=== PATIENT | female | born 1955 | race Caucasian/White ===

== ENCOUNTER 2019-04-23 16:02 | Inpatient (IN) | payer MEDICARE ==
[~2019-04-23] VITALS: Ht 162.6 cm; Wt 49.0 kg
--- NOTE | 2019-04-23 17:21 | PHYS DOC ---
Past History Past Medical History: Anxiety, Arthritis, Depression, Hepatitis, Schizophrenia Alcohol Use: None Adult General Chief Complaint Chief Complaint: MEDICAL CLEARANCE HPI HPI Patient is a 64-year-old female who presents with complaint of medications needing adjusting. Patient is here for medical clearance for senior behavioral unit. She denies any suicidal or homicidal ideations. She denies any chest pain or shortness of breath.[] Review of Systems Review of Systems Constitutional: Denies fever or chills [] Respiratory: Denies cough or shortness of breath [] Cardiovascular: No additional information not addressed in HPI [] Musculoskeletal: Admits to chronic back pain [] Integument: Denies rash or skin lesions [] Neurologic: Denies headache, focal weakness or sensory changes [] All other systems were reviewed and found to be within normal limits, except as documented in this note. Allergies Allergies Allergies Coded Allergies Type Severity Reaction Last Updated Verified No Known Drug Allergies 04/23/19 No Physical Exam Physical Exam Constitutional: Well developed, well nourished, no acute distress, non-toxic appearance. [] HENT: Normocephalic, atraumatic, bilateral external ears normal, oropharynx moist, no oral exudates, nose normal. [] Eyes: PERRLA, EOMI, conjunctiva normal, no discharge. [] Neck: Normal range of motion, no tenderness, supple, no stridor. [] Cardiovascular: Regular rate and rhythm[] Lungs & Thorax: Bilateral breath sounds clear to auscultation [] Abdomen: Bowel sounds normal, soft, no tenderness. [] Skin: Warm, dry, no erythema, no rash. [] Extremities: No tenderness, no cyanosis, no clubbing, ROM intact, no edema. [] Neurologic: Awake and alert, no focal deficits noted. [] Current Patient Data Vital Signs Vital Signs Date Time Temp Pulse Resp B/P (MAP) Pulse Ox O2 Delivery O2 Flow Rate FiO2 04/23/19 16:32 98.3 69 18 134/83 (100) 93 Room Air EKG EKG [] Radiology/Procedures Radiology/Procedures [] Course & Med Decision Making Course & Med Decision Making Pertinent Labs and Imaging studies reviewed. (See chart for details) Patient moved to room upon arrival was evaluated by your medical staff after which blood work was drawn UA obtained. At this time, patient's workup is pending and patient is being signed out to oncoming ER physician, Dr. Ball. Vidal Disclaimer Vidal Disclaimer This electronic medical record was generated, in whole or in part, using a voice recognition dictation system. Departure Departure: Impression: Primary Impression: Behavior disturbance Disposition: ADMITTED INPATIENT Admitting Physician: Other (Dr. Wynn) Condition: STABLE Referrals: PCP,KRISTOPHER (PCP) JL REID Jr. DO Apr 23, 2019 17:21
[2019-04-23 17:48] LABS: BASO % 1 % (0-3); EOS # 0.1 x10^3/uL (0.0-0.7); EOS % 3 % (0-3); HEMOGLOBIN 11.1 g/dL (12.0-15.5); LYMPH # 1.3 x10^3/uL (1.0-4.8); LYMPH % 27 % (24-48); MEAN CORPUSCULAR HEMOGLOBIN 32 pg (25-35); MEAN CORPUSCULAR HGB CONC 34 g/dL (31-37); MEAN CORPUSCULAR VOLUME 95 fL (79-100); MONO # 0.7 x10^3/uL (0.0-1.1); MONO % 15 % (0-9); NEUT # 2.5 x10^3uL (1.8-7.7); NEUT % 54 % (31-73); PLATELET COUNT 414 x10^3/uL (140-400); RED BLOOD COUNT 3.48 x10^6/uL (3.50-5.40); RED CELL DISTRIBUTION WIDTH 13.1 % (11.5-14.5); WHITE BLOOD COUNT 4.6 x10^3/uL (4.0-11.0)
[2019-04-23] MEDS ORDERED: ALBU2.5V8 IH (17:52)
[2019-04-23] MEDS ORDERED: BENZ2TAB5 PO (17:52)
[2019-04-23] MEDS ORDERED: TRAZ-125 PO (17:52)
[2019-04-23] MEDS ORDERED: APIX5TAB3 PO (17:52)
[2019-04-23] MEDS ORDERED: POLY17PO5 PO (17:52)
[2019-04-23] MEDS ORDERED: DOCU-109 PO (17:52)
[2019-04-23] MEDS ORDERED: CHOL200078 PO (17:52)
[2019-04-23] MEDS ORDERED: BUPR300T3 PO (17:52)
[2019-04-23] MEDS ORDERED: LOSA50TA86 PO (17:52)
[2019-04-23] MEDS ORDERED: FLUT9.9S NS (17:52)
[2019-04-23] MEDS ORDERED: OMEP20CA16 PO (17:52)
[2019-04-23] MEDS ORDERED: LEVO50TA PO (17:52)
[2019-04-23] MEDS ORDERED: CARI3CAP PO (17:52)
[2019-04-23] MEDS ORDERED: FLUT100D IH (17:52)
[2019-04-23] MEDS ORDERED: FLUV150C PO (17:52)
[2019-04-23] MEDS ORDERED: PRAZ2CAP2 PO (17:52)
[2019-04-23] MEDS ORDERED: VITA1TAB19 PO (17:52)
[2019-04-23] MEDS ORDERED: PALI234D IM (17:52)
[2019-04-23] MEDS ORDERED: MIRT45TA58 PO (17:52)
[2019-04-23 17:56] LABS: CALCIUM 9.3 mg/dL (8.5-10.1); CREATININE 0.8 mg/dL (0.6-1.0); GFR 71.8; POTASSIUM 4.2 mmol/L (3.5-5.1)
[2019-04-23 18:01] LABS: ALBUMIN 3.1 g/dL (3.4-5.0); ALBUMIN/GLOBULIN RATIO 0.8 (1.0-1.7); TOTAL BILIRUBIN 0.3 mg/dL (0.2-1.0)
[2019-04-23 18:02] LABS: BILIRUBIN,URINE NEG (NEG); CLARITY,URINE CLEAR; COLOR,URINE YELLOW; GLUCOSE,URINE NEG (NEG)
[2019-04-23 18:03] LABS: BACTERIA,URINE MOD /HPF (0-FEW); NITRITE,URINE NEG (NEG); RBC,URINE OCC /HPF (0-2); SQUAMOUS EPITHELIAL CELL,UR FEW /LPF; UROBILINOGEN,URINE 0.2 mg/dL (0.2 mg/dL)
[2019-04-23 18:04] LABS: BARBITURATES NEG (NEG); BENZODIAZEPINES NEG (NEG); CANNABINOIDS NEG (NEG); COCAINE NEG (NEG); METHADONE NEG (NEG); OPIATES NEG (NEG); PHENCYCLIDINE NEG (NEG)
[2019-04-23 18:05] LABS: AMPHETAMINE/METHAMPHETAMINE NEG (NEG)
[2019-04-23 19:15] VITALS: BP 143/71
[2019-04-23] MEDS ORDERED: POLYETHYLENE GLYCOL 3350 17 GM PACKET. PO PRN (21:00)
[2019-04-23] MEDS ORDERED: FLUTICASONE 50MCG/NASAL SPRAY 16GM BOTTLE. NS PRN (21:00)
[2019-04-23] MEDS: CARIPRAZINE HYDROCHLORIDE 3 MG PO SCH (21:00)
[2019-04-23] MEDS ORDERED: ALBUTEROL SULFATE 2.5 MG/3 ML NEBU. IH PRN (21:00)
[2019-04-23] MEDS ORDERED: FLUTICASONE PROPIONATE 100 MCG IH SCH (21:00)
[2019-04-23] MEDS ORDERED: METHYL SALICYLATE/MENTHOL TOPICAL OINTMENT 57GM TUBE. TP PRN (21:30)
[2019-04-23] MEDS: ACETAMINOPHEN 325 MG TABLET PO PRN (21:39)
[2019-04-23] MEDS: PRAZOSIN 1 MG CAPSULE. PO SCH (21:39)
[2019-04-23] MEDS: MIRTAZAPINE 15 MG TABLET PO SCH (21:39)
[2019-04-23] MEDS: APIXABAN 5 MG TABLET. PO SCH (21:39)
[2019-04-23] MEDS: traZODone 100 MG TABLET. PO PRN (21:39)
[2019-04-23] MEDS: BENZTROPINE MESYLATE 1 MG TABLET PO SCH (21:39)
--- NOTE | 2019-04-23 22:01 | PDOC ---
Exam Note: Dion Note: Please also refer to the separate dictated note~for this date of service dictated separately.~Patient seen individually. Discussed the patient with Nursing staff reviewed the chart.~Reviewed interim history and current functioning. Reviewed vital signs,~Labs/ Radiology~and current medications noted below. Continue current treatment with the changes noted in the dictated addendum note Assessment: Vital Signs/I&O: Vital Signs Date Time Temp Pulse Resp B/P (MAP) Pulse Ox O2 Delivery O2 Flow Rate FiO2 04/23/19 21:39 73 152/79 04/23/19 18:25 16 Room Air 04/23/19 17:55 99.0 04/23/19 17:32 98 04/23/19 16:32 98.3 Labs: Laboratory Tests Test 04/23/19 17:15 04/23/19 17:25 04/23/19 17:40 Urine Collection Type Unknown Urine Color Yellow Urine Clarity Clear Urine pH 7.5 Urine Specific [place] 1.015 Urine Protein Neg (NEG-TRACE) Urine Glucose (UA) Neg mg/dL (NEG) Urine Ketones (Stick) Neg mg/dL (NEG) Urine Blood Neg (NEG) Urine Nitrite Neg (NEG) Urine Bilirubin Neg (NEG) Urine Urobilinogen Dipstick 0.2 mg/dL (0.2 mg/dL) Urine Leukocyte Esterase Small (NEG) Urine RBC Occ /HPF (0-2) Urine WBC 5-10 /HPF (0-4) Urine Squamous Epithelial Cells Few /LPF Urine Transitional Epithelial Cells Few /LPF Urine Bacteria Mod /HPF (0-FEW) White Blood Count 4.6 x10^3/uL (4.0-11.0) Red Blood Count 3.48 x10^6/uL (3.50-5.40) L Hemoglobin 11.1 g/dL (12.0-15.5) L Hematocrit 33.0 % (36.0-47.0) L Mean Corpuscular Volume 95 fL (79-100) Mean Corpuscular Hemoglobin 32 pg (25-35) Mean Corpuscular Hemoglobin Concent 34 g/dL (31-37) Red Cell Distribution Width 13.1 % (11.5-14.5) Platelet Count 414 x10^3/uL (140-400) H Neutrophils (%) (Auto) 54 % (31-73) Lymphocytes (%) (Auto) 27 % (24-48) Monocytes (%) (Auto) 15 % (0-9) H Eosinophils (%) (Auto) 3 % (0-3) Basophils (%) (Auto) 1 % (0-3) Neutrophils # (Auto) 2.5 x10^3uL (1.8-7.7) Lymphocytes # (Auto) 1.3 x10^3/uL (1.0-4.8) Monocytes # (Auto) 0.7 x10^3/uL (0.0-1.1) Eosinophils # (Auto) 0.1 x10^3/uL (0.0-0.7) Basophils # (Auto) 0.0 x10^3/uL (0.0-0.2) Sodium Level 137 mmol/L (136-145) Potassium Level 4.2 mmol/L (3.5-5.1) Chloride Level 98 mmol/L (98-107) Carbon Dioxide Level 33 mmol/L (21-32) H Anion Gap 6 (6-14) Blood Urea Nitrogen 16 mg/dL (7-20) Creatinine 0.8 mg/dL (0.6-1.0) Estimated GFR (Cockcroft-Gault) 71.8 BUN/Creatinine Ratio 20 (6-20) Glucose Level 99 mg/dL (70-99) Calcium Level 9.3 mg/dL (8.5-10.1) Total Bilirubin 0.3 mg/dL (0.2-1.0) Aspartate Amino Transferase (AST) 17 U/L (15-37) Alanine Aminotransferase (ALT) 22 U/L (14-59) Alkaline Phosphatase 41 U/L (46-116) L Total Protein 7.0 g/dL (6.4-8.2) Albumin 3.1 g/dL (3.4-5.0) L Albumin/Globulin Ratio 0.8 (1.0-1.7) L Ethyl Alcohol Level < 10 mg/dL (0-10) Urine Opiates Screen Neg (NEG) Urine Methadone Screen Neg (NEG) Urine Barbiturates Neg (NEG) Urine Phencyclidine Screen Neg (NEG) Urine Amphetamine/Methamphetamine Neg (NEG) Urine Benzodiazepines Screen Neg (NEG) Urine Cocaine Screen Neg (NEG) Urine Cannabinoids Screen Neg (NEG) Urine Ethyl Alcohol Neg (NEG) Current Medications: Meds: Current Medications Medications (Trade) Dose Ordered Sig/Angelica Route PRN Reason Start Time Stop Time Status Last Admin Dose Admin Apixaban (Eliquis) 5 mg BID PO 04/23/19 21:30 04/23/19 21:39 Trazodone HCl (Desyrel) 100 mg PRN QHS PRN PO INSOMNIA, MAY REPEAT IN 1HR 04/23/19 21:00 04/23/19 21:39 Benztropine Mesylate (Cogentin) 2 mg BID PO 04/23/19 21:30 04/23/19 21:39 Fluvoxamine Maleate (Luvox) 150 mg HS PO 04/23/19 21:30 04/23/19 21:39 Mirtazapine (Remeron) 45 mg HS PO 04/23/19 21:30 04/23/19 21:39 Prazosin HCl (Minipress) 2 mg HS PO 04/23/19 21:30 04/23/19 21:39 Acetaminophen (Tylenol) 650 mg PRN Q6HRS PRN PO PAIN / TEMP 04/23/19 21:15 04/23/19 21:39 I have reviewed the current psychotropics carefully including drug interactions. Risk benefit ratio favors no change other than as noted in my dictated progress note. Diagnosis: Problems: (1) Anxiety disorder (2) Impulse control disorder (3) Schizophrenia, paranoid, chronic with acute exacerbation (4) Schizoaffective disorder, chronic condition with acute exacerbation LISA CAMACHO MD Apr 23, 2019 22:01
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
--- NOTE | 2019-04-24 00:51 | EKG ---
[address] [address] Test Date: 2019-04-23 Test Time: 16:53:28 Pat Name: GURMEET ARRIAZA Department: Room: [address] [place] [address] Gender: F Furniture Assembler: : 1955 Requested By: JL REID Order Number: [id number] Reading MD: John Sagastume Measurements Intervals [place] Rate: 70 P: 74 NH: 162 QRS: 43 QRSD: 84 T: 66 QT: 374 QTc: 407 Interpretive Statements SINUS RHYTHM QRS(T) CONTOUR ABNORMALITY CONSIDER ANTEROSEPTAL MYOCARDIAL DAMAGE Electronically Signed On 05-26-2019 14:59:49 CDT by John Sagastume
[2019-04-24] MEDS: LEVOTHYROXINE 50 MCG TABLET PO SCH (05:35)
[2019-04-24] MEDS: ACETAMINOPHEN 325 MG TABLET PO PRN (05:35)
[2019-04-24 06:28] VITALS: BP 124/66
[2019-04-24 07:41] LABS: BASO % 1 % (0-3); EOS # 0.2 x10^3/uL (0.0-0.7); EOS % 4 % (0-3); HEMATOCRIT 35.5 % (36.0-47.0); HEMOGLOBIN 11.5 g/dL (12.0-15.5); LYMPH % 22 % (24-48); MEAN CORPUSCULAR HEMOGLOBIN 31 pg (25-35); MEAN CORPUSCULAR HGB CONC 33 g/dL (31-37); MEAN CORPUSCULAR VOLUME 95 fL (79-100); MONO # 0.7 x10^3/uL (0.0-1.1); MONO % 14 % (0-9); NEUT # 2.8 x10^3uL (1.8-7.7); NEUT % 59 % (31-73); PLATELET COUNT 442 x10^3/uL (140-400); RED BLOOD COUNT 3.72 x10^6/uL (3.50-5.40); WHITE BLOOD COUNT 4.7 x10^3/uL (4.0-11.0)
[2019-04-24 07:46] LABS: ALBUMIN 3.3 g/dL (3.4-5.0); ALBUMIN/GLOBULIN RATIO 0.8 (1.0-1.7); CALCIUM 9.2 mg/dL (8.5-10.1); CREATININE 0.8 mg/dL (0.6-1.0); GFR 71.8; MAGNESIUM 1.7 mg/dL (1.8-2.4); TOTAL BILIRUBIN 0.3 mg/dL (0.2-1.0); TOTAL PROTEIN 7.5 g/dL (6.4-8.2)
[2019-04-24] MEDS: CHOLECALCIFEROL (VITAMIN D3) 1,000 UNIT TABLET PO SCH (08:39)
[2019-04-24] MEDS: LOSARTAN 50 MG TABLET. PO SCH (08:40)
[2019-04-24] MEDS: BENZTROPINE MESYLATE 1 MG TABLET PO SCH ×2 (08:40→21:06)
[2019-04-24] MEDS: APIXABAN 5 MG TABLET. PO SCH ×2 (08:41→21:07)
[2019-04-24] MEDS: PANTOPRAZOLE 40 MG TABLET. PO SCH (08:41)
[2019-04-24] MEDS: DOCUSATE SODIUM 100 MG CAPSULE PO SCH (08:41)
[2019-04-24] MEDS: buPROPion XL 300 MG TAB.ER.24H. PO SCH (08:41)
[2019-04-24] MEDS: VITAMIN B COMPLEX CAPSULE. PO SCH (08:44)
[2019-04-24] MEDS: BUDESONIDE 0.5 MG/2 ML NEBU NEB SCH ×2 (10:11→21:27)
[2019-04-24 10:37] LABS: THYROID STIM HORMONE (TSH) 2.088 uIU/mL (0.358-3.740)
[2019-04-24 14:07] LABS: THYROXINE 8.8 ug/dL (4.5-12.0)
[2019-04-24 15:58] VITALS: BP 137/73
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
[2019-04-24] MEDS: HYDROcodone/APAP 5/325MG 1 TAB TABLET PO PRN (17:48)
[2019-04-24] MEDS: CARIPRAZINE HYDROCHLORIDE 3 MG PO SCH (21:00)
[2019-04-24] MEDS: MIRTAZAPINE 15 MG TABLET PO SCH (21:07)
[2019-04-24] MEDS: PRAZOSIN 1 MG CAPSULE. PO SCH (21:08)
--- NOTE | 2019-04-24 21:40 | PDOC ---
Exam Note: Dion Note: Please also refer to the separate dictated note~for this date of service dictated separately.~Patient seen individually. Discussed the patient with Nursing staff reviewed the chart.~Reviewed interim history and current functioning. Reviewed vital signs,~Labs/ Radiology~and current medications noted below. Continue current treatment with the changes noted in the dictated addendum note Assessment: Vital Signs/I&O: Vital Signs Date Time Temp Pulse Resp B/P (MAP) Pulse Ox O2 Delivery O2 Flow Rate FiO2 04/24/19 21:08 84 137/73 04/24/19 20:30 97 Room Air 04/24/19 18:59 14 04/24/19 15:58 97.0 04/23/19 17:55 99.0 I & O 04/23/19 04/23/19 04/24/19 15:00 23:00 07:00 Intake Total 360 ml Balance 360 ml Labs: Laboratory Tests Test 04/24/19 07:16 White Blood Count 4.7 x10^3/uL (4.0-11.0) Red Blood Count 3.72 x10^6/uL (3.50-5.40) Hemoglobin 11.5 g/dL (12.0-15.5) L Hematocrit 35.5 % (36.0-47.0) L Mean Corpuscular Volume 95 fL (79-100) Mean Corpuscular Hemoglobin 31 pg (25-35) Mean Corpuscular Hemoglobin Concent 33 g/dL (31-37) Red Cell Distribution Width 13.0 % (11.5-14.5) Platelet Count 442 x10^3/uL (140-400) H Neutrophils (%) (Auto) 59 % (31-73) Lymphocytes (%) (Auto) 22 % (24-48) L Monocytes (%) (Auto) 14 % (0-9) H Eosinophils (%) (Auto) 4 % (0-3) H Basophils (%) (Auto) 1 % (0-3) Neutrophils # (Auto) 2.8 x10^3uL (1.8-7.7) Lymphocytes # (Auto) 1.0 x10^3/uL (1.0-4.8) Monocytes # (Auto) 0.7 x10^3/uL (0.0-1.1) Eosinophils # (Auto) 0.2 x10^3/uL (0.0-0.7) Basophils # (Auto) 0.0 x10^3/uL (0.0-0.2) Sodium Level 140 mmol/L (136-145) Potassium Level 4.0 mmol/L (3.5-5.1) Chloride Level 100 mmol/L (98-107) Carbon Dioxide Level 33 mmol/L (21-32) H Anion Gap 7 (6-14) Blood Urea Nitrogen 13 mg/dL (7-20) Creatinine 0.8 mg/dL (0.6-1.0) Estimated GFR (Cockcroft-Gault) 71.8 BUN/Creatinine Ratio 16 (6-20) Glucose Level 98 mg/dL (70-99) Calcium Level 9.2 mg/dL (8.5-10.1) Magnesium Level 1.7 mg/dL (1.8-2.4) L Iron Level 45 ug/dL (50-170) L Total Iron Binding Capacity 182 ug/dL (250-450) L Iron Saturation 25 % (15-34) Total Bilirubin 0.3 mg/dL (0.2-1.0) Aspartate Amino Transferase (AST) 17 U/L (15-37) Alanine Aminotransferase (ALT) 21 U/L (14-59) Alkaline Phosphatase 46 U/L (46-116) Total Protein 7.5 g/dL (6.4-8.2) Albumin 3.3 g/dL (3.4-5.0) L Albumin/Globulin Ratio 0.8 (1.0-1.7) L Triglycerides Level 66 mg/dL (0-150) Cholesterol Level 180 mg/dL (0-200) LDL Cholesterol, Calculated 103 mg/dL (0-100) H VLDL Cholesterol, Calculated 13 mg/dL (0-40) Non-HDL Cholesterol Calculated 116 mg/dL (0-129) HDL Cholesterol 64 mg/dL (40-60) H Cholesterol/HDL Ratio 2.0 Thyroid Stimulating Hormone (TSH) 2.088 uIU/mL (0.358-3.740) Thyroxine (T4) 8.8 ug/dL (4.5-12.0) Total Triiodothyronine (TT3) 88 ng/dL (71-180) Current Medications: Meds: Current Medications Medications (Trade) Dose Ordered Sig/Angelica Route PRN Reason Start Time Stop Time Status Last Admin Dose Admin Bupropion HCl (Wellbutrin Xl) 300 mg DAILY PO 04/24/19 09:00 04/24/19 08:41 Docusate Sodium (Colace) 100 mg DAILY PO 04/24/19 09:00 04/24/19 08:41 Levothyroxine Sodium (Synthroid) 50 mcg DAILY06 PO 04/24/19 06:00 04/24/19 05:35 Losartan Potassium (Cozaar) 50 mg DAILY PO 04/24/19 09:00 04/24/19 08:40 Vitamin D (Vitamin D3) 1,000 unit DAILY PO 04/24/19 09:00 04/24/19 08:39 Pantoprazole Sodium (Protonix) 40 mg DAILYAC PO 04/24/19 07:30 04/24/19 08:41 Vitamin B Complex 1 cap DAILY PO 04/24/19 09:00 04/24/19 08:44 Budesonide (Pulmicort) 0.5 mg RTBID NEB 04/24/19 08:00 04/24/19 21:27 Acetaminophen/ Hydrocodone Bitart (Lortab 5/325) 1 tab PRN Q6HRS PRN PO PAIN 04/24/19 14:45 04/24/19 17:48 I have reviewed the current psychotropics carefully including drug interactions. Risk benefit ratio favors no change other than as noted in my dictated progress note. Diagnosis: Problems: (1) Anxiety disorder (2) Impulse control disorder (3) Schizophrenia, paranoid, chronic with acute exacerbation (4) Schizoaffective disorder, chronic condition with acute exacerbation LISA CAMACHO MD Apr 24, 2019 21:40
--- NOTE | 2019-04-24 22:48 | CONS ---
DATE OF CONSULTATION: 04/24/2019 REASON FOR CONSULTATION: Medical management. HISTORY OF PRESENT ILLNESS: This is a 64-year-old female patient, a resident at [facility], who was admitted for feigning muteness, disoriented, paranoid, refusing meals, all this in a background of schizophrenia with acute exacerbation. PAST MEDICAL HISTORY: Significant for multiple medical problems. She is known to have pulmonary embolism, hypothyroidism, chronic hepatitis C, generalized osteoarthritis, osteoporosis, gastroesophageal reflux disease, recurrent falls and constipation. PAST PSYCHIATRIC HISTORY: Significant for generalized anxiety disorder and schizophrenia. PAST SURGICAL HISTORY: Significant for tubal ligation, pilonidal cyst surgery. FAMILY HISTORY: Noncontributory. SOCIAL HISTORY: She is a resident at [facility]. She does not smoke, drink alcohol or use any recreational drugs. REVIEW OF SYSTEMS: As per history of present illness. ALLERGIES: She is allergic to MORPHINE and BACTRIM. MEDICATIONS: She is currently on Ventolin inhaler 1 puff every 4 hours, apixaban 5 mg twice a day, prazosin 2 mg at bedtime, losartan potassium 50 mg daily, Wellbutrin-XL 300 mg daily, fluvoxamine maleate 150 mg at bedtime, mirtazapine 45 mg daily, trazodone 100 mg at bedtime, Vraylar 3 mg at bedtime, paliperidone palmitate 234 mg in 1.5 mL intramuscular every 3 weeks. She is on benztropine mesylate 2 mg twice a day, fluticasone propionate for Flovent 100 mcg inhaler twice a day. She is on Flonase 2 sprays to each nostril once a day, Colace 100 mg daily, polyethylene glycol 17 grams daily, omeprazole 20 mg once a day, levothyroxine sodium 50 mcg once a day, vitamin B complex 1 tablet once a day, cholecalciferol for vitamin D3 2000 International Units once a day. PHYSICAL EXAMINATION: GENERAL: On examining her, the patient looked well and was clearly in no apparent respiratory distress. She was somewhat cachectic, pale. Not jaundiced, cyanosed or thyromegaly. No jugular venous distention or limb edema. VITAL SIGNS: Her heart rate was 84, blood pressure was 124/66, temperature was 96.5, respiratory rate was 16, and oxygen saturation was 96%. HEAD, EYES, EARS, NOSE AND THROAT: Showed normocephalic, atraumatic. NECK: Supple. HEART: Showed normal first and second heart sounds. No gallop or murmur. CHEST: Shows central trachea, equal bilateral chest expansion, air entry. She does have mild scoliosis. Air entry is equal on both sides, vesicular breath sounds. No crepitation or rhonchi. ABDOMEN: Scaphoid, soft, nontender. NEUROLOGIC: She is awake, alert, responding appropriately. All cranial nerves intact. EXTREMITIES: She moves extremities without difficulty. She ambulates with a walker. LABORATORY DATA: Showed a white cell count 4700, hemoglobin 11, hematocrit 35, MCV 95, and platelet count 442,000. Her chemistry showed a serum sodium 140, potassium 4, chloride 100, bicarbonate 33, anion gap of 7, BUN 13, creatinine 0.8, estimated GFR was 72 mL per minute. Her glucose was 98, calcium was 9.2, magnesium was 1.7. Serum iron, TIBC, and serum ferritin saturation were all consistent with anemia of chronic disease. Her total bilirubin, AST, ALT, alkaline phosphatase were normal. Total protein 7.5, albumin 3.3. Serum triglycerides were 66, total cholesterol 180, LDL cholesterol 103, VLDL was 13, HDL cholesterol was 64, the ratio was 2. Her TSH and total T4 and total T3 are all within normal range. Her urinalysis essentially unremarkable. Toxic screen was negative. IMPRESSION: In summary, this is a 64-year-old female patient who was admitted because she pretend that she is mute, disoriented, paranoid, refusing meals, all this in a background of schizophrenia, chronic with acute exacerbation. Medically, she has multiple medical problems including hypothyroidism, pulmonary embolism, chronic hepatitis C, osteoarthritis, falls, constipation. The patient is basically medically stable. Her vital signs are all within acceptable range as well as all her lab work. PLAN: My plan is to follow with her lab works still pending at this dictation and make any necessary recommendation. Thank you, Dr. Wynn for allowing me to participate. IMELDA LEE MD DR: LILIYA/emily JOB#: [id number] / [id number]
--- NOTE | 2019-04-25 00:01 | HP ---
ADMIT DATE: 04/23/2019 ADMISSION HISTORY AND EVALUATION. This late entry of 04/23/2019 covers the elements not covered in my initial note. SUBJECTIVE: I met with the patient in the evening of 04/23/2019. Previously discussed with nursing staff earlier in the day after we received a referral on this 64-year-old female from the [facility] in [place] on account of marked paranoia, intermittent hallucinations, refusing meals and medications, disruptive at the facility, unmanageable and has failed outpatient psychiatric interventions. At times, she has been feigning muteness. CHIEF COMPLAINT: "I just came here to get my blood tests done." HISTORY OF PRESENT ILLNESS: The patient has a long history of schizophrenia, chronic paranoid type. She has been residing at the [facility] managed by the [facility] and done reasonably well. She has been obsessive, anxious, but recently, she has appeared more paranoid, restless, disorganized, disruptive on the unit. Adjustments in her psychotropics have failed, resulting in this referral. She does have a history of mood swings, raising the possibility of schizoaffective disorder, bipolar type, mixed with psychotic features. PAST PSYCHIATRIC HISTORY: As above. MEDICAL HISTORY: History of pulmonary embolism, hypothyroidism, history of hepatitis C, osteoarthritis, GERD. DIET: Regular. AMBULATES: ADL/walker. CODE STATUS: Full code. ALLERGIES: MORPHINE, BACTRIM. CURRENT PSYCHOTROPICS: Luvox 150 mg at bedtime, Invega Sustenna 234 mg IM every 3 weeks, Minipress 2 mg at bedtime, Remeron 45 mg at bedtime, Wellbutrin XL 300 mg a day, Cogentin 2 mg b.i.d., trazodone 100 mg at bedtime p.r.n., Vraylar 3 mg at bedtime. FAMILY HISTORY: Not contributory. SOCIAL HISTORY: No history of alcohol, drug abuse, physical, sexual or elder abuse. She is not known to be a perpetrator. We will gather further relevant social history, abuse history, substance abuse history as the hospitalization progresses. ASSETS: Supportive living at the facility. REACTION TO HOSPITALIZATION: The patient accepting of it. She is being admitted by her legally-appointed guardian. MENTAL STATUS EXAMINATION: I met with the patient evening of 04/23/2019. She is oriented to herself, situation, knew she came in earlier in the day, but felt she was here to get her nonpsychiatric medications and blood work done. She is somewhat paranoid, anxious with mood lability. Speech is coherent, abstraction fair, computation impaired, language function intact, attention span short. Mood and affect somewhat anxious, labile. LABORATORY DATA: Reviewed. No active suicidal or homicidal ideation. IMPRESSION: Schizoaffective disorder, bipolar type, mixed with psychotic features versus schizophrenia, chronic paranoid type with acute exacerbation; anxiety disorder, unspecified; impulse control disorder, unspecified. Rest as above. PLAN: Admit to Geropsychiatry Unit at [facility]. I will see the patient daily individually from a Psychiatric standpoint. Medical followup per Dr. Resendez. Continue the patient on her current psychotropics. She is on 2 atypical antipsychotics. We will consider consolidating this. Consider Clozaril as an option. Given her hepatitis C status, we are unable to use Depakote as a mood stabilizer. Tegretol would have limited efficacy. We may consider initiating lithium after we were able to confirm whether she has been on lithium in the past and if so, how she responded to it. I will see her daily individually. ESTIMATED LENGTH OF STAY: 10-12 days. DISPOSITION: Plans back to the [facility] arrangements when she is stable to outpatient treatment at that time. LISA CAMACHO MD DR: HEMANTH/emily JOB#: [id number] / [id number]
--- NOTE | 2019-04-25 00:29 | NUR ---
Pt located in dayroom this evening sitting calmly. Pt pleasant and interactive. Compliant with whole medications once being shown the medications in the package. Pt states that she is continuously anxious and that it will never go away. No delusions or paranoia noted this evening.
[2019-04-25] MEDS: HYDROcodone/APAP 5/325MG 1 TAB TABLET PO PRN ×3 (01:03→23:48)
[2019-04-25] MEDS: traZODone 100 MG TABLET. PO PRN ×2 (01:03→23:50)
--- NOTE | 2019-04-25 01:07 | NUR ---
Pt awake stating that she can't sleep and is too anxious and in pain. PRN Lortab and Trazodone administered.
[2019-04-25 04:07] LABS: HEMOGLOBIN A1C 5.5 % (4.8-5.6)
[2019-04-25 05:43] VITALS: BP 122/71
[2019-04-25] MEDS: LEVOTHYROXINE 50 MCG TABLET PO SCH (05:47)
[2019-04-25] MEDS: DOCUSATE SODIUM 100 MG CAPSULE PO SCH (08:26)
[2019-04-25] MEDS: BENZTROPINE MESYLATE 1 MG TABLET PO SCH ×2 (08:26→21:01)
[2019-04-25] MEDS: CHOLECALCIFEROL (VITAMIN D3) 1,000 UNIT TABLET PO SCH (08:26)
[2019-04-25] MEDS: buPROPion XL 300 MG TAB.ER.24H. PO SCH (08:26)
[2019-04-25] MEDS: LOSARTAN 50 MG TABLET. PO SCH (08:26)
[2019-04-25] MEDS: APIXABAN 5 MG TABLET. PO SCH ×2 (08:26→21:01)
[2019-04-25] MEDS: PANTOPRAZOLE 40 MG TABLET. PO SCH (08:26)
[2019-04-25] MEDS: VITAMIN B COMPLEX CAPSULE. PO SCH (08:26)
--- NOTE | 2019-04-25 10:24 | NUR ---
NURSING NOTES: THIS NURSE SPOKE TO PATIENT'S PSYCH SOCIAL WORKER AT [facility]. PSYCH SOCIAL WORKER (AILEEN) CALLED FOR UPDATE ON PATIENT AND TO ENSURE NURSING STAFF WAS AWARE OF INVEGA INJECTION DUE TOMORROW (04/26/19). THIS NURSE REASSURED PSYCH SOCIAL WORKER OF PATIENT PROGRESS NOTED THUS FAR THIS SHIFT. AILEEN (PSYCH SOCIAL WORKER) PHONE NUMBER: [phone]. [phone] STATES TO PLEASE CALL WITH ANY CONCERNS.
[2019-04-25] MEDS: BUDESONIDE 0.5 MG/2 ML NEBU NEB SCH (10:40)
--- NOTE | 2019-04-25 14:51 | NUR ---
NURSING NOTE: PATIENT IN DINING ROOM AT TIME OF AM ASSESSMENT. PATIENT ALERT AND ORIENTED X4, SPEECH CLEAR, ABLE TO MAKE NEEDS KNOWN. LCTA. PATIENT ON ROOM AIR. NO COUGH NOTED. BS ACTIVE X4 QUADRANTS. LAST BM: 04/22 PER PATIENT. PATIENT C/O PAIN AT TIME OF AM ASSESSMENT, PRN LORTAB GIVEN, WITH NOTED RELIEF. MEDICATIONS GIVEN WHOLE, TOLERATED WELL. PATIENT DID VERBALIZE WITH STAFF AND OTHER PATIENTS THIS AM, BUT DID REFUSE TO SPEAK AT [facility]. PATIENT HAS BEEN CALM AND COOPERATIVE WITH STAFF. MEDICATION COMPLIANT. NO CONCERNS NOTED, WILL CONTINUE TO MONITOR.
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
[2019-04-25 16:00] VITALS: BP 144/85
--- NOTE | 2019-04-25 16:59 | NUR ---
NURSING NOTES: THIS NURSE SPOKE TO DR. CAMACHO TODAY ABOUT PATIENT'S BEHAVIORS AND AMOUNT OF SLEEP RECEIVED AT NIGHT. NEW ORDER RECEIVED TO DECREASE REMERON TO 15MG AND START MELATONIN 6MG HS. NO FURTHER CONCERNS AT THIS TIME, WILL CONTINUE TO MONITOR.
--- NOTE | 2019-04-25 18:23 | TX PLAN ---
Interdisciplinary Tx Plan Admission Information Apr 23, 2019 at 19:24 Legal Status (on Admission): Voluntary DPOA/Guardian Name: Chris Givens Contact Other Contact Name: Danyell Huang Other Contact Verified Code Status: DNR Allergies: Coded Allergies: morphine (Verified Allergy, Unknown, 04/23/19) sulfamethoxazole (Verified Allergy, Unknown, 04/23/19) trimethoprim (Verified Allergy, Unknown, 04/23/19) Diagnoses Primary Diagnosis: Schizophrenia chronic with acute exacerbation Reasons for Admission: Other Problem in Patient's Words: Pt has always had psychiatric trouble but appears to have cyclic behaviors. Additional Admission Comments: According to the intake, pt is feining muteness, blank stares and disoriented. Problems Active Problems: Muteness Disorientation Inactive Problems: Medication compliance Pt Strengths/Limitations Ability for [place]: Poor Cognitive Functioning/Ability: Poor Communication Skills/Ability: Poor Financial Resources: Fair Insight/Judgement: Poor Intellectual Ability: Fair Physical Health: Fair Social Skills: Fair Stability in Family: Good Stability in School/Work: Poor Verbal Skills: Poor Other strengths/limitations: When pt is stable, she can be very functional Discharge Criteria Discharge Criteria: No need for close observ., Adequate arrangements @DC, Improved behavior, Improved mood/thought Preliminary Discharge Plan Preliminary DC Plan: Current Living Arrange. Special Precautions Fall Risk: Moderate Initial D/C Plan Pt will plan to return to her residential center through [facility] Identified Discharge Needs: Continued evaluation for psychiatric services. Currently Utilized Resources Currently Utilized Resources/P: Pt has services through [facility] (PCP, Psychiatrist, Case management) Identified Problems/Hx/Goals Objectives/Short-Term Goals Short Term Goals: Improved Social Skills, Medication Stabilization, Promote Coping Skill Interventions/Frequency Staff Interventions/Frequency&: Psychiatrist to assess pt at least 3x per week. Rental Management Trainee to assess pt at least 2x per week. Nursing to complete 15 minute checks daily. Encourage group participation. History Vocational History: Pt brother reports that pt had a brief job in the 80's; however, she volunteered at jobs since being at [facility] Education: Pt did graduate high school (12th grade) and has received a Bachelor's degree from [employer]; however, pt brother was not able to specify what area. Community Follow-up Community Provider/Family Inpu: She always has been this way. She just needs her medication adjusted and hopefully figure out why she has decided to go "mute". Treatment Plan Explained Patient/Vacuum Evaporation Operator had this treatment plan explained to him/her as indicated by the signature below and has been given the opportunity to ask questions and make suggestions: Date: Patient/Vacuum Evaporation Operator Signature: Patient/Vacuum Evaporation Operator Decline: No (Pt brother to participate in all aspects of care.) NIDHI TOWNSEND Apr 25, 2019 18:23
[2019-04-25] MEDS: LITHIUM CARBONATE 300 MG TABLET PO SCH (21:00)
[2019-04-25] MEDS: CARIPRAZINE HYDROCHLORIDE 3 MG PO SCH (21:00)
[2019-04-25] MEDS: PRAZOSIN 1 MG CAPSULE. PO SCH (21:01)
[2019-04-25] MEDS: MELATONIN 3 MG TABLET PO SCH (21:01)
[2019-04-25] MEDS: MIRTAZAPINE 15 MG TABLET PO SCH (21:02)
--- NOTE | 2019-04-25 21:22 | PDOC ---
Exam Note: Dion Note: Please also refer to the separate dictated note~for this date of service dictated separately.~Patient seen individually. Discussed the patient with Nursing staff reviewed the chart.~Reviewed interim history and current functioning. Reviewed vital signs,~Labs/ Radiology~and current medications noted below. Continue current treatment with the changes noted in the dictated addendum note Assessment: Vital Signs/I&O: Vital Signs Date Time Temp Pulse Resp B/P (MAP) Pulse Ox O2 Delivery O2 Flow Rate FiO2 04/25/19 21:01 81 144/85 04/25/19 16:00 97.4 20 96 04/25/19 10:41 Room Air 04/23/19 17:55 99.0 I & O 04/24/19 04/24/19 04/25/19 15:00 23:00 07:00 Intake Total 480 ml 480 ml 240 ml Balance 480 ml 480 ml 240 ml Current Medications: Meds: Current Medications Medications (Trade) Dose Ordered Sig/Angelica Route PRN Reason Start Time Stop Time Status Last Admin Dose Admin [place] Carbonate 300 mg QHS PO 04/25/19 21:00 04/25/19 21:00 Mirtazapine (Remeron) 15 mg HS PO 04/25/19 21:00 04/25/19 21:02 Melatonin (Melatonin) 6 mg HS PO 04/25/19 21:00 04/25/19 21:01 I have reviewed the current psychotropics carefully including drug interactions. Risk benefit ratio favors no change other than as noted in my dictated progress note. Diagnosis: Problems: (1) Anxiety disorder (2) Impulse control disorder (3) Schizophrenia, paranoid, chronic with acute exacerbation (4) Schizoaffective disorder, chronic condition with acute exacerbation (5) Bipolar affective, mixed, sev w/ psych LISA CAMACHO MD Apr 25, 2019 21:22
--- NOTE | 2019-04-25 23:53 | NUR ---
Pt located in the dayroom this evening sitting quietly. When approached, pt refused to speak; only shaking her head yes or no. Compliant with HS medications. At 2350, pt came to her doorway motioning for someone to come to her. Pt continued to refuse to speak. This nurse was able to decipher that pt wanted a pain med and a sleeping pill. When asked what pt rated her pain, pt verbally stated "15." This nurse then asked pt another question and pt refused to speak again. PRN Lortab and Trazodone administered.
--- NOTE | 2019-04-26 00:01 | PN ---
DATE: 04/24/2019 PSYCHIATRIC PROGRESS NOTE This late entry 04/24/2019 covers elements not covered in my initial note. SUBJECTIVE: I met with the patient evening of 04/24/2019. Per FRANKIE Escobar, patient slept 7 hours previous night. She is alert, oriented, somewhat delusional, paranoid with ongoing mood lability. I have reviewed her past records and the patient states she has been on lithium in the past was discontinued due to tremors. We are unable to use Depakote as a mood stabilizer due to hepatitis C and Tegretol is likely to be minimally effective. She remains on Invega. Vraylar is not available at facility and we stopped it. REVIEW OF SYSTEMS: No CV, , pulmonary, eye, ENT system symptoms on review. MENTAL STATUS EXAM: Oriented to herself and situation. Speech has some latency, coherent. Abstraction fair, computation impaired, language function intact, attention span short. Mood and affect remains labile, somewhat grandiose at times, paranoid. LABORATORY DATA: Reviewed. IMPRESSION: Schizoaffective disorder, bipolar type, mixed with psychotic features. Rest unchanged. PLAN: Start lithium carbonate 300 mg p.o. at bedtime. Check CBC, CMP, valproic acid level in 3 days. Continue Invega, may reduce the fluvoxamine, may also reduce Remeron since it could be worsening her bipolar symptoms. Rest unchanged for now. MAN Mamta CAMACHO MD DR: HEMANTH/emily JOB#: [id number] / [id number]
[2019-04-26] MEDS: BUDESONIDE 0.5 MG/2 ML NEBU NEB SCH ×3 (00:47→21:15)
[2019-04-26] MEDS: LEVOTHYROXINE 50 MCG TABLET PO SCH (05:49)
[2019-04-26 05:52] VITALS: BP 154/75
[2019-04-26] MEDS: PANTOPRAZOLE 40 MG TABLET. PO SCH (09:39)
[2019-04-26] MEDS: DOCUSATE SODIUM 100 MG CAPSULE PO SCH (09:40)
[2019-04-26] MEDS: CHOLECALCIFEROL (VITAMIN D3) 1,000 UNIT TABLET PO SCH (09:40)
[2019-04-26] MEDS: BENZTROPINE MESYLATE 1 MG TABLET PO SCH ×2 (09:40→21:00)
[2019-04-26] MEDS: VITAMIN B COMPLEX CAPSULE. PO SCH (09:40)
[2019-04-26] MEDS: buPROPion XL 300 MG TAB.ER.24H. PO SCH (09:40)
[2019-04-26] MEDS: APIXABAN 5 MG TABLET. PO SCH ×2 (09:40→21:00)
[2019-04-26] MEDS: LOSARTAN 50 MG TABLET. PO SCH (09:40)
[2019-04-26] MEDS: PALIPERIDONE PALMITATE 234 MG/1.5 ML SYRINGE KIT. IM SCH (09:46)
--- NOTE | 2019-04-26 09:52 | NUR ---
Invega injection given in left deltoid. Patient tolerated injection well. Addendum: 04/28/19 at 1139 by MATT PETERSON RN Next Invega injection will be due 05/17/2019.
[2019-04-26] MEDS: HYDROcodone/APAP 5/325MG 1 TAB TABLET PO PRN (10:10)
--- NOTE | 2019-04-26 10:11 | NUR ---
Patient rubbing her back and grimacing. PRN hydrocodone provided for pain per order. Will continue to monitor.
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
[2019-04-26 16:23] VITALS: BP 113/71
--- NOTE | 2019-04-26 16:40 | NUR ---
ACTIVITY THERAPY ASSESSMENT Completed based on observation, attempted interview, and notes from Nursing and Social Work. Pt. was in the day room, appeared anxious and at this time, was not using her voice. She stood with a blanket around her shoulder and was staring at DICE MANAGER. DICE MANAGER invited Pt. to sit; however, she didn't respond and remained standing. Pt. motioned to the hallway and appeared frustrated with staff who were not allowing her out of the room. DICE MANAGER offered a pen and paper and asked Pt. to write down her desire. Pt. wrote "sleep." DICE MANAGER explained the schedule and the fact dinner was only 15 minutes away. Pt. wrote "we had dinner." DICE MANAGER asked why she wasn't talking and Pt. wrote "I don't remember." When asked if her throat was sore, she nodded yes. Pt. was unable to answer any more assessment questions. Pt. cycles through these period of silence but at other times can be fully engaged, talkative and pleasant. Pt. plays piano, knits/crochets, and when able to, she audits classes at [employer] [facility] [employer]. Initial goal aimed to increase socialization and engagement: Pt. will participate in at least five Activity Therapy groups per week.
--- NOTE | 2019-04-26 16:56 | NUR ---
Patient continues to act as if she cannot speak or talk. That is one of the reasons that patient has been admitted. Dr. Wynn has been made aware of these behaviors.
--- NOTE | 2019-04-26 19:42 | PN ---
DATE: 04/25/2019 PSYCHIATRIC PROGRESS NOTE This late entry 04/25/2019 covers elements not covered in my initial note. SUBJECTIVE: I met with the patient in the evening. Per FRANKIE Beck, the patient slept 4-1/2 hours previous night. She has been refusing to talk, appearing to be somewhat mute, which is one of the symptoms she had prior to admission. She has been anxious, slept 4-1/2 hours previous night. She is unable to respond to review of system symptoms, but does ambulate with a walker. No specific CV, , GI, or pulmonary, eye system symptoms on review. MENTAL STATUS EXAM: Oriented to herself and situation. Speech is as noted above. Abstraction fair, computation impaired, language function intact, attention span short. Mood and affect withdrawn. She was wanting me to write on a piece of paper to communicate with her. LABORATORY DATA: Reviewed. IMPRESSION: Schizophrenia, chronic paranoid type with acute exacerbation, schizoaffective disorder, bipolar type, mixed with psychotic features. PLAN: The patient has been started on lithium carbonate 300 mg p.o. at bedtime. Check CBC, CMP, valproic acid level in 3 days. PLAN: Reduce the Remeron from 45 mg at bedtime down to 15 mg at bedtime as the lower dosage should help her insomnia better than the higher dosage. We will also add melatonin 6 mg at bedtime for insomnia. Continue rest of psychotropics unchanged including Luvox 150 mg at bedtime, but we may need to reduce this in due course. Continue Invega IM, Minipress 2 mg at bedtime, Wellbutrin 300 mg a day, Cogentin 2 mg b.i.d., trazodone at bedtime p.r.n. MAN Mamta CAMACHO MD DR: HEMANTH/emily JOB#: [id number] / [id number]
[2019-04-26] MEDS: PRAZOSIN 1 MG CAPSULE. PO SCH (20:59)
[2019-04-26] MEDS: MIRTAZAPINE 15 MG TABLET PO SCH (21:00)
[2019-04-26] MEDS: MELATONIN 3 MG TABLET PO SCH (21:00)
[2019-04-26] MEDS: LITHIUM CARBONATE 300 MG TABLET PO SCH (21:01)
[2019-04-26] MEDS: MAGNESIUM OXIDE 400 MG TABLET PO SCH (21:01)
--- NOTE | 2019-04-26 21:18 | PDOC ---
Exam Note: Dion Note: Please also refer to the separate dictated note~for this date of service dictated separately.~Patient seen individually. Discussed the patient with Nursing staff reviewed the chart.~Reviewed interim history and current functioning. Reviewed vital signs,~Labs/ Radiology~and current medications noted below. Continue current treatment with the changes noted in the dictated addendum note Assessment: Vital Signs/I&O: Vital Signs Date Time Temp Pulse Resp B/P (MAP) Pulse Ox O2 Delivery O2 Flow Rate FiO2 04/26/19 21:17 96 Room Air 04/26/19 20:59 74 113/71 04/26/19 16:23 97.4 16 04/23/19 17:55 99.0 I & O 04/25/19 04/25/19 04/26/19 15:00 23:00 07:00 Intake Total 840 ml 360 ml 120 ml Balance 840 ml 360 ml 120 ml Current Medications: Meds: Current Medications Medications (Trade) Dose Ordered Sig/Angelica Route PRN Reason Start Time Stop Time Status Last Admin Dose Admin Paliperidone Palmitate (Invega Sustenna) 234 mg [id number] IM 04/26/19 09:00 04/26/19 09:46 Magnesium Oxide (Magnesium Oxide) 400 mg BID PO 04/26/19 21:00 04/26/19 21:01 I have reviewed the current psychotropics carefully including drug interactions. Risk benefit ratio favors no change other than as noted in my dictated progress note. Diagnosis: Problems: (1) Bipolar affective, mixed, sev w/ psych (2) Anxiety disorder (3) Impulse control disorder (4) Schizophrenia, paranoid, chronic with acute exacerbation (5) Schizoaffective disorder, chronic condition with acute exacerbation LISA CAMACHO MD Apr 26, 2019 21:18
--- NOTE | 2019-04-27 00:48 | NUR ---
Nursing Note Pt gives one word answers to questions and mostly shakes her head yes and no to questions. Asks if it is day or night in response to her night meds. She thought it was morning. Compliant but withdrawn and isolative.
[2019-04-27 05:40] VITALS: BP 135/79
[2019-04-27] MEDS: LEVOTHYROXINE 50 MCG TABLET PO SCH (07:21)
[2019-04-27] MEDS: DOCUSATE SODIUM 100 MG CAPSULE PO SCH (08:36)
[2019-04-27] MEDS: APIXABAN 5 MG TABLET. PO SCH ×2 (08:36→20:29)
[2019-04-27] MEDS: LOSARTAN 50 MG TABLET. PO SCH (08:37)
[2019-04-27] MEDS: MAGNESIUM OXIDE 400 MG TABLET PO SCH ×2 (08:37→20:23)
[2019-04-27] MEDS: HYDROcodone/APAP 5/325MG 1 TAB TABLET PO PRN ×2 (08:37→20:23)
[2019-04-27] MEDS: VITAMIN B COMPLEX CAPSULE. PO SCH (08:37)
[2019-04-27] MEDS: PANTOPRAZOLE 40 MG TABLET. PO SCH (08:37)
[2019-04-27] MEDS: BENZTROPINE MESYLATE 1 MG TABLET PO SCH ×2 (08:37→20:24)
[2019-04-27] MEDS: buPROPion XL 300 MG TAB.ER.24H. PO SCH (08:37)
[2019-04-27] MEDS: MAGNESIUM HYDROXIDE 2,400 MG/30 ML ORAL.SUSP. PO PRN (08:38)
[2019-04-27] MEDS: CHOLECALCIFEROL (VITAMIN D3) 1,000 UNIT TABLET PO SCH (08:38)
--- NOTE | 2019-04-27 09:17 | NUR ---
changed Fluticasone nasal spray to scheduled/daily. Patient uses it scheduled each morning.
[2019-04-27] MEDS: BUDESONIDE 0.5 MG/2 ML NEBU NEB SCH ×2 (10:31→21:19)
--- NOTE | 2019-04-27 11:00 | NUR ---
Patient is alert and oriented to self and time. She is speaking to and interacting with staff and peers. Patient compliant with medications taken whole with water. She is cooperative and has been observed eating at meals. Patient reports pain 8/10 in her back, hips and side. PRN Lortab given at 0835 per order for pain. Will continue to monitor. No hallucinations or paranoia present at this time.
--- NOTE | 2019-04-27 13:00 | NUR ---
REJI, the Activity Therapists, a NEGATIVE NOTCHER and the program clinician met to discuss the potential of developing a plan to address pt feigning muteness. Pt has been doing this more recently according to the case monitor who feels that she picks and chooses times to do so. According the the NEGATIVE NOTCHER, pt the last few times, tends to be mute during the afternoon/early evening hours "almost as though she's but doesn't have a Dementia diagnosis". REJI informed all parties that since pt was 4, she has been evaluated for being "different" and for the last 30 years she has lived in the [facility]. Pt has a bachelors degree, audits classes through [employer] and attends gnosticist regularly. Discussions were had re: potential concerns of medical (e.g. seizure), behavioral or diagnosis (e.g. Schizophrenia). Based off pt history, the team decided to look at pt muteness from her mental health background. With pt having behaviors mostly between 1500 and 1700, which can be a chaotic time on the unit; we will look at having pt removed from the group to do more relaxation time, or an activity such as crocheting and knitting, or taking a nap. If this does not work and it is noted that pt displays other behaviors, the plan will be re-evaluated and set forth for all parties/staff.
[2019-04-27 16:11] VITALS: BP 130/70
[2019-04-27] MEDS: LITHIUM CARBONATE 300 MG TABLET PO SCH (20:23)
[2019-04-27] MEDS: MELATONIN 3 MG TABLET PO SCH (20:23)
[2019-04-27] MEDS: MIRTAZAPINE 15 MG TABLET PO SCH (20:23)
[2019-04-27] MEDS: PRAZOSIN 1 MG CAPSULE. PO SCH (20:24)
--- NOTE | 2019-04-27 21:18 | PDOC ---
Exam Note: Dion Note: Please also refer to the separate dictated note~for this date of service dictated separately.~Patient seen individually. Discussed the patient with Nursing staff reviewed the chart.~Reviewed interim history and current functioning. Reviewed vital signs,~Labs/ Radiology~and current medications noted below. Continue current treatment with the changes noted in the dictated addendum note Assessment: Vital Signs/I&O: Vital Signs Date Time Temp Pulse Resp B/P (MAP) Pulse Ox O2 Delivery O2 Flow Rate FiO2 04/27/19 20:24 81 130/70 04/27/19 20:23 98 04/27/19 16:11 97.6 16 04/27/19 10:31 Room Air 04/23/19 17:55 99.0 I & O 04/26/19 04/26/19 04/27/19 15:00 23:00 07:00 Intake Total 480 ml 240 ml 240 ml Balance 480 ml 240 ml 240 ml Current Medications: I have reviewed the current psychotropics carefully including drug interactions. Risk benefit ratio favors no change other than as noted in my dictated progress note. Diagnosis: Problems: (1) Bipolar affective, mixed, sev w/ psych (2) Anxiety disorder (3) Impulse control disorder (4) Schizophrenia, paranoid, chronic with acute exacerbation (5) Schizoaffective disorder, chronic condition with acute exacerbation LISA CAMACHO MD Apr 27, 2019 21:18
--- NOTE | 2019-04-27 21:43 | PN ---
DATE: 04/26/2019 This late entry, 04/26, covers elements not covered in my initial note. SUBJECTIVE: I met with the patient evening of 04/26. Per FRANKIE Bond, the patient slept 5-1/2 hours previous night. She has been quite mute, not responding verbally previous night or during the day on 04/26. Later, she was in the hallway, standing in the corner somewhat psychotic and when questioned by nursing staff, she said the woman told her to stand there. She seemed to be squinting, looking for a woman and appears psychotic. REVIEW OF SYSTEMS: She states she is unable to speak, communicates by writing or sign language or gestures. No CV, , pulmonary, eye system symptoms on review. MENTAL STATUS EXAM: Reasonably oriented. Speech as above. Abstraction fair, computation impaired, language function intact, attention span short. Mood and affect somewhat withdrawn and psychotic. LABORATORY DATA: Reviewed. IMPRESSION: Schizoaffective disorder, bipolar type, mixed with psychotic features, schizophrenia, chronic paranoid with acute exacerbation. Rest unchanged. PLAN: Continue current psychotropics including Luvox, Invega, Minipress, Remeron, Wellbutrin, Cogentin, lithium initiated as a mood stabilizer. Check labs, level adjust to reach therapeutic level. Next set of labs on 04/28. MAN Mamta CAMACHO MD DR: HEMANTH/emily JOB#: [id number] / [id number]
--- NOTE | 2019-04-27 23:34 | NUR ---
Nursing Note Pt asking for pain meds complains of pain everywhere, lortab given with HS meds, pleasant and talkative otherwise. No behaviors other than graoning in pain. Lortab given at HS.
[2019-04-28 05:38] VITALS: BP 128/74
[2019-04-28] MEDS: LEVOTHYROXINE 50 MCG TABLET PO SCH (06:03)
[2019-04-28 07:15] LABS: BASO % 1 % (0-3); EOS # 0.2 x10^3/uL (0.0-0.7); EOS % 4 % (0-3); HEMATOCRIT 33.2 % (36.0-47.0); HEMOGLOBIN 10.9 g/dL (12.0-15.5); LYMPH # 0.8 x10^3/uL (1.0-4.8); LYMPH % 18 % (24-48); MEAN CORPUSCULAR HEMOGLOBIN 31 pg (25-35); MEAN CORPUSCULAR HGB CONC 33 g/dL (31-37); MEAN CORPUSCULAR VOLUME 96 fL (79-100); MONO # 0.8 x10^3/uL (0.0-1.1); MONO % 16 % (0-9); NEUT # 2.9 x10^3uL (1.8-7.7); NEUT % 61 % (31-73); PLATELET COUNT 475 x10^3/uL (140-400); RED BLOOD COUNT 3.47 x10^6/uL (3.50-5.40); RED CELL DISTRIBUTION WIDTH 13.1 % (11.5-14.5); WHITE BLOOD COUNT 4.8 x10^3/uL (4.0-11.0)
[2019-04-28 07:31] LABS: ALBUMIN 2.9 g/dL (3.4-5.0); ALBUMIN/GLOBULIN RATIO 0.7 (1.0-1.7); CREATININE 0.8 mg/dL (0.6-1.0); GFR 71.8; POTASSIUM 4.5 mmol/L (3.5-5.1); TOTAL BILIRUBIN 0.2 mg/dL (0.2-1.0); TOTAL PROTEIN 6.8 g/dL (6.4-8.2)
[2019-04-28] MEDS: FLUTICASONE 50MCG/NASAL SPRAY 16GM BOTTLE. NS SCH (08:42)
[2019-04-28] MEDS: APIXABAN 5 MG TABLET. PO SCH ×2 (08:43→21:00)
[2019-04-28] MEDS: DOCUSATE SODIUM 100 MG CAPSULE PO SCH (08:43)
[2019-04-28] MEDS: buPROPion XL 300 MG TAB.ER.24H. PO SCH (08:43)
[2019-04-28] MEDS: HYDROcodone/APAP 5/325MG 1 TAB TABLET PO PRN ×2 (08:44→20:59)
[2019-04-28] MEDS: PANTOPRAZOLE 40 MG TABLET. PO SCH (08:44)
[2019-04-28] MEDS: MAGNESIUM OXIDE 400 MG TABLET PO SCH ×2 (08:44→21:00)
[2019-04-28] MEDS: VITAMIN B COMPLEX CAPSULE. PO SCH (08:44)
[2019-04-28] MEDS: LOSARTAN 50 MG TABLET. PO SCH (08:44)
[2019-04-28] MEDS: CHOLECALCIFEROL (VITAMIN D3) 1,000 UNIT TABLET PO SCH (08:44)
[2019-04-28] MEDS: BENZTROPINE MESYLATE 1 MG TABLET PO SCH ×2 (08:45→21:01)
--- NOTE | 2019-04-28 08:45 | NUR ---
Patient reports pain in back and hips. It was noted that she was having difficulty getting her pants and brief on this morning r/t pain with movement and bending. PRN Lortab given for pain with morning medications per order.
[2019-04-28] MEDS: BUDESONIDE 0.5 MG/2 ML NEBU NEB SCH ×2 (10:37→21:43)
--- NOTE | 2019-04-28 10:44 | NUR ---
WEEKLY ACTIVITY THERAPY NOTE Date of Admission:04/23/2019 Date of AT Assessment: 04/26/2019 Goal aimed: to increase socialization and engagement Initial Goal: Pt. will participate in at least five Activity Therapy groups per week Weekly progress towards goal: goal evaluation begins next week Group participation level: 1 min, 1 mod Weekly highlights: balloon bop on Thursday Behaviors observed: periods of silence: signals to communicate, smiling and talking in the mornings more often, engages well with prompting Plan: no change to goal Beneficial adaptations: behavioral action plan initiated: see nursing report for more details
--- NOTE | 2019-04-28 11:32 | NUR ---
Patient has been calm and compliant with medications. She is cooperative with staff. She is talking and interacting with staff and peers. Patient attended morning group. She denied hallucinations when asked and is not exhibiting any paranoia at this time. Patient reported that she did not have a bowel movement following her MOM yesterday, but does not want anything else for constipation at this time.
[2019-04-28 15:48] VITALS: BP 107/70
[2019-04-28] MEDS: LITHIUM CARBONATE 300 MG TABLET PO SCH (20:59)
[2019-04-28] MEDS: MELATONIN 3 MG TABLET PO SCH (21:00)
[2019-04-28] MEDS: MIRTAZAPINE 15 MG TABLET PO SCH (21:00)
[2019-04-28] MEDS: PRAZOSIN 1 MG CAPSULE. PO SCH (21:01)
--- NOTE | 2019-04-28 21:23 | PDOC ---
Exam Note: Dion Note: Please also refer to the separate dictated note~for this date of service dictated separately.~Patient seen individually. Discussed the patient with Nursing staff reviewed the chart.~Reviewed interim history and current functioning. Reviewed vital signs,~Labs/ Radiology~and current medications noted below. Continue current treatment with the changes noted in the dictated addendum note Assessment: Vital Signs/I&O: Vital Signs Date Time Temp Pulse Resp B/P (MAP) Pulse Ox O2 Delivery O2 Flow Rate FiO2 04/28/19 21:01 68 112/69 04/28/19 20:59 100 04/28/19 15:48 97.7 18 04/28/19 10:37 Room Air 04/23/19 17:55 99.0 I & O 04/27/19 04/27/19 04/28/19 15:00 23:00 07:00 Intake Total 720 ml 480 ml 120 ml Balance 720 ml 480 ml 120 ml Labs: Laboratory Tests Test 04/28/19 07:07 White Blood Count 4.8 x10^3/uL (4.0-11.0) Red Blood Count 3.47 x10^6/uL (3.50-5.40) L Hemoglobin 10.9 g/dL (12.0-15.5) L Hematocrit 33.2 % (36.0-47.0) L Mean Corpuscular Volume 96 fL (79-100) Mean Corpuscular Hemoglobin 31 pg (25-35) Mean Corpuscular Hemoglobin Concent 33 g/dL (31-37) Red Cell Distribution Width 13.1 % (11.5-14.5) Platelet Count 475 x10^3/uL (140-400) H Neutrophils (%) (Auto) 61 % (31-73) Lymphocytes (%) (Auto) 18 % (24-48) L Monocytes (%) (Auto) 16 % (0-9) H Eosinophils (%) (Auto) 4 % (0-3) H Basophils (%) (Auto) 1 % (0-3) Neutrophils # (Auto) 2.9 x10^3uL (1.8-7.7) Lymphocytes # (Auto) 0.8 x10^3/uL (1.0-4.8) L Monocytes # (Auto) 0.8 x10^3/uL (0.0-1.1) Eosinophils # (Auto) 0.2 x10^3/uL (0.0-0.7) Basophils # (Auto) 0.0 x10^3/uL (0.0-0.2) Sodium Level 140 mmol/L (136-145) Potassium Level 4.5 mmol/L (3.5-5.1) Chloride Level 104 mmol/L (98-107) Carbon Dioxide Level 31 mmol/L (21-32) Anion Gap 5 (6-14) L Blood Urea Nitrogen 14 mg/dL (7-20) Creatinine 0.8 mg/dL (0.6-1.0) Estimated GFR (Cockcroft-Gault) 71.8 BUN/Creatinine Ratio 18 (6-20) Glucose Level 97 mg/dL (70-99) Calcium Level 9.0 mg/dL (8.5-10.1) Total Bilirubin 0.2 mg/dL (0.2-1.0) Aspartate Amino Transferase (AST) 13 U/L (15-37) L Alanine Aminotransferase (ALT) 17 U/L (14-59) Alkaline Phosphatase 82 U/L (46-116) Total Protein 6.8 g/dL (6.4-8.2) Albumin 2.9 g/dL (3.4-5.0) L Albumin/Globulin Ratio 0.7 (1.0-1.7) L [place] Level 0.5 mmol/L (0.6-1.2) L [place] Last Dose Date 04/27/19 [place] Last Dose Time 0500 Current Medications: Meds: Current Medications Medications (Trade) Dose Ordered Sig/Angelica Route PRN Reason Start Time Stop Time Status Last Admin Dose Admin Fluticasone Propionate (Flonase) 2 spray DAILY NS 04/28/19 09:00 04/28/19 08:42 I have reviewed the current psychotropics carefully including drug interactions. Risk benefit ratio favors no change other than as noted in my dictated progress note. Diagnosis: Problems: (1) Bipolar affective, mixed, sev w/ psych (2) Anxiety disorder (3) Impulse control disorder (4) Schizophrenia, paranoid, chronic with acute exacerbation (5) Schizoaffective disorder, chronic condition with acute exacerbation LISA CAMACHO MD Apr 28, 2019 21:23
--- NOTE | 2019-04-28 23:54 | NUR ---
Pt located in the dayroom this evening. Pt calm and pleasant. Compliant with her HS medications and assessment. Pt interacting appropriately this evening. PRN Lortab administered per pt request. 12/09 pain lower back.
[2019-04-29] MEDS: LEVOTHYROXINE 50 MCG TABLET PO SCH (06:31)
[2019-04-29 06:39] VITALS: BP 121/72
[2019-04-29] MEDS: VITAMIN B COMPLEX CAPSULE. PO SCH (07:32)
[2019-04-29] MEDS: LOSARTAN 50 MG TABLET. PO SCH (07:32)
[2019-04-29] MEDS: CHOLECALCIFEROL (VITAMIN D3) 1,000 UNIT TABLET PO SCH (07:32)
[2019-04-29] MEDS: BENZTROPINE MESYLATE 1 MG TABLET PO SCH ×2 (07:32→20:26)
[2019-04-29] MEDS: FLUTICASONE 50MCG/NASAL SPRAY 16GM BOTTLE. NS SCH (07:32)
[2019-04-29] MEDS: APIXABAN 5 MG TABLET. PO SCH ×2 (07:32→20:26)
[2019-04-29] MEDS: HYDROcodone/APAP 5/325MG 1 TAB TABLET PO PRN ×2 (07:33→17:58)
[2019-04-29] MEDS: DOCUSATE SODIUM 100 MG CAPSULE PO SCH (07:33)
[2019-04-29] MEDS: buPROPion XL 300 MG TAB.ER.24H. PO SCH (07:33)
[2019-04-29] MEDS: MAGNESIUM OXIDE 400 MG TABLET PO SCH ×2 (07:33→20:26)
[2019-04-29] MEDS: PANTOPRAZOLE 40 MG TABLET. PO SCH (07:33)
--- NOTE | 2019-04-29 09:57 | NUR ---
Nursing Note Pt in the hallway c/o 10 lower back pain and requested Lortab with AM meds. PRN administered per eMAR. Pt calm, pleasant, compliant with meds and assessments. Pt interactive with staff, denies SI, denies hallucinations. No delusions.
[2019-04-29] MEDS: BUDESONIDE 0.5 MG/2 ML NEBU NEB SCH ×2 (10:31→23:03)
--- NOTE | 2019-04-29 15:08 | NUR ---
REJI spoke with pt brother Chris to discuss the treatment team and went over pt decrease in behaviors within the last 48 hours. SW and pt brother discussed the fact that he believes that pt is using the muteness as a means to either get her way or in this case, she used it so that she could be sent out of the residential facility for a bit. Pt brother did question why the Hodge, SW explained that it is classified as a mood stabilizer; however, REJI was not sure if that the case for pt. REJI will ask the psychiatrist to give pt brother a call as he just wants to question why that choice. Chris will plan to be in [place] next week and will not be available on until later that day. REJI will plan to contact Chris that evening between 1830 and 1900.
[2019-04-29 16:18] VITALS: BP 98/67
[2019-04-29] MEDS: LIDOCAINE (700MG/PATCH) PATCH. TD SCH (17:58)
--- NOTE | 2019-04-29 18:51 | PN ---
DATE: 04/27/2019 PSYCHIATRIC PROGRESS NOTE This late entry 04/27/2019 covers elements not covered in my initial note. SUBJECTIVE: I met with the patient evening of 04/27/2019. Per FRANKIE Bond, the patient slept 10 hours previous night. She has been speaking and interacting better as opposed to the day before when she was mute. She is interacting with staff and peers. She had a telephone call with her brother and brother indicated that she shuts down when she is overstimulated with stimuli and we will attempt to remove her to the quiet hallway if this happens. REVIEW OF SYSTEMS: No CV, , pulmonary, eye system symptoms on review. MENTAL STATUS EXAM: Reasonably oriented. Speech is coherent, abstraction fair, computation impaired, language function intact, attention span short. Mood and affect remain somewhat anxious, labile. LABORATORY DATA: Reviewed. IMPRESSION: Unchanged from initial note. Schizoaffective disorder, bipolar type, mixed with psychotic features, schizophrenia, chronic with acute exacerbation. Rest unchanged. PLAN: Continue lithium at current dosage. Check a level on 04/28/2019. Rest unchanged for now. LISA CAMACHO MD DR: HEMANTH/emily JOB#: [id number] / [id number]
--- NOTE | 2019-04-29 18:55 | PN ---
DATE: 04/28/2019 This late entry 04/28/2019 covers elements not covered in my initial note. SUBJECTIVE: I met with the patient in the evening and staffed at a treatment team meeting with the entire team in the morning. The patient's son, Chris, was to attend, but was unavailable. Slept 7-1/2 hours average. Appetite 75%. She is more verbal during the day as opposed to the muteness that was evident 2 days previously. REVIEW OF SYSTEMS: No CV, , pulmonary, eye system symptoms on review. MENTAL STATUS EXAM: Reasonably oriented. Speech is coherent, abstraction fair, computation impaired, language function intact, attention span short. Mood and affect still anxious, labile. LABORATORY DATA: Reviewed. IMPRESSION: Unchanged from initial note. PLAN: No change from initial note. Check a lithium level on the . Adjust further as clinically indicated. MAN Mamta CAMACHO MD DR: HEMANTH/emily JOB#: [id number] / [id number]
[2019-04-29] MEDS: MIRTAZAPINE 15 MG TABLET PO SCH (20:22)
[2019-04-29] MEDS: PATCH REMOVAL. MC SCH (20:22)
[2019-04-29] MEDS: MELATONIN 3 MG TABLET PO SCH (20:23)
[2019-04-29] MEDS: PRAZOSIN 1 MG CAPSULE. PO SCH (20:24)
[2019-04-29] MEDS: LITHIUM CARBONATE 300 MG TABLET PO SCH (20:26)
--- NOTE | 2019-04-29 21:19 | PDOC ---
Exam Note: Dion Note: Please also refer to the separate dictated note~for this date of service dictated separately.~Patient seen individually. Discussed the patient with Nursing staff reviewed the chart.~Reviewed interim history and current functioning. Reviewed vital signs,~Labs/ Radiology~and current medications noted below. Continue current treatment with the changes noted in the dictated addendum note Assessment: Vital Signs/I&O: Vital Signs Date Time Temp Pulse Resp B/P (MAP) Pulse Ox O2 Delivery O2 Flow Rate FiO2 04/29/19 20:24 74 98/67 04/29/19 17:58 18 04/29/19 16:18 98.1 99 04/29/19 10:31 Room Air 04/23/19 17:55 99.0 I & O 04/28/19 04/28/19 04/29/19 15:00 23:00 07:00 Intake Total 720 ml 480 ml 240 ml Balance 720 ml 480 ml 240 ml Current Medications: Meds: Current Medications Medications (Trade) Dose Ordered Sig/Angelica Route PRN Reason Start Time Stop Time Status Last Admin Dose Admin Lidocaine (Lidoderm) 1 patch DAILY TD 04/29/19 17:00 04/29/19 17:58 Miscellaneous (Lidoderm Patch Removal) 1 ea QHS MC 04/29/19 21:00 04/29/19 20:22 I have reviewed the current psychotropics carefully including drug interactions. Risk benefit ratio favors no change other than as noted in my dictated progress note. Diagnosis: Problems: (1) Bipolar affective, mixed, sev w/ psych (2) Anxiety disorder (3) Impulse control disorder (4) Schizophrenia, paranoid, chronic with acute exacerbation (5) Schizoaffective disorder, chronic condition with acute exacerbation LISA CAMACHO MD Apr 29, 2019 21:19
--- NOTE | 2019-04-29 22:00 | NUR ---
Patient is in the day room on assumption of care. She is in pleasant spirits, watching TV and socializing with a peer. Calm, cooperative and compliant with assessments and medications taken whole. She continues to want her medications named and sometimes will ask what one is for, but she took them without issue once explanation given. No agitation. Denies pain or discomfort at this time. Denies SI.
[2019-04-30] MEDS: HYDROcodone/APAP 5/325MG 1 TAB TABLET PO PRN ×2 (03:11→20:42)
--- NOTE | 2019-04-30 03:18 | NUR ---
Patient awake at 0300. Walked to the day room for some cold water, and asked for PRN pain medication. Complained of left upper arm pain and right hip pain 10/10. Medicated with PRN Lortab at that time, pending effect.
[2019-04-30] MEDS: LEVOTHYROXINE 50 MCG TABLET PO SCH (05:28)
[2019-04-30 06:28] VITALS: BP 145/75
[2019-04-30] MEDS: BENZTROPINE MESYLATE 1 MG TABLET PO SCH ×2 (08:13→20:29)
[2019-04-30] MEDS: VITAMIN B COMPLEX CAPSULE. PO SCH (08:13)
[2019-04-30] MEDS: PANTOPRAZOLE 40 MG TABLET. PO SCH (08:13)
[2019-04-30] MEDS: DOCUSATE SODIUM 100 MG CAPSULE PO SCH (08:13)
[2019-04-30] MEDS: MAGNESIUM OXIDE 400 MG TABLET PO SCH ×2 (08:14→20:28)
[2019-04-30] MEDS: CHOLECALCIFEROL (VITAMIN D3) 1,000 UNIT TABLET PO SCH (08:14)
[2019-04-30] MEDS: LIDOCAINE (700MG/PATCH) PATCH. TD SCH (08:14)
[2019-04-30] MEDS: LOSARTAN 50 MG TABLET. PO SCH (08:14)
[2019-04-30] MEDS: buPROPion XL 300 MG TAB.ER.24H. PO SCH (08:14)
[2019-04-30] MEDS: APIXABAN 5 MG TABLET. PO SCH ×2 (08:14→20:29)
[2019-04-30] MEDS: FLUTICASONE 50MCG/NASAL SPRAY 16GM BOTTLE. NS SCH (09:00)
[2019-04-30] MEDS: BUDESONIDE 0.5 MG/2 ML NEBU NEB SCH ×2 (10:15→19:50)
--- NOTE | 2019-04-30 11:22 | NUR ---
Pt is calm, cooperative, and compliant. Pt is A & O X 4. No agitation, no aggression, no hallucinations, no delusions, noted. Pt is compliant with her medication and assessment.
[2019-04-30 16:25] VITALS: BP 104/57
[2019-04-30] MEDS: LITHIUM CARBONATE 300 MG TABLET PO SCH (20:27)
[2019-04-30] MEDS: MELATONIN 3 MG TABLET PO SCH (20:28)
[2019-04-30] MEDS: PRAZOSIN 1 MG CAPSULE. PO SCH (20:30)
[2019-04-30] MEDS: PATCH REMOVAL. MC SCH (20:30)
[2019-04-30] MEDS: MIRTAZAPINE 15 MG TABLET PO SCH (20:30)
--- NOTE | 2019-04-30 21:18 | PDOC ---
Exam Note: Dion Note: Please also refer to the separate dictated note~for this date of service dictated separately.~Patient seen individually. Discussed the patient with Nursing staff reviewed the chart.~Reviewed interim history and current functioning. Reviewed vital signs,~Labs/ Radiology~and current medications noted below. Continue current treatment with the changes noted in the dictated addendum note Assessment: Vital Signs/I&O: Vital Signs Date Time Temp Pulse Resp B/P (MAP) Pulse Ox O2 Delivery O2 Flow Rate FiO2 04/30/19 20:30 66 104/57 04/30/19 19:51 98 Room Air 04/30/19 16:25 97.1 18 I & O 04/29/19 04/29/19 04/30/19 15:00 23:00 07:00 Intake Total 960 ml 480 ml 240 ml Balance 960 ml 480 ml 240 ml Current Medications: I have reviewed the current psychotropics carefully including drug interactions. Risk benefit ratio favors no change other than as noted in my dictated progress note. Diagnosis: Problems: (1) Bipolar affective, mixed, sev w/ psych (2) Anxiety disorder (3) Impulse control disorder (4) Schizophrenia, paranoid, chronic with acute exacerbation (5) Schizoaffective disorder, chronic condition with acute exacerbation LISA CAMACHO MD Apr 30, 2019 21:18
--- NOTE | 2019-04-30 23:00 | NUR ---
Patient is in the day room for assessments and medications. She is calm, cooperative and compliant. She remains insistent that she be told what each medication is named and what it is for, but takes it whole without issue. No agitation. Complained of 10/10 right hip and left arm pain, received PRN Lortab at 2039, with good effect. Denies any further discomfort. Denies SI.
[2019-05-01] MEDS: LEVOTHYROXINE 50 MCG TABLET PO SCH (05:48)
[2019-05-01 06:31] VITALS: BP 115/73
[2019-05-01] MEDS: FLUTICASONE 50MCG/NASAL SPRAY 16GM BOTTLE. NS SCH (09:00)
[2019-05-01] MEDS: PANTOPRAZOLE 40 MG TABLET. PO SCH (09:02)
[2019-05-01] MEDS: BENZTROPINE MESYLATE 1 MG TABLET PO SCH ×2 (09:07→20:50)
[2019-05-01] MEDS: DOCUSATE SODIUM 100 MG CAPSULE PO SCH (09:07)
[2019-05-01] MEDS: VITAMIN B COMPLEX CAPSULE. PO SCH (09:07)
[2019-05-01] MEDS: LITHIUM CARBONATE 300 MG TABLET PO SCH ×2 (09:07→20:49)
[2019-05-01] MEDS: LOSARTAN 50 MG TABLET. PO SCH (09:07)
[2019-05-01] MEDS: CHOLECALCIFEROL (VITAMIN D3) 1,000 UNIT TABLET PO SCH (09:08)
[2019-05-01] MEDS: buPROPion XL 300 MG TAB.ER.24H. PO SCH (09:08)
[2019-05-01] MEDS: LIDOCAINE (700MG/PATCH) PATCH. TD SCH (09:08)
[2019-05-01] MEDS: APIXABAN 5 MG TABLET. PO SCH ×2 (09:08→20:49)
[2019-05-01] MEDS: MAGNESIUM OXIDE 400 MG TABLET PO SCH ×2 (09:08→20:48)
--- NOTE | 2019-05-01 10:12 | NUR ---
Pt is calm, cooperative, and compliant. No agitation, no aggression, no hallucinations, no delusions, noted. Pt is compliant with her medication and assessment.
[2019-05-01] MEDS: BUDESONIDE 0.5 MG/2 ML NEBU NEB SCH ×2 (10:34→20:10)
[2019-05-01 16:14] VITALS: BP 100/64
[2019-05-01] MEDS: PATCH REMOVAL. MC SCH (20:45)
[2019-05-01] MEDS: MIRTAZAPINE 15 MG TABLET PO SCH (20:48)
[2019-05-01] MEDS: PRAZOSIN 1 MG CAPSULE. PO SCH (20:48)
[2019-05-01] MEDS: MELATONIN 3 MG TABLET PO SCH (20:50)
[2019-05-01] MEDS: MAG HYDROX/AL HYDROX/SIMETH 30 ML ORAL.SUSP PO PRN (20:51)
--- NOTE | 2019-05-01 21:24 | PDOC ---
Exam Note: Dion Note: Please also refer to the separate dictated note~for this date of service dictated separately.~Patient seen individually. Discussed the patient with Nursing staff reviewed the chart.~Reviewed interim history and current functioning. Reviewed vital signs,~Labs/ Radiology~and current medications noted below. Continue current treatment with the changes noted in the dictated addendum note Assessment: Vital Signs/I&O: Vital Signs Date Time Temp Pulse Resp B/P (MAP) Pulse Ox O2 Delivery O2 Flow Rate FiO2 05/01/19 20:48 78 100/64 05/01/19 20:11 93 Room Air 05/01/19 16:14 97.6 16 I & O 04/30/19 04/30/19 05/01/19 15:00 23:00 07:00 Intake Total 700 ml 360 ml 120 ml Balance 700 ml 360 ml 120 ml Current Medications: Meds: Current Medications Medications (Trade) Dose Ordered Sig/Angelica Route PRN Reason Start Time Stop Time Status Last Admin Dose Admin [place] Carbonate 150 mg DAILY PO 05/01/19 09:00 05/01/19 09:07 I have reviewed the current psychotropics carefully including drug interactions. Risk benefit ratio favors no change other than as noted in my dictated progress note. Diagnosis: Problems: (1) Bipolar affective, mixed, sev w/ psych (2) Anxiety disorder (3) Impulse control disorder (4) Schizophrenia, paranoid, chronic with acute exacerbation (5) Schizoaffective disorder, chronic condition with acute exacerbation LISA CAMACHO MD May 01, 2019 21:24
--- NOTE | 2019-05-01 22:00 | NUR ---
Patient is in the day room on assumption of care. Irritable after shower. Allowed assessment but declined to talk about how her day was, stating "Just give me my meds, I don't want to talk." She complained of indigestion and asked for PRN Maalox, with good effect. No agitation. Denies pain. Denies SI.
--- NOTE | 2019-05-01 23:15 | PN ---
DATE: 04/29/2019 PSYCHIATRIC PROGRESS NOTE This late entry 04/29/2019 covers elements not covered in the initial note. SUBJECTIVE: I met with the patient evening of 04/29/2019. Per FRANKIE Henry, the patient has been pleasant, slept 5-1/2 hours previous night. Little more interactive verbally and has not been mute. I had a message to his son to call the patient's brother, Chris and returned his call telephone [phone] and talked to him and his at length. Reviewed the patient's history. She was treated at the [facility] in the past, diagnosed with schizophrenia at one point, was also diagnosed with schizoaffective disorder. She does have a fair amount of affect and smiling and connectedness which would be unusual for someone with schizophrenia at this stage of her illness and more suggestive probably of schizoaffective disorder. Discussed that given the schizoaffective disorder that the affective element would need to be addressed with mood stabilizers and that is the reason we have started her on lithium 300 mg at bedtime. Labs level have been checked and we will adjust thereafter. Last lithium level 04/28/2019 was 0.5. Family had many questions. We addressed this including discharge plans. REVIEW OF SYSTEMS: No CV, , pulmonary, eye, ENT system symptoms on review. MENTAL STATUS EXAM: Reasonably oriented. Speech is coherent, abstraction fair, computation impaired, language function intact, attention span short. Mood and affect is improved, less withdrawn. LABORATORY DATA: Reviewed. IMPRESSION: Schizoaffective disorder, bipolar type, mixed with psychotic features; anxiety disorder, unspecified. Rest unchanged. PLAN: Continue lithium at current dosage. We will consider increasing lithium to reach a therapeutic level. Maintain Luvox, Invega, Wellbutrin, Remeron, Cogentin, and trazodone at current dosage along with melatonin. Reviewed risks/benefit ratio and we will make further adjustments as clinically indicated. Discussed all this with the patient at length. MAN Mamta CAMACHO MD DR: HEMANTH/emily JOB#: [id number] / [id number]
[2019-05-02 05:59] VITALS: BP 146/75
[2019-05-02] MEDS: LEVOTHYROXINE 50 MCG TABLET PO SCH (06:05)
[2019-05-02] MEDS: PANTOPRAZOLE 40 MG TABLET. PO SCH (08:04)
[2019-05-02] MEDS: DOCUSATE SODIUM 100 MG CAPSULE PO SCH (08:05)
[2019-05-02] MEDS: MAGNESIUM OXIDE 400 MG TABLET PO SCH ×2 (08:05→19:41)
[2019-05-02] MEDS: BENZTROPINE MESYLATE 1 MG TABLET PO SCH ×2 (08:05→19:40)
[2019-05-02] MEDS: LOSARTAN 50 MG TABLET. PO SCH (08:05)
[2019-05-02] MEDS: VITAMIN B COMPLEX CAPSULE. PO SCH (08:05)
[2019-05-02] MEDS: APIXABAN 5 MG TABLET. PO SCH ×2 (08:05→19:41)
[2019-05-02] MEDS: LITHIUM CARBONATE 300 MG TABLET PO SCH ×2 (08:05→19:41)
[2019-05-02] MEDS: buPROPion XL 300 MG TAB.ER.24H. PO SCH (08:06)
[2019-05-02] MEDS: CHOLECALCIFEROL (VITAMIN D3) 1,000 UNIT TABLET PO SCH (08:06)
[2019-05-02] MEDS: FLUTICASONE 50MCG/NASAL SPRAY 16GM BOTTLE. NS SCH (09:00)
[2019-05-02] MEDS: LIDOCAINE (700MG/PATCH) PATCH. TD SCH (09:00)
--- NOTE | 2019-05-02 09:32 | NUR ---
Pt is calm, cooperative, and compliant. No agitation, no aggression, no hallucinations, no delusions, noted. Pt is compliant with her medication and assessment however pt s refusing to speak at this time.
[2019-05-02] MEDS: BUDESONIDE 0.5 MG/2 ML NEBU NEB SCH ×2 (09:47→20:00)
--- NOTE | 2019-05-02 11:50 | PN ---
DATE: 04/30/2019 PSYCHIATRIC PROGRESS NOTE This late entry 04/30/2019 covers elements not covered in my initial note. SUBJECTIVE: I met with the patient evening of 04/30/2019. The patient slept 6-3/4 hours previous night per FRANKIE Thakkar. She had a good day. No PRNs noted. Complains of her leg and arm hurting defer to Dr. Resendez. REVIEW OF SYSTEMS: Positive for above. No CV, , pulmonary, eye system symptoms on review. MENTAL STATUS EXAM: Oriented to herself and situation. Speech has some latency, coherent. Abstraction fair, computation impaired, language function intact, attention span short. Mood and affect somewhat anxious, labile. LABORATORY DATA: Reviewed. IMPRESSION: Schizoaffective disorder, bipolar type, mixed with psychotic features; anxiety disorder, unspecified. PLAN: [place] level is 0.5, on lithium carbonate 300 mg at bedtime, increase lithium to 150 mg a.m. and 300 mg at bedtime. Check CBC, CMP and lithium level in 3 days. Continue Luvox 150 mg a day, Invega Sustenna, Minipress, Remeron, Cogentin and trazodone along with melatonin, unchanged for now. LISA CAMACHO MD DR: HEMANTH/emily JOB#: [id number] / [id number]
--- NOTE | 2019-05-02 11:53 | PN ---
DATE: 05/01/2019 PSYCHIATRIC PROGRESS NOTE This late entry, 05/01/2019, covers elements not covered in my initial note. SUBJECTIVE: I met with the patient evening of 05/01/2019. Per FRANKIE Gilliam, the patient slept 8 hours previous night. She has been somewhat withdrawn, flat in her affect. Per nursing report, no agitation, no PRNs given. REVIEW OF SYSTEMS: Positive for some tiredness. No CV, , pulmonary, eye, ENT system symptoms on review. MENTAL STATUS EXAM: Reasonably oriented. Speech has some latency, coherent. Abstraction fair, computation impaired, language function intact, attention span short. Mood and affect somewhat anxious, labile. LABORATORY DATA: Reviewed. IMPRESSION: Unchanged from initial note. PLAN: No change from initial note. MAN Mamta CAMACHO MD DR: HEMANTH/emily JOB#: [id number] / [id number]
[2019-05-02 15:48] VITALS: BP 112/71
[2019-05-02] MEDS: MELATONIN 3 MG TABLET PO SCH (19:40)
[2019-05-02] MEDS: PATCH REMOVAL. MC SCH (19:40)
[2019-05-02] MEDS: MIRTAZAPINE 15 MG TABLET PO SCH (19:41)
[2019-05-02] MEDS: PRAZOSIN 1 MG CAPSULE. PO SCH (19:41)
[2019-05-02] MEDS: traZODone 100 MG TABLET. PO PRN (19:41)
--- NOTE | 2019-05-02 21:16 | PDOC ---
Exam Note: Dion Note: Please also refer to the separate dictated note~for this date of service dictated separately.~Patient seen individually. Discussed the patient with Nursing staff reviewed the chart.~Reviewed interim history and current functioning. Reviewed vital signs,~Labs/ Radiology~and current medications noted below. Continue current treatment with the changes noted in the dictated addendum note Assessment: Vital Signs/I&O: Vital Signs Date Time Temp Pulse Resp B/P (MAP) Pulse Ox O2 Delivery O2 Flow Rate FiO2 05/02/19 19:41 82 112/71 05/02/19 15:48 98.1 16 97 05/02/19 09:47 Room Air I & O 05/01/19 05/01/19 05/02/19 15:00 23:00 07:00 Intake Total 840 ml 480 ml 360 ml Balance 840 ml 480 ml 360 ml Current Medications: I have reviewed the current psychotropics carefully including drug interactions. Risk benefit ratio favors no change other than as noted in my dictated progress note. Diagnosis: Problems: (1) Bipolar affective, mixed, sev w/ psych (2) Anxiety disorder (3) Impulse control disorder (4) Schizophrenia, paranoid, chronic with acute exacerbation (5) Schizoaffective disorder, chronic condition with acute exacerbation LISA CAMACHO MD May 02, 2019 21:16
--- NOTE | 2019-05-03 00:14 | NUR ---
Patient is located in pt room at time of assessment and medication administration. Patient is non verbal with this nurse and will not answer questions and is only providing hand signals. Patient is compliant with medications whole and assessment. Patient is slightly irritable with assessment and questios. Patient is sleeping in bed at this time. Will continue to monitor.
[2019-05-03 06:15] VITALS: BP 136/86
[2019-05-03] MEDS: LEVOTHYROXINE 50 MCG TABLET PO SCH (06:15)
[2019-05-03] MEDS: FLUTICASONE 50MCG/NASAL SPRAY 16GM BOTTLE. NS SCH (08:46)
[2019-05-03] MEDS: LITHIUM CARBONATE 300 MG TABLET PO SCH ×2 (08:47→21:15)
[2019-05-03] MEDS: BENZTROPINE MESYLATE 1 MG TABLET PO SCH ×2 (08:47→21:15)
[2019-05-03] MEDS: DOCUSATE SODIUM 100 MG CAPSULE PO SCH (08:47)
[2019-05-03] MEDS: VITAMIN B COMPLEX CAPSULE. PO SCH (08:47)
[2019-05-03] MEDS: MAGNESIUM OXIDE 400 MG TABLET PO SCH ×2 (08:47→21:15)
[2019-05-03] MEDS: LOSARTAN 50 MG TABLET. PO SCH (08:47)
[2019-05-03] MEDS: CHOLECALCIFEROL (VITAMIN D3) 1,000 UNIT TABLET PO SCH (08:47)
[2019-05-03] MEDS: APIXABAN 5 MG TABLET. PO SCH ×2 (08:47→21:15)
[2019-05-03] MEDS: buPROPion XL 300 MG TAB.ER.24H. PO SCH (08:47)
[2019-05-03] MEDS: LIDOCAINE (700MG/PATCH) PATCH. TD SCH (08:48)
[2019-05-03] MEDS: PANTOPRAZOLE 40 MG TABLET. PO SCH (08:48)
--- NOTE | 2019-05-03 10:14 | NUR ---
Nursing Note Pt calm, compliant with meds and assessment, however non-verbal and is refusing to talk and only use hand/head signals to answer assessment questions. No aggression. No hallucinations.
[2019-05-03] MEDS: BUDESONIDE 0.5 MG/2 ML NEBU NEB SCH ×2 (11:04→22:01)
--- NOTE | 2019-05-03 11:29 | NUR ---
REJI contacted Dulce Maria, pt case aide to give her an update on pt and how she is doing. REJI informed Dulce Maria that for the last 72 hours pt has been speaking and very interactive. However, yesterday, pt decided to be mute and the staff has been attempting to use a behavioral plan; especially in terms of asking concrete "yes and no" questions. REJI will contact Dulce Maria on after tx team.
[2019-05-03 16:08] VITALS: BP 117/76
[2019-05-03] MEDS: PATCH REMOVAL. MC SCH (21:00)
[2019-05-03] MEDS: PRAZOSIN 1 MG CAPSULE. PO SCH (21:14)
[2019-05-03] MEDS: MELATONIN 3 MG TABLET PO SCH (21:15)
[2019-05-03] MEDS: MIRTAZAPINE 15 MG TABLET PO SCH (21:15)
--- NOTE | 2019-05-03 21:26 | PDOC ---
Exam Note: Dion Note: Please also refer to the separate dictated note~for this date of service dictated separately.~Patient seen individually. Discussed the patient with Nursing staff reviewed the chart.~Reviewed interim history and current functioning. Reviewed vital signs,~Labs/ Radiology~and current medications noted below. Continue current treatment with the changes noted in the dictated addendum note Assessment: Vital Signs/I&O: Vital Signs Date Time Temp Pulse Resp B/P (MAP) Pulse Ox O2 Delivery O2 Flow Rate FiO2 05/03/19 21:14 94 117/76 05/03/19 16:08 98.2 16 99 05/03/19 11:04 Room Air I & O 05/02/19 05/02/19 05/03/19 14:59 22:59 06:59 Intake Total 480 ml 480 ml 120 ml Balance 480 ml 480 ml 120 ml Current Medications: I have reviewed the current psychotropics carefully including drug interactions. Risk benefit ratio favors no change other than as noted in my dictated progress note. Diagnosis: Problems: (1) Bipolar affective, mixed, sev w/ psych (2) Anxiety disorder (3) Impulse control disorder (4) Schizophrenia, paranoid, chronic with acute exacerbation (5) Schizoaffective disorder, chronic condition with acute exacerbation LISA CAMACHO MD May 03, 2019 21:26
--- NOTE | 2019-05-03 23:59 | PN ---
DATE: 05/02/2019 PSYCHIATRIC PROGRESS NOTE This late entry 05/02/2019 covers elements not covered in my initial note. SUBJECTIVE: I met with the patient in the evening at some length. Per Tammi RN, the patient slept 7-1/4 hours previous night. Previous evening, she was paranoid, alleging that nursing staff were with her in the shower. Since morning of 05/02/2019, she has been mute once again. REVIEW OF SYSTEMS: Positive for complaints of pain in left upper arm, defer to nursing staff/Dr. Resendez. No CV, , pulmonary, eye system symptoms on review. She is talking and whispers to me. I could barely hear her. MENTAL STATUS EXAM: Reasonably oriented. Speech as above. Abstraction fair, computation impaired, language function intact, attention span short. Mood and affect withdrawn. LABORATORY DATA: Reviewed. IMPRESSION: Unchanged from initial note. PLAN: Check a lithium level, CBC, CMP. Adjust lithium to reach therapeutic level. Maintain rest of the psychotropics including Luvox, Minipress, the latter for her PTSD, Invega IM, Wellbutrin, Remeron, Cogentin, trazodone and melatonin. LISA CAMACHO MD DR: HEMANTH/emliy JOB#: [id number] / [id number]
--- NOTE | 2019-05-04 00:16 | NUR ---
Nursing Note The patient was located in her room for her assessment and medication pass. The patient was willing to talk with this nurse albeit in a very quiet tone almost a whisper. The patient was compliant with her assessment and was very pleasant during interactions with this nurse. The patient took her medications whole. The patient is currently sleeping in her room.
[2019-05-04 05:55] VITALS: BP 118/60
[2019-05-04 07:15] LABS: BASO % 1 % (0-3); EOS # 0.1 x10^3/uL (0.0-0.7); EOS % 2 % (0-3); HEMATOCRIT 36.2 % (36.0-47.0); HEMOGLOBIN 11.9 g/dL (12.0-15.5); LYMPH % 17 % (24-48); MEAN CORPUSCULAR HEMOGLOBIN 32 pg (25-35); MEAN CORPUSCULAR HGB CONC 33 g/dL (31-37); MEAN CORPUSCULAR VOLUME 96 fL (79-100); MONO # 0.6 x10^3/uL (0.0-1.1); MONO % 11 % (0-9); NEUT # 3.9 x10^3uL (1.8-7.7); NEUT % 70 % (31-73); PLATELET COUNT 461 x10^3/uL (140-400); RED BLOOD COUNT 3.75 x10^6/uL (3.50-5.40); RED CELL DISTRIBUTION WIDTH 13.2 % (11.5-14.5); WHITE BLOOD COUNT 5.7 x10^3/uL (4.0-11.0)
[2019-05-04 07:31] LABS: ALBUMIN 3.1 g/dL (3.4-5.0); ALBUMIN/GLOBULIN RATIO 0.7 (1.0-1.7); CALCIUM 9.1 mg/dL (8.5-10.1); CREATININE 0.8 mg/dL (0.6-1.0); GFR 71.8; POTASSIUM 4.2 mmol/L (3.5-5.1); TOTAL BILIRUBIN 0.2 mg/dL (0.2-1.0); TOTAL PROTEIN 7.4 g/dL (6.4-8.2)
[2019-05-04] MEDS: LEVOTHYROXINE 50 MCG TABLET PO SCH (07:59)
[2019-05-04] MEDS: PANTOPRAZOLE 40 MG TABLET. PO SCH (07:59)
[2019-05-04] MEDS: VITAMIN B COMPLEX CAPSULE. PO SCH (07:59)
[2019-05-04] MEDS: DOCUSATE SODIUM 100 MG CAPSULE PO SCH (07:59)
[2019-05-04] MEDS: MAGNESIUM OXIDE 400 MG TABLET PO SCH ×2 (07:59→20:51)
[2019-05-04] MEDS: buPROPion XL 300 MG TAB.ER.24H. PO SCH (08:00)
[2019-05-04] MEDS: LOSARTAN 50 MG TABLET. PO SCH (08:00)
[2019-05-04] MEDS: BENZTROPINE MESYLATE 1 MG TABLET PO SCH ×2 (08:00→20:52)
[2019-05-04] MEDS: LIDOCAINE (700MG/PATCH) PATCH. TD SCH ×2 (08:00→08:02)
[2019-05-04] MEDS: APIXABAN 5 MG TABLET. PO SCH ×2 (08:01→20:52)
[2019-05-04] MEDS: LITHIUM CARBONATE 300 MG TABLET PO SCH ×2 (08:01→20:52)
[2019-05-04] MEDS: CHOLECALCIFEROL (VITAMIN D3) 1,000 UNIT TABLET PO SCH (08:02)
[2019-05-04] MEDS: FLUTICASONE 50MCG/NASAL SPRAY 16GM BOTTLE. NS SCH (08:07)
[2019-05-04] MEDS: BUDESONIDE 0.5 MG/2 ML NEBU NEB SCH ×2 (10:40→22:42)
--- NOTE | 2019-05-04 13:37 | NUR ---
Patient has been calm, pleasant, and compliant during this shift. She was talking at breakfast, but only whispering during mid-morning. Patient stays in the day room, but did not participate in groups. Will continue to monitor.
[2019-05-04 15:55] VITALS: BP 106/65
[2019-05-04] MEDS: PRAZOSIN 1 MG CAPSULE. PO SCH (20:50)
[2019-05-04] MEDS: MIRTAZAPINE 15 MG TABLET PO SCH (20:51)
[2019-05-04] MEDS: MELATONIN 3 MG TABLET PO SCH (20:52)
[2019-05-04] MEDS: PATCH REMOVAL. MC SCH (21:00)
--- NOTE | 2019-05-04 21:16 | PN ---
DATE: 05/03/2019 PSYCHIATRIC PROGRESS NOTE This late entry 05/03/2019 covers the elements not covered in my initial note. SUBJECTIVE: I met with the patient in the evening of 05/03/2019. Per FRANKIE Henry, the patient slept 7-3/4 hours previous night. She has been again mute much of the day, states she has a sore throat, cannot talk, but this seems to be part of her mood disorder. [place] level will be checked 05/04/2019. REVIEW OF SYSTEMS: No CV, , pulmonary, eye system symptoms on review other than above and complains of pain in left upper arm, defer to Dr. Resendez. MENTAL STATUS EXAM: Oriented to herself and situation. Speech has some latency, very low in rate and rhythm, low in volume. Barely intelligible. Abstraction fair, computation impaired, language function intact, attention span short. Mood and affect withdrawn, anxious, at times labile. LABORATORY DATA: Reviewed. IMPRESSION: Schizoaffective disorder, bipolar type, mixed with psychotic features. Rest unchanged. PLAN: No change from initial note. Check a lithium level, adjust to reach therapeutic level. MAN Mamta CAMACHO MD DR: HEMANTH/emily JOB#: [id number] / [id number]
--- NOTE | 2019-05-04 21:18 | PDOC ---
Exam Note: Dion Note: Please also refer to the separate dictated note~for this date of service dictated separately.~Patient seen individually. Discussed the patient with Nursing staff reviewed the chart.~Reviewed interim history and current functioning. Reviewed vital signs,~Labs/ Radiology~and current medications noted below. Continue current treatment with the changes noted in the dictated addendum note Assessment: Vital Signs/I&O: Vital Signs Date Time Temp Pulse Resp B/P (MAP) Pulse Ox O2 Delivery O2 Flow Rate FiO2 05/04/19 20:50 80 106/65 05/04/19 15:55 97.9 16 95 05/04/19 10:41 Room Air I & O 05/03/19 05/03/19 05/04/19 15:00 23:00 07:00 Intake Total 480 ml 360 ml Balance 480 ml 360 ml Labs: Laboratory Tests Test 05/04/19 06:42 White Blood Count 5.7 x10^3/uL (4.0-11.0) Red Blood Count 3.75 x10^6/uL (3.50-5.40) Hemoglobin 11.9 g/dL (12.0-15.5) L Hematocrit 36.2 % (36.0-47.0) Mean Corpuscular Volume 96 fL (79-100) Mean Corpuscular Hemoglobin 32 pg (25-35) Mean Corpuscular Hemoglobin Concent 33 g/dL (31-37) Red Cell Distribution Width 13.2 % (11.5-14.5) Platelet Count 461 x10^3/uL (140-400) H Neutrophils (%) (Auto) 70 % (31-73) Lymphocytes (%) (Auto) 17 % (24-48) L Monocytes (%) (Auto) 11 % (0-9) H Eosinophils (%) (Auto) 2 % (0-3) Basophils (%) (Auto) 1 % (0-3) Neutrophils # (Auto) 3.9 x10^3uL (1.8-7.7) Lymphocytes # (Auto) 1.0 x10^3/uL (1.0-4.8) Monocytes # (Auto) 0.6 x10^3/uL (0.0-1.1) Eosinophils # (Auto) 0.1 x10^3/uL (0.0-0.7) Basophils # (Auto) 0.0 x10^3/uL (0.0-0.2) Sodium Level 140 mmol/L (136-145) Potassium Level 4.2 mmol/L (3.5-5.1) Chloride Level 105 mmol/L (98-107) Carbon Dioxide Level 28 mmol/L (21-32) Anion Gap 7 (6-14) Blood Urea Nitrogen 14 mg/dL (7-20) Creatinine 0.8 mg/dL (0.6-1.0) Estimated GFR (Cockcroft-Gault) 71.8 BUN/Creatinine Ratio 18 (6-20) Glucose Level 92 mg/dL (70-99) Calcium Level 9.1 mg/dL (8.5-10.1) Total Bilirubin 0.2 mg/dL (0.2-1.0) Aspartate Amino Transferase (AST) 14 U/L (15-37) L Alanine Aminotransferase (ALT) 20 U/L (14-59) Alkaline Phosphatase 187 U/L (46-116) H Total Protein 7.4 g/dL (6.4-8.2) Albumin 3.1 g/dL (3.4-5.0) L Albumin/Globulin Ratio 0.7 (1.0-1.7) L [place] Level 0.9 mmol/L (0.6-1.2) [place] Last Dose Date Unk [place] Last Dose Time Unk Current Medications: I have reviewed the current psychotropics carefully including drug interactions. Risk benefit ratio favors no change other than as noted in my dictated progress note. Diagnosis: Problems: (1) Bipolar affective, mixed, sev w/ psych (2) Anxiety disorder (3) Impulse control disorder (4) Schizophrenia, paranoid, chronic with acute exacerbation (5) Schizoaffective disorder, chronic condition with acute exacerbation LISA CAMACHO MD May 04, 2019 21:18
--- NOTE | 2019-05-04 23:17 | NUR ---
Nursing Note Pt pleasant calm and cooperative takes meds whole after expecting each and every med with description and purpose. Pt isolates to room, somewhat withdrawn but interacts with me when I speak with her. Asks for lortab for pain is having pain to shoulders, arms and hands bilat.
[2019-05-05] MEDS: LEVOTHYROXINE 50 MCG TABLET PO SCH (06:00)
[2019-05-05 06:04] VITALS: BP 121/79
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
[2019-05-05] MEDS: FLUTICASONE 50MCG/NASAL SPRAY 16GM BOTTLE. NS SCH (08:33)
[2019-05-05] MEDS: BENZTROPINE MESYLATE 1 MG TABLET PO SCH ×2 (08:34→21:35)
[2019-05-05] MEDS: LIDOCAINE (700MG/PATCH) PATCH. TD SCH (08:34)
[2019-05-05] MEDS: VITAMIN B COMPLEX CAPSULE. PO SCH (08:34)
[2019-05-05] MEDS: HYDROcodone/APAP 5/325MG 1 TAB TABLET PO PRN ×2 (08:34→21:36)
[2019-05-05] MEDS: PANTOPRAZOLE 40 MG TABLET. PO SCH (08:35)
[2019-05-05] MEDS: LITHIUM CARBONATE 300 MG TABLET PO SCH ×2 (08:35→21:36)
[2019-05-05] MEDS: buPROPion XL 300 MG TAB.ER.24H. PO SCH (08:35)
[2019-05-05] MEDS: CHOLECALCIFEROL (VITAMIN D3) 1,000 UNIT TABLET PO SCH (08:35)
[2019-05-05] MEDS: DOCUSATE SODIUM 100 MG CAPSULE PO SCH (08:35)
[2019-05-05] MEDS: APIXABAN 5 MG TABLET. PO SCH ×2 (08:35→21:36)
[2019-05-05] MEDS: MAGNESIUM OXIDE 400 MG TABLET PO SCH ×2 (08:35→21:35)
[2019-05-05] MEDS: LOSARTAN 50 MG TABLET. PO SCH (08:35)
[2019-05-05] MEDS: BUDESONIDE 0.5 MG/2 ML NEBU NEB SCH ×2 (09:54→21:57)
--- NOTE | 2019-05-05 11:10 | NUR ---
WEEKLY ACTIVITY THERAPY NOTE Date of Admission:04/23/2019 Date of AT Assessment: 04/26/2019 Goal aimed: to increase socialization and engagement Initial Goal: Pt. will participate in at least five Activity Therapy groups per week. Weekly progress towards goal: exceeded 01/04 Group participation level: 6 full. 3 mod, 2 min Weekly highlights: Wheel of Fortune and Jeopardy on Behaviors observed: speaking in a whisper at times, louder voice on Thursday; participates well with support Plan: no change to goal at this time Beneficial adaptations: behavioral action plan initiated: see nursing report for more details
--- NOTE | 2019-05-05 12:38 | NUR ---
REJI received a call from pt case checker, Dulce Maria, to go over treatment team updates and discuss the potential discharge for the end of next week. Dulce Maria has requested that pt have her medications to be faxed over YFN so that they can get them worked out. Pt care team with Danyell would need at least 24-48 hours to get everything settled for pt. REJI will plan to contact Dulce Maria on Thursday with a plan as to whether or not pt will be able to leave.
--- NOTE | 2019-05-05 13:45 | NUR ---
Social work student (EZEQUIEL) observed that pt was participating in the afternoon social work group where a board game was being played. She had a difficult time concentrating on the questions and coming up with answers. The pt appeared to be overstimulated by all the noise and began to tremble. Per the pt's individual behavioral plan, this SWS asked pt if she would like to go to a quiet space and she nodded. Since pt was in a wheelchair, SWS wheeled her towards her room and we sat outside her room. Pt continued to tremble a bit and SWS asked if she would like a blanket. Pt said no. After about 5 minutes, the pt's trembling stopped and her breathing was less shallow. Pt's voice sounded hoarse and her lips looked chapped. When asked if she would like some water, the pt nodded and indicated that there was a cup in her room. Pt drank 10 ounces from her plastic cup and then SWS refilled it. Since we were in the hallway, this SWS and pt went to sit outside the [facility] nurse's station for about 10 minutes. Pt asked for a sweater and then indicated that she was ready to return to the day room for the recreational activity. SWS asked Nestor to keep an eye on pt.
[2019-05-05 16:12] VITALS: BP 131/79
[2019-05-05] MEDS: PATCH REMOVAL. MC SCH (21:00)
--- NOTE | 2019-05-05 21:19 | PDOC ---
Exam Note: Dion Note: Please also refer to the separate dictated note~for this date of service dictated separately.~Patient seen individually. Discussed the patient with Nursing staff reviewed the chart.~Reviewed interim history and current functioning. Reviewed vital signs,~Labs/ Radiology~and current medications noted below. Continue current treatment with the changes noted in the dictated addendum note Assessment: Vital Signs/I&O: Vital Signs Date Time Temp Pulse Resp B/P (MAP) Pulse Ox O2 Delivery O2 Flow Rate FiO2 05/05/19 16:12 97.6 92 19 131/79 (96) 97 05/05/19 09:56 Room Air I & O 05/04/19 05/04/19 05/05/19 15:00 23:00 07:00 Intake Total 600 ml 600 ml Balance 600 ml 600 ml Current Medications: I have reviewed the current psychotropics carefully including drug interactions. Risk benefit ratio favors no change other than as noted in my dictated progress note. Diagnosis: Problems: (1) Bipolar affective, mixed, sev w/ psych (2) Anxiety disorder (3) Impulse control disorder (4) Schizophrenia, paranoid, chronic with acute exacerbation (5) Schizoaffective disorder, chronic condition with acute exacerbation LISA CAMACHO MD May 05, 2019 21:19
[2019-05-05] MEDS: MIRTAZAPINE 15 MG TABLET PO SCH (21:35)
[2019-05-05] MEDS: PRAZOSIN 1 MG CAPSULE. PO SCH (21:35)
[2019-05-05] MEDS: MELATONIN 3 MG TABLET PO SCH (21:36)
--- NOTE | 2019-05-05 23:03 | NUR ---
Nursing Note Pt asks what each med is, then asks me again after I had already told her what they were, she then said ok and fell asleep. I told her to wake up and take them, and she laughed "sorry I did that how funny". Compliant and cooperative.
--- NOTE | 2019-05-06 06:18 | NUR ---
Nursing Note Pt up in day room, but sleeping in her chair pleasant when awakens. Cooperative and compliant with assessments.
[2019-05-06] MEDS: LEVOTHYROXINE 50 MCG TABLET PO SCH (06:36)
[2019-05-06 06:37] VITALS: BP 99/45
[2019-05-06 08:11] LABS: BASO % 0 % (0-3); EOS # 0.2 x10^3/uL (0.0-0.7); EOS % 3 % (0-3); HEMATOCRIT 35.7 % (36.0-47.0); HEMOGLOBIN 11.7 g/dL (12.0-15.5); LYMPH % 15 % (24-48); MEAN CORPUSCULAR HEMOGLOBIN 32 pg (25-35); MEAN CORPUSCULAR HGB CONC 33 g/dL (31-37); MEAN CORPUSCULAR VOLUME 96 fL (79-100); MONO # 0.7 x10^3/uL (0.0-1.1); MONO % 11 % (0-9); NEUT # 4.8 x10^3uL (1.8-7.7); NEUT % 71 % (31-73); PLATELET COUNT 456 x10^3/uL (140-400); RED CELL DISTRIBUTION WIDTH 13.4 % (11.5-14.5); WHITE BLOOD COUNT 6.7 x10^3/uL (4.0-11.0)
[2019-05-06 08:20] LABS: ALBUMIN 3.2 g/dL (3.4-5.0); ALBUMIN/GLOBULIN RATIO 0.7 (1.0-1.7); CALCIUM 9.4 mg/dL (8.5-10.1); GFR 55.5; POTASSIUM 4.3 mmol/L (3.5-5.1); TOTAL BILIRUBIN 0.3 mg/dL (0.2-1.0); TOTAL PROTEIN 7.5 g/dL (6.4-8.2)
[2019-05-06] MEDS: LIDOCAINE (700MG/PATCH) PATCH. TD SCH (08:29)
[2019-05-06] MEDS: VITAMIN B COMPLEX CAPSULE. PO SCH (08:30)
[2019-05-06] MEDS: PANTOPRAZOLE 40 MG TABLET. PO SCH (08:30)
[2019-05-06] MEDS: CHOLECALCIFEROL (VITAMIN D3) 1,000 UNIT TABLET PO SCH (08:30)
[2019-05-06] MEDS: APIXABAN 5 MG TABLET. PO SCH ×2 (08:34→20:42)
[2019-05-06] MEDS: buPROPion XL 300 MG TAB.ER.24H. PO SCH (08:35)
[2019-05-06] MEDS: MAGNESIUM OXIDE 400 MG TABLET PO SCH ×2 (08:35→20:41)
[2019-05-06] MEDS: DOCUSATE SODIUM 100 MG CAPSULE PO SCH (08:35)
[2019-05-06] MEDS: BENZTROPINE MESYLATE 1 MG TABLET PO SCH ×2 (08:36→20:42)
[2019-05-06] MEDS: FLUTICASONE 50MCG/NASAL SPRAY 16GM BOTTLE. NS SCH (09:00)
[2019-05-06] MEDS: LOSARTAN 50 MG TABLET. PO SCH (09:00)
[2019-05-06] MEDS: LITHIUM CARBONATE 300 MG TABLET PO SCH ×2 (10:10→20:43)
[2019-05-06] MEDS: BUDESONIDE 0.5 MG/2 ML NEBU NEB SCH ×2 (10:33→21:34)
--- NOTE | 2019-05-06 15:07 | TX PLAN ---
Interdisciplinary Tx Plan Admission Information Apr 23, 2019 at 19:24 Legal Status (on Admission): Voluntary DPOA/Guardian Name: Chris Givens Contact Other Contact Name: Danyell Huang Other Contact Verified Code Status: DNR Allergies: Coded Allergies: morphine (Verified Allergy, Unknown, 04/23/19) sulfamethoxazole (Verified Allergy, Unknown, 04/23/19) trimethoprim (Verified Allergy, Unknown, 04/23/19) Diagnoses Primary Diagnosis: Schizophrenia chronic with acute exacerbation Reasons for Admission: Other Problem in Patient's Words: Pt has always had psychiatric trouble but appears to have cyclic behaviors. Additional Admission Comments: According to the intake, pt is feining muteness, blank stares and disoriented. Problems Active Problems: Muteness Disorientation Inactive Problems: Medication compliance Pt Strengths/Limitations Ability for Plain Dealing: Poor Cognitive Functioning/Ability: Poor Communication Skills/Ability: Poor Financial Resources: Fair Insight/Judgement: Poor Intellectual Ability: Fair Physical Health: Fair Social Skills: Fair Stability in Family: Good Stability in School/Work: Poor Verbal Skills: Poor Other strengths/limitations: When pt is stable, she can be very functional Discharge Criteria Discharge Criteria: No need for close observ., Adequate arrangements @DC, Improved behavior, Improved mood/thought Preliminary Discharge Plan Preliminary DC Plan: Current Living Arrange. Special Precautions Fall Risk: Moderate Initial D/C Plan Pt will plan to return to her residential center through [facility] Identified Discharge Needs: Continued evaluation for psychiatric services. Currently Utilized Resources Currently Utilized Resources/P: Pt has services through [facility] (PCP, Psychiatrist, Case management) Identified Problems/Hx/Goals Objectives/Short-Term Goals Short Term Goals: Improved Social Skills, Medication Stabilization, Promote Coping Skill Interventions/Frequency Staff Interventions/Frequency&: Psychiatrist to assess pt at least 3x per week. Anesthesiology Physician Assistant to assess pt at least 2x per week. Nursing to complete 15 minute checks daily. Encourage group participation. History Vocational History: Pt brother reports that pt had a brief job in the 80's; however, she volunteered at jobs since being at [facility] Education: Pt did graduate high school (12th grade) and has received a Bachelor's degree from [id number]; however, pt brother was not able to specify what area. Community Follow-up Community Provider/Family Inpu: She always has been this way. She just needs her medication adjusted and hopefully figure out why she has decided to go "mute". Treatment Plan Explained Patient/Public Health Inspector had this treatment plan explained to him/her as indicated by the signature below and has been given the opportunity to ask questions and make suggestions: Date: Patient/Public Health Inspector Signature: Status Update Update Pt is eating roughly 50-75% of meals and sleeping roughly 6.5 hours a night. Pt continues to be intermittently mute, but does appear to do well when from time to time in the day room. Pt attempts to participate in some group activities and is more interactive with her peers than staff. Pt is medication compliant and compliant with all cares. Pt will return to her residential through [facility] and continue all services through the [facility]. At this time, it appears that pt may return to her residence towards the end of next week. NIDHI TOWNSEND May 06, 2019 15:07
[2019-05-06 15:31] VITALS: BP 136/62
--- NOTE | 2019-05-06 19:43 | PN ---
DATE: 05/04/2019 PSYCHIATRIC PROGRESS NOTE This late entry May 03, covers elements not covered in my initial note. SUBJECTIVE: I met with the patient evening of May 03. Per Robin RN, the patient slept 7 hours previous night. She was speaking in the morning, but then whispers. [place] level is 0.9. Seems a little less labile and paranoid and anxious. REVIEW OF SYSTEMS: No CV, , pulmonary, eye system symptoms on review. MENTAL STATUS EXAM: Reasonably oriented. Speech as above. Abstraction fair, computation impaired, language function intact, attention span short. Mood and affect somewhat anxious, labile at times, withdrawn. LABORATORY DATA: Reviewed. IMPRESSION: Unchanged from initial note. PLAN: No change from initial note. MAN Mamta CAMACHO MD DR: HEMANTH/emily JOB#: [id number] / [id number]
--- NOTE | 2019-05-06 19:46 | PN ---
DATE: 05/05/2019 PSYCHIATRIC PROGRESS NOTE This late entry of May 04 covers elements not covered in my initial note. SUBJECTIVE: I met with the patient on evening of May 04 and staffed at a treatment team meeting with the entire team in the morning. The patient did have a fall vessel welder at 7:30 a.m., no injuries noted, slept 8 hours previous night. At treatment team meeting we reviewed her history, diagnosis at length. Appetite is 50%. [place] level on May 03 was 0.9. REVIEW OF SYSTEMS: No CV, , pulmonary, eye system symptoms on review. MENTAL STATUS EXAM: Reasonably oriented. Speech is low in volume. Abstraction fair. Computation impaired. Language function intact. Attention span short. Mood and affect showing improvement, still withdrawn. LABORATORY DATA: Reviewed. IMPRESSION: Unchanged from initial note. PLAN: No change from initial note. [place] level therapeutic. Maintain rest of the psychotropics for now. Given her fall this morning, we will reduce the Minipress from 2 mg at bedtime down to 1 mg at bedtime MAN Mamta CAMACHO MD DR: HEMANTH/emily JOB#: [id number] / [id number]
[2019-05-06] MEDS: PRAZOSIN 1 MG CAPSULE. PO SCH (20:41)
[2019-05-06] MEDS: MELATONIN 3 MG TABLET PO SCH (20:42)
[2019-05-06] MEDS: MIRTAZAPINE 15 MG TABLET PO SCH (20:43)
[2019-05-06] MEDS: PATCH REMOVAL. MC SCH (20:43)
--- NOTE | 2019-05-06 21:21 | PDOC ---
Exam Note: Dion Note: Please also refer to the separate dictated note~for this date of service dictated separately.~Patient seen individually. Discussed the patient with Nursing staff reviewed the chart.~Reviewed interim history and current functioning. Reviewed vital signs,~Labs/ Radiology~and current medications noted below. Continue current treatment with the changes noted in the dictated addendum note Assessment: Vital Signs/I&O: Vital Signs Date Time Temp Pulse Resp B/P (MAP) Pulse Ox O2 Delivery O2 Flow Rate FiO2 05/06/19 20:41 78 136/62 05/06/19 15:31 97.0 18 99 05/06/19 10:35 Room Air I & O 05/05/19 05/05/19 05/06/19 15:00 23:00 07:00 Intake Total 0 ml 720 ml Balance 0 ml 720 ml Labs: Laboratory Tests Test 05/06/19 07:55 White Blood Count 6.7 x10^3/uL (4.0-11.0) Red Blood Count 3.70 x10^6/uL (3.50-5.40) Hemoglobin 11.7 g/dL (12.0-15.5) L Hematocrit 35.7 % (36.0-47.0) L Mean Corpuscular Volume 96 fL (79-100) Mean Corpuscular Hemoglobin 32 pg (25-35) Mean Corpuscular Hemoglobin Concent 33 g/dL (31-37) Red Cell Distribution Width 13.4 % (11.5-14.5) Platelet Count 456 x10^3/uL (140-400) H Neutrophils (%) (Auto) 71 % (31-73) Lymphocytes (%) (Auto) 15 % (24-48) L Monocytes (%) (Auto) 11 % (0-9) H Eosinophils (%) (Auto) 3 % (0-3) Basophils (%) (Auto) 0 % (0-3) Neutrophils # (Auto) 4.8 x10^3uL (1.8-7.7) Lymphocytes # (Auto) 1.0 x10^3/uL (1.0-4.8) Monocytes # (Auto) 0.7 x10^3/uL (0.0-1.1) Eosinophils # (Auto) 0.2 x10^3/uL (0.0-0.7) Basophils # (Auto) 0.0 x10^3/uL (0.0-0.2) Sodium Level 140 mmol/L (136-145) Potassium Level 4.3 mmol/L (3.5-5.1) Chloride Level 104 mmol/L (98-107) Carbon Dioxide Level 30 mmol/L (21-32) Anion Gap 6 (6-14) Blood Urea Nitrogen 17 mg/dL (7-20) Creatinine 1.0 mg/dL (0.6-1.0) Estimated GFR (Cockcroft-Gault) 55.5 BUN/Creatinine Ratio 17 (6-20) Glucose Level 95 mg/dL (70-99) Calcium Level 9.4 mg/dL (8.5-10.1) Total Bilirubin 0.3 mg/dL (0.2-1.0) Aspartate Amino Transferase (AST) 15 U/L (15-37) Alanine Aminotransferase (ALT) 19 U/L (14-59) Alkaline Phosphatase 206 U/L (46-116) H Total Protein 7.5 g/dL (6.4-8.2) Albumin 3.2 g/dL (3.4-5.0) L Albumin/Globulin Ratio 0.7 (1.0-1.7) L [place] Level 1.1 mmol/L (0.6-1.2) [place] Last Dose Date 05/05/19 [place] Last Dose Time 2100 Current Medications: I have reviewed the current psychotropics carefully including drug interactions. Risk benefit ratio favors no change other than as noted in my dictated progress note. Diagnosis: Problems: (1) Bipolar affective, mixed, sev w/ psych (2) Anxiety disorder (3) Impulse control disorder (4) Schizophrenia, paranoid, chronic with acute exacerbation (5) Schizoaffective disorder, chronic condition with acute exacerbation LISA CAMACHO MD May 06, 2019 21:21
--- NOTE | 2019-05-06 22:00 | NUR ---
Patient is in the day room on assumption of care. She is withdrawn to herself. Compliant with assessments and medications. Requests to have medications listed and sometimes asks what they are for, but otherwise doesn't speak. Responds to most questions with hand gestures or nods of her head. No agitation. No delusions or hallucinations noted. No complaints of pain or discomfort this shift. Denies SI.
[2019-05-07] MEDS: LEVOTHYROXINE 50 MCG TABLET PO SCH (05:27)
[2019-05-07 06:32] VITALS: BP 127/68
[2019-05-07] MEDS: BENZTROPINE MESYLATE 1 MG TABLET PO SCH ×2 (08:52→20:20)
[2019-05-07] MEDS: VITAMIN B COMPLEX CAPSULE. PO SCH (08:52)
[2019-05-07] MEDS: APIXABAN 5 MG TABLET. PO SCH ×2 (08:53→20:20)
[2019-05-07] MEDS: LOSARTAN 50 MG TABLET. PO SCH (08:53)
[2019-05-07] MEDS: DOCUSATE SODIUM 100 MG CAPSULE PO SCH (08:53)
[2019-05-07] MEDS: PANTOPRAZOLE 40 MG TABLET. PO SCH (08:53)
[2019-05-07] MEDS: CHOLECALCIFEROL (VITAMIN D3) 1,000 UNIT TABLET PO SCH (08:53)
[2019-05-07] MEDS: buPROPion XL 300 MG TAB.ER.24H. PO SCH (08:53)
[2019-05-07] MEDS: MAGNESIUM OXIDE 400 MG TABLET PO SCH ×2 (08:53→20:20)
[2019-05-07] MEDS: FLUTICASONE 50MCG/NASAL SPRAY 16GM BOTTLE. NS SCH (08:54)
[2019-05-07] MEDS: LITHIUM CARBONATE 300 MG TABLET PO SCH ×2 (08:55→20:20)
[2019-05-07] MEDS: LIDOCAINE (700MG/PATCH) PATCH. TD SCH (08:57)
[2019-05-07] MEDS: BUDESONIDE 0.5 MG/2 ML NEBU NEB SCH ×2 (10:04→20:00)
--- NOTE | 2019-05-07 12:05 | NUR ---
Nursing note: Pt in dining room for morning meds and assessment. She was compliant with her meds whole after they were all listed off for her. She was cooperative with her assessment. Pt c/o pain 8/10 in her R hip. Scheduled lidocaine patch was applied. Pt has been speaking to this nurse this shift, but is mostly withdrawn to herself. Pt has been sitting quietly in the day room all morning. Will continue to monitor.
[2019-05-07 15:52] VITALS: BP 107/68
[2019-05-07] MEDS: PRAZOSIN 1 MG CAPSULE. PO SCH (20:20)
[2019-05-07] MEDS: MIRTAZAPINE 15 MG TABLET PO SCH (20:20)
[2019-05-07] MEDS: MELATONIN 3 MG TABLET PO SCH (20:20)
[2019-05-07] MEDS: PATCH REMOVAL. MC SCH (21:00)
--- NOTE | 2019-05-07 21:14 | PDOC ---
Exam Note: Dion Note: Please also refer to the separate dictated note~for this date of service dictated separately.~Patient seen individually. Discussed the patient with Nursing staff reviewed the chart.~Reviewed interim history and current functioning. Reviewed vital signs,~Labs/ Radiology~and current medications noted below. Continue current treatment with the changes noted in the dictated addendum note Assessment: Vital Signs/I&O: Vital Signs Date Time Temp Pulse Resp B/P (MAP) Pulse Ox O2 Delivery O2 Flow Rate FiO2 05/07/19 20:20 88 107/68 05/07/19 15:52 97.5 16 99 05/06/19 21:36 Room Air I & O 05/06/19 05/06/19 05/07/19 15:00 23:00 07:00 Intake Total 700 ml 120 ml 240 ml Balance 700 ml 120 ml 240 ml Current Medications: I have reviewed the current psychotropics carefully including drug interactions. Risk benefit ratio favors no change other than as noted in my dictated progress note. Diagnosis: Problems: (1) Bipolar affective, mixed, sev w/ psych (2) Anxiety disorder (3) Impulse control disorder (4) Schizophrenia, paranoid, chronic with acute exacerbation (5) Schizoaffective disorder, chronic condition with acute exacerbation LISA CAMACHO MD May 07, 2019 21:14
--- NOTE | 2019-05-07 23:57 | NUR ---
Pt located in the dayroom sitting calmly in a wheelchair. When asked how her day went, pt responded "don't ask. I plead the fifth." Pt would not elaborate. Compliant with whole medications. Pt currently sleeping in bed.
[2019-05-08] MEDS: LEVOTHYROXINE 50 MCG TABLET PO SCH (05:42)
[2019-05-08 06:19] VITALS: BP 95/55
[2019-05-08] MEDS: buPROPion XL 300 MG TAB.ER.24H. PO SCH (08:05)
[2019-05-08] MEDS: LITHIUM CARBONATE 300 MG TABLET PO SCH ×2 (08:05→20:40)
[2019-05-08] MEDS: DOCUSATE SODIUM 100 MG CAPSULE PO SCH (08:05)
[2019-05-08] MEDS: CHOLECALCIFEROL (VITAMIN D3) 1,000 UNIT TABLET PO SCH (08:06)
[2019-05-08] MEDS: BENZTROPINE MESYLATE 1 MG TABLET PO SCH ×2 (08:06→20:40)
[2019-05-08] MEDS: MAGNESIUM OXIDE 400 MG TABLET PO SCH ×2 (08:06→20:40)
[2019-05-08] MEDS: PANTOPRAZOLE 40 MG TABLET. PO SCH (08:06)
[2019-05-08] MEDS: APIXABAN 5 MG TABLET. PO SCH ×2 (08:06→20:40)
[2019-05-08] MEDS: VITAMIN B COMPLEX CAPSULE. PO SCH (08:06)
[2019-05-08] MEDS: LOSARTAN 50 MG TABLET. PO SCH (09:00)
[2019-05-08] MEDS: LIDOCAINE (700MG/PATCH) PATCH. TD SCH (09:00)
[2019-05-08] MEDS: FLUTICASONE 50MCG/NASAL SPRAY 16GM BOTTLE. NS SCH (09:08)
[2019-05-08] MEDS: BUDESONIDE 0.5 MG/2 ML NEBU NEB SCH ×2 (10:04→21:42)
--- NOTE | 2019-05-08 13:28 | NUR ---
Patient is alert, oriented to self, time and hospital, thought she was at [facility]. Pt irritated that RN asked orientation questions, responding, "don't you guys report this off to each other?". Pt complaining of shaking, tremors. RN did notice the patient doing this during breakfast, will continue to monitor that. When RN asked patient if she was in pain, pt responded, "Yes! I tell people but I never get feedback! Its in my arm and neck and shoulders." RN offered lidocaine patch and hydrocodone. Pt refused both. RN pointed out that this was feedback regarding her pain. Pt refused to talk after that. Compliant with scheduled meds, compliant with assessment. WCTM.
[2019-05-08 15:28] VITALS: BP 113/71
--- NOTE | 2019-05-08 16:50 | NUR ---
Patient observed by DEBBI putting herself on the floor then crawling down the hallway. Pt did get herself up to standing position and walked herself to the dining room.
[2019-05-08] MEDS: PRAZOSIN 1 MG CAPSULE. PO SCH (20:39)
[2019-05-08] MEDS: MELATONIN 3 MG TABLET PO SCH (20:40)
[2019-05-08] MEDS: MIRTAZAPINE 15 MG TABLET PO SCH (20:40)
[2019-05-08] MEDS: PATCH REMOVAL. MC SCH (20:40)
[2019-05-08] MEDS: HYDROcodone/APAP 5/325MG 1 TAB TABLET PO PRN (20:42)
--- NOTE | 2019-05-08 21:45 | PN ---
DATE: 05/06/2019 This late entry 05/06/2019 covers elements not covered in my initial note. SUBJECTIVE: I met with the patient in evening of 05/06/2019. Per FRANKIE Pang, the patient slept 8-3/4 hours previous night. She has been somewhat sleepy, tired during the day, compliant with medications. [place] level is 0.8. REVIEW OF SYSTEMS: Positive for some tiredness at times, is not very forthcoming verbally, becomes mute, but slowly improving. No CV, , pulmonary, eye system symptoms on review. MENTAL STATUS EXAM: Reasonably oriented. Speech as above. Abstraction fair, computation impaired. Language function intact. Attention span short. Mood and affect somewhat withdrawn. LABORATORY DATA: Reviewed. IMPRESSION: Schizoaffective disorder, bipolar type, mixed with psychotic features, in partial remission. PLAN: Continue current psychotropics. Luvox along with Invega IM. Minipress was reduced, Remeron 15 mg at bedtime, Wellbutrin 300 mg a day, Cogentin 2 mg b.i.d. We may taper this. Trazodone along with lithium 150 a.m. and 300 at bedtime, melatonin 6 mg at bedtime. MAN Mamta CAMACHO MD DR: HEMANTH/emily JOB#: [id number] / [id number]
--- NOTE | 2019-05-08 21:47 | PN ---
DATE: 05/06/2019 PSYCHIATRIC PROGRESS NOTE This late entry 05/06/2019 covers the elements not covered in my initial note. SUBJECTIVE: I met with the patient in the evening of 05/06/2019. Per FRANKIE Pang, the patient slept 7-3/4 hours previous night. She has been doing a little better, less anxious, labile in her mood, little more accepting and less disruptive and triangulation of staff is noted. REVIEW OF SYSTEMS: Ambulation impaired, in wheelchair. No CV, , pulmonary, eye, ENT system symptoms on review, does complain of pedal edema. MENTAL STATUS EXAM: Reasonably oriented. Speech is coherent, abstraction fair, computation impaired, language function intact. Mood and affect still somewhat depressed, anxious, withdrawn. Briefly manipulative, but improved. LABORATORY DATA: Reviewed. IMPRESSION: Unchanged from initial note. PLAN: The patient is requesting an increase of her Xanax. She is on 0.5 mg q.6 hours. We will increase to 0.5 mg q. 4 hours p.r.n. anxiety, max 2 mg in 24 hours. Continue rest of the psychotropics unchanged. MAN Mamta CAMACHO MD DR: HEMANTH/emily JOB#: [id number] / [id number]
--- NOTE | 2019-05-08 21:58 | PN ---
DATE: 05/07/2019 PSYCHIATRIC PROGRESS NOTE This late entry 05/07/2019 covers elements not covered in my initial note. SUBJECTIVE: I met with the patient evening of 05/07/2019. Per FRANKIE Escobar, patient slept 6-1/4 hours previous night. She has been mute, often noncompliant with medications, puts herself on the floor earlier in the day. No injuries noted. REVIEW OF SYSTEMS: Difficulty with her speech and somewhat mute as I met with her. Ambulation impaired with walker. No CV, , pulmonary, eye system symptoms on review. MENTAL STATUS EXAM: Oriented reasonably. Speech is as noted above. Abstraction fair, computation impaired, language function intact, attention span short. Mood and affect somewhat withdrawn. LABORATORY DATA: Reviewed. IMPRESSION: Unchanged from initial note. PLAN: No change from initial note. MAN Mamta CAMACHO MD DR: HEMANTH/emily JOB#: [id number] / [id number]
--- NOTE | 2019-05-08 22:31 | PDOC ---
Exam Note: Dion Note: Please also refer to the separate dictated note~for this date of service dictated separately.~Patient seen individually. Discussed the patient with Nursing staff reviewed the chart.~Reviewed interim history and current functioning. Reviewed vital signs,~Labs/ Radiology~and current medications noted below. Continue current treatment with the changes noted in the dictated addendum note Assessment: Vital Signs/I&O: Vital Signs Date Time Temp Pulse Resp B/P (MAP) Pulse Ox O2 Delivery O2 Flow Rate FiO2 05/08/19 21:46 97 05/08/19 21:42 Room Air 05/08/19 20:39 81 113/71 05/08/19 15:28 97.6 18 I & O 05/07/19 05/07/19 05/08/19 15:00 23:00 07:00 Intake Total 480 ml 480 ml Balance 480 ml 480 ml Labs: Laboratory Tests Test 05/08/19 06:50 [place] Level 1.2 mmol/L (0.6-1.2) [place] Last Dose Date 05/07/19 [place] Last Dose Time 2100 Current Medications: Meds: Current Medications Medications (Trade) Dose Ordered Sig/Angelica Route PRN Reason Start Time Stop Time Status Last Admin Dose Admin Benztropine Mesylate (Cogentin) 1.5 mg BID PO 05/08/19 09:00 05/09/19 21:01 05/08/19 20:40 I have reviewed the current psychotropics carefully including drug interactions. Risk benefit ratio favors no change other than as noted in my dictated progress note. Diagnosis: Problems: (1) Bipolar affective, mixed, sev w/ psych (2) Anxiety disorder (3) Impulse control disorder (4) Schizophrenia, paranoid, chronic with acute exacerbation (5) Schizoaffective disorder, chronic condition with acute exacerbation LISA CAMACHO MD May 08, 2019 22:31
--- NOTE | 2019-05-08 22:50 | NUR ---
Pt has been calm and drowsy this evening. Compliant with whole medications. Pt appears more confused this evening and having trouble finding her words. Pt continues to be irritable when asked orientation questions. Pt currently sleeping in bed.
[2019-05-09] MEDS: LEVOTHYROXINE 50 MCG TABLET PO SCH (06:03)
[2019-05-09 06:16] VITALS: BP 106/65
[2019-05-09] MEDS: LIDOCAINE (700MG/PATCH) PATCH. TD SCH (09:00)
[2019-05-09] MEDS: PANTOPRAZOLE 40 MG TABLET. PO SCH (09:12)
[2019-05-09] MEDS: LOSARTAN 50 MG TABLET. PO SCH (09:12)
[2019-05-09] MEDS: FLUTICASONE 50MCG/NASAL SPRAY 16GM BOTTLE. NS SCH (09:12)
[2019-05-09] MEDS: DOCUSATE SODIUM 100 MG CAPSULE PO SCH (09:12)
[2019-05-09] MEDS: APIXABAN 5 MG TABLET. PO SCH ×2 (09:12→20:39)
[2019-05-09] MEDS: MAGNESIUM OXIDE 400 MG TABLET PO SCH ×2 (09:12→20:39)
[2019-05-09] MEDS: buPROPion XL 300 MG TAB.ER.24H. PO SCH (09:12)
[2019-05-09] MEDS: CHOLECALCIFEROL (VITAMIN D3) 1,000 UNIT TABLET PO SCH (09:13)
[2019-05-09] MEDS: BENZTROPINE MESYLATE 1 MG TABLET PO SCH ×2 (09:13→20:40)
[2019-05-09] MEDS: VITAMIN B COMPLEX CAPSULE. PO SCH (09:13)
[2019-05-09] MEDS: BUDESONIDE 0.5 MG/2 ML NEBU NEB SCH ×2 (10:46→20:21)
--- NOTE | 2019-05-09 11:30 | NUR ---
Nursing note: Pt was in her room for morning meds and assessment. She was pleasant, med compliant, and cooperative. Pt was not irritable this morning and was willing to answer my questions. Pt did state that she had some pain in her back, but refused her lidocaine patch. Pt has been in the day room all morning. Will continue to monitor.
[2019-05-09 14:22] LABS: BACTERIA,URINE 0 /HPF (0-FEW); BILIRUBIN,URINE NEG (NEG); CLARITY,URINE CLEAR; COLOR,URINE YELLOW; GLUCOSE,URINE NEG (NEG); NITRITE,URINE NEG (NEG); RBC,URINE 0 /HPF (0-2); SQUAMOUS EPITHELIAL CELL,UR FEW /LPF; UROBILINOGEN,URINE 0.2 mg/dL (0.2 mg/dL)
[2019-05-09 16:09] VITALS: BP 109/50
--- NOTE | 2019-05-09 20:31 | PN ---
DATE: 05/08/2019 PSYCHIATRIC PROGRESS NOTE This late entry May 07, covers elements not covered in my initial note. SUBJECTIVE: I met with the patient in the evening. The patient slept 5 and a quarter hours previous night per FRANKIE Escobar. She has been mute off and on, put herself on the floor, crawling on the floor, no injuries noted. Appears a little more confused in the evening. [place] level is 1.2 and we will hold the lithium on May 08. Since she has already received it on May 07 before I met with her and then reduce it to 300 mg at bedtime. Check a lithium level and decide thereafter on the appropriate dosage. REVIEW OF SYSTEMS: Positive for some tiredness. No CV, , pulmonary, eye system symptoms on review. MENTAL STATUS EXAM: Oriented to herself and situation. Speech has some latency, coherent. Abstraction fair, computation impaired, language function intact, attention span short. Mood and affect somewhat labile. LABORATORY DATA: Reviewed. IMPRESSION: Unchanged from initial note. PLAN: [place] changes noted above, maintain Luvox, Invega, Minipress, Remeron, Wellbutrin, Cogentin, which is being reduced along with melatonin for now. LISA CAMACHO MD DR: HEMANTH/emily JOB#: [id number] / [id number]
[2019-05-09] MEDS: MELATONIN 3 MG TABLET PO SCH (20:39)
[2019-05-09] MEDS: PRAZOSIN 1 MG CAPSULE. PO SCH (20:39)
[2019-05-09] MEDS: MIRTAZAPINE 15 MG TABLET PO SCH (20:39)
[2019-05-09] MEDS: PATCH REMOVAL. MC SCH (20:40)
--- NOTE | 2019-05-09 21:40 | PDOC ---
Exam Note: Dion Note: Please also refer to the separate dictated note~for this date of service dictated separately.~Patient seen individually. Discussed the patient with Nursing staff reviewed the chart.~Reviewed interim history and current functioning. Reviewed vital signs,~Labs/ Radiology~and current medications noted below. Continue current treatment with the changes noted in the dictated addendum note Assessment: Vital Signs/I&O: Vital Signs Date Time Temp Pulse Resp B/P (MAP) Pulse Ox O2 Delivery O2 Flow Rate FiO2 05/09/19 20:39 90 109/50 05/09/19 20:23 96 Room Air 05/09/19 16:09 98.0 16 I & O 05/08/19 05/08/19 05/09/19 15:00 23:00 07:00 Intake Total 720 ml 480 ml Balance 720 ml 480 ml Labs: Laboratory Tests Test 05/09/19 13:25 Urine Collection Type Unknown Urine Color Yellow Urine Clarity Clear Urine pH 8.5 Urine Specific [place] 1.015 Urine Protein Neg (NEG-TRACE) Urine Glucose (UA) Neg mg/dL (NEG) Urine Ketones (Stick) Neg mg/dL (NEG) Urine Blood Neg (NEG) Urine Nitrite Neg (NEG) Urine Bilirubin Neg (NEG) Urine Urobilinogen Dipstick 0.2 mg/dL (0.2 mg/dL) Urine Leukocyte Esterase Trace (NEG) Urine RBC 0 /HPF (0-2) Urine WBC 5-10 /HPF (0-4) Urine Squamous Epithelial Cells Few /LPF Urine Transitional Epithelial Cells Few /LPF Urine Bacteria 0 /HPF (0-FEW) Current Medications: I have reviewed the current psychotropics carefully including drug interactions. Risk benefit ratio favors no change other than as noted in my dictated progress note. Diagnosis: Problems: (1) Bipolar affective, mixed, sev w/ psych (2) Anxiety disorder (3) Impulse control disorder (4) Schizophrenia, paranoid, chronic with acute exacerbation (5) Schizoaffective disorder, chronic condition with acute exacerbation LISA CAMACHO MD May 09, 2019 21:40
--- NOTE | 2019-05-09 23:13 | NUR ---
Pt located in the dayroom sitting calmly. Pt disorganized and is having a hard time finding her words. Pt restless and impulsive. Pt instructed not to stand up without assistance d/t her unsteadiness this evening. After being instructed this, pt immediately attempted to stand up. Pt then apologized, stating everything goes in one ear and out the other. Compliant with whole medications.
[2019-05-10] MEDS: LEVOTHYROXINE 50 MCG TABLET PO SCH (05:59)
[2019-05-10 06:21] VITALS: BP 115/69
[2019-05-10] MEDS: buPROPion XL 300 MG TAB.ER.24H. PO SCH (08:39)
[2019-05-10] MEDS: VITAMIN B COMPLEX CAPSULE. PO SCH (08:39)
[2019-05-10] MEDS: LOSARTAN 50 MG TABLET. PO SCH (08:39)
[2019-05-10] MEDS: APIXABAN 5 MG TABLET. PO SCH ×2 (08:39→20:43)
[2019-05-10] MEDS: FLUTICASONE 50MCG/NASAL SPRAY 16GM BOTTLE. NS SCH (08:40)
[2019-05-10] MEDS: CHOLECALCIFEROL (VITAMIN D3) 1,000 UNIT TABLET PO SCH (08:40)
[2019-05-10] MEDS: BENZTROPINE MESYLATE 1 MG TABLET PO SCH ×2 (08:40→20:43)
[2019-05-10] MEDS: MAGNESIUM OXIDE 400 MG TABLET PO SCH ×2 (08:40→20:42)
[2019-05-10] MEDS: PANTOPRAZOLE 40 MG TABLET. PO SCH (08:40)
[2019-05-10] MEDS: LIDOCAINE (700MG/PATCH) PATCH. TD SCH (08:40)
[2019-05-10] MEDS: DOCUSATE SODIUM 100 MG CAPSULE PO SCH (08:40)
[2019-05-10] MEDS: BUDESONIDE 0.5 MG/2 ML NEBU NEB SCH ×2 (10:15→22:52)
--- NOTE | 2019-05-10 11:19 | NUR ---
REJI left a message for Dulce Maria at [facility] re: pt not discharging this week and holding off until next week. Pt appears to have UTI and has shown a decrease in behaviors. A culture was sent off and REJI will be in contact with Dulce Maria on with that update. REJI encouraged Dulce Maria to contact REJI with any further questions she may have.
[2019-05-10 16:03] VITALS: BP 120/81
--- NOTE | 2019-05-10 16:08 | NUR ---
Nursing note: Pt in dining room this morning for meds and assessment. She was med compliant and cooperative with assessment. Pt was very disorganized, having a hard time finding her words, and needed assistance in using her flonase. Pt denied pain and refused her lidocaine patch. Throughout the morning, she appeared to be having a more difficult time walking. She needed extra assistance with walking and reminding her how to use her walker. Pt was eventually switched to a wheelchair after lunch. She is currently sitting in the day room watching TV. Will continue to monitor.
--- NOTE | 2019-05-10 19:22 | PN ---
DATE: 05/09/2019 PSYCHIATRIC PROGRESS NOTE This late entry 05/09/2019 covers elements not covered in my initial note. SUBJECTIVE: I met with the patient evening of 05/09/2019. Per FRANKIE Russo, the patient slept 7 hours previous night. She has been anxious, restless, put herself on the floor the night before, refused lidocaine patch. We did check a UA and this has reflexed to culture, may account for some of her confusion, restlessness. Additionally, lithium was stopped since the level was 1.2 and we are going to reinstate at the lower dosage. Repeat labs. REVIEW OF SYSTEMS: No CV, , pulmonary, eye system symptoms on review. MENTAL STATUS EXAMINATION: The patient is oriented to herself and situation. Speech has some latency, coherent. Abstraction fair, computation impaired, language function intact, attention span short. Mood and affect remain somewhat withdrawn. LABORATORY DATA: Reviewed. IMPRESSION: Unchanged from initial note. PLAN: No change from initial note other than what is noted above. LISA CAMACHO MD DR: HEMANTH/emily JOB#: [id number] / [id number]
[2019-05-10] MEDS: PRAZOSIN 1 MG CAPSULE. PO SCH (20:43)
[2019-05-10] MEDS: MELATONIN 3 MG TABLET PO SCH (20:43)
[2019-05-10] MEDS: MIRTAZAPINE 15 MG TABLET PO SCH (20:43)
[2019-05-10] MEDS: HYDROcodone/APAP 5/325MG 1 TAB TABLET PO PRN (20:45)
[2019-05-10] MEDS: PATCH REMOVAL. MC SCH (20:45)
[2019-05-10] MEDS ORDERED: LITHIUM CARBONATE 300 MG TABLET PO SCH (21:00)
--- NOTE | 2019-05-10 21:37 | PDOC ---
Exam Note: Dion Note: Please also refer to the separate dictated note~for this date of service dictated separately.~Patient seen individually. Discussed the patient with Nursing staff reviewed the chart.~Reviewed interim history and current functioning. Reviewed vital signs,~Labs/ Radiology~and current medications noted below. Continue current treatment with the changes noted in the dictated addendum note Assessment: Vital Signs/I&O: Vital Signs Date Time Temp Pulse Resp B/P (MAP) Pulse Ox O2 Delivery O2 Flow Rate FiO2 05/10/19 20:45 99 05/10/19 20:43 60 120/81 05/10/19 16:03 97.5 16 05/10/19 10:17 Room Air I & O 05/09/19 05/09/19 05/10/19 15:00 23:00 07:00 Intake Total 200 ml 360 ml Balance 200 ml 360 ml Current Medications: Meds: Current Medications Medications (Trade) Dose Ordered Sig/Angelica Route PRN Reason Start Time Stop Time Status Last Admin Dose Admin Benztropine Mesylate (Cogentin) 1 mg BID PO 05/10/19 09:00 05/10/19 20:43 I have reviewed the current psychotropics carefully including drug interactions. Risk benefit ratio favors no change other than as noted in my dictated progress note. Diagnosis: Problems: (1) Bipolar affective, mixed, sev w/ psych (2) Anxiety disorder (3) Impulse control disorder (4) Schizophrenia, paranoid, chronic with acute exacerbation (5) Schizoaffective disorder, chronic condition with acute exacerbation LISA CAMACHO MD May 10, 2019 21:37
--- NOTE | 2019-05-10 23:29 | NUR ---
Pt sitting calmly in a wheelchair all evening in the dayroom. Pt stated that she had a "remarkable" day but couldn't elaborate as to why it was remarkable. Pt continues to be disorganized and having trouble finding her words. Compliant with medications. PRN Lortab administered per pt request.
[2019-05-11] MEDS: LEVOTHYROXINE 50 MCG TABLET PO SCH (06:06)
[2019-05-11 06:21] VITALS: BP 106/70
[2019-05-11] MEDS: BUDESONIDE 0.5 MG/2 ML NEBU NEB SCH ×2 (08:00→21:26)
[2019-05-11] MEDS: VITAMIN B COMPLEX CAPSULE. PO SCH (08:43)
[2019-05-11] MEDS: DOCUSATE SODIUM 100 MG CAPSULE PO SCH (08:43)
[2019-05-11] MEDS: APIXABAN 5 MG TABLET. PO SCH ×2 (08:43→20:33)
[2019-05-11] MEDS: LOSARTAN 50 MG TABLET. PO SCH (08:43)
[2019-05-11] MEDS: BENZTROPINE MESYLATE 1 MG TABLET PO SCH ×2 (08:43→20:33)
[2019-05-11] MEDS: CHOLECALCIFEROL (VITAMIN D3) 1,000 UNIT TABLET PO SCH (08:43)
[2019-05-11] MEDS: buPROPion XL 300 MG TAB.ER.24H. PO SCH (08:43)
[2019-05-11] MEDS: MAGNESIUM OXIDE 400 MG TABLET PO SCH ×2 (08:43→20:33)
[2019-05-11] MEDS: PANTOPRAZOLE 40 MG TABLET. PO SCH (08:44)
[2019-05-11] MEDS: FLUTICASONE 50MCG/NASAL SPRAY 16GM BOTTLE. NS SCH (09:00)
[2019-05-11] MEDS: LIDOCAINE (700MG/PATCH) PATCH. TD SCH (09:00)
[2019-05-11 09:23] LABS: BASO % 1 % (0-3); EOS # 0.3 x10^3/uL (0.0-0.7); EOS % 4 % (0-3); HEMATOCRIT 33.7 % (36.0-47.0); HEMOGLOBIN 11.2 g/dL (12.0-15.5); LYMPH # 1.5 x10^3/uL (1.0-4.8); LYMPH % 23 % (24-48); MEAN CORPUSCULAR HEMOGLOBIN 32 pg (25-35); MEAN CORPUSCULAR HGB CONC 33 g/dL (31-37); MEAN CORPUSCULAR VOLUME 96 fL (79-100); MONO # 0.7 x10^3/uL (0.0-1.1); MONO % 11 % (0-9); NEUT # 4.1 x10^3uL (1.8-7.7); NEUT % 62 % (31-73); PLATELET COUNT 410 x10^3/uL (140-400); RED BLOOD COUNT 3.52 x10^6/uL (3.50-5.40); RED CELL DISTRIBUTION WIDTH 12.9 % (11.5-14.5); WHITE BLOOD COUNT 6.6 x10^3/uL (4.0-11.0)
[2019-05-11 09:26] LABS: ALBUMIN 2.9 g/dL (3.4-5.0); ALBUMIN/GLOBULIN RATIO 0.7 (1.0-1.7); CALCIUM 8.5 mg/dL (8.5-10.1); GFR 55.5; POTASSIUM 4.2 mmol/L (3.5-5.1); TOTAL BILIRUBIN 0.2 mg/dL (0.2-1.0); TOTAL PROTEIN 6.8 g/dL (6.4-8.2)
--- NOTE | 2019-05-11 10:07 | NUR ---
Pt is located in pt room at time of assessment and medication administration. Patient is lethargic and not opening eyes when this nurse is in room. Patient is complaint with medications whole with juice, as well as assessment. Patient is A&O x 4. Patient is siting in day room at this time attending group. No behaviors noted so far this shift.
--- NOTE | 2019-05-11 13:43 | PN ---
DATE: 05/10/2019 PSYCHIATRIC PROGRESS NOTE This late entry 05/10/2019 covers the elements not covered in my initial note. SUBJECTIVE: I met with the patient in the evening of 05/10/2019. Per FRANKIE Pappas, the patient slept 7-1/4 hours previous night. She has been disorganized, somewhat confused, sometimes forgets to take her meds and how to make the fork work while feeding herself. We are awaiting the results of urine culture and sensitivity as this may account for some of this change. Additionally, we are going to go ahead and stop the lithium, which she has not had for the last 2 days. REVIEW OF SYSTEMS: No CV, , pulmonary, eye system symptoms on review. MENTAL STATUS EXAM: Oriented to herself and situation. Speech coherent, had some latency. Abstraction fair, computation impaired, language function intact, attention span short. Mood and affect somewhat labile. She was quite tearful initially as I met with her, but later in the visit was pleasant, smiling, appropriate. LABORATORY DATA: Reviewed. IMPRESSION: Schizoaffective disorder, bipolar type, mixed with psychotic features. Rest unchanged; anxiety disorder, unspecified. PLAN: Stop the lithium. Continue Invega and change Luvox at current dosage. May need pressor, Remeron, Wellbutrin, Cogentin has been reduced, melatonin 6 mg at bedtime. MAN Mamta CAMACHO MD DR: HEMANTH/emily JOB#: [id number] / [id number]
[2019-05-11 15:37] VITALS: BP 120/63
--- NOTE | 2019-05-11 18:33 | RAD ---
CT head without contrast PQRS statement: CT scans at this facility use dose reduction including either automated exposure control, iterative reconstructions, and /or weight based radiation dosing via mA and kV modification when appropriate to reduce radiation dose to as low as reasonably achievable. History: Change in mental status. Altered mental status. FINDINGS: There is mild motion artifact at the skull base decreasing sensitivity to detect subtle pathology at the middle and posterior fossa. Diagnostic information for the exam still remains. No intracranial hemorrhage, mass, hydrocephalus, extra-axial fluid collections or infarction. No acute ischemic changes evident. Small calcification at the parietal scalp at the vertex perhaps a granuloma or epidermoid. Orbits, mastoids and bones are unremarkable. IMPRESSION: No acute intracranial CT abnormality. Electronically signed by: Low Hernandes MD (05/11/2019 6:30 PM) [id number]
[2019-05-11] MEDS: MELATONIN 3 MG TABLET PO SCH (20:31)
[2019-05-11] MEDS: MIRTAZAPINE 15 MG TABLET PO SCH (20:32)
[2019-05-11] MEDS: PRAZOSIN 1 MG CAPSULE. PO SCH (20:32)
[2019-05-11] MEDS: PATCH REMOVAL. MC SCH (20:33)
--- NOTE | 2019-05-11 21:48 | PDOC ---
Exam Note: Dion Note: Please also refer to the separate dictated note~for this date of service dictated separately.~Patient seen individually. Discussed the patient with Nursing staff reviewed the chart.~Reviewed interim history and current functioning. Reviewed vital signs,~Labs/ Radiology~and current medications noted below. Continue current treatment with the changes noted in the dictated addendum note Assessment: Vital Signs/I&O: Vital Signs Date Time Temp Pulse Resp B/P (MAP) Pulse Ox O2 Delivery O2 Flow Rate FiO2 05/11/19 21:28 98 Room Air 05/11/19 20:32 84 120/63 05/11/19 15:37 97.5 18 I & O 05/10/19 05/10/19 05/11/19 15:00 23:00 07:00 Intake Total 840 ml 360 ml Balance 840 ml 360 ml Labs: Laboratory Tests Test 05/11/19 06:26 05/11/19 09:02 [place] Level 0.7 mmol/L (0.6-1.2) [place] Last Dose Date 05/08/19 [place] Last Dose Time 2300 White Blood Count 6.6 x10^3/uL (4.0-11.0) Red Blood Count 3.52 x10^6/uL (3.50-5.40) Hemoglobin 11.2 g/dL (12.0-15.5) L Hematocrit 33.7 % (36.0-47.0) L Mean Corpuscular Volume 96 fL (79-100) Mean Corpuscular Hemoglobin 32 pg (25-35) Mean Corpuscular Hemoglobin Concent 33 g/dL (31-37) Red Cell Distribution Width 12.9 % (11.5-14.5) Platelet Count 410 x10^3/uL (140-400) H Neutrophils (%) (Auto) 62 % (31-73) Lymphocytes (%) (Auto) 23 % (24-48) L Monocytes (%) (Auto) 11 % (0-9) H Eosinophils (%) (Auto) 4 % (0-3) H Basophils (%) (Auto) 1 % (0-3) Neutrophils # (Auto) 4.1 x10^3uL (1.8-7.7) Lymphocytes # (Auto) 1.5 x10^3/uL (1.0-4.8) Monocytes # (Auto) 0.7 x10^3/uL (0.0-1.1) Eosinophils # (Auto) 0.3 x10^3/uL (0.0-0.7) Basophils # (Auto) 0.0 x10^3/uL (0.0-0.2) Sodium Level 141 mmol/L (136-145) Potassium Level 4.2 mmol/L (3.5-5.1) Chloride Level 106 mmol/L (98-107) Carbon Dioxide Level 29 mmol/L (21-32) Anion Gap 6 (6-14) Blood Urea Nitrogen 12 mg/dL (7-20) Creatinine 1.0 mg/dL (0.6-1.0) Estimated GFR (Cockcroft-Gault) 55.5 BUN/Creatinine Ratio 12 (6-20) Glucose Level 113 mg/dL (70-99) H Calcium Level 8.5 mg/dL (8.5-10.1) Total Bilirubin 0.2 mg/dL (0.2-1.0) Aspartate Amino Transferase (AST) 14 U/L (15-37) L Alanine Aminotransferase (ALT) 16 U/L (14-59) Alkaline Phosphatase 195 U/L (46-116) H Total Protein 6.8 g/dL (6.4-8.2) Albumin 2.9 g/dL (3.4-5.0) L Albumin/Globulin Ratio 0.7 (1.0-1.7) L Current Medications: I have reviewed the current psychotropics carefully including drug interactions. Risk benefit ratio favors no change other than as noted in my dictated progress note. Diagnosis: Problems: (1) Bipolar affective, mixed, sev w/ psych (2) Anxiety disorder (3) Impulse control disorder (4) Schizophrenia, paranoid, chronic with acute exacerbation (5) Schizoaffective disorder, chronic condition with acute exacerbation LISA CAMACHO MD May 11, 2019 21:48
--- NOTE | 2019-05-12 01:31 | NUR ---
Nursing Note The patient was calm and compliant with her assessment and medication pass. The patient took her medication whole and was pleasant but disorganized during interactions with this nurse. The patient is currently sleeping in her room.
[2019-05-12] MEDS: LEVOTHYROXINE 50 MCG TABLET PO SCH (05:47)
[2019-05-12 07:00] VITALS: BP 123/73
[2019-05-12 07:23] LABS: BASO % 1 % (0-3); EOS # 0.2 x10^3/uL (0.0-0.7); EOS % 2 % (0-3); HEMATOCRIT 33.6 % (36.0-47.0); HEMOGLOBIN 11.1 g/dL (12.0-15.5); LYMPH # 1.3 x10^3/uL (1.0-4.8); LYMPH % 14 % (24-48); MEAN CORPUSCULAR HEMOGLOBIN 32 pg (25-35); MEAN CORPUSCULAR HGB CONC 33 g/dL (31-37); MEAN CORPUSCULAR VOLUME 95 fL (79-100); MONO # 0.9 x10^3/uL (0.0-1.1); MONO % 10 % (0-9); NEUT # 6.9 x10^3uL (1.8-7.7); NEUT % 74 % (31-73); PLATELET COUNT 410 x10^3/uL (140-400); RED BLOOD COUNT 3.52 x10^6/uL (3.50-5.40); WHITE BLOOD COUNT 9.2 x10^3/uL (4.0-11.0)
[2019-05-12 07:48] LABS: ALBUMIN/GLOBULIN RATIO 0.8 (1.0-1.7); CALCIUM 8.6 mg/dL (8.5-10.1); CREATININE 0.9 mg/dL (0.6-1.0); GFR 62.6; POTASSIUM 4.1 mmol/L (3.5-5.1); TOTAL BILIRUBIN 0.3 mg/dL (0.2-1.0); TOTAL PROTEIN 6.9 g/dL (6.4-8.2)
[2019-05-12] MEDS: BUDESONIDE 0.5 MG/2 ML NEBU NEB SCH ×2 (08:00→21:22)
[2019-05-12] MEDS: FLUTICASONE 50MCG/NASAL SPRAY 16GM BOTTLE. NS SCH (08:23)
[2019-05-12] MEDS: CHOLECALCIFEROL (VITAMIN D3) 1,000 UNIT TABLET PO SCH (08:24)
[2019-05-12] MEDS: PANTOPRAZOLE 40 MG TABLET. PO SCH (08:24)
[2019-05-12] MEDS: VITAMIN B COMPLEX CAPSULE. PO SCH (08:24)
[2019-05-12] MEDS: MAGNESIUM OXIDE 400 MG TABLET PO SCH ×2 (08:24→20:04)
[2019-05-12] MEDS: buPROPion XL 300 MG TAB.ER.24H. PO SCH (08:24)
[2019-05-12] MEDS: APIXABAN 5 MG TABLET. PO SCH ×2 (08:25→20:04)
[2019-05-12] MEDS: LOSARTAN 50 MG TABLET. PO SCH (08:25)
[2019-05-12] MEDS: BENZTROPINE MESYLATE 1 MG TABLET PO SCH ×2 (08:25→20:05)
[2019-05-12] MEDS: DOCUSATE SODIUM 100 MG CAPSULE PO SCH (08:25)
[2019-05-12] MEDS: LIDOCAINE (700MG/PATCH) PATCH. TD SCH (08:26)
--- NOTE | 2019-05-12 10:04 | NUR ---
WEEKLY ACTIVITY THERAPY NOTE Date of Admission:04/23/2019 Date of AT Assessment: 04/26/2019 Goal aimed: to increase socialization and engagement Initial Goal: Pt. will participate in at least five Activity Therapy groups per week. Weekly progress towards goal: 09/03 Group participation level: 1 min, 3 moderate, 3 full Weekly highlights: fishing on Thursday afternoon Behaviors observed: quiet mostly, times of silence, often around group Plan: no change to goal Beneficial adaptations: past behavioral action plan initiated for periods of silence, direct support
--- NOTE | 2019-05-12 12:46 | NUR ---
Nursing note: Pt in dining room for morning meds and assessment. Pt disorganized, med compliant, and cooperative with assessment. Pt c/o of slight pain in lower back. She has been sitting quietly in the day room for most of the day. Will continue to monitor.
--- NOTE | 2019-05-12 14:38 | TX PLAN ---
Interdisciplinary Tx Plan Admission Information Apr 23, 2019 at 19:24 Legal Status (on Admission): Voluntary DPOA/Guardian Name: Chris Givens Contact Other Contact Name: Danyell Huang Other Contact Verified Code Status: DNR Allergies: Coded Allergies: morphine (Verified Allergy, Unknown, 04/23/19) sulfamethoxazole (Verified Allergy, Unknown, 04/23/19) trimethoprim (Verified Allergy, Unknown, 04/23/19) Diagnoses Primary Diagnosis: Schizophrenia chronic with acute exacerbation Reasons for Admission: Other Problem in Patient's Words: Pt has always had psychiatric trouble but appears to have cyclic behaviors. Additional Admission Comments: According to the intake, pt is feining muteness, blank stares and disoriented. Problems Active Problems: Muteness Disorientation Inactive Problems: Medication compliance Pt Strengths/Limitations Ability for [place]: Poor Cognitive Functioning/Ability: Poor Communication Skills/Ability: Poor Financial Resources: Fair Insight/Judgement: Poor Intellectual Ability: Fair Physical Health: Fair Social Skills: Fair Stability in Family: Good Stability in School/Work: Poor Verbal Skills: Poor Other strengths/limitations: When pt is stable, she can be very functional Discharge Criteria Discharge Criteria: No need for close observ., Adequate arrangements @DC, Improved behavior, Improved mood/thought Preliminary Discharge Plan Preliminary DC Plan: Current Living Arrange. Special Precautions Fall Risk: Moderate Initial D/C Plan Pt will plan to return to her residential center through [facility] Identified Discharge Needs: Continued evaluation for psychiatric services. Currently Utilized Resources Currently Utilized Resources/P: Pt has services through [facility] (PCP, Psychiatrist, Case management) Identified Problems/Hx/Goals Objectives/Short-Term Goals Short Term Goals: Improved Social Skills, Medication Stabilization, Promote Coping Skill Interventions/Frequency Staff Interventions/Frequency&: Psychiatrist to assess pt at least 3x per week. Junior Graphic Designer to assess pt at least 2x per week. Nursing to complete 15 minute checks daily. Encourage group participation. History Vocational History: Pt brother reports that pt had a brief job in the 80's; however, she volunteered at jobs since being at [facility] Education: Pt did graduate high school (12th grade) and has received a Bachelor's degree from [employer]; however, pt brother was not able to specify what area. Community Follow-up Community Provider/Family Inpu: She always has been this way. She just needs her medication adjusted and hopefully figure out why she has decided to go "mute". Treatment Plan Explained Patient/External Grinder Tender had this treatment plan explained to him/her as indicated by the signature below and has been given the opportunity to ask questions and make suggestions: Date: Patient/External Grinder Tender Signature: Status Update Update Pt brother, Chris, participated in treatment team via telephone. Pt is eating roughly 25-50% of meals and sleeping on average 7 hours a night. Pt does not appear to have many mute episodes but does appear to have a UTI and exhibits difficulty with word finding and decreased weakness. Pt is sitting in the dayroom more and does show ability to participate in groups and interacts with others. During times where it is too overwhelming, it has worked to take pt out of the room to have a break. Pt brother is questioning what the difference in pt behaviors could be and SW explained that the unit is more structured and serves purpose; travis, at her residential the day is left open for her to do things and there are more people; therefore, she is not always able to get more 1:1 care like she can here. Pt will restart her [place] at a low dose of 300mg q HS and has the potential to start either Clozaril or Risperdal. At this time, ELOS will be the end of next week or the beginning of the week after. NIDHI TOWNSEND May 12, 2019 14:38
--- NOTE | 2019-05-12 15:00 | NUR ---
REJI contacted Dulce Maria at [facility] to give her an update on pt and requested to get a medication list from them as they have cared for pt for over the last 20 years. Dulce Maria wanted to make a concern made that with the Clozaril, she is aware that blood draws will need to be had. In the past, pt has on most occasions refused to go to the physician offices to have her blood drawn. Dulce Maria has pt medication hx since 2007 and will have it faxed over for review. Dulce Maria also wondered if she would be able to have a neurology consult. They had an appointment in [place] that got postponed and wondered if pt could be worked up here. REJI will pas that along to the psychiatrist and REJI will contact Dulce Maria next week with updates.
[2019-05-12 16:21] VITALS: BP 96/58
[2019-05-12] MEDS: ACETAMINOPHEN 325 MG TABLET PO PRN (20:03)
[2019-05-12] MEDS: MIRTAZAPINE 15 MG TABLET PO SCH (20:04)
[2019-05-12] MEDS: MELATONIN 3 MG TABLET PO SCH (20:05)
[2019-05-12] MEDS: PRAZOSIN 1 MG CAPSULE. PO SCH (20:07)
[2019-05-12] MEDS: LITHIUM CARBONATE 300 MG TABLET PO SCH (20:09)
[2019-05-12] MEDS: PATCH REMOVAL. MC SCH (21:00)
--- NOTE | 2019-05-12 21:42 | PDOC ---
Exam Note: Dion Note: Please also refer to the separate dictated note~for this date of service dictated separately.~Patient seen individually. Discussed the patient with Nursing staff reviewed the chart.~Reviewed interim history and current functioning. Reviewed vital signs,~Labs/ Radiology~and current medications noted below. Continue current treatment with the changes noted in the dictated addendum note Assessment: Vital Signs/I&O: Vital Signs Date Time Temp Pulse Resp B/P (MAP) Pulse Ox O2 Delivery O2 Flow Rate FiO2 05/12/19 21:23 98 Room Air 05/12/19 20:07 93 116/67 05/12/19 16:21 97.6 18 I & O 05/11/19 05/11/19 05/12/19 15:00 23:00 07:00 Intake Total 480 ml 240 ml Balance 480 ml 240 ml Labs: Laboratory Tests Test 05/12/19 07:07 White Blood Count 9.2 x10^3/uL (4.0-11.0) Red Blood Count 3.52 x10^6/uL (3.50-5.40) Hemoglobin 11.1 g/dL (12.0-15.5) L Hematocrit 33.6 % (36.0-47.0) L Mean Corpuscular Volume 95 fL (79-100) Mean Corpuscular Hemoglobin 32 pg (25-35) Mean Corpuscular Hemoglobin Concent 33 g/dL (31-37) Red Cell Distribution Width 13.0 % (11.5-14.5) Platelet Count 410 x10^3/uL (140-400) H Neutrophils (%) (Auto) 74 % (31-73) H Lymphocytes (%) (Auto) 14 % (24-48) L Monocytes (%) (Auto) 10 % (0-9) H Eosinophils (%) (Auto) 2 % (0-3) Basophils (%) (Auto) 1 % (0-3) Neutrophils # (Auto) 6.9 x10^3uL (1.8-7.7) Lymphocytes # (Auto) 1.3 x10^3/uL (1.0-4.8) Monocytes # (Auto) 0.9 x10^3/uL (0.0-1.1) Eosinophils # (Auto) 0.2 x10^3/uL (0.0-0.7) Basophils # (Auto) 0.0 x10^3/uL (0.0-0.2) Sodium Level 141 mmol/L (136-145) Potassium Level 4.1 mmol/L (3.5-5.1) Chloride Level 105 mmol/L (98-107) Carbon Dioxide Level 30 mmol/L (21-32) Anion Gap 6 (6-14) Blood Urea Nitrogen 14 mg/dL (7-20) Creatinine 0.9 mg/dL (0.6-1.0) Estimated GFR (Cockcroft-Gault) 62.6 BUN/Creatinine Ratio 16 (6-20) Glucose Level 96 mg/dL (70-99) Calcium Level 8.6 mg/dL (8.5-10.1) Total Bilirubin 0.3 mg/dL (0.2-1.0) Aspartate Amino Transferase (AST) 12 U/L (15-37) L Alanine Aminotransferase (ALT) 15 U/L (14-59) Alkaline Phosphatase 197 U/L (46-116) H Ammonia < 10 mcmol/L (11-34) L Creatine Kinase 35 U/L (26-192) Total Protein 6.9 g/dL (6.4-8.2) Albumin 3.0 g/dL (3.4-5.0) L Albumin/Globulin Ratio 0.8 (1.0-1.7) L [place] Level 0.4 mmol/L (0.6-1.2) L [place] Last Dose Date 05/11/19 [place] Last Dose Time 2100 Current Medications: Meds: Current Medications Medications (Trade) Dose Ordered Sig/Angelica Route PRN Reason Start Time Stop Time Status Last Admin Dose Admin [place] Carbonate 300 mg HS PO 05/12/19 21:00 05/12/19 20:09 I have reviewed the current psychotropics carefully including drug interactions. Risk benefit ratio favors no change other than as noted in my dictated progress note. Diagnosis: Problems: (1) Bipolar affective, mixed, sev w/ psych (2) Anxiety disorder (3) Impulse control disorder (4) Schizophrenia, paranoid, chronic with acute exacerbation LISA CAMACHO MD May 12, 2019 21:42
--- NOTE | 2019-05-13 04:01 | NUR ---
Nursing Note The patient was located in the day room for her assessment and medication pass. The patient took her medication whole. The patient requested PRN Tylenol with her HS medication. The patient is currently sleeping in her room.
[2019-05-13 05:59] VITALS: BP 105/66
[2019-05-13] MEDS: LEVOTHYROXINE 50 MCG TABLET PO SCH (06:05)
[2019-05-13] MEDS: FLUTICASONE 50MCG/NASAL SPRAY 16GM BOTTLE. NS SCH (09:00)
[2019-05-13] MEDS: DOCUSATE SODIUM 100 MG CAPSULE PO SCH (09:14)
[2019-05-13] MEDS: LIDOCAINE (700MG/PATCH) PATCH. TD SCH (09:14)
[2019-05-13] MEDS: buPROPion XL 300 MG TAB.ER.24H. PO SCH (09:14)
[2019-05-13] MEDS: MAGNESIUM OXIDE 400 MG TABLET PO SCH ×2 (09:14→21:28)
[2019-05-13] MEDS: CHOLECALCIFEROL (VITAMIN D3) 1,000 UNIT TABLET PO SCH (09:14)
[2019-05-13] MEDS: PANTOPRAZOLE 40 MG TABLET. PO SCH (09:14)
[2019-05-13] MEDS: VITAMIN B COMPLEX CAPSULE. PO SCH (09:14)
[2019-05-13] MEDS: APIXABAN 5 MG TABLET. PO SCH ×2 (09:14→21:28)
[2019-05-13] MEDS: LOSARTAN 50 MG TABLET. PO SCH (09:15)
[2019-05-13] MEDS: BENZTROPINE MESYLATE 1 MG TABLET PO SCH ×2 (09:15→21:29)
[2019-05-13] MEDS: BUDESONIDE 0.5 MG/2 ML NEBU NEB SCH ×2 (10:40→21:07)
[2019-05-13 15:43] VITALS: BP 119/76
--- NOTE | 2019-05-13 15:47 | NUR ---
Location of Patient during Assessment: Dayroom Behaviors Mood and Affect this shift:quiet, tends to keep to self, stares into space Medication Compliant: takes medications whole with water, no problem Assessment Compliant: no problem with assessment Response After Interventions: pt is calm and cooperative
--- NOTE | 2019-05-13 20:24 | PN ---
DATE: 05/11/2019 PSYCHIATRIC PROGRESS NOTE. This late entry of 05/11/2019 covers the elements not covered in my initial note. SUBJECTIVE: I met with the patient in the evening of 05/11/2019. Per Nicole RN, shows mixed moni. [place] level 0.7 and lithium has since been discontinued. She remains intermittently confused. We will consult Dr. Barajas, Neurology. Check a CT head. She slept 7-1/2 hours previous night. REVIEW OF SYSTEMS: No CV, , pulmonary, eye system symptoms on review. MENTAL STATUS EXAM: Oriented to herself and situation. Speech has some latency, coherent. Abstraction fair, computation impaired, language function intact, attention span short. Mood and affect somewhat withdrawn. LABORATORY DATA: Reviewed. IMPRESSION: Schizoaffective disorder, bipolar type, with psychotic features. Rest unchanged. PLAN: Continue current psychotropics. Check and consult as above. Make further adjustments as clinically indicated. MAN Mamta CAMACHO MD DR: HEMANTH/emily JOB#: [id number] / [id number]
[2019-05-13] MEDS: PATCH REMOVAL. MC SCH (21:00)
--- NOTE | 2019-05-13 21:25 | PDOC ---
Exam Note: Dion Note: Please also refer to the separate dictated note~for this date of service dictated separately.~Patient seen individually. Discussed the patient with Nursing staff reviewed the chart.~Reviewed interim history and current functioning. Reviewed vital signs,~Labs/ Radiology~and current medications noted below. Continue current treatment with the changes noted in the dictated addendum note Assessment: Vital Signs/I&O: Vital Signs Date Time Temp Pulse Resp B/P (MAP) Pulse Ox O2 Delivery O2 Flow Rate FiO2 05/13/19 21:08 Room Air 05/13/19 15:43 98.6 62 16 119/76 (90) 92 I & O 05/12/19 05/12/19 05/13/19 15:00 23:00 07:00 Intake Total 960 ml 600 ml Balance 960 ml 600 ml Current Medications: I have reviewed the current psychotropics carefully including drug interactions. Risk benefit ratio favors no change other than as noted in my dictated progress note. Diagnosis: Problems: (1) Bipolar affective, mixed, sev w/ psych (2) Anxiety disorder (3) Impulse control disorder (4) Schizophrenia, paranoid, chronic with acute exacerbation (5) Schizoaffective disorder, chronic condition with acute exacerbation LISA CAMACHO MD May 13, 2019 21:25
[2019-05-13] MEDS: PRAZOSIN 1 MG CAPSULE. PO SCH (21:28)
[2019-05-13] MEDS: LITHIUM CARBONATE 300 MG TABLET PO SCH (21:28)
[2019-05-13] MEDS: MIRTAZAPINE 15 MG TABLET PO SCH (21:28)
[2019-05-13] MEDS: MELATONIN 3 MG TABLET PO SCH (21:28)
[2019-05-13] MEDS: HYDROcodone/APAP 5/325MG 1 TAB TABLET PO PRN (21:35)
--- NOTE | 2019-05-14 00:06 | NUR ---
Nursing Note The patient was located in the day room for her assessment and medication pass. The patient was calm and cooperative with her medication and took them whole. The patient requested and received PRN Lortab with her HS medication R/T lower back pain. The patient is currently sleeping in her room.
[2019-05-14] MEDS: LEVOTHYROXINE 50 MCG TABLET PO SCH (06:00)
[2019-05-14] MEDS: PANTOPRAZOLE 40 MG TABLET. PO SCH (07:30)
[2019-05-14] MEDS: BUDESONIDE 0.5 MG/2 ML NEBU NEB SCH ×2 (08:00→23:29)
--- NOTE | 2019-05-14 08:39 | PN ---
DATE: 05/13/2019 PSYCHIATRIC PROGRESS NOTE This late entry 05/13/2019 covers elements not covered in my initial note. SUBJECTIVE: I met with the patient in the evening. The patient slept 8 hours previous night. Overall, per nursing report, the patient remains somewhat withdrawn at times. She becomes tearful at times, appears more confused at other times, more coherent. She has vague somatic symptoms. REVIEW OF SYSTEMS: No CV, , PULMONARY, EYE system symptoms on review. MENTAL STATUS EXAM: Oriented to herself and situation. Speech is coherent, has some latency. Abstraction fair, computation impaired, language function intact, attention span short. Mood and affect somewhat anxious, labile. LABORATORY DATA: Reviewed. IMPRESSION: Unchanged from initial note. PLAN: No change from initial note. MAN Mamta CAMACHO MD DR: HEMANTH/emily JOB#: [id number] / [id number]
[2019-05-14] MEDS: BENZTROPINE MESYLATE 1 MG TABLET PO SCH ×2 (09:00→19:30)
[2019-05-14] MEDS: CHOLECALCIFEROL (VITAMIN D3) 1,000 UNIT TABLET PO SCH (09:00)
[2019-05-14] MEDS: FLUTICASONE 50MCG/NASAL SPRAY 16GM BOTTLE. NS SCH (09:00)
[2019-05-14] MEDS: VITAMIN B COMPLEX CAPSULE. PO SCH (09:00)
[2019-05-14] MEDS: LIDOCAINE (700MG/PATCH) PATCH. TD SCH (09:00)
[2019-05-14] MEDS: LOSARTAN 50 MG TABLET. PO SCH (09:00)
[2019-05-14] MEDS: buPROPion XL 300 MG TAB.ER.24H. PO SCH (09:00)
[2019-05-14] MEDS: MAGNESIUM OXIDE 400 MG TABLET PO SCH ×2 (09:00→19:30)
[2019-05-14] MEDS: APIXABAN 5 MG TABLET. PO SCH ×2 (09:00→19:30)
[2019-05-14] MEDS: DOCUSATE SODIUM 100 MG CAPSULE PO SCH (09:00)
[2019-05-14 16:23] VITALS: BP 141/82
--- NOTE | 2019-05-14 18:28 | NUR ---
Nursing Note Pt pleasant and cooperative, told tech that she had a sore throat but then states it been going on for over a month. Compliant with meds and assessments.
[2019-05-14] MEDS: MIRTAZAPINE 15 MG TABLET PO SCH (19:29)
[2019-05-14] MEDS: MELATONIN 3 MG TABLET PO SCH (19:29)
[2019-05-14] MEDS: PRAZOSIN 1 MG CAPSULE. PO SCH (19:29)
[2019-05-14] MEDS: PATCH REMOVAL. MC SCH (19:30)
[2019-05-14] MEDS: traZODone 100 MG TABLET. PO PRN (19:30)
[2019-05-14] MEDS: LITHIUM CARBONATE 300 MG TABLET PO SCH (19:30)
[2019-05-14] MEDS: HYDROcodone/APAP 5/325MG 1 TAB TABLET PO PRN (20:17)
--- NOTE | 2019-05-14 21:18 | PN ---
DATE: 05/14/2019 SUBJECTIVE: The patient was seen today, met with the staff, chart reviewed and also covering for Dr. Wynn. The patient remains the same, emotional, withdrawn, depressed, also confused at times. The patient is concrete with her thinking. OBSERVATION: VITAL SIGNS: Temperature 97.5, blood pressure 101/58, pulse 61, respirations 16, O2 sat 96%. GENERAL: Slept about 8 hours last night. MEDICATIONS: Reviewed. Currently on lithium carbonate 300 mg at night, Cogentin 1 mg twice a day, prazosin 1 mg at night, Invega Sustenna 234 mg q. 21 days IM, melatonin 6 mg at night, mirtazapine 15 mg at night, bupropion 300 mg daily, Luvox 150 mg at night, trazodone 100 mg at night p.r.n. LABORATORY DATA: The patient's lab reviewed. ASSESSMENT: Schizoaffective disorder, bipolar type, psychotic features; anxiety disorder, not otherwise specified. PLAN: Continue with the current treatment plan. LENGTH OF STAY: 3-5 days. EZEQUIEL BLAKE MD DR: MICHAEL/emily JOB#: [id number] / [id number]
--- NOTE | 2019-05-15 01:41 | PN ---
DATE: 05/12/2019 PSYCHIATRIC PROGRESS NOTE This late entry of 05/12/2019 covers elements not covered in my initial note. SUBJECTIVE: I met with the patient in the evening of 05/12/2019. The patient was also staffed at a treatment team meeting with the entire team in the morning of 05/12/2019. I reviewed the patient's history and progress. Her brother, Chris joined the treatment team meeting. We had a lengthy discussion about her lithium level, gradually increasing to 1.2. We discontinued the lithium. She was having some word finding problems as well and we ultimately stopped the lithium. Repeat lithium level is 0.7. She has continued to have some "up and down" in her moods. Slept 7 hours. REVIEW OF SYSTEMS: Vague somatic symptoms. Complains of tiredness. No CV, , pulmonary, eye system symptoms on review. MENTAL STATUS EXAM: Oriented to herself and situation. Speech coherent, rapid at times, other times quite withdrawn. Abstraction fair, computation impaired, language function intact, attention span short. Mood and affect labile. LABORATORY DATA: Reviewed. IMPRESSION: Schizoaffective disorder, bipolar type, mixed with psychotic features. Schizophrenia, chronic with acute exacerbation. Rest unchanged. PLAN: The patient also has some OCD symptoms. We will maintain Luvox 150 mg a day, Invega IM q. 3 weeks, Minipress, Remeron, Wellbutrin, Cogentin, trazodone, melatonin. She has failed Clozaril in the past and Risperdal. We will get past records to clarify the failed treatments and noncompliance with meds intermittently, make it where she was stabilized on Invega. Geodon may be another option. Apparently, she has been on Abilify as well. MAN Mamta CAMACHO MD DR: HEMANTH/emily JOB#: [id number] / [id number]
--- NOTE | 2019-05-15 02:42 | NUR ---
Resumed pt care.
[2019-05-15 05:23] VITALS: BP 118/73
[2019-05-15] MEDS: LEVOTHYROXINE 50 MCG TABLET PO SCH ×2 (05:24→09:36)
[2019-05-15] MEDS: LIDOCAINE (700MG/PATCH) PATCH. TD SCH ×2 (09:00→09:38)
[2019-05-15] MEDS: MAGNESIUM OXIDE 400 MG TABLET PO SCH ×2 (09:36→20:45)
[2019-05-15] MEDS: VITAMIN B COMPLEX CAPSULE. PO SCH (09:36)
[2019-05-15] MEDS: LOSARTAN 50 MG TABLET. PO SCH (09:36)
[2019-05-15] MEDS: DOCUSATE SODIUM 100 MG CAPSULE PO SCH (09:36)
[2019-05-15] MEDS: CHOLECALCIFEROL (VITAMIN D3) 1,000 UNIT TABLET PO SCH (09:36)
[2019-05-15] MEDS: APIXABAN 5 MG TABLET. PO SCH ×2 (09:36→20:45)
[2019-05-15] MEDS: PANTOPRAZOLE 40 MG TABLET. PO SCH (09:36)
[2019-05-15] MEDS: buPROPion XL 300 MG TAB.ER.24H. PO SCH (09:36)
[2019-05-15] MEDS: BENZTROPINE MESYLATE 1 MG TABLET PO SCH ×2 (09:36→20:46)
[2019-05-15] MEDS: FLUTICASONE 50MCG/NASAL SPRAY 16GM BOTTLE. NS SCH (09:37)
[2019-05-15] MEDS: BUDESONIDE 0.5 MG/2 ML NEBU NEB SCH ×2 (11:06→11:10)
--- NOTE | 2019-05-15 11:19 | NUR ---
Nursing Note Pt untidy, calm, and compliant with meds and assessments. Pt refused AM ADL's, refuses wearing her pants, accepted the clean blanket that was offered to cover herself. Pt occupied playing and listening music to a tablet. No aggression. No agitation. Addendum: 05/15/19 at 1128 by HIPOLITO NOLAND RN RN Please disregard this note. This was meant for my other patient. stefani!
--- NOTE | 2019-05-15 11:28 | NUR ---
Nursing Note Pt interactive, calm, and compliant with meds and assessment. Pt requested prune juice and PRN Miralax, bowel sounds are hypoactive. PRN administered for constipation. No aggression. No agitation. Denies SI.
--- NOTE | 2019-05-15 13:51 | PN ---
DATE: 05/15/2019 SUBJECTIVE: The patient was seen today, met with the staff, chart reviewed and also covering for Dr. Wynn. Staff reports increased anxiety, but compliant with the medications and assessments. OBSERVATION: VITAL SIGNS: Temperature 97.9, blood pressure 118/73, pulse 74, respirations 18, O2 sat 96%. GENERAL: Slept about 7 hours last night. The patient is not having any physical complaints. MEDICATIONS: The patient's current medications include lithium carbonate 300 mg at night, Cogentin 1 mg twice daily, prazosin 1 mg at night, Invega Sustenna 234 mg q. 21 days IM, melatonin 6 mg at night, mirtazapine 15 mg at night, bupropion 300 mg daily, Luvox 150 mg at night and trazodone 100 mg at night p.r.n. LABORATORY DATA: The patient's lab reviewed. ASSESSMENT: 1. Schizoaffective disorder, bipolar type, with psychotic features. 2. Generalized anxiety disorder, not otherwise specified. PLAN: To continue with the current treatment plan. LENGTH OF STAY: 3-5 days. EZEQUIEL BLAKE MD DR: MICHAEL/emily JOB#: [id number] / [id number]
[2019-05-15 15:35] VITALS: BP 101/66
[2019-05-15] MEDS: MIRTAZAPINE 15 MG TABLET PO SCH (20:45)
[2019-05-15] MEDS: LITHIUM CARBONATE 300 MG TABLET PO SCH (20:46)
[2019-05-15] MEDS: MELATONIN 3 MG TABLET PO SCH (20:46)
[2019-05-15] MEDS: PRAZOSIN 1 MG CAPSULE. PO SCH (20:46)
[2019-05-15] MEDS: MAG HYDROX/AL HYDROX/SIMETH 30 ML ORAL.SUSP PO PRN (20:48)
[2019-05-15] MEDS: PATCH REMOVAL. MC SCH (21:00)
--- NOTE | 2019-05-15 23:23 | NUR ---
Patient in day room at shift change. Pleasant, appropriate and cooperative. Patient requested Mylanta and PRN was given with HS meds. No further complaints. Medication given whole without difficulty. No behaviors noted this shift. Patient currently in bed with eyes closed. Will continue to monitor.
[2019-05-16 05:57] VITALS: BP 116/70
[2019-05-16] MEDS: LIDOCAINE (700MG/PATCH) PATCH. TD SCH (09:00)
[2019-05-16] MEDS: APIXABAN 5 MG TABLET. PO SCH ×2 (09:04→20:33)
[2019-05-16] MEDS: PANTOPRAZOLE 40 MG TABLET. PO SCH (09:04)
[2019-05-16] MEDS: CHOLECALCIFEROL (VITAMIN D3) 1,000 UNIT TABLET PO SCH (09:04)
[2019-05-16] MEDS: VITAMIN B COMPLEX CAPSULE. PO SCH (09:04)
[2019-05-16] MEDS: FLUTICASONE 50MCG/NASAL SPRAY 16GM BOTTLE. NS SCH (09:04)
[2019-05-16] MEDS: buPROPion XL 300 MG TAB.ER.24H. PO SCH (09:04)
[2019-05-16] MEDS: DOCUSATE SODIUM 100 MG CAPSULE PO SCH (09:04)
[2019-05-16] MEDS: MAGNESIUM OXIDE 400 MG TABLET PO SCH ×2 (09:04→20:35)
[2019-05-16] MEDS: BENZTROPINE MESYLATE 1 MG TABLET PO SCH ×2 (09:04→20:34)
[2019-05-16] MEDS: LOSARTAN 50 MG TABLET. PO SCH (09:04)
[2019-05-16] MEDS: BUDESONIDE 0.5 MG/2 ML NEBU NEB SCH (11:12)
[2019-05-16 16:33] VITALS: BP 131/62
[2019-05-16] MEDS: HYDROcodone/APAP 5/325MG 1 TAB TABLET PO PRN (20:33)
[2019-05-16] MEDS: MIRTAZAPINE 15 MG TABLET PO SCH (20:34)
[2019-05-16] MEDS: MELATONIN 3 MG TABLET PO SCH (20:34)
[2019-05-16] MEDS: traZODone 100 MG TABLET. PO PRN (20:35)
[2019-05-16] MEDS: LITHIUM CARBONATE 300 MG TABLET PO SCH (20:35)
[2019-05-16] MEDS: PRAZOSIN 1 MG CAPSULE. PO SCH (20:35)
[2019-05-16] MEDS: PATCH REMOVAL. MC SCH (21:00)
--- NOTE | 2019-05-16 21:47 | PDOC ---
Exam Note: Dion Note: Please also refer to the separate dictated note~for this date of service dictated separately.~Patient seen individually. Discussed the patient with Nursing staff reviewed the chart.~Reviewed interim history and current functioning. Reviewed vital signs,~Labs/ Radiology~and current medications noted below. Continue current treatment with the changes noted in the dictated addendum note Assessment: Vital Signs/I&O: Vital Signs Date Time Temp Pulse Resp B/P (MAP) Pulse Ox O2 Delivery O2 Flow Rate FiO2 05/16/19 20:45 97 Room Air 05/16/19 20:35 76 131/62 05/16/19 20:33 18 05/16/19 16:33 97.6 I & O 05/15/19 05/15/19 05/16/19 15:00 23:00 07:00 Intake Total 360 ml 360 ml Balance 360 ml 360 ml Current Medications: I have reviewed the current psychotropics carefully including drug interactions. Risk benefit ratio favors no change other than as noted in my dictated progress note. Diagnosis: Problems: (1) Bipolar affective, mixed, sev w/ psych (2) Anxiety disorder (3) Impulse control disorder (4) Schizophrenia, paranoid, chronic with acute exacerbation (5) Schizoaffective disorder, chronic condition with acute exacerbation LISA CAMACHO MD May 16, 2019 21:47
--- NOTE | 2019-05-17 00:01 | NUR ---
Patient is located in day room at time of assessment and medication administration. Patient is compliant with medications whole with water. [place] is ocmpliant with assessment. Patient is resting in bed at this time. Will continue to monitor.
[2019-05-17] MEDS: BUDESONIDE 0.5 MG/2 ML NEBU NEB SCH ×3 (03:38→21:23)
[2019-05-17] MEDS: LEVOTHYROXINE 50 MCG TABLET PO SCH (06:00)
[2019-05-17 06:26] VITALS: BP 130/78
[2019-05-17 06:31] LABS: BASO % 1 % (0-3); EOS # 0.3 x10^3/uL (0.0-0.7); EOS % 7 % (0-3); HEMATOCRIT 31.7 % (36.0-47.0); HEMOGLOBIN 10.5 g/dL (12.0-15.5); LYMPH # 1.3 x10^3/uL (1.0-4.8); LYMPH % 26 % (24-48); MEAN CORPUSCULAR HEMOGLOBIN 32 pg (25-35); MEAN CORPUSCULAR HGB CONC 33 g/dL (31-37); MEAN CORPUSCULAR VOLUME 96 fL (79-100); MONO # 0.7 x10^3/uL (0.0-1.1); MONO % 13 % (0-9); NEUT # 2.8 x10^3uL (1.8-7.7); NEUT % 54 % (31-73); PLATELET COUNT 390 x10^3/uL (140-400); RED BLOOD COUNT 3.31 x10^6/uL (3.50-5.40); RED CELL DISTRIBUTION WIDTH 13.2 % (11.5-14.5); WHITE BLOOD COUNT 5.1 x10^3/uL (4.0-11.0)
[2019-05-17 06:44] LABS: ALBUMIN 2.6 g/dL (3.4-5.0); ALBUMIN/GLOBULIN RATIO 0.7 (1.0-1.7); ALK PHOS 134 U/L (46-116); ALT (SGPT) 14 U/L (14-59); ANION GAP 4 (6-14); AST (SGOT) 12 U/L (15-37); BLOOD UREA NITROGEN 13 mg/dL (7-20); BUN/CREATININE RATIO 14 (6-20); CALCIUM 8.7 mg/dL (8.5-10.1); CARBON DIOXIDE 32 mmol/L (21-32); CHLORIDE 107 mmol/L (98-107); CREATININE 0.9 mg/dL (0.6-1.0); GFR 62.6; GLUCOSE 84 mg/dL (70-99); POTASSIUM 4.2 mmol/L (3.5-5.1); SODIUM 143 mmol/L (136-145); TOTAL PROTEIN 6.3 g/dL (6.4-8.2)
[2019-05-17 06:46] LABS: TOTAL BILIRUBIN < 0.1 mg/dL (0.2-1.0)
[2019-05-17] MEDS: PANTOPRAZOLE 40 MG TABLET. PO SCH (07:30)
[2019-05-17] MEDS: LIDOCAINE (700MG/PATCH) PATCH. TD SCH ×2 (09:00→12:12)
[2019-05-17] MEDS: FLUTICASONE 50MCG/NASAL SPRAY 16GM BOTTLE. NS SCH (09:00)
[2019-05-17] MEDS: LOSARTAN 50 MG TABLET. PO SCH (12:10)
[2019-05-17] MEDS: MAGNESIUM OXIDE 400 MG TABLET PO SCH ×2 (12:11→21:29)
[2019-05-17] MEDS: VITAMIN B COMPLEX CAPSULE. PO SCH (12:11)
[2019-05-17] MEDS: APIXABAN 5 MG TABLET. PO SCH ×2 (12:11→21:28)
[2019-05-17] MEDS: DOCUSATE SODIUM 100 MG CAPSULE PO SCH (12:11)
[2019-05-17] MEDS: buPROPion XL 300 MG TAB.ER.24H. PO SCH (12:11)
[2019-05-17] MEDS: CHOLECALCIFEROL (VITAMIN D3) 1,000 UNIT TABLET PO SCH (12:11)
[2019-05-17] MEDS: BENZTROPINE MESYLATE 1 MG TABLET PO SCH ×2 (12:11→21:29)
[2019-05-17] MEDS: PALIPERIDONE PALMITATE 234 MG/1.5 ML SYRINGE KIT. IM SCH (12:12)
--- NOTE | 2019-05-17 14:48 | NUR ---
Pt in dining room for meds and assessment. Pt compliant and calm, wanted to know what each medication was.
[2019-05-17 16:00] VITALS: BP 108/69
--- NOTE | 2019-05-17 16:00 | NUR ---
REJI received call from pt brother Chris to make sure that he was still going to participate in the tx team call. REJI agreed to contact pt brother and asked him to be available between -. Pt brother requests that if he misses REJI initial call to call him back a few minutes later. Chris then asked to be transferred to speak to pt.
--- NOTE | 2019-05-17 19:13 | PN ---
DATE: 05/16/2019 PSYCHIATRIC PROGRESS NOTE This late entry 05/16/2019 covers elements not covered in my initial note. SUBJECTIVE: I met with the patient evening of 05/16/2019. Overall, per nursing report, the patient is doing a little better, somewhat anxious, at times obsessive. She gets some lability of her mood, but showing improvement. We will repeat a lithium level in the morning of 05/17/2019. She has also complained of some constipation and is on Cogentin 1 mg b.i.d. and we will reassess this. REVIEW OF SYSTEMS: No CV, or pulmonary system symptoms on review. MENTAL STATUS EXAM: The patient is reasonably oriented. Speech is coherent, has some latency. Abstraction fair, computation impaired, language function intact. Mood and affect somewhat withdrawn. LABORATORY DATA: Reviewed. IMPRESSION: Unchanged from initial note. PLAN: No change from initial note and check a lithium level. Adjust as clinically indicated. LISA CAMACHO MD DR: HEMANTH/emily JOB#: [id number] / [id number]
[2019-05-17] MEDS: PATCH REMOVAL. MC SCH (21:00)
[2019-05-17] MEDS: PRAZOSIN 1 MG CAPSULE. PO SCH (21:28)
[2019-05-17] MEDS: MIRTAZAPINE 15 MG TABLET PO SCH (21:28)
[2019-05-17] MEDS: MELATONIN 3 MG TABLET PO SCH (21:28)
[2019-05-17] MEDS: LITHIUM CARBONATE 300 MG TABLET PO SCH (21:28)
--- NOTE | 2019-05-17 21:42 | PDOC ---
Exam Note: Dion Note: Please also refer to the separate dictated note~for this date of service dictated separately.~Patient seen individually. Discussed the patient with Nursing staff reviewed the chart.~Reviewed interim history and current functioning. Reviewed vital signs,~Labs/ Radiology~and current medications noted below. Continue current treatment with the changes noted in the dictated addendum note Assessment: Vital Signs/I&O: Vital Signs Date Time Temp Pulse Resp B/P (MAP) Pulse Ox O2 Delivery O2 Flow Rate FiO2 05/17/19 21:28 86 108/69 05/17/19 21:25 98 Room Air 05/17/19 16:00 98.0 16 I & O 05/16/19 05/16/19 05/17/19 15:00 23:00 07:00 Intake Total 240 ml 320 ml Balance 240 ml 320 ml Labs: Laboratory Tests Test 05/17/19 05:52 White Blood Count 5.1 x10^3/uL (4.0-11.0) Red Blood Count 3.31 x10^6/uL (3.50-5.40) L Hemoglobin 10.5 g/dL (12.0-15.5) L Hematocrit 31.7 % (36.0-47.0) L Mean Corpuscular Volume 96 fL (79-100) Mean Corpuscular Hemoglobin 32 pg (25-35) Mean Corpuscular Hemoglobin Concent 33 g/dL (31-37) Red Cell Distribution Width 13.2 % (11.5-14.5) Platelet Count 390 x10^3/uL (140-400) Neutrophils (%) (Auto) 54 % (31-73) Lymphocytes (%) (Auto) 26 % (24-48) Monocytes (%) (Auto) 13 % (0-9) H Eosinophils (%) (Auto) 7 % (0-3) H Basophils (%) (Auto) 1 % (0-3) Neutrophils # (Auto) 2.8 x10^3uL (1.8-7.7) Lymphocytes # (Auto) 1.3 x10^3/uL (1.0-4.8) Monocytes # (Auto) 0.7 x10^3/uL (0.0-1.1) Eosinophils # (Auto) 0.3 x10^3/uL (0.0-0.7) Basophils # (Auto) 0.0 x10^3/uL (0.0-0.2) Sodium Level 143 mmol/L (136-145) Potassium Level 4.2 mmol/L (3.5-5.1) Chloride Level 107 mmol/L (98-107) Carbon Dioxide Level 32 mmol/L (21-32) Anion Gap 4 (6-14) L Blood Urea Nitrogen 13 mg/dL (7-20) Creatinine 0.9 mg/dL (0.6-1.0) Estimated GFR (Cockcroft-Gault) 62.6 BUN/Creatinine Ratio 14 (6-20) Glucose Level 84 mg/dL (70-99) Calcium Level 8.7 mg/dL (8.5-10.1) Total Bilirubin < 0.1 mg/dL (0.2-1.0) L Aspartate Amino Transferase (AST) 12 U/L (15-37) L Alanine Aminotransferase (ALT) 14 U/L (14-59) Alkaline Phosphatase 134 U/L (46-116) H Total Protein 6.3 g/dL (6.4-8.2) L Albumin 2.6 g/dL (3.4-5.0) L Albumin/Globulin Ratio 0.7 (1.0-1.7) L [place] Level 0.7 mmol/L (0.6-1.2) [place] Last Dose Date 05/16/19 [place] Last Dose Time 2100 Current Medications: I have reviewed the current psychotropics carefully including drug interactions. Risk benefit ratio favors no change other than as noted in my dictated progress note. Diagnosis: Problems: (1) Bipolar affective, mixed, sev w/ psych (2) Anxiety disorder (3) Impulse control disorder (4) Schizophrenia, paranoid, chronic with acute exacerbation (5) Schizoaffective disorder, chronic condition with acute exacerbation LISA CAMACHO MD May 17, 2019 21:42
--- NOTE | 2019-05-18 01:56 | NUR ---
Pt in dayroom at time of medications and assessment. Pt c/o pain bilat neck, and all over but refused to talk more about it. She denied SI. Pt compliant and cooperative with cares and medications. Later in pt room, no lidocaine patch found to remove. She insists she doesn't use it or need it. Will continue to monitor.
[2019-05-18] MEDS: LEVOTHYROXINE 50 MCG TABLET PO SCH (05:29)
[2019-05-18 05:48] VITALS: BP 100/63
[2019-05-18] MEDS: PANTOPRAZOLE 40 MG TABLET. PO SCH (08:19)
[2019-05-18] MEDS: APIXABAN 5 MG TABLET. PO SCH ×2 (08:19→20:12)
[2019-05-18] MEDS: MAGNESIUM OXIDE 400 MG TABLET PO SCH ×2 (08:20→20:11)
[2019-05-18] MEDS: DOCUSATE SODIUM 100 MG CAPSULE PO SCH (08:20)
[2019-05-18] MEDS: CHOLECALCIFEROL (VITAMIN D3) 1,000 UNIT TABLET PO SCH (08:20)
[2019-05-18] MEDS: BENZTROPINE MESYLATE 1 MG TABLET PO SCH ×2 (08:20→20:11)
[2019-05-18] MEDS: buPROPion XL 300 MG TAB.ER.24H. PO SCH (08:20)
[2019-05-18] MEDS: VITAMIN B COMPLEX CAPSULE. PO SCH (08:20)
[2019-05-18] MEDS: LIDOCAINE (700MG/PATCH) PATCH. TD SCH (08:21)
[2019-05-18] MEDS: LOSARTAN 50 MG TABLET. PO SCH (08:22)
[2019-05-18] MEDS: FLUTICASONE 50MCG/NASAL SPRAY 16GM BOTTLE. NS SCH (09:00)
[2019-05-18] MEDS ORDERED: MAGNESIUM CITRATE 296 ML SOLUTION. PO PRN (09:15)
--- NOTE | 2019-05-18 10:20 | NUR ---
Patient is located in dining room at time of medication administration and assessment. Patient is compliant with meds whole in water. Patient is pleasant and is resting in room at this time. Mag citrate to be administered this shift as patient is c/o constipation. Will continue to monitor.
[2019-05-18] MEDS: BUDESONIDE 0.5 MG/2 ML NEBU NEB SCH ×2 (10:39→20:00)
--- NOTE | 2019-05-18 11:16 | NUR ---
REJI contacted Dulce Maria at [facility] to give her an update on how pt is doing. It is still recommended that pt discharge early next week and REJI will clarify a day and get back to Dulce Maria so that discharge arrangements can be made. Dulce Maria is in and out of the office tomorrow but request that REJI contact her supervisor elementary education Lashae at x [phone].
[2019-05-18 16:35] VITALS: BP 112/75
--- NOTE | 2019-05-18 19:44 | PN ---
DATE: 05/17/2019 PSYCHIATRIC PROGRESS NOTE This late entry 05/17/2019 covers elements not covered in my initial note. SUBJECTIVE: I met with the patient evening of 05/17/2019. Per FRANKIE Pang, the patient slept 7-1/4 hours previous night. Repeat lithium level is 0.7. She has been cooperative, but complains of tremors and we will have Dr. Barajas, Neurology consult for this. REVIEW OF SYSTEMS: Other than above, no CV, , pulmonary, eye system symptoms on review. MENTAL STATUS EXAM: Oriented to herself and situation. Speech has some latency, coherent. Abstraction fair, computation impaired, language function intact, attention span short. Mood and affect withdrawn. LABORATORY DATA: Reviewed. IMPRESSION: Schizoaffective disorder, bipolar type, mixed with psychotic features; history of schizophrenia, chronic, undifferentiated with acute exacerbation. PLAN: Continue current psychotropics in addition to Luvox 150 mg a day for her OCD, lithium, Cogentin, Minipress, Remeron, Wellbutrin, Invega Sustenna and trazodone. MAN Mamta CAMACHO MD DR: HEMANTH/emily JOB#: [id number] / [id number]
[2019-05-18] MEDS: traZODone 100 MG TABLET. PO PRN (20:11)
[2019-05-18] MEDS: MELATONIN 3 MG TABLET PO SCH (20:11)
[2019-05-18] MEDS: PRAZOSIN 1 MG CAPSULE. PO SCH (20:11)
[2019-05-18] MEDS: MIRTAZAPINE 15 MG TABLET PO SCH (20:11)
[2019-05-18] MEDS: LITHIUM CARBONATE 300 MG TABLET PO SCH (20:11)
[2019-05-18] MEDS: PATCH REMOVAL. MC SCH (20:12)
--- NOTE | 2019-05-18 22:01 | PDOC ---
Exam Note: Dion Note: Please also refer to the separate dictated note~for this date of service dictated separately.~Patient seen individually. Discussed the patient with Nursing staff reviewed the chart.~Reviewed interim history and current functioning. Reviewed vital signs,~Labs/ Radiology~and current medications noted below. Continue current treatment with the changes noted in the dictated addendum note Assessment: Vital Signs/I&O: Vital Signs Date Time Temp Pulse Resp B/P (MAP) Pulse Ox O2 Delivery O2 Flow Rate FiO2 05/18/19 20:11 86 112/75 05/18/19 16:35 97.4 20 100 05/18/19 10:40 Room Air I & O 05/17/19 05/17/19 05/18/19 15:00 23:00 07:00 Intake Total 480 ml 360 ml Balance 480 ml 360 ml Current Medications: Meds: Current Medications Medications (Trade) Dose Ordered Sig/Angelica Route PRN Reason Start Time Stop Time Status Last Admin Dose Admin Magnesium Citrate (Citroma) 296 ml PRN 1X PRN PO CONSTIPATION 05/18/19 09:15 05/18/19 12:29 I have reviewed the current psychotropics carefully including drug interactions. Risk benefit ratio favors no change other than as noted in my dictated progress note. Diagnosis: Problems: (1) Bipolar affective, mixed, sev w/ psych (2) Anxiety disorder (3) Impulse control disorder (4) Schizophrenia, paranoid, chronic with acute exacerbation (5) Schizoaffective disorder, chronic condition with acute exacerbation LISA CAMACHO MD May 18, 2019 22:01
--- NOTE | 2019-05-18 23:29 | NUR ---
Pt sitting in day room at shift change. Pt calm, pleasant, and interactive this evening. Pt cooperative with assessment and compliant with medications administered whole. Pt reports that she finally had results from the mag citrate administered earlier today.
[2019-05-19] MEDS: LEVOTHYROXINE 50 MCG TABLET PO SCH (05:01)
[2019-05-19 05:50] VITALS: BP 117/69
[2019-05-19] MEDS: LIDOCAINE (700MG/PATCH) PATCH. TD SCH (08:30)
[2019-05-19] MEDS: LOSARTAN 50 MG TABLET. PO SCH (08:32)
[2019-05-19] MEDS: VITAMIN B COMPLEX CAPSULE. PO SCH (08:32)
[2019-05-19] MEDS: CHOLECALCIFEROL (VITAMIN D3) 1,000 UNIT TABLET PO SCH (08:33)
[2019-05-19] MEDS: MAGNESIUM OXIDE 400 MG TABLET PO SCH ×2 (08:33→20:04)
[2019-05-19] MEDS: buPROPion XL 300 MG TAB.ER.24H. PO SCH (08:33)
[2019-05-19] MEDS: BENZTROPINE MESYLATE 1 MG TABLET PO SCH ×2 (08:33→20:03)
[2019-05-19] MEDS: DOCUSATE SODIUM 100 MG CAPSULE PO SCH (08:33)
[2019-05-19] MEDS: PANTOPRAZOLE 40 MG TABLET. PO SCH (08:33)
[2019-05-19] MEDS: APIXABAN 5 MG TABLET. PO SCH ×2 (08:36→20:04)
[2019-05-19] MEDS: FLUTICASONE 50MCG/NASAL SPRAY 16GM BOTTLE. NS SCH (08:37)
[2019-05-19] MEDS: BUDESONIDE 0.5 MG/2 ML NEBU NEB SCH ×2 (11:09→20:00)
--- NOTE | 2019-05-19 11:25 | NUR ---
WEEKLY ACTIVITY THERAPY NOTE Date of Admission:04/23/2019 Date of AT Assessment: 04/26/2019 Goal aimed: to increase socialization and engagement Initial Goal: Pt. will participate in at least five Activity Therapy groups per week. 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
--- NOTE | 2019-05-19 14:21 | NUR ---
Patient is calm and cooperative. She is compliant with her medications. Patient has been more social the past few days and has been in the day room most of each day. She is eating well at meals and is not paranoid at this time.
[2019-05-19 16:00] VITALS: BP 108/71
--- NOTE | 2019-05-19 18:14 | NUR ---
RBC, HCT, HGB trending down. Dr. Resendez consulted and would like us to continue to monitor it.
--- NOTE | 2019-05-19 18:33 | NUR ---
Spoke with Dr. Barajas. He has seen the patient and will be putting his note/recommendation in soon.
[2019-05-19] MEDS: MELATONIN 3 MG TABLET PO SCH (20:03)
[2019-05-19] MEDS: LITHIUM CARBONATE 300 MG TABLET PO SCH (20:03)
[2019-05-19] MEDS: MIRTAZAPINE 15 MG TABLET PO SCH (20:04)
[2019-05-19] MEDS: PATCH REMOVAL. MC SCH (20:04)
[2019-05-19] MEDS: PRAZOSIN 1 MG CAPSULE. PO SCH (20:04)
[2019-05-19] MEDS: traZODone 100 MG TABLET. PO PRN (20:04)
--- NOTE | 2019-05-19 22:57 | NUR ---
Pt sitting quietly in the day room at shift change. Pt calm, pleasant, and interactive. Pt cooperative with staff and compliant with medications administered whole.
--- NOTE | 2019-05-19 23:01 | PDOC ---
Exam Note: Dion Note: Please also refer to the separate dictated note~for this date of service dictated separately.~Patient seen individually. Discussed the patient with Nursing staff reviewed the chart.~Reviewed interim history and current functioning. Reviewed vital signs,~Labs/ Radiology~and current medications noted below. Continue current treatment with the changes noted in the dictated addendum note Assessment: Vital Signs/I&O: Vital Signs Date Time Temp Pulse Resp B/P (MAP) Pulse Ox O2 Delivery O2 Flow Rate FiO2 05/19/19 20:04 73 108/71 05/19/19 16:00 97.9 18 100 05/19/19 11:09 Room Air I & O 05/18/19 05/18/19 05/19/19 15:00 23:00 07:00 Intake Total 840 ml 660 ml Balance 840 ml 660 ml Current Medications: I have reviewed the current psychotropics carefully including drug interactions. Risk benefit ratio favors no change other than as noted in my dictated progress note. Diagnosis: Problems: (1) Bipolar affective, mixed, sev w/ psych (2) Anxiety disorder (3) Impulse control disorder (4) Schizophrenia, paranoid, chronic with acute exacerbation (5) Schizoaffective disorder, chronic condition with acute exacerbation LISA CAMACHO MD May 19, 2019 23:01
[2019-05-20] MEDS: LEVOTHYROXINE 50 MCG TABLET PO SCH (05:11)
[2019-05-20 06:24] VITALS: BP 108/58
[2019-05-20] MEDS: FLUTICASONE 50MCG/NASAL SPRAY 16GM BOTTLE. NS SCH (10:11)
[2019-05-20] MEDS: APIXABAN 5 MG TABLET. PO SCH ×2 (10:12→20:16)
[2019-05-20] MEDS: VITAMIN B COMPLEX CAPSULE. PO SCH (10:12)
--- NOTE | 2019-05-20 10:12 | PN ---
DATE: 05/18/2019 PSYCHIATRIC PROGRESS NOTE This late entry 05/18/2019 covers elements not covered in my initial note. SUBJECTIVE: I met with the patient evening of 05/18/2019. Per FRANKIE Rivera, the patient slept 6-1/2 hours previous night. She has been tired, complains of constipation. We will address this symptomatically. Ammonia on the 13 was less than 10. Does complain of some tremors. We will check with Dr. Barajas for Neurology consult. REVIEW OF SYSTEMS: Other than the tremors and constipation, no CV, , pulmonary, eye system symptoms on review. Reasonably oriented. MENTAL STATUS EXAM: Oriented reasonably. Speech is coherent. She has not been mute. Abstraction fair, computation impaired, language function intact. Mood and affect, less withdrawn. LABORATORY DATA: Reviewed. IMPRESSION: Schizoaffective disorder, bipolar type, mixed with psychotic features, in partial remission. Rest unchanged. PLAN: Continue current psychotropics and changes as noted above. LISA CAMACHO MD DR: HEMANTH/emily JOB#: [id number] / [id number]
[2019-05-20] MEDS: DOCUSATE SODIUM 100 MG CAPSULE PO SCH (10:13)
[2019-05-20] MEDS: LOSARTAN 50 MG TABLET. PO SCH (10:13)
[2019-05-20] MEDS: CHOLECALCIFEROL (VITAMIN D3) 1,000 UNIT TABLET PO SCH (10:13)
--- NOTE | 2019-05-20 10:13 | PN ---
DATE: 05/19/2019 PSYCHIATRIC PROGRESS NOTE This late entry 05/19/2019 covers elements not covered in my initial note. SUBJECTIVE: I met with the patient evening of 05/19/2019 and staffed at a treatment team meeting with the entire team in the morning and the patient's brother, Chris attended the conference. Per FRANKIE Bond, the patient slept 7-1/4 hours average, 50% in her meal intake, otherwise pleasant, calm, compliant with medications, has not been mute and actually verbally interactive with staff, attending all groups, all of which is an improvement. [place] level is 0.7, therapeutic. REVIEW OF SYSTEMS: Constipation is better, still complains of tremors. No CV, , pulmonary, eye system symptoms on review. MENTAL STATUS EXAM: Reasonably oriented to herself and situation. Speech is coherent, abstraction fair, computation impaired, language function intact. Mood and affect is improved, less withdrawn. LABORATORY DATA: Reviewed. IMPRESSION: Schizoaffective disorder, bipolar type, mixed with psychotic features, in partial remission. Rest unchanged. PLAN: Continue psychotropics from initial note. We may consider increasing Wellbutrin to 450 mg a day, but for now this is adequate at 300 along with lithium carbonate 300 mg at bedtime, Luvox, Cogentin, melatonin, Minipress, Remeron and the Invega Sustenna and trazodone for insomnia. MAN Mamta CAMACHO MD DR: HEMANTH/emily JOB#: [id number] / [id number]
[2019-05-20] MEDS: MAGNESIUM OXIDE 400 MG TABLET PO SCH ×2 (10:14→20:15)
[2019-05-20] MEDS: BENZTROPINE MESYLATE 1 MG TABLET PO SCH ×2 (10:14→20:15)
[2019-05-20] MEDS: buPROPion XL 300 MG TAB.ER.24H. PO SCH (10:15)
[2019-05-20] MEDS: PANTOPRAZOLE 40 MG TABLET. PO SCH (10:15)
[2019-05-20] MEDS: LIDOCAINE (700MG/PATCH) PATCH. TD SCH (10:16)
[2019-05-20] MEDS: BUDESONIDE 0.5 MG/2 ML NEBU NEB SCH ×2 (11:05→20:00)
--- NOTE | 2019-05-20 11:57 | NUR ---
Nursing note: Pt was allowed to sleep through breakfast. Pt was woken up later in the morning and was pleasant, med compliant, and cooperative. Pt c/o pain in her neck and lower back, scheduled lidocaine patch was cut in half and placed in those 2 locations. Pt has been up sitting quietly in the day room since awakening. Will continue to monitor.
[2019-05-20 16:33] VITALS: BP 87/49
--- NOTE | 2019-05-20 18:03 | CONS ---
DATE OF CONSULTATION: 05/11/2019 NEUROLOGIC CONSULTATION REFERRING PHYSICIAN: Dr. Wynn. REASON FOR CONSULTATION: Mental status changes, tremor and frequent falls. HISTORY OF PRESENT ILLNESS: This is a 64-year-old right-handed female who was [facility] 04[facility]2019 on account of severe paranoia, intermittent hallucinations, behavior disturbances and refusing meals and medications. The patient was found to have intermittent confusion, mental status changes and increased paranoia with psychotic features. She was noted to have more tremor of the upper extremities, impaired balance and frequent falls. According to the patient, she had one fall in the last month. She denies head injuries, headaches, visual disturbances, chest pain, shortness of breath or palpitation, dysarthria or dysphagia. The patient stated her knees gave up on her and she falls. She has been using a walker and recently she is ambulated with a wheelchair. She denies lower back pain or recent back injuries. PAST MEDICAL HISTORY: Significant for GERD, hypothyroidism, chronic hepatitis C, generalized osteoarthritis, pulmonary embolism. PAST PSYCHIATRIC HISTORY: Positive for generalized anxiety disorders and schizophrenia. PAST SURGICAL HISTORY: Positive for pilonidal cyst removal and tubal ligation. FAMILY HISTORY: Noncontributory. SOCIAL HISTORY: The patient is a resident at [facility]. She denies smoking, alcohol drinking, or illicit drug use. CURRENT HOME MEDICATIONS: Magnesium citrate, lithium, benztropine 1 mg b.i.d., prazosin 1 mg at bedtime, lidocaine patch daily, Flonase nasal spray, Invega 234 mg IM every 3 weeks, melatonin, Remeron, Lortab, vitamin B complex, losartan, Colace, Wellbutrin, Pulmicort inhaler, levothyroxine, Luvox, Eliquis 5 mg b.i.d., Tylenol, trazodone, albuterol inhaler. ALLERGIES: MORPHINE, SULFAMETHAZINE, TRIMETHOPRIM. REVIEW OF SYSTEMS: A 10-point review of system was performed as mentioned above in history of present illness. PHYSICAL EXAMINATION: GENERAL: A thin, white female, not in acute distress. She weighs 51.4 kilos. VITAL SIGNS: Blood pressure 120/63, respiratory rate 18, pulse is 84 regular, temperature 97.6, oxygen saturation is 96% on room air. HEENT: Normocephalic, atraumatic, otherwise unremarkable. NECK: Supple. Negative for carotid bruit, lymphadenopathy or thyromegaly. LUNGS: Clear to A and P. CARDIOVASCULAR: Regular rhythm, normal S1, S2. ABDOMEN: Soft. Bowel sounds positive. EXTREMITIES: Negative for cyanosis, clubbing or pitting edema. NEUROLOGIC: The patient is alert and oriented x 2. The speech is fluent. There is no language dysfunction. Memory, judgment, and abstracting thinking are fair. The patient denies hallucination or delusion at this time. CRANIAL NERVES: Visual dennis are full. The pupils are reactive to light and accommodation. The extraocular movements are intact. There is no nystagmus. There is no facial motor or sensory deficit. Hearing is intact bilaterally. The palate is elevated symmetrically. Sternocleidomastoid muscles are powerful bilaterally. The patient shrugs her shoulders symmetrically, protrudes her tongue in the midline without fasciculation or atrophy. MOTOR: No focal muscle bulk was seen. The tone is normal. The strength is 4/5 throughout. The patient has mild postural and kinetic tremors of the upper extremities. Sensory examination revealed normal pinprick and light touch, vibratory and position senses. Deep tendon reflexes were asymmetric and hypoactive with absent Achilles responses. GAIT: The patient stands up, but she is unsteady and had tendency to fall. She is confined to the wheelchair. LABORATORY DATA: CBC revealed white blood cells of 6.6 thousand, hemoglobin 11.2, hematocrit 33.7, and platelet count 410,000. Chemistry revealed sodium of 141, potassium 4.2, chloride 106, CO2 29, BUN 12, creatinine 1, glucose 113, and calcium 8.5. Liver enzymes are increased alkaline phosphatase at 195 with low AST and normal ALT. Albumin is low at 2.9. Urinalysis from 05/09/2019 revealed a trace of urinary leukocyte esterase, white blood cells of 5-10 and no bacteria. [place] level today is 0.7. IMPRESSION: 1. Impaired balance and frequent falls, etiology uncertain, rule out central nervous system pathology versus peripheral pathology as osteoarthritis of the knees and hips. 2. Multiple medical problems include gastroesophageal reflux disease, generalized arthritis, hypothyroidism, history of pulmonary embolism, on Eliquis; chronic hepatitis C, osteoporosis. 3. Multiple psychiatric problems include generalized anxiety disorders, depressions, possible schizoaffective disorders. RECOMMENDATIONS: 1. We will obtain a head CT scan today to rule out central nervous system pathology. 2. We will continue with current psychiatric care. 3. Physical therapy as tolerated. 4. It is very important to avoid any falling as the patient has been on Eliquis. M Janette CAMERON MD DR: BETHANY/emily JOB#: [id number] / [id number]
--- NOTE | 2019-05-20 18:46 | PN ---
DATE: 05/12/2019 FOLLOWUP VISIT SUBJECTIVE: The patient denies any new medical or neurological complaints. She has not had any fall since yesterday; however, the patient continues to complain of intermittent tremor of the upper extremities, aggravated by anxiety and stress. The tremor is subsided during sleep. Initial nonenhanced head CT scan revealed no evidence of central nervous system pathology or acute intracranial process or hydrocephalus. The patient has been ambulating with a wheelchair for now. OBJECTIVE: GENERAL: A thin female, not in acute distress. VITAL SIGNS: Blood pressure 120/63, respiratory rate 18, pulse is 84, temperature 97.6, oxygen saturation is 96% on room air. HEENT: Normocephalic, atraumatic, otherwise unremarkable. NECK: Supple. Negative for carotid bruit, lymphadenopathy or thyromegaly. LUNGS: Clear to A and P. CARDIOVASCULAR: Regular rate and rhythm, normal S1, S2. ABDOMEN: Soft. Bowel sounds positive. EXTREMITIES: Negative for cyanosis, clubbing or edema. NEUROLOGICAL EXAM: Mental Status: The patient is alert and oriented to place and herself. The speech is more fluent. There is no language dysfunction. Memory, judgment, and abstracting thinking are fair. The patient denies hallucination or delusion. Cranial nerves are intact. No focal motor or sensory deficit. The strength is 4/5 throughout. Sensory examination revealed normal pinprick and light touch senses throughout. Deep tendon reflexes were symmetric and hypoactive with absent Achilles responses. Gait: The patient stands by herself with 2 assistants. LABORATORY DATA: CBC revealed white blood cells of 9.2 thousand, hemoglobin 11.1, hematocrit 33.6, platelet count 410,000. Chemistry revealed sodium of 141, potassium 4.1, chloride 105, CO2 of 30, BUN 14, creatinine 0.9, glucose is 96 and calcium 8.6. IMPRESSION: 1. History of frequent falls, probably multifactorial include generalized osteoarthritis, osteoporosis. There was no evidence of central nervous system pathology. 2. Multiple medical problems include gastroesophageal reflux disease, hypothyroidism, osteoporosis and osteoarthritis. History of pulmonary embolism. 3. Multiple psychiatric problems include schizoaffective disorders, generalized anxiety and depression and paranoia with psychotic features. 4. Tremor of the upper extremities, etiology uncertain, probably induced by generalized anxiety disorder. Side effects of medication should be considered as well. RECOMMENDATIONS: 1. Continue with current medical and psychiatric care. 2. Physical therapy evaluation and management. 3. The patient on Cogentin 1 mg t.i.d. and may increase it gradually to t.i.d. M Janette CAMERON MD DR: BETHANY/emily JOB#: [id number] / [id number]
[2019-05-20] MEDS: MELATONIN 3 MG TABLET PO SCH (20:15)
[2019-05-20] MEDS: MIRTAZAPINE 15 MG TABLET PO SCH (20:16)
[2019-05-20] MEDS: LITHIUM CARBONATE 300 MG TABLET PO SCH (20:16)
[2019-05-20] MEDS: PRAZOSIN 1 MG CAPSULE. PO SCH (21:00)
[2019-05-20] MEDS: PATCH REMOVAL. MC SCH (21:00)
--- NOTE | 2019-05-20 22:52 | PDOC ---
Exam Note: Dion Note: Please also refer to the separate dictated note~for this date of service dictated separately. Discussed the patient with Nursing staff reviewed the chart.~Reviewed interim history and current functioning. Reviewed vital signs,~Labs/ Radiology~and current medications noted below. Continue current treatment with the changes noted in the dictated addendum note Assessment: Vital Signs/I&O: Vital Signs Date Time Temp Pulse Resp B/P (MAP) Pulse Ox O2 Delivery O2 Flow Rate FiO2 05/20/19 16:33 98.6 74 18 87/49 (62) 98 05/20/19 11:07 Room Air I & O 05/19/19 05/19/19 05/20/19 15:00 23:00 07:00 Intake Total 600 ml 600 ml Balance 600 ml 600 ml Current Medications: I have reviewed the current psychotropics carefully including drug interactions. Risk benefit ratio favors no change other than as noted in my dictated progress note. Diagnosis: Problems: (1) Bipolar affective, mixed, sev w/ psych (2) Anxiety disorder (3) Impulse control disorder (4) Schizophrenia, paranoid, chronic with acute exacerbation (5) Schizoaffective disorder, chronic condition with acute exacerbation LISA CAMACHO MD May 20, 2019 22:52
[2019-05-21] MEDS: LEVOTHYROXINE 50 MCG TABLET PO SCH (06:24)
[2019-05-21 06:51] VITALS: BP 121/71
[2019-05-21] MEDS: BUDESONIDE 0.5 MG/2 ML NEBU NEB SCH ×2 (08:00→20:00)
[2019-05-21] MEDS: APIXABAN 5 MG TABLET. PO SCH ×2 (08:49→21:11)
[2019-05-21] MEDS: buPROPion XL 300 MG TAB.ER.24H. PO SCH (08:49)
[2019-05-21] MEDS: VITAMIN B COMPLEX CAPSULE. PO SCH (08:49)
[2019-05-21] MEDS: BENZTROPINE MESYLATE 1 MG TABLET PO SCH ×2 (08:49→21:11)
[2019-05-21] MEDS: PANTOPRAZOLE 40 MG TABLET. PO SCH (08:49)
[2019-05-21] MEDS: LIDOCAINE (700MG/PATCH) PATCH. TD SCH (08:50)
[2019-05-21] MEDS: LOSARTAN 50 MG TABLET. PO SCH (08:50)
[2019-05-21] MEDS: MAGNESIUM OXIDE 400 MG TABLET PO SCH ×2 (08:50→21:11)
[2019-05-21] MEDS: CHOLECALCIFEROL (VITAMIN D3) 1,000 UNIT TABLET PO SCH (08:50)
[2019-05-21] MEDS: DOCUSATE SODIUM 100 MG CAPSULE PO SCH (08:50)
[2019-05-21] MEDS: FLUTICASONE 50MCG/NASAL SPRAY 16GM BOTTLE. NS SCH (08:51)
--- NOTE | 2019-05-21 12:04 | NUR ---
Rn notified ran Perez DPOA regarding potential exposure to co-vid 19. Discussed and procedures in place, no questions and concerns voiced per DPOA at this time.
[2019-05-21 16:05] VITALS: BP 148/77
[2019-05-21] MEDS: PATCH REMOVAL. MC SCH (21:00)
[2019-05-21] MEDS: LITHIUM CARBONATE 300 MG TABLET PO SCH (21:11)
[2019-05-21] MEDS: PRAZOSIN 1 MG CAPSULE. PO SCH (21:11)
[2019-05-21] MEDS: MIRTAZAPINE 15 MG TABLET PO SCH (21:11)
[2019-05-21] MEDS: MELATONIN 3 MG TABLET PO SCH (21:12)
--- NOTE | 2019-05-21 22:40 | PDOC ---
Exam Note: Dion Note: Please also refer to the separate dictated note~for this date of service dictated separately. Discussed the patient with Nursing staff reviewed the chart.~Reviewed interim history and current functioning. Reviewed vital signs,~Labs/ Radiology~and current medications noted below. Continue current treatment with the changes noted in the dictated addendum note Assessment: Vital Signs/I&O: Vital Signs Date Time Temp Pulse Resp B/P (MAP) Pulse Ox O2 Delivery O2 Flow Rate FiO2 05/21/19 21:11 79 148/77 05/21/19 16:05 97.8 18 99 05/21/19 06:51 Room Air I & O 05/20/19 05/20/19 05/21/19 15:00 23:00 07:00 Intake Total 360 ml 240 ml 120 ml Balance 360 ml 240 ml 120 ml Current Medications: I have reviewed the current psychotropics carefully including drug interactions. Risk benefit ratio favors no change other than as noted in my dictated progress note. Diagnosis: Problems: (1) Bipolar affective, mixed, sev w/ psych (2) Anxiety disorder (3) Impulse control disorder (4) Schizophrenia, paranoid, chronic with acute exacerbation (5) Schizoaffective disorder, chronic condition with acute exacerbation LISA CAMACHO MD May 21, 2019 22:40
--- NOTE | 2019-05-21 23:58 | NUR ---
Pt located in bed this evening. Pt pleasant and disorganized. When asked how she was doing tonight, pt stated "I don't know. How are you?" Compliant with whole medications.
[2019-05-22] MEDS: LEVOTHYROXINE 50 MCG TABLET PO SCH (05:36)
[2019-05-22 06:10] VITALS: BP 121/73
[2019-05-22] MEDS: buPROPion XL 300 MG TAB.ER.24H. PO SCH (08:35)
[2019-05-22] MEDS: LIDOCAINE (700MG/PATCH) PATCH. TD SCH (08:35)
[2019-05-22] MEDS: BENZTROPINE MESYLATE 1 MG TABLET PO SCH ×2 (08:36→20:53)
[2019-05-22] MEDS: LOSARTAN 50 MG TABLET. PO SCH (08:36)
[2019-05-22] MEDS: DOCUSATE SODIUM 100 MG CAPSULE PO SCH (08:36)
[2019-05-22] MEDS: PANTOPRAZOLE 40 MG TABLET. PO SCH (08:36)
[2019-05-22] MEDS: VITAMIN B COMPLEX CAPSULE. PO SCH (08:36)
[2019-05-22] MEDS: MAGNESIUM OXIDE 400 MG TABLET PO SCH ×2 (08:36→20:53)
[2019-05-22] MEDS: APIXABAN 5 MG TABLET. PO SCH ×2 (08:36→20:54)
[2019-05-22] MEDS: CHOLECALCIFEROL (VITAMIN D3) 1,000 UNIT TABLET PO SCH (08:36)
[2019-05-22] MEDS: FLUTICASONE 50MCG/NASAL SPRAY 16GM BOTTLE. NS SCH (08:37)
[2019-05-22] MEDS: BUDESONIDE 0.5 MG/2 ML NEBU NEB SCH ×2 (09:36→20:53)
[2019-05-22 16:31] VITALS: BP 102/68
--- NOTE | 2019-05-22 17:16 | NUR ---
Pt in dining room for meds and assessment. Pt compliant and calm, wanted to know what each medication was. Pt confused and forgetful at times.
[2019-05-22] MEDS: MIRTAZAPINE 15 MG TABLET PO SCH (20:53)
[2019-05-22] MEDS: PRAZOSIN 1 MG CAPSULE. PO SCH (20:54)
[2019-05-22] MEDS: MELATONIN 3 MG TABLET PO SCH (20:54)
[2019-05-22] MEDS: LITHIUM CARBONATE 300 MG TABLET PO SCH (20:54)
[2019-05-22] MEDS: PATCH REMOVAL. MC SCH (20:54)
--- NOTE | 2019-05-22 21:46 | PDOC ---
Exam Note: Dion Note: Please also refer to the separate dictated note~for this date of service dictated separately. Discussed the patient with Nursing staff reviewed the chart.~Reviewed interim history and current functioning. Reviewed vital signs,~Labs/ Radiology~and current medications noted below. Continue current treatment with the changes noted in the dictated addendum note Assessment: Vital Signs/I&O: Vital Signs Date Time Temp Pulse Resp B/P (MAP) Pulse Ox O2 Delivery O2 Flow Rate FiO2 05/22/19 20:54 82 102/68 05/22/19 16:31 97.6 20 97 Room Air I & O 05/21/19 05/21/19 05/22/19 15:00 23:00 07:00 Intake Total 360 ml 660 ml Balance 360 ml 660 ml Current Medications: I have reviewed the current psychotropics carefully including drug interactions. Risk benefit ratio favors no change other than as noted in my dictated progress note. Diagnosis: Problems: (1) Bipolar affective, mixed, sev w/ psych (2) Anxiety disorder (3) Impulse control disorder (4) Schizophrenia, paranoid, chronic with acute exacerbation (5) Schizoaffective disorder, chronic condition with acute exacerbation LISA CAMACHO MD May 22, 2019 21:46
--- NOTE | 2019-05-22 23:44 | NUR ---
Pt located in her room this evening. Pleasantly confused. Compliant with whole medications.
[2019-05-23 05:35] VITALS: BP 130/71
[2019-05-23] MEDS: LEVOTHYROXINE 50 MCG TABLET PO SCH (06:04)
[2019-05-23 07:29] LABS: BASO % 1 % (0-3); EOS # 0.3 x10^3/uL (0.0-0.7); EOS % 5 % (0-3); HEMATOCRIT 32.5 % (36.0-47.0); HEMOGLOBIN 10.9 g/dL (12.0-15.5); LYMPH # 1.4 x10^3/uL (1.0-4.8); LYMPH % 27 % (24-48); MEAN CORPUSCULAR HEMOGLOBIN 32 pg (25-35); MEAN CORPUSCULAR HGB CONC 34 g/dL (31-37); MEAN CORPUSCULAR VOLUME 96 fL (79-100); MONO # 0.7 x10^3/uL (0.0-1.1); MONO % 12 % (0-9); NEUT # 2.9 x10^3uL (1.8-7.7); NEUT % 55 % (31-73); PLATELET COUNT 422 x10^3/uL (140-400); RED CELL DISTRIBUTION WIDTH 13.4 % (11.5-14.5); WHITE BLOOD COUNT 5.3 x10^3/uL (4.0-11.0)
[2019-05-23 07:43] LABS: ALBUMIN 2.8 g/dL (3.4-5.0); ALBUMIN/GLOBULIN RATIO 0.7 (1.0-1.7); CREATININE 0.9 mg/dL (0.6-1.0); GFR 62.6; POTASSIUM 4.1 mmol/L (3.5-5.1); TOTAL BILIRUBIN 0.2 mg/dL (0.2-1.0); TOTAL PROTEIN 6.6 g/dL (6.4-8.2)
[2019-05-23] MEDS: CHOLECALCIFEROL (VITAMIN D3) 1,000 UNIT TABLET PO SCH (08:58)
[2019-05-23] MEDS: buPROPion XL 300 MG TAB.ER.24H. PO SCH (08:58)
[2019-05-23] MEDS: PANTOPRAZOLE 40 MG TABLET. PO SCH (08:58)
[2019-05-23] MEDS: VITAMIN B COMPLEX CAPSULE. PO SCH (08:58)
[2019-05-23] MEDS: LOSARTAN 50 MG TABLET. PO SCH (08:58)
[2019-05-23] MEDS: APIXABAN 5 MG TABLET. PO SCH ×2 (08:59→20:33)
[2019-05-23] MEDS: BENZTROPINE MESYLATE 1 MG TABLET PO SCH ×2 (08:59→20:33)
[2019-05-23] MEDS: DOCUSATE SODIUM 100 MG CAPSULE PO SCH (08:59)
[2019-05-23] MEDS: MAGNESIUM OXIDE 400 MG TABLET PO SCH ×2 (08:59→20:33)
[2019-05-23] MEDS: FLUTICASONE 50MCG/NASAL SPRAY 16GM BOTTLE. NS SCH (08:59)
[2019-05-23] MEDS: LIDOCAINE (700MG/PATCH) PATCH. TD SCH (09:00)
[2019-05-23] MEDS: BUDESONIDE 0.5 MG/2 ML NEBU NEB SCH ×2 (09:02→20:32)
--- NOTE | 2019-05-23 10:00 | NUR ---
REJI left a message for Dulce Maria, pt telephonic nurse case manager through [employer], to contact REJI on her cell phone. REJI did leave on the message that the unit will be closed for admissions and discharges for the next 2 weeks per policy for a positive COVOID-19. REJI encouraged Dulce Maria to contact REJI with further questions or concerns.
--- NOTE | 2019-05-23 15:46 | NUR ---
Pt in dining room for meds and assessment. Pt compliant and calm, wanted to know what each medication was. Pt confused and forgetful at times.
[2019-05-23 16:21] VITALS: BP 154/80
[2019-05-23] MEDS: MELATONIN 3 MG TABLET PO SCH (20:33)
[2019-05-23] MEDS: PRAZOSIN 1 MG CAPSULE. PO SCH (20:33)
[2019-05-23] MEDS: LITHIUM CARBONATE 300 MG TABLET PO SCH (20:33)
[2019-05-23] MEDS: MIRTAZAPINE 15 MG TABLET PO SCH (20:33)
[2019-05-23] MEDS: PATCH REMOVAL. MC SCH (20:34)
--- NOTE | 2019-05-23 21:48 | PDOC ---
Exam Note: Dion Note: Please also refer to the separate dictated note~for this date of service dictated separately. Discussed the patient with Nursing staff reviewed the chart.~Reviewed interim history and current functioning. Reviewed vital signs,~Labs/ Radiology~and current medications noted below. Continue current treatment with the changes noted in the dictated addendum note Assessment: Vital Signs/I&O: Vital Signs Date Time Temp Pulse Resp B/P (MAP) Pulse Ox O2 Delivery O2 Flow Rate FiO2 05/23/19 20:33 84 154/80 05/23/19 16:21 97.6 16 97 05/22/19 16:31 Room Air I & O 05/22/19 05/22/19 05/23/19 14:59 22:59 06:59 Intake Total 822 ml 480 ml Balance 822 ml 480 ml Labs: Laboratory Tests Test 05/23/19 06:56 White Blood Count 5.3 x10^3/uL (4.0-11.0) Red Blood Count 3.40 x10^6/uL (3.50-5.40) L Hemoglobin 10.9 g/dL (12.0-15.5) L Hematocrit 32.5 % (36.0-47.0) L Mean Corpuscular Volume 96 fL (79-100) Mean Corpuscular Hemoglobin 32 pg (25-35) Mean Corpuscular Hemoglobin Concent 34 g/dL (31-37) Red Cell Distribution Width 13.4 % (11.5-14.5) Platelet Count 422 x10^3/uL (140-400) H Neutrophils (%) (Auto) 55 % (31-73) Lymphocytes (%) (Auto) 27 % (24-48) Monocytes (%) (Auto) 12 % (0-9) H Eosinophils (%) (Auto) 5 % (0-3) H Basophils (%) (Auto) 1 % (0-3) Neutrophils # (Auto) 2.9 x10^3uL (1.8-7.7) Lymphocytes # (Auto) 1.4 x10^3/uL (1.0-4.8) Monocytes # (Auto) 0.7 x10^3/uL (0.0-1.1) Eosinophils # (Auto) 0.3 x10^3/uL (0.0-0.7) Basophils # (Auto) 0.0 x10^3/uL (0.0-0.2) Sodium Level 146 mmol/L (136-145) H Potassium Level 4.1 mmol/L (3.5-5.1) Chloride Level 110 mmol/L (98-107) H Carbon Dioxide Level 31 mmol/L (21-32) Anion Gap 5 (6-14) L Blood Urea Nitrogen 14 mg/dL (7-20) Creatinine 0.9 mg/dL (0.6-1.0) Estimated GFR (Cockcroft-Gault) 62.6 BUN/Creatinine Ratio 16 (6-20) Glucose Level 82 mg/dL (70-99) Calcium Level 9.0 mg/dL (8.5-10.1) Total Bilirubin 0.2 mg/dL (0.2-1.0) Aspartate Amino Transferase (AST) 12 U/L (15-37) L Alanine Aminotransferase (ALT) 18 U/L (14-59) Alkaline Phosphatase 120 U/L (46-116) H Total Protein 6.6 g/dL (6.4-8.2) Albumin 2.8 g/dL (3.4-5.0) L Albumin/Globulin Ratio 0.7 (1.0-1.7) L Current Medications: I have reviewed the current psychotropics carefully including drug interactions. Risk benefit ratio favors no change other than as noted in my dictated progress note. Diagnosis: Problems: (1) Bipolar affective, mixed, sev w/ psych (2) Anxiety disorder (3) Impulse control disorder (4) Schizophrenia, paranoid, chronic with acute exacerbation LISA CAMACHO MD May 23, 2019 21:48
--- NOTE | 2019-05-23 22:54 | NUR ---
Pt located in the dayroom this evening, sitting calmly. When asked how her day was, pt stated "don't ask." Pt disorganized and slightly irritable. Compliant with whole medications and breathing treatment.
[2019-05-24] MEDS: LEVOTHYROXINE 50 MCG TABLET PO SCH (05:28)
[2019-05-24 05:47] VITALS: BP 124/74
[2019-05-24] MEDS: LOSARTAN 50 MG TABLET. PO SCH (08:36)
[2019-05-24] MEDS: FLUTICASONE 50MCG/NASAL SPRAY 16GM BOTTLE. NS SCH (08:36)
[2019-05-24] MEDS: LIDOCAINE (700MG/PATCH) PATCH. TD SCH (08:36)
[2019-05-24] MEDS: VITAMIN B COMPLEX CAPSULE. PO SCH (08:37)
[2019-05-24] MEDS: MAGNESIUM OXIDE 400 MG TABLET PO SCH ×2 (08:37→20:36)
[2019-05-24] MEDS: PANTOPRAZOLE 40 MG TABLET. PO SCH (08:37)
[2019-05-24] MEDS: DOCUSATE SODIUM 100 MG CAPSULE PO SCH (08:37)
[2019-05-24] MEDS: BENZTROPINE MESYLATE 1 MG TABLET PO SCH ×2 (08:37→20:36)
[2019-05-24] MEDS: CHOLECALCIFEROL (VITAMIN D3) 1,000 UNIT TABLET PO SCH (08:37)
[2019-05-24] MEDS: buPROPion XL 300 MG TAB.ER.24H. PO SCH (08:37)
[2019-05-24] MEDS: APIXABAN 5 MG TABLET. PO SCH ×2 (08:37→20:36)
[2019-05-24] MEDS: BUDESONIDE 0.5 MG/2 ML NEBU NEB SCH ×2 (11:11→20:36)
--- NOTE | 2019-05-24 13:18 | NUR ---
Nursing note: Pt in dining room for morning meds and assessment. Pt was pleasant, med compliant and cooperative with assessment and breathing treatment. Pt has been sitting quietly in the day room for most of the day. Will continue to monitor.
[2019-05-24 15:38] VITALS: BP 143/82
[2019-05-24] MEDS: MIRTAZAPINE 15 MG TABLET PO SCH (20:36)
[2019-05-24] MEDS: LITHIUM CARBONATE 300 MG TABLET PO SCH (20:36)
[2019-05-24] MEDS: PATCH REMOVAL. MC SCH (20:36)
[2019-05-24] MEDS: MELATONIN 3 MG TABLET PO SCH (20:36)
[2019-05-24] MEDS: PRAZOSIN 1 MG CAPSULE. PO SCH (20:36)
[2019-05-24] MEDS: MAGNESIUM HYDROXIDE 2,400 MG/30 ML ORAL.SUSP. PO PRN (20:43)
--- NOTE | 2019-05-24 22:59 | NUR ---
Pt located in the dayroom tonight. Pt appeared upset and was resistive in letting this RN know why. Pt stated that she is upset with some of the staff members. Pt would not elaborate as to why. Pt stated she is fearful that they will hurt her. Pt stated that she feels like she needs more medication and is not sure if she is just being paranoid about the staff. Pt compliant with whole medications. Pt extremely unsteady on her feet this evening. Pt forgetting to use her walker or using it incorrectly. Staff helped pt ambulate to her room and get ready for bed.
[2019-05-25] MEDS: LEVOTHYROXINE 50 MCG TABLET PO SCH (05:45)
[2019-05-25 06:03] VITALS: BP 101/66
--- NOTE | 2019-05-25 06:43 | PDOC ---
Exam Note: Dion Note: This is a late entry for 05/20/2019. Currently, the unit is shutdown for any admissions and discharges as directed by the Centers for Disease Control (CDC) and the [facility] of Health and Environment ([facility]) because of Coronavirus (COVID-19) exposure on the unit. S/O: This is a Telepsychiatry Progress Note. This note covers elements not covered in my initial note. The patient was reviewed with nursing staff, reviewed the chart and TeleHealth Services provided for this date for the patient. ROS: Still has some complaints of tremors and constipation. No CV, GI system symptoms on review. MSE: Reasonably oriented to herself and situation. Speech is coherent. Abstraction fair. Computation impaired. Language function is intact. Short- term memory has some deficits. No suicidal or homicidal ideation. Labs: Reviewed. Imp: Schizoaffective disorder, bipolar type, mixed with psychotic features in partial remission. Anxiety disorder unspecified. Rest unchanged. Plan: Unchanged from my initial note. Assessment: Vital Signs/I&O: Vital Signs Date Time Temp Pulse Resp B/P (MAP) Pulse Ox O2 Delivery O2 Flow Rate FiO2 05/25/19 06:03 97.9 61 16 101/66 (78) 93 05/22/19 16:31 Room Air I & O 05/24/19 05/24/19 05/25/19 15:00 23:00 07:00 Intake Total 720 ml 340 ml Balance 720 ml 340 ml Current Medications: I have reviewed the current psychotropics carefully including drug interactions. Risk benefit ratio favors no change other than as noted in my dictated progress note. Diagnosis: Problems: (1) Bipolar affective, mixed, sev w/ psych (2) Anxiety disorder (3) Impulse control disorder (4) Schizophrenia, paranoid, chronic with acute exacerbation (5) Schizoaffective disorder, chronic condition with acute exacerbation LISA CAMACHO MD May 25, 2019 06:43
--- NOTE | 2019-05-25 07:27 | PDOC ---
Exam Note: Dion Note: This is a late entry for 05/21/2019. Currently, the unit is shutdown for any admissions and discharges as directed by the Centers for Disease Control (CDC) and the [facility] ([facility]) because of Coronavirus (COVID-19) exposure on the unit. S/O: This note covers elements not covered in my initial note. The patient was reviewed with nursing staff, reviewed the chart and TeleHealth Services provided for this date for the patient. Discussed with FRANKIE Pang. She slept 6-1/4 hours, done a little better. ROS: Less fixated on tremors and constipation. No CV, system symptoms on review. MSE: Reasonably oriented to herself and situation. Speech is coherent. Abstraction fair. Computation impaired. Language function is intact. Short- term memory has some deficits. No suicidal or homicidal ideation. Labs: Reviewed. Imp: Schizoaffective disorder, bipolar type, mixed with psychotic features in partial remission. Anxiety disorder unspecified. Rest unchanged. Plan: Unchanged from my initial note. Assessment: Vital Signs/I&O: Vital Signs Date Time Temp Pulse Resp B/P (MAP) Pulse Ox O2 Delivery O2 Flow Rate FiO2 05/25/19 06:03 97.9 61 16 101/66 (78) 93 05/22/19 16:31 Room Air I & O 05/24/19 05/24/19 05/25/19 15:00 23:00 07:00 Intake Total 720 ml 340 ml Balance 720 ml 340 ml Current Medications: I have reviewed the current psychotropics carefully including drug interactions. Risk benefit ratio favors no change other than as noted in my dictated progress note. Diagnosis: Problems: (1) Bipolar affective, mixed, sev w/ psych (2) Anxiety disorder (3) Impulse control disorder (4) Schizophrenia, paranoid, chronic with acute exacerbation (5) Schizoaffective disorder, chronic condition with acute exacerbation LISA CAMACHO MD May 25, 2019 07:27
--- NOTE | 2019-05-25 07:56 | PDOC ---
Exam Note: Dion Note: This is a late entry for 05/22/2019. Currently, the unit is shutdown for any admissions and discharges as directed by the Centers for Disease Control (CDC) and the [facility] ([facility]) because of Coronavirus (COVID-19) exposure on the unit. S/O: This note covers elements not covered in my initial note. The patient was reviewed with nursing staff, reviewed the chart and TeleHealth Services provided for this date for the patient. Discussed with FRANKIE Pang. She slept 8 hours. ROS: No CV, GI system symptoms on review. MSE: Reasonably oriented to herself and situation. Speech is coherent. Abstraction fair. Computation impaired. Language function is intact. No suicidal or homicidal ideation. Labs: Reviewed. Imp: Schizoaffective disorder, bipolar type, mixed with psychotic features in partial remission. Anxiety disorder unspecified. Rest unchanged. Plan: Unchanged from my initial note. Assessment: Vital Signs/I&O: Vital Signs Date Time Temp Pulse Resp B/P (MAP) Pulse Ox O2 Delivery O2 Flow Rate FiO2 05/25/19 06:03 97.9 61 16 101/66 (78) 93 05/22/19 16:31 Room Air I & O 05/24/19 05/24/19 05/25/19 15:00 23:00 07:00 Intake Total 720 ml 340 ml Balance 720 ml 340 ml Current Medications: I have reviewed the current psychotropics carefully including drug interactions. Risk benefit ratio favors no change other than as noted in my dictated progress note. Diagnosis: Problems: (1) Bipolar affective, mixed, sev w/ psych (2) Anxiety disorder (3) Impulse control disorder (4) Schizophrenia, paranoid, chronic with acute exacerbation (5) Schizoaffective disorder, chronic condition with acute exacerbation LISA CAMACHO MD May 25, 2019 07:56
--- NOTE | 2019-05-25 08:23 | PDOC ---
Exam Note: Dion Note: This is a late entry for 05/23/2019. Currently, the unit is shutdown for any admissions and discharges as directed by the Centers for Disease Control (CDC) and the [facility] ([facility]) because of Coronavirus (COVID-19) exposure on the unit. S/O: This note covers elements not covered in my initial note. The patient was reviewed with nursing staff, reviewed the chart and TeleHealth Services provided for this date for the patient. Discussed with FRANKIE Pang. ROS: No CV, GI system symptoms on review. MSE: Reasonably oriented to herself and situation. Speech is coherent. Abstraction fair. Computation impaired. Language function is intact. No suicidal or homicidal ideation. Labs: Reviewed. Imp: Schizoaffective disorder, bipolar type, mixed with psychotic features in partial remission. Anxiety disorder unspecified. Rest unchanged. Plan: Unchanged from my initial note. Assessment: Vital Signs/I&O: Vital Signs Date Time Temp Pulse Resp B/P (MAP) Pulse Ox O2 Delivery O2 Flow Rate FiO2 05/25/19 06:03 97.9 61 16 101/66 (78) 93 05/22/19 16:31 Room Air I & O 05/24/19 05/24/19 05/25/19 15:00 23:00 07:00 Intake Total 720 ml 340 ml Balance 720 ml 340 ml Current Medications: I have reviewed the current psychotropics carefully including drug interactions. Risk benefit ratio favors no change other than as noted in my dictated progress note. Diagnosis: Problems: (1) Bipolar affective, mixed, sev w/ psych (2) Anxiety disorder (3) Impulse control disorder (4) Schizophrenia, paranoid, chronic with acute exacerbation (5) Schizoaffective disorder, chronic condition with acute exacerbation LISA CAMACHO MD May 25, 2019 08:23
--- NOTE | 2019-05-25 08:51 | PDOC ---
Exam Note: Dion Note: This is a late entry for 05/24/2019. Currently, the unit is shutdown for any admissions and discharges as directed by the Centers for Disease Control (CDC) and the [facility] ([facility]) because of Coronavirus (COVID-19) exposure on the unit. S/O: This note covers elements not covered in my initial note. The patient was reviewed with nursing staff, reviewed the chart and TeleHealth Services provided for this date for the patient. She was seen on a video-conferencing call coordinated with Robin DAVID, nursing staff on the unit whose appropriately protected with personal protective equipment and mask on the unit. According to report from FRANKIE Pappas, the patient slept 7-3/4 hours. She remains confused, has complained of constipation, some tremors and we will add Surfak 240 mg a day and Miralax for the constipation. We will repeat lithium level given her complaints of tremors. She has seen Dr. Barajas, Neurology in the past. ROS: No CV, system symptoms on review. MSE: Reasonably oriented to herself and situation. Speech is coherent. Abstraction fair. Computation impaired. Language function is intact. Short- term memory has some deficits. No suicidal or homicidal ideation. Labs: Reviewed. Imp: Schizoaffective disorder, bipolar type, mixed with psychotic features in partial remission. Anxiety disorder unspecified. Rest unchanged. Plan: We will repeat lithium level morning of 05/25/2019. Continue rest of the psychotropics from my initial note. Assessment: Vital Signs/I&O: Vital Signs Date Time Temp Pulse Resp B/P (MAP) Pulse Ox O2 Delivery O2 Flow Rate FiO2 05/25/19 06:03 97.9 61 16 101/66 (78) 93 05/22/19 16:31 Room Air I & O 05/24/19 05/24/19 05/25/19 15:00 23:00 07:00 Intake Total 720 ml 340 ml Balance 720 ml 340 ml Current Medications: I have reviewed the current psychotropics carefully including drug interactions. Risk benefit ratio favors no change other than as noted in my dictated progress note. Diagnosis: Problems: (1) Bipolar affective, mixed, sev w/ psych (2) Anxiety disorder (3) Impulse control disorder (4) Schizophrenia, paranoid, chronic with acute exacerbation (5) Schizoaffective disorder, chronic condition with acute exacerbation LISA CAMACHO MD May 25, 2019 08:51
[2019-05-25] MEDS: LIDOCAINE (700MG/PATCH) PATCH. TD SCH (09:00)
[2019-05-25] MEDS: POLYETHYLENE GLYCOL 3350 17 GM PACKET. PO SCH (09:03)
[2019-05-25] MEDS: DOCUSATE 100 MG/10 ML SOLUTION. PO SCH (09:03)
[2019-05-25] MEDS: MAGNESIUM OXIDE 400 MG TABLET PO SCH ×2 (09:05→20:13)
[2019-05-25] MEDS: BENZTROPINE MESYLATE 1 MG TABLET PO SCH ×2 (09:05→20:14)
[2019-05-25] MEDS: VITAMIN B COMPLEX CAPSULE. PO SCH (09:05)
[2019-05-25] MEDS: APIXABAN 5 MG TABLET. PO SCH ×2 (09:06→20:14)
[2019-05-25] MEDS: FLUTICASONE 50MCG/NASAL SPRAY 16GM BOTTLE. NS SCH (09:06)
[2019-05-25] MEDS: LOSARTAN 50 MG TABLET. PO SCH (09:06)
[2019-05-25] MEDS: PANTOPRAZOLE 40 MG TABLET. PO SCH (09:06)
[2019-05-25] MEDS: CHOLECALCIFEROL (VITAMIN D3) 1,000 UNIT TABLET PO SCH (09:06)
[2019-05-25] MEDS: buPROPion XL 300 MG TAB.ER.24H. PO SCH (09:06)
[2019-05-25] MEDS: BUDESONIDE 0.5 MG/2 ML NEBU NEB SCH ×2 (13:03→20:13)
--- NOTE | 2019-05-25 14:59 | NUR ---
Nursing note: Pt in hallway this morning for meds and assessment. Pt was compliant with her meds whole and cooperative with assessment. When asked how she was feeling, pt said she only had pain in her lower back and in her arms, but feeling good otherwise. About 10 minutes later, pt was observed to be coughing excessively and stated that her throat has been hurting for a while. This RN asked her why she had not mentioned it earlier during her assessment, she stated "I always say something about it, but no one ever does anything". Pt's vitals were taken and were all WNL. The excessive coughing ended immediately after. Pt has needed to be reminded several times this shift on using her walker properly. She is currently in the day room. Will continue to monitor.
[2019-05-25 16:21] VITALS: BP 111/74
[2019-05-25] MEDS: MELATONIN 3 MG TABLET PO SCH (20:13)
[2019-05-25] MEDS: LITHIUM CARBONATE 300 MG TABLET PO SCH (20:13)
[2019-05-25] MEDS: PRAZOSIN 1 MG CAPSULE. PO SCH (20:13)
[2019-05-25] MEDS: MIRTAZAPINE 15 MG TABLET PO SCH (20:13)
[2019-05-25] MEDS: PATCH REMOVAL. MC SCH (20:20)
--- NOTE | 2019-05-25 23:14 | PDOC ---
Exam Note: Dion Note: S/O: This note covers elements not covered in my initial note. The patient was reviewed with nursing staff, reviewed the chart. Discussed with FRANKIE Pappas. She slept 7-3/4 hours. Previous night she appeared paranoid, that staff was trying to hurt her. None of this has been evident today though she seems a little disorganized. [place] level is 0.7. She was talking, wanting her medications increased. ROS: She still occasionally complains of constipation, some tremors. No CV, , Pulmonary, Eye system symptoms on review. MSE: Reasonably oriented to herself and situation. Speech is coherent. Abstraction fair. Computation impaired. Language function is intact. Short- term memory has some deficits. No suicidal or homicidal ideation. Labs: Reviewed. Imp: Schizoaffective disorder, bipolar type, mixed with psychotic features in partial remission. Anxiety disorder unspecified. Rest unchanged. Plan: No change from my initial note. Assessment: Vital Signs/I&O: Vital Signs Date Time Temp Pulse Resp B/P (MAP) Pulse Ox O2 Delivery O2 Flow Rate FiO2 05/25/19 20:13 80 111/74 05/25/19 16:21 97.6 16 97 Room Air I & O0 05/24/19 05/24/19 05/25/19 15:00 23:00 07:00 Intake Total 720 ml 340 ml Balance 720 ml 340 ml Labs: Laboratory Tests Test 05/25/19 06:20 [place] Level 0.7 mmol/L (0.6-1.2) [place] Last Dose Date Unk [place] Last Dose Time Unk Current Medications: Meds: Current Medications Medications (Trade) Dose Ordered Sig/Angelica Route PRN Reason Start Time Stop Time Status Last Admin Dose Admin Polyethylene Glycol (miraLAX) 17 gm DAILY PO 05/25/19 09:00 05/25/19 09:03 Docusate Sodium (Colace Solution) 200 mg DAILY PO 05/25/19 09:00 05/25/19 09:03 I have reviewed the current psychotropics carefully including drug interactions. Risk benefit ratio favors no change other than as noted in my dictated progress note. Diagnosis: Problems: (1) Bipolar affective, mixed, sev w/ psych (2) Anxiety disorder (3) Impulse control disorder (4) Schizophrenia, paranoid, chronic with acute exacerbation (5) Schizoaffective disorder, chronic condition with acute exacerbation LISA CAMACHO MD May 25, 2019 23:14
--- NOTE | 2019-05-26 01:25 | NUR ---
Last evening pt was in day room she was pleasant and took meds whole. She denies SI or delusions. At times she would forget to use her walker but would get it when reminded. After going to bed she has been sleeping well.
[2019-05-26] MEDS: LEVOTHYROXINE 50 MCG TABLET PO SCH (05:17)
[2019-05-26 06:29] VITALS: BP 139/75
[2019-05-26] MEDS: CHOLECALCIFEROL (VITAMIN D3) 1,000 UNIT TABLET PO SCH (08:32)
[2019-05-26] MEDS: VITAMIN B COMPLEX CAPSULE. PO SCH (08:32)
[2019-05-26] MEDS: buPROPion XL 300 MG TAB.ER.24H. PO SCH (08:32)
[2019-05-26] MEDS: POLYETHYLENE GLYCOL 3350 17 GM PACKET. PO SCH (08:32)
[2019-05-26] MEDS: MAGNESIUM OXIDE 400 MG TABLET PO SCH ×2 (08:32→20:46)
[2019-05-26] MEDS: PANTOPRAZOLE 40 MG TABLET. PO SCH (08:33)
[2019-05-26] MEDS: BENZTROPINE MESYLATE 1 MG TABLET PO SCH ×2 (08:33→20:47)
[2019-05-26] MEDS: BUDESONIDE 0.5 MG/2 ML NEBU NEB SCH ×2 (08:33→20:45)
[2019-05-26] MEDS: DOCUSATE 100 MG/10 ML SOLUTION. PO SCH (08:33)
[2019-05-26] MEDS: APIXABAN 5 MG TABLET. PO SCH ×2 (08:33→20:47)
[2019-05-26] MEDS: FLUTICASONE 50MCG/NASAL SPRAY 16GM BOTTLE. NS SCH (08:35)
[2019-05-26] MEDS: LIDOCAINE (700MG/PATCH) PATCH. TD SCH (08:35)
[2019-05-26] MEDS: LOSARTAN 50 MG TABLET. PO SCH (08:35)
--- NOTE | 2019-05-26 11:54 | TX PLAN ---
Interdisciplinary Tx Plan Admission Information Apr 23, 2019 at 19:24 Legal Status (on Admission): Voluntary DPOA/Guardian Name: Chris Givens Contact Other Contact Name: Danyell Huang Other Contact Verified Code Status: DNR Allergies: Coded Allergies: morphine (Verified Allergy, Unknown, 04/23/19) sulfamethoxazole (Verified Allergy, Unknown, 04/23/19) trimethoprim (Verified Allergy, Unknown, 04/23/19) Diagnoses Primary Diagnosis: Schizophrenia chronic with acute exacerbation Reasons for Admission: Other Problem in Patient's Words: Pt has always had psychiatric trouble but appears to have cyclic behaviors. Additional Admission Comments: According to the intake, pt is feining muteness, blank stares and disoriented. Problems Active Problems: Muteness Disorientation Inactive Problems: Medication compliance Pt Strengths/Limitations Ability for Jeremiah: Poor Cognitive Functioning/Ability: Poor Communication Skills/Ability: Poor Financial Resources: Fair Insight/Judgement: Poor Intellectual Ability: Fair Physical Health: Fair Social Skills: Fair Stability in Family: Good Stability in School/Work: Poor Verbal Skills: Poor Other strengths/limitations: When pt is stable, she can be very functional Discharge Criteria Discharge Criteria: No need for close observ., Adequate arrangements @DC, Improved behavior, Improved mood/thought Preliminary Discharge Plan Preliminary DC Plan: Current Living Arrange. Special Precautions Fall Risk: Moderate Initial D/C Plan Pt will plan to return to her residential center through [facility] Identified Discharge Needs: Continued evaluation for psychiatric services. Currently Utilized Resources Currently Utilized Resources/P: Pt has services through [facility] (PCP, Psychiatrist, Case management) Identified Problems/Hx/Goals Objectives/Short-Term Goals Short Term Goals: Improved Social Skills, Medication Stabilization, Promote Coping Skill Interventions/Frequency Staff Interventions/Frequency&: Psychiatrist to assess pt at least 3x per week. Electrical Instrumentation Technician to assess pt at least 2x per week. Nursing to complete 15 minute checks daily. Encourage group participation. History Vocational History: Pt brother reports that pt had a brief job in the 80's; however, she volunteered at jobs since being at [facility] Education: Pt did graduate high school (12th grade) and has received a Bachelor's degree from [employer]; however, pt brother was not able to specify what area. Community Follow-up Community Provider/Family Inpu: She always has been this way. She just needs her medication adjusted and hopefully figure out why she has decided to go "mute". Treatment Plan Explained Patient/Undercutter Operator had this treatment plan explained to him/her as indicated by the signature below and has been given the opportunity to ask questions and make suggestions: Date: Patient/Undercutter Operator Signature: Status Update Update WEEKLY NOTE/UPDATE: Chikis is averaging 50% of meal intakes and 7 hours of sleep at night. Chikis has been medication compliant with no recent mute episodes. She tends to be disorganized at times and benefits from safety reminders with walker. Chikis has been attending meals in the dining room but SW and recreational therapy groups have been cancelled due to current quarantine of the unit for Covid-19 exposure. Chikis's lithium level is within therapeutic range. She is currently receiving colace and miralax for bowel management. SW will coordinate discharge back to [facility] once quarantine is lifted. SONAL HOPKINS May 26, 2019 11:54
[2019-05-26 16:22] VITALS: BP 121/77
[2019-05-26] MEDS: PRAZOSIN 1 MG CAPSULE. PO SCH (20:47)
[2019-05-26] MEDS: MIRTAZAPINE 15 MG TABLET PO SCH (20:47)
[2019-05-26] MEDS: MELATONIN 3 MG TABLET PO SCH (20:47)
[2019-05-26] MEDS: LITHIUM CARBONATE 300 MG TABLET PO SCH (20:47)
[2019-05-26] MEDS: PATCH REMOVAL. MC SCH (21:00)
--- NOTE | 2019-05-26 23:50 | PDOC ---
Exam Note: Dion Note: S/O: This note covers elements not covered in my initial note. Discussed the patient with nursing staff, reviewed the chart. In the morning, the patient had treatment team meeting with the entire team nursing staff, social service staff and myself and TeleHealth Services provided via audio-visual visit in the evening coordinated with Robin DAVID. Sleeping average 7-1/4 hours. Appetite 50%. She needs reminders for taking her medications but otherwise compliant. ROS: Positive for ongoing constipation and we will add Senna to her current regimen of Surfak 240 mg a day and Metamucil daily. She still has some tremors. No CV, , Pulmonary, Eye system symptoms on review. MSE: Reasonably oriented. Speech is coherent. Abstraction fair. Computation impaired. Language function is intact. Attention span short. Mood and affect more animated than before. She has not been mute for several days which is quite an improvement. Labs: Reviewed. Imp: Schizoaffective disorder, bipolar type, mixed with psychotic features, in partial remission. Anxiety disorder unspecified. Rest unchanged. Plan: No change from initial note. Continue lithium at current dosage, Wellbutrin, Remeron, Luvox, melatonin, Minipress, and Invega Sustenna. Assessment: Vital Signs/I&O: Vital Signs Date Time Temp Pulse Resp B/P (MAP) Pulse Ox O2 Delivery O2 Flow Rate FiO2 05/26/19 20:47 86 121/77 05/26/19 16:22 97.9 18 98 Room Air I & O 05/25/19 05/25/19 05/26/19 15:00 23:00 07:00 Intake Total 480 ml 240 ml Balance 480 ml 240 ml Current Medications: I have reviewed the current psychotropics carefully including drug interactions. Risk benefit ratio favors no change other than as noted in my dictated progress note. Diagnosis: Problems: (1) Bipolar affective, mixed, sev w/ psych (2) Anxiety disorder (3) Impulse control disorder (4) Schizophrenia, paranoid, chronic with acute exacerbation (5) Schizoaffective disorder, chronic condition with acute exacerbation LISA CAMACHO MD May 26, 2019 23:50
--- NOTE | 2019-05-27 00:24 | NUR ---
Nursing Note Pt in day room at shift change, pleasant and cooperative. States she is mad that she is still here in the hospital and hasn't been discharged. I told her that once things are stable with her condition etc. she could be discharged. Cooperative with meds and assessments.
[2019-05-27 05:48] VITALS: BP 118/72
[2019-05-27] MEDS: LEVOTHYROXINE 50 MCG TABLET PO SCH (05:53)
[2019-05-27] MEDS: BUDESONIDE 0.5 MG/2 ML NEBU NEB SCH ×2 (08:00→20:26)
[2019-05-27] MEDS: buPROPion XL 300 MG TAB.ER.24H. PO SCH (08:07)
[2019-05-27] MEDS: LIDOCAINE (700MG/PATCH) PATCH. TD SCH (08:07)
[2019-05-27] MEDS: DOCUSATE 100 MG/10 ML SOLUTION. PO SCH (08:07)
[2019-05-27] MEDS: POLYETHYLENE GLYCOL 3350 17 GM PACKET. PO SCH (08:07)
[2019-05-27] MEDS: FLUTICASONE 50MCG/NASAL SPRAY 16GM BOTTLE. NS SCH (08:07)
[2019-05-27] MEDS: VITAMIN B COMPLEX CAPSULE. PO SCH (08:07)
[2019-05-27] MEDS: PANTOPRAZOLE 40 MG TABLET. PO SCH (08:08)
[2019-05-27] MEDS: APIXABAN 5 MG TABLET. PO SCH ×2 (08:08→20:28)
[2019-05-27] MEDS: CHOLECALCIFEROL (VITAMIN D3) 1,000 UNIT TABLET PO SCH (08:08)
[2019-05-27] MEDS: BENZTROPINE MESYLATE 1 MG TABLET PO SCH ×2 (08:08→20:29)
[2019-05-27] MEDS: LOSARTAN 50 MG TABLET. PO SCH (08:08)
[2019-05-27] MEDS: MAGNESIUM OXIDE 400 MG TABLET PO SCH ×2 (08:08→20:29)
[2019-05-27] MEDS: HYDROcodone/APAP 5/325MG 1 TAB TABLET PO PRN ×2 (09:28→20:57)
--- NOTE | 2019-05-27 11:38 | NUR ---
Nursing Notes Pt interactive, calm and compliant with assessments and meds. Right after breakfast, pt found sitting outside [facility] nurses' station and was excessively coughing, Pt stated "It was bc of my bronchitis years ago.", RR even, regular & easy. Lungs sounds clear all lobes. Denies sore throat, V/S WNL. Will continue to monitor this cough. Denies SI. No aggressions.
[2019-05-27 15:56] VITALS: BP 121/70
[2019-05-27] MEDS: MIRTAZAPINE 15 MG TABLET PO SCH (20:27)
[2019-05-27] MEDS: PRAZOSIN 1 MG CAPSULE. PO SCH (20:28)
[2019-05-27] MEDS: MELATONIN 3 MG TABLET PO SCH (20:29)
[2019-05-27] MEDS: LITHIUM CARBONATE 300 MG TABLET PO SCH (20:29)
[2019-05-27] MEDS: PATCH REMOVAL. MC SCH (20:30)
--- NOTE | 2019-05-28 02:49 | NUR ---
Nursing Note Pt pleasant and cooperative. Complains of pain to hip and back, lortab given for pain. Denies other complaints up watching TV this PM.
[2019-05-28] MEDS: LEVOTHYROXINE 50 MCG TABLET PO SCH (05:29)
[2019-05-28 06:11] VITALS: BP 120/77
[2019-05-28] MEDS: PANTOPRAZOLE 40 MG TABLET. PO SCH (09:07)
[2019-05-28] MEDS: CHOLECALCIFEROL (VITAMIN D3) 1,000 UNIT TABLET PO SCH (09:07)
[2019-05-28] MEDS: LOSARTAN 50 MG TABLET. PO SCH (09:07)
[2019-05-28] MEDS: VITAMIN B COMPLEX CAPSULE. PO SCH (09:07)
[2019-05-28] MEDS: APIXABAN 5 MG TABLET. PO SCH ×2 (09:07→20:07)
[2019-05-28] MEDS: BENZTROPINE MESYLATE 1 MG TABLET PO SCH ×2 (09:07→20:07)
[2019-05-28] MEDS: DOCUSATE 100 MG/10 ML SOLUTION. PO SCH (09:07)
[2019-05-28] MEDS: POLYETHYLENE GLYCOL 3350 17 GM PACKET. PO SCH (09:08)
[2019-05-28] MEDS: MAGNESIUM OXIDE 400 MG TABLET PO SCH ×2 (09:08→20:08)
[2019-05-28] MEDS: buPROPion XL 300 MG TAB.ER.24H. PO SCH (09:08)
[2019-05-28] MEDS: BUDESONIDE 0.5 MG/2 ML NEBU NEB SCH ×2 (09:08→20:00)
[2019-05-28] MEDS: SENNOSIDES 8.6 MG TABLET PO SCH (09:08)
[2019-05-28] MEDS: LIDOCAINE (700MG/PATCH) PATCH. TD SCH (09:09)
[2019-05-28] MEDS: FLUTICASONE 50MCG/NASAL SPRAY 16GM BOTTLE. NS SCH (09:09)
--- NOTE | 2019-05-28 10:10 | NUR ---
Patient compliant with medication and assessment. Patient appears very lethargic this morning. patient assisted in to wheelchair after changing clothes. Patient has no further needs at this time. Patient encouraged to socialize and eat breakfast.
[2019-05-28 10:13] LABS: BASO % 1 % (0-3); EOS # 0.1 x10^3/uL (0.0-0.7); EOS % 3 % (0-3); HEMATOCRIT 37.4 % (36.0-47.0); LYMPH # 1.3 x10^3/uL (1.0-4.8); LYMPH % 29 % (24-48); MEAN CORPUSCULAR HEMOGLOBIN 32 pg (25-35); MEAN CORPUSCULAR HGB CONC 32 g/dL (31-37); MEAN CORPUSCULAR VOLUME 100 fL (79-100); MONO # 0.5 x10^3/uL (0.0-1.1); MONO % 11 % (0-9); NEUT # 2.5 x10^3uL (1.8-7.7); NEUT % 56 % (31-73); PLATELET COUNT 386 x10^3/uL (140-400); RED BLOOD COUNT 3.76 x10^6/uL (3.50-5.40); RED CELL DISTRIBUTION WIDTH 14.2 % (11.5-14.5); WHITE BLOOD COUNT 4.5 x10^3/uL (4.0-11.0)
[2019-05-28 10:53] LABS: ALBUMIN 3.2 g/dL (3.4-5.0); ALBUMIN/GLOBULIN RATIO 0.8 (1.0-1.7); CALCIUM 9.4 mg/dL (8.5-10.1); CREATININE 0.9 mg/dL (0.6-1.0); GFR 62.6; POTASSIUM 4.3 mmol/L (3.5-5.1); TOTAL BILIRUBIN 0.2 mg/dL (0.2-1.0); TOTAL PROTEIN 7.1 g/dL (6.4-8.2)
[2019-05-28 16:04] VITALS: BP 135/82
[2019-05-28] MEDS: MELATONIN 3 MG TABLET PO SCH (20:07)
[2019-05-28] MEDS: LITHIUM CARBONATE 300 MG TABLET PO SCH (20:08)
[2019-05-28] MEDS: PRAZOSIN 1 MG CAPSULE. PO SCH (20:08)
[2019-05-28] MEDS: MIRTAZAPINE 15 MG TABLET PO SCH (20:08)
[2019-05-28] MEDS: HYDROcodone/APAP 5/325MG 1 TAB TABLET PO PRN (20:08)
[2019-05-28] MEDS: MAG HYDROX/AL HYDROX/SIMETH 30 ML ORAL.SUSP PO PRN (20:17)
[2019-05-28] MEDS: MAGNESIUM HYDROXIDE 2,400 MG/30 ML ORAL.SUSP. PO PRN (20:17)
[2019-05-28] MEDS: PATCH REMOVAL. MC SCH (21:00)
--- NOTE | 2019-05-28 22:55 | NUR ---
Nursing Note Pt pleasant and cooperative. Complains of pain to hip and back, lortab given for pain. Pt also given MOM and mylanta for constipation and dyspepsia. Denies other complaints up watching TV this PM.
[2019-05-29] MEDS: LEVOTHYROXINE 50 MCG TABLET PO SCH (05:49)
--- NOTE | 2019-05-29 08:01 | PDOC ---
Exam Note: Dion Note: S/O: This note is a late entry for DOS 05/27/2019 covers elements not covered in my initial note. Discussed the patient with nursing staff, reviewed the chart. Discussed with Elaine DAVID. Met with the patient via audio-visual visit in the evening coordinated with Robin DAVID. Patient has been doing reasonably well, somewhat paranoid at times regarding medications. Slept 5-3/4 hours but easily redirected. Generally has been happy, more verbal, open, forthcoming. ROS: No CV, , Pulmonary, Eye system symptoms on review. Does complain of some constipation. We will add Senna to her Surfak and the MiraLax for constipation. MSE: Oriented to herself and situation. Speech is coherent, rapid at times. Abstraction fair. Computation impaired. Language function is intact. Mood and affect improved. No suicidal or homicidal ideation. Labs: Reviewed. Imp: Unchanged from initial note. Plan: No change from initial note. Assessment: Vital Signs/I&O: Vital Signs Date Time Temp Pulse Resp B/P (MAP) Pulse Ox O2 Delivery O2 Flow Rate FiO2 05/28/19 22:26 96 05/28/19 20:08 80 135/82 05/28/19 16:04 97.7 20 Room Air I & O 05/28/19 05/28/19 05/29/19 15:00 23:00 07:00 Intake Total 400 ml 120 ml 240 ml Balance 400 ml 120 ml 240 ml Labs: Laboratory Tests Test 05/28/19 09:35 White Blood Count 4.5 x10^3/uL (4.0-11.0) Red Blood Count 3.76 x10^6/uL (3.50-5.40) Hemoglobin 12.0 g/dL (12.0-15.5) Hematocrit 37.4 % (36.0-47.0) Mean Corpuscular Volume 100 fL (79-100) Mean Corpuscular Hemoglobin 32 pg (25-35) Mean Corpuscular Hemoglobin Concent 32 g/dL (31-37) Red Cell Distribution Width 14.2 % (11.5-14.5) Platelet Count 386 x10^3/uL (140-400) Neutrophils (%) (Auto) 56 % (31-73) Lymphocytes (%) (Auto) 29 % (24-48) Monocytes (%) (Auto) 11 % (0-9) H Eosinophils (%) (Auto) 3 % (0-3) Basophils (%) (Auto) 1 % (0-3) Neutrophils # (Auto) 2.5 x10^3uL (1.8-7.7) Lymphocytes # (Auto) 1.3 x10^3/uL (1.0-4.8) Monocytes # (Auto) 0.5 x10^3/uL (0.0-1.1) Eosinophils # (Auto) 0.1 x10^3/uL (0.0-0.7) Basophils # (Auto) 0.0 x10^3/uL (0.0-0.2) Sodium Level 144 mmol/L (136-145) Potassium Level 4.3 mmol/L (3.5-5.1) Chloride Level 107 mmol/L (98-107) Carbon Dioxide Level 30 mmol/L (21-32) Anion Gap 7 (6-14) Blood Urea Nitrogen 12 mg/dL (7-20) Creatinine 0.9 mg/dL (0.6-1.0) Estimated GFR (Cockcroft-Gault) 62.6 BUN/Creatinine Ratio 13 (6-20) Glucose Level 100 mg/dL (70-99) H Calcium Level 9.4 mg/dL (8.5-10.1) Total Bilirubin 0.2 mg/dL (0.2-1.0) Aspartate Amino Transferase (AST) 16 U/L (15-37) Alanine Aminotransferase (ALT) 21 U/L (14-59) Alkaline Phosphatase 122 U/L (46-116) H Total Protein 7.1 g/dL (6.4-8.2) Albumin 3.2 g/dL (3.4-5.0) L Albumin/Globulin Ratio 0.8 (1.0-1.7) L Current Medications: Meds: Current Medications Medications (Trade) Dose Ordered Sig/Angelica Route PRN Reason Start Time Stop Time Status Last Admin Dose Admin Sennosides (Senna) 8.6 mg DAILY PO 05/28/19 09:00 05/28/19 09:08 I have reviewed the current psychotropics carefully including drug interactions. Risk benefit ratio favors no change other than as noted in my dictated progress note. Diagnosis: Problems: (1) Bipolar affective, mixed, sev w/ psych (2) Anxiety disorder (3) Impulse control disorder (4) Schizophrenia, paranoid, chronic with acute exacerbation (5) Schizoaffective disorder, chronic condition with acute exacerbation LISA CAMACHO MD May 29, 2019 08:01
--- NOTE | 2019-05-29 08:27 | PDOC ---
Exam Note: Dion Note: S/O: This note is a late entry for DOS 05/28/2019 covers elements not covered in my initial note. Discussed the patient with nursing staff, reviewed the chart. Discussed with Mirna DAVID and met with the patient individually in the evening via audio-visual coordinated by Mirna DAVID as well. Patient has been somewhat paranoid, wanting to see her medications before she takes it and check the package insert. Slept 6-1/4 hours previous night. ROS: She states she feels more confused but no CV, , Pulmonary, Eye system symptoms on review and does have some intermittent constipation. MSE: Oriented reasonably. Speech is coherent. Abstraction fair. Computation impaired. Language function is intact. Attention span short. Mood and affect improved. Labs: Reviewed. Imp: Schizoaffective disorder, bipolar type, mixed with psychotic features, in partial remission. Anxiety disorder unspecified. Rest unchanged. Plan: No change from initial note. Assessment: Vital Signs/I&O: Vital Signs Date Time Temp Pulse Resp B/P (MAP) Pulse Ox O2 Delivery O2 Flow Rate FiO2 05/28/19 22:26 96 05/28/19 20:08 80 135/82 05/28/19 16:04 97.7 20 Room Air I & O 05/28/19 05/28/19 05/29/19 15:00 23:00 07:00 Intake Total 400 ml 120 ml 240 ml Balance 400 ml 120 ml 240 ml Labs: Laboratory Tests Test 05/28/19 09:35 White Blood Count 4.5 x10^3/uL (4.0-11.0) Red Blood Count 3.76 x10^6/uL (3.50-5.40) Hemoglobin 12.0 g/dL (12.0-15.5) Hematocrit 37.4 % (36.0-47.0) Mean Corpuscular Volume 100 fL (79-100) Mean Corpuscular Hemoglobin 32 pg (25-35) Mean Corpuscular Hemoglobin Concent 32 g/dL (31-37) Red Cell Distribution Width 14.2 % (11.5-14.5) Platelet Count 386 x10^3/uL (140-400) Neutrophils (%) (Auto) 56 % (31-73) Lymphocytes (%) (Auto) 29 % (24-48) Monocytes (%) (Auto) 11 % (0-9) H Eosinophils (%) (Auto) 3 % (0-3) Basophils (%) (Auto) 1 % (0-3) Neutrophils # (Auto) 2.5 x10^3uL (1.8-7.7) Lymphocytes # (Auto) 1.3 x10^3/uL (1.0-4.8) Monocytes # (Auto) 0.5 x10^3/uL (0.0-1.1) Eosinophils # (Auto) 0.1 x10^3/uL (0.0-0.7) Basophils # (Auto) 0.0 x10^3/uL (0.0-0.2) Sodium Level 144 mmol/L (136-145) Potassium Level 4.3 mmol/L (3.5-5.1) Chloride Level 107 mmol/L (98-107) Carbon Dioxide Level 30 mmol/L (21-32) Anion Gap 7 (6-14) Blood Urea Nitrogen 12 mg/dL (7-20) Creatinine 0.9 mg/dL (0.6-1.0) Estimated GFR (Cockcroft-Gault) 62.6 BUN/Creatinine Ratio 13 (6-20) Glucose Level 100 mg/dL (70-99) H Calcium Level 9.4 mg/dL (8.5-10.1) Total Bilirubin 0.2 mg/dL (0.2-1.0) Aspartate Amino Transferase (AST) 16 U/L (15-37) Alanine Aminotransferase (ALT) 21 U/L (14-59) Alkaline Phosphatase 122 U/L (46-116) H Total Protein 7.1 g/dL (6.4-8.2) Albumin 3.2 g/dL (3.4-5.0) L Albumin/Globulin Ratio 0.8 (1.0-1.7) L Current Medications: Meds: Current Medications Medications (Trade) Dose Ordered Sig/Angelica Route PRN Reason Start Time Stop Time Status Last Admin Dose Admin Sennosides (Senna) 8.6 mg DAILY PO 05/28/19 09:00 05/28/19 09:08 I have reviewed the current psychotropics carefully including drug interactions. Risk benefit ratio favors no change other than as noted in my dictated progress note. Diagnosis: Problems: (1) Bipolar affective, mixed, sev w/ psych (2) Anxiety disorder (3) Impulse control disorder (4) Schizophrenia, paranoid, chronic with acute exacerbation (5) Schizoaffective disorder, chronic condition with acute exacerbation LISA CAMACHO MD May 29, 2019 08:27
[2019-05-29] MEDS: LOSARTAN 50 MG TABLET. PO SCH (09:00)
[2019-05-29] MEDS: LIDOCAINE (700MG/PATCH) PATCH. TD SCH (09:00)
[2019-05-29] MEDS: APIXABAN 5 MG TABLET. PO SCH ×2 (09:08→20:29)
[2019-05-29] MEDS: VITAMIN B COMPLEX CAPSULE. PO SCH (09:08)
[2019-05-29] MEDS: DOCUSATE 100 MG/10 ML SOLUTION. PO SCH (09:08)
[2019-05-29] MEDS: buPROPion XL 300 MG TAB.ER.24H. PO SCH (09:08)
[2019-05-29] MEDS: SENNOSIDES 8.6 MG TABLET PO SCH (09:09)
[2019-05-29] MEDS: MAGNESIUM OXIDE 400 MG TABLET PO SCH ×2 (09:09→20:29)
[2019-05-29] MEDS: BENZTROPINE MESYLATE 1 MG TABLET PO SCH ×2 (09:09→20:29)
[2019-05-29] MEDS: PANTOPRAZOLE 40 MG TABLET. PO SCH (09:09)
[2019-05-29] MEDS: CHOLECALCIFEROL (VITAMIN D3) 1,000 UNIT TABLET PO SCH (09:09)
[2019-05-29] MEDS: POLYETHYLENE GLYCOL 3350 17 GM PACKET. PO SCH (09:10)
[2019-05-29] MEDS: FLUTICASONE 50MCG/NASAL SPRAY 16GM BOTTLE. NS SCH (09:11)
[2019-05-29] MEDS: BUDESONIDE 0.5 MG/2 ML NEBU NEB SCH ×2 (10:38→20:30)
--- NOTE | 2019-05-29 13:46 | NUR ---
Patient in pleasant and cooperative with assessment and medication administration. Patient wanted to see all medications and be told their indications prior to taking them. Losartan held due to low BP this am. No behaviors noted at this time. Will continue to monitor.
[2019-05-29 16:07] VITALS: BP 119/76
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
[2019-05-29 19:00] VITALS: BP 123/70
--- NOTE | 2019-05-29 19:10 | NUR ---
Patient reportedly running down the chaves and staff yelled for her to stop. Patient stopped running until past nurses station window and began running again with walker. Patient ran her walker into chair in day room and hit her head on the window sill. Patient's posterior head bleeding, staff able to stop bleeding. Dr. Resendez paged and received orders for stat CT scan and continue to monitor. Notified Dr. Resendez with any changes. DPOA notified and he said to let him know if there are any complications. Will continue to monitor. VSS per charting.
[2019-05-29] MEDS: LITHIUM CARBONATE 300 MG TABLET PO SCH (20:29)
[2019-05-29] MEDS: PRAZOSIN 1 MG CAPSULE. PO SCH (20:29)
[2019-05-29] MEDS: HYDROcodone/APAP 5/325MG 1 TAB TABLET PO PRN (20:29)
[2019-05-29] MEDS: MIRTAZAPINE 15 MG TABLET PO SCH (20:29)
[2019-05-29] MEDS: PATCH REMOVAL. MC SCH (20:30)
[2019-05-29] MEDS: MELATONIN 3 MG TABLET PO SCH (20:30)
--- NOTE | 2019-05-29 20:32 | RAD ---
CT scan of the head without contrast 05/29/2019 Clinical History: Head injury. Struck head on window. Technique: Unenhanced, contiguous, 5 mm axial sections were obtained through the head. One or more of the following individualized dose reduction techniques were utilized for this study: 1. Automated exposure control. 2. Adjustment of the mA and/or kV according to patient size. 3. Use of iterative reconstruction technique. Findings: Comparison study is dated 05/11/2019. There is generalized parenchymal atrophy. Areas of decreased attenuation are seen within the periventricular and subcortical white matter of both cerebral hemispheres consistent with areas of small vessel ischemic disease. No acute parenchymal abnormality is seen. No extra-axial fluid collection is noted. No skull fracture is seen. Impression: No acute intracranial abnormality is seen. Electronically signed by: Ulysses Pierre MD (05/29/2019 8:29 PM) [id number]
--- NOTE | 2019-05-29 22:45 | PDOC ---
Exam Note: Dion Note: S/O: This note covers elements not covered in my initial note. The patient was seen on TeleHealth rounds evening of 05/29/2019 by Tammi DAVID. Discussed the patient with nursing staff, reviewed the chart. Nursing report was with Kaitlin DAVID. Patient slept 7-1/4 hours. ROS: No CV, , Pulmonary, Eye system symptoms. MSE: As I met with the patient initially she was very appropriate verbal, seemed to get anxious as I met with her via the audio-visual for Tele-Health visit and then became quite emotional, crying and no real reason to explain this. Oriented to herself and situation. Speech coherent. Abstraction fair. Computation impaired. Language function is intact. Attention span short. No clear psychotic symptoms, suicidal or homicidal ideation. Labs: Reviewed. Imp: Schizoaffective disorder, bipolar type, mixed with psychotic features, in partial remission. Anxiety disorder unspecified. Rest unchanged. Plan: No change from her current psychotropics mentioned in my note. Assessment: Vital Signs/I&O: Vital Signs Date Time Temp Pulse Resp B/P (MAP) Pulse Ox O2 Delivery O2 Flow Rate FiO2 05/29/19 21:44 99 05/29/19 20:29 95 123/70 05/29/19 19:00 97.7 16 Room Air I & O 05/28/19 05/28/19 05/29/19 15:00 23:00 07:00 Intake Total 400 ml 120 ml 240 ml Balance 400 ml 120 ml 240 ml Current Medications: I have reviewed the current psychotropics carefully including drug interactions. Risk benefit ratio favors no change other than as noted in my dictated progress note. Diagnosis: Problems: (1) Bipolar affective, mixed, sev w/ psych (2) Anxiety disorder (3) Impulse control disorder (4) Schizophrenia, paranoid, chronic with acute exacerbation (5) Schizoaffective disorder, chronic condition with acute exacerbation ILSA CAMACHO MD May 29, 2019 22:45
--- NOTE | 2019-05-29 23:05 | NUR ---
Pt located in the dayroom this evening sitting in a chair. Pt highly disorganized, had trouble finding her words and repeatedly attempted to stand up after being reminded to stay in the chair r/t pt's trip and fall on the previous shift. Pt's gait is very unsteady and pt needs numerous cues to remember her walker. Pt compliant with whole medications and breathing treatment. Pt complained of right lower back pain 9/. PRN Lortab administered w HS medications.
[2019-05-30] MEDS: LEVOTHYROXINE 50 MCG TABLET PO SCH (05:28)
[2019-05-30 05:56] VITALS: BP 147/80
[2019-05-30] MEDS: DOCUSATE 100 MG/10 ML SOLUTION. PO SCH (08:28)
[2019-05-30] MEDS: POLYETHYLENE GLYCOL 3350 17 GM PACKET. PO SCH (08:29)
[2019-05-30] MEDS: MAGNESIUM OXIDE 400 MG TABLET PO SCH ×2 (08:31→20:28)
[2019-05-30] MEDS: VITAMIN B COMPLEX CAPSULE. PO SCH (08:31)
[2019-05-30] MEDS: PANTOPRAZOLE 40 MG TABLET. PO SCH (08:32)
[2019-05-30] MEDS: BENZTROPINE MESYLATE 1 MG TABLET PO SCH ×2 (08:33→20:28)
[2019-05-30] MEDS: SENNOSIDES 8.6 MG TABLET PO SCH (08:33)
[2019-05-30] MEDS: APIXABAN 5 MG TABLET. PO SCH ×2 (08:33→20:28)
[2019-05-30] MEDS: buPROPion XL 300 MG TAB.ER.24H. PO SCH (08:33)
[2019-05-30] MEDS: LOSARTAN 50 MG TABLET. PO SCH (08:34)
[2019-05-30] MEDS: CHOLECALCIFEROL (VITAMIN D3) 1,000 UNIT TABLET PO SCH (08:34)
[2019-05-30] MEDS: LIDOCAINE (700MG/PATCH) PATCH. TD SCH (08:34)
[2019-05-30] MEDS: FLUTICASONE 50MCG/NASAL SPRAY 16GM BOTTLE. NS SCH (08:35)
[2019-05-30 09:14] LABS: COLOR,URINE YELLOW
[2019-05-30 09:15] LABS: BACTERIA,URINE MOD /HPF (0-FEW); BILIRUBIN,URINE NEG (NEG); CLARITY,URINE CLOUDY; GLUCOSE,URINE NEG (NEG); NITRITE,URINE NEG (NEG); SQUAMOUS EPITHELIAL CELL,UR OCC /LPF; UROBILINOGEN,URINE 0.2 mg/dL (0.2 mg/dL)
[2019-05-30 09:16] LABS: AMORPHOUS SEDIMENT,UR PRESENT /HPF; GRANULAR CASTS,URINE OCC /HPF; HYALINE CASTS, URINE FEW /HPF
[2019-05-30] MEDS: BUDESONIDE 0.5 MG/2 ML NEBU NEB SCH ×2 (10:16→20:26)
--- NOTE | 2019-05-30 12:43 | NUR ---
Nursing note: Pt in dining room this morning for meds and assessment. She was compliant with her meds whole and cooperative with her assessment. Pt says she has pain in her lower back, but says it isn't that bad. Pt denies pain anywhere else and has no other complaints. She does seem slightly disorganized, but has remembered to remain in her wheelchair this morning. Pt is currently in the dining room for lunch. Will continue to monitor.
[2019-05-30 16:01] VITALS: BP 111/69
[2019-05-30] MEDS: HYDROcodone/APAP 5/325MG 1 TAB TABLET PO PRN (20:28)
[2019-05-30] MEDS: LITHIUM CARBONATE 300 MG TABLET PO SCH (20:28)
[2019-05-30] MEDS: MIRTAZAPINE 15 MG TABLET PO SCH (20:28)
[2019-05-30] MEDS: PRAZOSIN 1 MG CAPSULE. PO SCH (20:28)
[2019-05-30] MEDS: MELATONIN 3 MG TABLET PO SCH (20:29)
[2019-05-30] MEDS: PATCH REMOVAL. MC SCH (20:29)
--- NOTE | 2019-05-30 22:51 | PDOC ---
Exam Note: Dion Note: S/O: This note covers elements not covered in my initial note. The patient was seen on TeleHealth rounds in the evening by Tammi DAVID. Discussed the patient with nursing staff, reviewed the chart. Nursing report was with Elyse DAVID. Patient slept 6-3/4 hours previous night and she was trying to walk without a walker previous night running in the hallway, fell, hit her head against the window sill, and had a goosebump. CT head was negative. Dr. Resendez was consulted. Today, she has been in a wheelchair, was quite restless in the evening, better today. We did check a UA which has reflex to culture and we will check a lithium level in the morning. ROS: Positive for mild headache. No CV, , Pulmonary, Eye system symptoms on review. Does complain of tremors, some constipation. MSE: Oriented to herself and situation. Speech coherent, can be rapid at times. Abstraction fair. Computation impaired. Language function is intact. Attention span short. Mood and affect remains somewhat labile. Labs: Reviewed. Imp: Schizoaffective disorder, bipolar type, mixed with psychotic features, in partial remission. Anxiety disorder unspecified. Rest unchanged. Plan: Check UA C&S. Check lithium level in the morning. Continue rest psychotropics mentioned in the current list. Assessment: Vital Signs/I&O: Vital Signs Date Time Temp Pulse Resp B/P (MAP) Pulse Ox O2 Delivery O2 Flow Rate FiO2 05/30/19 21:39 97 05/30/19 20:28 85 111/69 05/30/19 16:01 97.9 18 Room Air I & O 05/29/19 05/29/19 05/30/19 14:59 22:59 06:59 Intake Total 480 ml 480 ml Balance 480 ml 480 ml Labs: Laboratory Tests Test 05/30/19 09:00 Urine Collection Type Unknown Urine Color Yellow Urine Clarity Cloudy Urine pH 8.0 Urine Specific [place] 1.015 Urine Protein Neg (NEG-TRACE) Urine Glucose (UA) Neg mg/dL (NEG) Urine Ketones (Stick) Neg mg/dL (NEG) Urine Blood Neg (NEG) Urine Nitrite Neg (NEG) Urine Bilirubin Neg (NEG) Urine Urobilinogen Dipstick 0.2 mg/dL (0.2 mg/dL) Urine Leukocyte Esterase Mod (NEG) Urine RBC 1-2 /HPF (0-2) Urine WBC 5-10 /HPF (0-4) Urine Squamous Epithelial Cells Occ /LPF Urine Transitional Epithelial Cells Occ /LPF Urine Amorphous Sediment Present /HPF Urine Bacteria Mod /HPF (0-FEW) Urine Hyaline Casts Few /HPF Urine Granular Casts Occ /HPF Urine Mucus Slight /LPF Current Medications: I have reviewed the current psychotropics carefully including drug interactions. Risk benefit ratio favors no change other than as noted in my dictated progress note. Diagnosis: Problems: (1) Bipolar affective, mixed, sev w/ psych (2) Anxiety disorder (3) Impulse control disorder (4) Schizophrenia, paranoid, chronic with acute exacerbation (5) Schizoaffective disorder, chronic condition with acute exacerbation LISA CAMACHO MD May 30, 2019 22:50
--- NOTE | 2019-05-30 23:07 | NUR ---
Pt located in dayroom this evening. Pt appears less disorganized than last evening. Interactive and compliant with medications and breathing treatment. Pt continues to be restless, needing multiple cues to not get up unassisted. PRN Lortab administered with HS medications per pt request.
[2019-05-31 05:08] VITALS: BP 115/67
[2019-05-31] MEDS: LEVOTHYROXINE 50 MCG TABLET PO SCH (05:39)
[2019-05-31] MEDS: POLYETHYLENE GLYCOL 3350 17 GM PACKET. PO SCH (08:09)
[2019-05-31] MEDS: APIXABAN 5 MG TABLET. PO SCH ×2 (08:09→20:18)
[2019-05-31] MEDS: VITAMIN B COMPLEX CAPSULE. PO SCH (08:09)
[2019-05-31] MEDS: BENZTROPINE MESYLATE 1 MG TABLET PO SCH ×2 (08:10→20:18)
[2019-05-31] MEDS: DOCUSATE 100 MG/10 ML SOLUTION. PO SCH (08:10)
[2019-05-31] MEDS: PANTOPRAZOLE 40 MG TABLET. PO SCH (08:10)
[2019-05-31] MEDS: MAGNESIUM OXIDE 400 MG TABLET PO SCH ×2 (08:10→20:18)
[2019-05-31] MEDS: SENNOSIDES 8.6 MG TABLET PO SCH (08:10)
[2019-05-31] MEDS: CHOLECALCIFEROL (VITAMIN D3) 1,000 UNIT TABLET PO SCH (08:10)
[2019-05-31] MEDS: buPROPion XL 300 MG TAB.ER.24H. PO SCH (08:11)
[2019-05-31] MEDS: LOSARTAN 50 MG TABLET. PO SCH (08:11)
[2019-05-31] MEDS: FLUTICASONE 50MCG/NASAL SPRAY 16GM BOTTLE. NS SCH (08:11)
[2019-05-31] MEDS: LIDOCAINE (700MG/PATCH) PATCH. TD SCH (08:12)
[2019-05-31] MEDS: BUDESONIDE 0.5 MG/2 ML NEBU NEB SCH ×2 (10:21→20:16)
--- NOTE | 2019-05-31 10:37 | NUR ---
Nursing note: Pt in dining room for morning meds and assessment. Pt was compliant in taking meds whole and cooperative with her assessment. She denied pain and refused her lidocaine patch. Pt is disorganized and needs reenforcement on using her walker properly. Pt is currently sitting in the day room watching TV. Will continue to monitor.
[2019-05-31 15:30] VITALS: BP 141/64
[2019-05-31] MEDS: PRAZOSIN 1 MG CAPSULE. PO SCH (20:18)
[2019-05-31] MEDS: LITHIUM CARBONATE 300 MG TABLET PO SCH (20:18)
[2019-05-31] MEDS: MELATONIN 3 MG TABLET PO SCH (20:18)
[2019-05-31] MEDS: HYDROcodone/APAP 5/325MG 1 TAB TABLET PO PRN (20:19)
[2019-05-31] MEDS: MIRTAZAPINE 15 MG TABLET PO SCH (20:19)
[2019-05-31] MEDS: PATCH REMOVAL. MC SCH (20:19)
--- NOTE | 2019-05-31 21:55 | PDOC ---
Exam Note: Dion Note: Please also refer to the separate dictated note~for this date of service dictated separately. Discussed the patient with Nursing staff reviewed the chart.~Reviewed interim history and current functioning. Reviewed vital signs,~Labs/ Radiology~and current medications noted below. Continue current treatment with the changes noted in the dictated addendum note Assessment: Vital Signs/I&O: Vital Signs Date Time Temp Pulse Resp B/P (MAP) Pulse Ox O2 Delivery O2 Flow Rate FiO2 05/31/19 21:48 97 05/31/19 20:18 86 141/64 05/31/19 15:30 97.5 16 05/30/19 16:01 Room Air I & O 05/30/19 05/30/19 05/31/19 15:00 23:00 07:00 Intake Total 840 ml 480 ml Balance 840 ml 480 ml Labs: Laboratory Tests Test 05/31/19 05:50 [place] Level 0.7 mmol/L (0.6-1.2) [place] Last Dose Date 05/30/19 [place] Last Dose Time 2100 Current Medications: I have reviewed the current psychotropics carefully including drug interactions. Risk benefit ratio favors no change other than as noted in my dictated progress note. Diagnosis: Problems: (1) Bipolar affective, mixed, sev w/ psych (2) Anxiety disorder (3) Impulse control disorder (4) Schizophrenia, paranoid, chronic with acute exacerbation (5) Schizoaffective disorder, chronic condition with acute exacerbation LISA CAMACHO MD May 31, 2019 21:55
--- NOTE | 2019-05-31 22:58 | NUR ---
Pt located in dayroom this evening. Pt calm and disorganized. Compliant with whole medications and breathing treatment. Continues to have trouble finding her words. Unsteady gait, with assist x1.
[2019-06-01] MEDS: LEVOTHYROXINE 50 MCG TABLET PO SCH (06:05)
[2019-06-01 06:20] VITALS: BP 106/62
[2019-06-01] MEDS: VITAMIN B COMPLEX CAPSULE. PO SCH (08:21)
[2019-06-01] MEDS: buPROPion XL 300 MG TAB.ER.24H. PO SCH (08:21)
[2019-06-01] MEDS: BENZTROPINE MESYLATE 1 MG TABLET PO SCH ×2 (08:21→19:52)
[2019-06-01] MEDS: SENNOSIDES 8.6 MG TABLET PO SCH (08:21)
[2019-06-01] MEDS: APIXABAN 5 MG TABLET. PO SCH ×2 (08:21→19:54)
[2019-06-01] MEDS: DOCUSATE 100 MG/10 ML SOLUTION. PO SCH (08:21)
[2019-06-01] MEDS: MAGNESIUM OXIDE 400 MG TABLET PO SCH ×2 (08:22→19:51)
[2019-06-01] MEDS: PANTOPRAZOLE 40 MG TABLET. PO SCH (08:22)
[2019-06-01] MEDS: LOSARTAN 50 MG TABLET. PO SCH ×2 (08:22→08:55)
[2019-06-01] MEDS: POLYETHYLENE GLYCOL 3350 17 GM PACKET. PO SCH (08:22)
[2019-06-01] MEDS: CHOLECALCIFEROL (VITAMIN D3) 1,000 UNIT TABLET PO SCH (08:22)
[2019-06-01] MEDS: FLUTICASONE 50MCG/NASAL SPRAY 16GM BOTTLE. NS SCH (08:52)
[2019-06-01] MEDS: LIDOCAINE (700MG/PATCH) PATCH. TD SCH ×2 (08:52→08:55)
[2019-06-01] MEDS: BUDESONIDE 0.5 MG/2 ML NEBU NEB SCH ×2 (08:52→19:51)
--- NOTE | 2019-06-01 10:34 | PDOC ---
Exam Note: Dion Note: S/O: This note is a late entry for DOS 05/31/2019 covers elements not covered in my initial note. The patient was seen on TeleHealth rounds coordinated by Elyse DAVID in the evening. Discussed the patient with nursing staff, reviewed the chart. Nursing report was with Elyse DAVID. Patient slept 7-1/4 hours. Her lithium level was 0.7. Patient appears less disorganized, less restless, has been ambulating with a walker. No pain while ambulating. ROS: No CV, , Pulmonary, Eye system symptoms on review. Does complain of some tremors but not evident as I examined her. MSE: Oriented to herself and situation. Speech coherent, rapid at times. Abstraction fair. Computation impaired. Language function is intact. Attention span short. Mood and affect remains somewhat labile. Labs: Reviewed. Imp: Schizoaffective disorder, bipolar type, mixed with psychotic features, in partial remission. Anxiety disorder unspecified. Rest unchanged. Plan: Continue rest psychotropics mentioned in the current list. Assessment: Vital Signs/I&O: Vital Signs Date Time Temp Pulse Resp B/P (MAP) Pulse Ox O2 Delivery O2 Flow Rate FiO2 06/01/19 08:55 64 106/62 06/01/19 06:20 97.4 16 97 05/30/19 16:01 Room Air I & O 05/31/19 05/31/19 06/01/19 15:00 23:00 07:00 Intake Total 840 ml 600 ml Balance 840 ml 600 ml Current Medications: I have reviewed the current psychotropics carefully including drug interactions. Risk benefit ratio favors no change other than as noted in my dictated progress note. Diagnosis: Problems: (1) Bipolar affective, mixed, sev w/ psych (2) Anxiety disorder (3) Impulse control disorder (4) Schizophrenia, paranoid, chronic with acute exacerbation (5) Schizoaffective disorder, chronic condition with acute exacerbation LISA CAMACHO MD Jun 01, 2019 10:34
--- NOTE | 2019-06-01 10:50 | NUR ---
REJI attempted to contact Dulce Maria, pt caser in and was transferred to her fountain supervisor Lashae, as Dulce Maria is out of the office. REJI gave Lashae an update and discussed the factor that it was highly possible that pt would be discharged next week. Dulce Maria reports that as it stands they are not allowing anyone in and anyone off grounds; staff has even been asked to live in the homes so that it minimizes the risk of COVOID-19. Lashae will check with her superiors to see what that procedure needs to look like. REJI did go over the fact that only 1 confirmed case at this time was positive and it was a staff member. The unit shut its doors from May 14 until potential Thursday. Lashae requested a medication list and will contact REJI back regarding things they will need prior to pt discharge.
--- NOTE | 2019-06-01 11:18 | TX PLAN ---
Interdisciplinary Tx Plan Admission Information Apr 23, 2019 at 19:24 Legal Status (on Admission): Voluntary DPOA/Guardian Name: Chris Givens Contact Other Contact Name: Danyell Huang Other Contact Verified Code Status: DNR Allergies: Coded Allergies: morphine (Verified Allergy, Unknown, 04/23/19) sulfamethoxazole (Verified Allergy, Unknown, 04/23/19) trimethoprim (Verified Allergy, Unknown, 04/23/19) Diagnoses Primary Diagnosis: Schizophrenia chronic with acute exacerbation Reasons for Admission: Other Problem in Patient's Words: Pt has always had psychiatric trouble but appears to have cyclic behaviors. Additional Admission Comments: According to the intake, pt is feining muteness, blank stares and disoriented. Problems Active Problems: Muteness Disorientation Inactive Problems: Medication compliance Pt Strengths/Limitations Ability for [place]: Poor Cognitive Functioning/Ability: Poor Communication Skills/Ability: Poor Financial Resources: Fair Insight/Judgement: Poor Intellectual Ability: Fair Physical Health: Fair Social Skills: Fair Stability in Family: Good Stability in School/Work: Poor Verbal Skills: Poor Other strengths/limitations: When pt is stable, she can be very functional Discharge Criteria Discharge Criteria: No need for close observ., Adequate arrangements @DC, Improved behavior, Improved mood/thought Preliminary Discharge Plan Preliminary DC Plan: Current Living Arrange. Special Precautions Fall Risk: Moderate Initial D/C Plan Pt will plan to return to her residential center through [facility] Identified Discharge Needs: Continued evaluation for psychiatric services. Currently Utilized Resources Currently Utilized Resources/P: Pt has services through [facility] (PCP, Psychiatrist, Case management) Identified Problems/Hx/Goals Objectives/Short-Term Goals Short Term Goals: Improved Social Skills, Medication Stabilization, Promote Coping Skill Interventions/Frequency Staff Interventions/Frequency&: Psychiatrist to assess pt at least 3x per week. Nurse Staff Community Health to assess pt at least 2x per week. Nursing to complete 15 minute checks daily. Encourage group participation. History Vocational History: Pt brother reports that pt had a brief job in the 80's; however, she volunteered at jobs since being at [facility] Education: Pt did graduate high school (12th grade) and has received a Bachelor's degree from [employer]; however, pt brother was not able to specify what area. Community Follow-up Community Provider/Family Inpu: She always has been this way. She just needs her medication adjusted and hopefully figure out why she has decided to go "mute". Treatment Plan Explained Patient/Geophysics Teacher had this treatment plan explained to him/her as indicated by the signature below and has been given the opportunity to ask questions and make suggestions: Date: Patient/Geophysics Teacher Signature: Status Update Update Pt appears to be sleeping 5.25 hours on average and eating roughly 50% of meals. Pt is disorganized but pleasant and medication compliant. As it stands, pt is to return to her residential home through [facility] in [place]. Per Danyell, they are having to look at their procedure to accept pt back as they are not allowing anyone to leave or enter the premise. SW will continue to work with all parties to get pt back to [facility] safely. TANNER for early next week. NIDHI TOWNSEND Jun 01, 2019 11:18
--- NOTE | 2019-06-01 13:03 | NUR ---
Pt is alert and oriented. Pt did think it was Thursday. Does have trouble finding words, for instance when she was trying to explain that sometimes she gets her days mixed up she said, "oh i just get this and that flipped." Pt is calm, and compliant with medications. Pt gets up to meals. Pt is usually out in the day room. This afternoon patient will not talk to anyone and says, "you have to talk with Dr Wynn in order for you to get anything out of me." Pt is lying down for a nap. WCTM.
[2019-06-01 15:34] VITALS: BP 132/76
[2019-06-01] MEDS: MELATONIN 3 MG TABLET PO SCH (19:51)
[2019-06-01] MEDS: PRAZOSIN 1 MG CAPSULE. PO SCH (19:52)
[2019-06-01] MEDS: HYDROcodone/APAP 5/325MG 1 TAB TABLET PO PRN (19:52)
[2019-06-01] MEDS: MIRTAZAPINE 15 MG TABLET PO SCH (19:52)
[2019-06-01] MEDS: LITHIUM CARBONATE 300 MG TABLET PO SCH (19:54)
[2019-06-01] MEDS: PATCH REMOVAL. MC SCH (19:55)
--- NOTE | 2019-06-01 21:54 | PDOC ---
Exam Note: Dion Note: Please also refer to the separate dictated note~for this date of service dictated separately.~Patient seen individually. Discussed the patient with Nursing staff reviewed the chart.~Reviewed interim history and current functioning. Reviewed vital signs,~Labs/ Radiology~and current medications noted below. Continue current treatment with the changes noted in the dictated addendum note Assessment: Vital Signs/I&O: Vital Signs Date Time Temp Pulse Resp B/P (MAP) Pulse Ox O2 Delivery O2 Flow Rate FiO2 06/01/19 19:52 81 132/76 06/01/19 19:52 97 06/01/19 15:34 97.6 16 05/30/19 16:01 Room Air I & O 05/31/19 05/31/19 06/01/19 15:00 23:00 07:00 Intake Total 840 ml 600 ml Balance 840 ml 600 ml Current Medications: I have reviewed the current psychotropics carefully including drug interactions. Risk benefit ratio favors no change other than as noted in my dictated progress note. Diagnosis: Problems: (1) Bipolar affective, mixed, sev w/ psych (2) Anxiety disorder (3) Impulse control disorder (4) Schizophrenia, paranoid, chronic with acute exacerbation (5) Schizoaffective disorder, chronic condition with acute exacerbation LISA CAMACHO MD Jun 01, 2019 21:54
--- NOTE | 2019-06-01 23:45 | NUR ---
Nursing Note Pt pleasant calm and cooperative, up in day room watching tv. Compliant with meds and assessment.
[2019-06-02] MEDS: LEVOTHYROXINE 50 MCG TABLET PO SCH (05:22)
[2019-06-02 05:45] VITALS: BP 103/61
[2019-06-02] MEDS: LIDOCAINE (700MG/PATCH) PATCH. TD SCH ×3 (08:03→19:58)
[2019-06-02] MEDS: FLUTICASONE 50MCG/NASAL SPRAY 16GM BOTTLE. NS SCH (08:04)
[2019-06-02] MEDS: DOCUSATE 100 MG/10 ML SOLUTION. PO SCH (08:04)
[2019-06-02] MEDS: POLYETHYLENE GLYCOL 3350 17 GM PACKET. PO SCH (08:04)
[2019-06-02] MEDS: VITAMIN B COMPLEX CAPSULE. PO SCH (08:04)
[2019-06-02] MEDS: BUDESONIDE 0.5 MG/2 ML NEBU NEB SCH ×2 (08:04→19:59)
[2019-06-02] MEDS: APIXABAN 5 MG TABLET. PO SCH ×2 (08:04→20:01)
[2019-06-02] MEDS: SENNOSIDES 8.6 MG TABLET PO SCH (08:05)
[2019-06-02] MEDS: CHOLECALCIFEROL (VITAMIN D3) 1,000 UNIT TABLET PO SCH (08:05)
[2019-06-02] MEDS: MAGNESIUM OXIDE 400 MG TABLET PO SCH ×2 (08:05→20:01)
[2019-06-02] MEDS: BENZTROPINE MESYLATE 1 MG TABLET PO SCH ×2 (08:05→20:01)
[2019-06-02] MEDS: PANTOPRAZOLE 40 MG TABLET. PO SCH (08:05)
[2019-06-02] MEDS: buPROPion XL 300 MG TAB.ER.24H. PO SCH (08:05)
[2019-06-02] MEDS: LOSARTAN 50 MG TABLET. PO SCH (08:05)
--- NOTE | 2019-06-02 10:17 | NUR ---
REJI received call from Milana, pt sister in law, who is has questions that pt brother has written out for the purpose of tx team. REJI explained that phone calls were not made today as the physician was on the phone himself and not here in person. Milana and REJI discussed the fact that pt is eating roughly 75% of meals and sleeping on average 7.5 hours. Pt has had falls recently, but feel that it is due to pt incorrect use of her walker. Pt has been caught using the walker inappropriately multiple times. A neurology consult was completed on May [address] and no results that signified neurological trauma. Pt family is also concerned as to why some days when they talk to her she is fine and other days she appears "drugged" and has slurred speech. REJI was not able to answer this question for them. REJI and Milana went over discharge planning as the team has discussed Thursday as an option. However, REJI was told yesterday by Danyell that they are not bringing anyone in or allowing anyone to leave, staff included. REJI will continue to work on this with Danyell and keep pt brother and sister in law up to date.
--- NOTE | 2019-06-02 10:23 | NUR ---
COVID-19 QUARANTINE ACTIVITY THERAPY NOTE Due to exposure of a positive Covid-19 case, the unit was ordered to have no group activities starting 05/21/2019. Additional test results are pending at this time; therefore, formal groups remain suspended.
--- NOTE | 2019-06-02 10:32 | PDOC ---
Exam Note: Dion Note: S/O: This note is a late entry for DOS 06/01/2019 covers elements not covered in my initial note. We have had exposure of COVID-19 on the unit consequent to a staff member. The unit was on lockdown per [facility] and Environment ([facility])/Centers for Disease Control (CDC). Three patients had dev eloped fever and other symptoms for which they were screened for the COVID-19, two of which have come back negative, result for one is awaited and one other patient today is running a fever and we are doing a COVID-19 screen for this patient. Per regulations from the [facility], we are unable to admit or discharge any patients, still all of this is negative and the length of stay has affected not entirely by the clinical situation but by this directive additionally from the [facility]. The patient was seen on TeleHealth rounds coordinated by Ronda DAVDI in the evening. Discussed the patient with nursing staff, reviewed the chart. Nursing report was with Jeana DAVID. Patient slept 7-1/4 hours. Overall the patient is doing better. Remains anxious, still complains of constipation, some impaired ambulation. ROS: Still complains of some constipation, some impaired ambulation. No CV, , Pulmonary, Eye system symptoms on review. MSE: Patient is reasonably oriented. Speech coherent, somewhat rapid at times. She gets anxious. Abstraction fair. Computation impaired. Language function is intact. Attention span short. Mood and affect remains somewhat anxious, labile, but improved. No suicidal or homicidal ideation, less paranoid. Labs: Reviewed. Imp: Schizoaffective disorder, bipolar type, mixed with psychotic features, in partial remission. Anxiety disorder unspecified. Rest unchanged. Plan: No change from initial note. Bressler level is therapeutic at 0.7. She remains on Luvox, melatonin, Minipress, Remeron, Wellbutrin, Invega Sustenna and trazodone. Assessment: Vital Signs/I&O: Vital Signs Date Time Temp Pulse Resp B/P (MAP) Pulse Ox O2 Delivery O2 Flow Rate FiO2 06/02/19 08:05 64 103/61 06/02/19 05:45 97.5 18 96 05/30/19 16:01 Room Air I & O 06/01/19 06/01/19 06/02/19 15:00 23:00 07:00 Intake Total 720 ml 480 ml Balance 720 ml 480 ml Current Medications: I have reviewed the current psychotropics carefully including drug interactions. Risk benefit ratio favors no change other than as noted in my dictated progress note. Diagnosis: Problems: (1) Bipolar affective, mixed, sev w/ psych (2) Anxiety disorder (3) Impulse control disorder (4) Schizophrenia, paranoid, chronic with acute exacerbation (5) Schizoaffective disorder, chronic condition with acute exacerbation LISA CAMACHO MD Jun 02, 2019 10:32
--- NOTE | 2019-06-02 10:46 | NUR ---
Nursing Note Pt interactive, calm, and cooperative with meds and assessment. No c/o pain. Denies SI.
[2019-06-02 15:51] VITALS: BP 138/82
[2019-06-02] MEDS: HYDROcodone/APAP 5/325MG 1 TAB TABLET PO PRN (19:59)
[2019-06-02] MEDS: PRAZOSIN 1 MG CAPSULE. PO SCH (20:00)
[2019-06-02] MEDS: MELATONIN 3 MG TABLET PO SCH (20:00)
[2019-06-02] MEDS: MIRTAZAPINE 15 MG TABLET PO SCH (20:01)
[2019-06-02] MEDS: LITHIUM CARBONATE 300 MG TABLET PO SCH (20:01)
[2019-06-02] MEDS: PATCH REMOVAL. MC SCH (20:02)
--- NOTE | 2019-06-02 21:58 | PDOC ---
Exam Note: Dion Note: Please also refer to the separate dictated note~for this date of service dictated separately.~Patient seen individually. Discussed the patient with Nursing staff reviewed the chart.~Reviewed interim history and current functioning. Reviewed vital signs,~Labs/ Radiology~and current medications noted below. Continue current treatment with the changes noted in the dictated addendum note Assessment: Vital Signs/I&O: Vital Signs Date Time Temp Pulse Resp B/P (MAP) Pulse Ox O2 Delivery O2 Flow Rate FiO2 06/02/19 20:00 82 138/82 06/02/19 19:59 99 06/02/19 18:30 97.9 06/02/19 15:51 18 05/30/19 16:01 Room Air I & O 06/01/19 06/01/19 06/02/19 15:00 23:00 07:00 Intake Total 720 ml 480 ml Balance 720 ml 480 ml Current Medications: I have reviewed the current psychotropics carefully including drug interactions. Risk benefit ratio favors no change other than as noted in my dictated progress note. Diagnosis: Problems: (1) Bipolar affective, mixed, sev w/ psych (2) Anxiety disorder (3) Impulse control disorder (4) Schizophrenia, paranoid, chronic with acute exacerbation (5) Schizoaffective disorder, chronic condition with acute exacerbation LISA CAMACHO MD Jun 02, 2019 21:58
--- NOTE | 2019-06-02 22:43 | NUR ---
Nursing Note Pt is having significant word finding issues this PM. Pt states that she is just tired and not making sense laughing. Compliant and cooperative with meds and assessment.
[2019-06-03] MEDS: LEVOTHYROXINE 50 MCG TABLET PO SCH ×2 (05:24→08:29)
[2019-06-03 06:05] VITALS: BP 139/74
[2019-06-03] MEDS: BUDESONIDE 0.5 MG/2 ML NEBU NEB SCH ×2 (08:00→21:25)
[2019-06-03] MEDS: DOCUSATE 100 MG/10 ML SOLUTION. PO SCH (08:28)
[2019-06-03] MEDS: POLYETHYLENE GLYCOL 3350 17 GM PACKET. PO SCH (08:28)
[2019-06-03] MEDS: APIXABAN 5 MG TABLET. PO SCH ×2 (08:29→21:27)
[2019-06-03] MEDS: SENNOSIDES 8.6 MG TABLET PO SCH (08:29)
[2019-06-03] MEDS: LOSARTAN 50 MG TABLET. PO SCH (08:29)
[2019-06-03] MEDS: VITAMIN B COMPLEX CAPSULE. PO SCH (08:29)
[2019-06-03] MEDS: BENZTROPINE MESYLATE 1 MG TABLET PO SCH ×2 (08:29→21:27)
[2019-06-03] MEDS: buPROPion XL 300 MG TAB.ER.24H. PO SCH (08:29)
[2019-06-03] MEDS: MAGNESIUM OXIDE 400 MG TABLET PO SCH ×2 (08:29→21:28)
[2019-06-03] MEDS: PANTOPRAZOLE 40 MG TABLET. PO SCH (08:29)
[2019-06-03] MEDS: CHOLECALCIFEROL (VITAMIN D3) 1,000 UNIT TABLET PO SCH (08:29)
[2019-06-03] MEDS: FLUTICASONE 50MCG/NASAL SPRAY 16GM BOTTLE. NS SCH (08:30)
[2019-06-03] MEDS: LIDOCAINE (700MG/PATCH) PATCH. TD SCH (08:30)
--- NOTE | 2019-06-03 12:49 | PDOC ---
Exam Note: Dion Note: S/O: This note is a late entry for DOS 06/02/2019 covers elements not covered in my initial note. We are still waiting on the COVID-19 screen on two patients before the unit can be opened for admissions and discharges per the [facility] ([facility])/Centers for Disease Control (CDC). Discussed the patient with nursing staff, reviewed the chart. Treatment team meeting was done in the morning with social service staff Veronica in Activity Therapy, Ronda DAVID, nursing staff and myself. The patient was seen on audio- visual rounds in the evening with Elyse DAVID. Patient has been fairly cooperative on the unit. Nursing report indicate she is doing better. She has not been mute, appears less paranoid. ROS: Positive for tremors and impaired ambulation. No CV, , Pulmonary, Eye system symptoms on review. MSE: Reasonably oriented. Speech coherent, rapid at times. Abstraction fair. Computation impaired. Language function is intact. Attention span short. Mood and affect remains somewhat anxious, labile, but improved. No suicidal or homicidal ideation, less paranoid. Labs: Reviewed. Imp: Schizoaffective disorder, bipolar type, mixed with psychotic features, in partial remission. Anxiety disorder unspecified. Rest unchanged. Plan: No change from initial note. At some time in the future the Invega might be reduced and she is tolerating the lithium well with improved mood stabilization. Assessment: Vital Signs/I&O: Vital Signs Date Time Temp Pulse Resp B/P (MAP) Pulse Ox O2 Delivery O2 Flow Rate FiO2 06/03/19 08:29 71 139/74 06/03/19 06:05 97.6 16 96 05/30/19 16:01 Room Air I & O 06/02/19 06/02/19 06/03/19 15:00 23:00 07:00 Intake Total 360 ml 360 ml Balance 360 ml 360 ml Current Medications: I have reviewed the current psychotropics carefully including drug interactions. Risk benefit ratio favors no change other than as noted in my dictated progress note. Diagnosis: Problems: (1) Bipolar affective, mixed, sev w/ psych (2) Anxiety disorder (3) Impulse control disorder (4) Schizophrenia, paranoid, chronic with acute exacerbation (5) Schizoaffective disorder, chronic condition with acute exacerbation LISA CAMACHO MD Jun 03, 2019 12:49
--- NOTE | 2019-06-03 14:55 | NUR ---
Pt up for meals. Has been pleasant and compliant. Remains in wc r/t unsteady gait.
[2019-06-03 16:12] VITALS: BP 124/60
[2019-06-03] MEDS: PATCH REMOVAL. MC SCH (21:00)
[2019-06-03] MEDS: LITHIUM CARBONATE 300 MG TABLET PO SCH (21:26)
[2019-06-03] MEDS: MELATONIN 3 MG TABLET PO SCH (21:27)
[2019-06-03] MEDS: MIRTAZAPINE 15 MG TABLET PO SCH (21:29)
[2019-06-03] MEDS: PRAZOSIN 1 MG CAPSULE. PO SCH (21:30)
--- NOTE | 2019-06-03 21:59 | PDOC ---
Exam Note: Dion Note: Please also refer to the separate dictated note~for this date of service dictated separately.~Patient seen individually. Discussed the patient with Nursing staff reviewed the chart.~Reviewed interim history and current functioning. Reviewed vital signs,~Labs/ Radiology~and current medications noted below. Continue current treatment with the changes noted in the dictated addendum note Assessment: Vital Signs/I&O: Vital Signs Date Time Temp Pulse Resp B/P (MAP) Pulse Ox O2 Delivery O2 Flow Rate FiO2 06/03/19 21:30 78 124/60 06/03/19 16:12 97.9 18 100 05/30/19 16:01 Room Air I & O 06/02/19 06/02/19 06/03/19 14:59 22:59 06:59 Intake Total 360 ml 360 ml Balance 360 ml 360 ml Current Medications: I have reviewed the current psychotropics carefully including drug interactions. Risk benefit ratio favors no change other than as noted in my dictated progress note. Diagnosis: Problems: (1) Bipolar affective, mixed, sev w/ psych (2) Anxiety disorder (3) Impulse control disorder (4) Schizophrenia, paranoid, chronic with acute exacerbation (5) Schizoaffective disorder, chronic condition with acute exacerbation LISA CAMACHO MD Jun 03, 2019 21:59
--- NOTE | 2019-06-03 23:48 | NUR ---
Patient is located in the day room on assumption of care. She is pleasant, disorganized, confused. Compliant with assessments and meds. She continues to ask that each medication is explained and shown to her, but is compliant with taking them whole. Difficulty finding words this evening, expressed concern over who was going to help her get around. This RN reiterated to her that she needs to be assisted r/t recent fall and unsteady gait. She was satisfied with that explanation but continues to be frustrated with her inability to find the words she is looking for. No agitation. Denies any pain or discomfort. Denies SI.
[2019-06-04 05:49] VITALS: BP 144/84
[2019-06-04 06:55] LABS: BASO % 1 % (0-3); EOS # 0.2 x10^3/uL (0.0-0.7); EOS % 4 % (0-3); HEMATOCRIT 35.2 % (36.0-47.0); HEMOGLOBIN 11.4 g/dL (12.0-15.5); LYMPH # 1.3 x10^3/uL (1.0-4.8); LYMPH % 29 % (24-48); MEAN CORPUSCULAR HEMOGLOBIN 31 pg (25-35); MEAN CORPUSCULAR HGB CONC 32 g/dL (31-37); MEAN CORPUSCULAR VOLUME 97 fL (79-100); MONO # 0.5 x10^3/uL (0.0-1.1); MONO % 11 % (0-9); NEUT # 2.4 x10^3uL (1.8-7.7); NEUT % 55 % (31-73); PLATELET COUNT 349 x10^3/uL (140-400); RED BLOOD COUNT 3.64 x10^6/uL (3.50-5.40); RED CELL DISTRIBUTION WIDTH 14.1 % (11.5-14.5); WHITE BLOOD COUNT 4.4 x10^3/uL (4.0-11.0)
[2019-06-04 07:04] LABS: ALBUMIN 3.1 g/dL (3.4-5.0); ALBUMIN/GLOBULIN RATIO 0.8 (1.0-1.7); CALCIUM 9.2 mg/dL (8.5-10.1); CREATININE 0.8 mg/dL (0.6-1.0); GFR 71.8; TOTAL BILIRUBIN 0.2 mg/dL (0.2-1.0); TOTAL PROTEIN 6.9 g/dL (6.4-8.2)
[2019-06-04] MEDS: BUDESONIDE 0.5 MG/2 ML NEBU NEB SCH ×2 (08:00→20:56)
[2019-06-04] MEDS: POLYETHYLENE GLYCOL 3350 17 GM PACKET. PO SCH (08:30)
[2019-06-04] MEDS: LIDOCAINE (700MG/PATCH) PATCH. TD SCH (08:31)
[2019-06-04] MEDS: VITAMIN B COMPLEX CAPSULE. PO SCH (08:31)
[2019-06-04] MEDS: buPROPion XL 300 MG TAB.ER.24H. PO SCH (08:31)
[2019-06-04] MEDS: BENZTROPINE MESYLATE 1 MG TABLET PO SCH ×2 (08:31→20:54)
[2019-06-04] MEDS: LOSARTAN 50 MG TABLET. PO SCH (08:31)
[2019-06-04] MEDS: DOCUSATE 100 MG/10 ML SOLUTION. PO SCH (08:31)
[2019-06-04] MEDS: FLUTICASONE 50MCG/NASAL SPRAY 16GM BOTTLE. NS SCH (08:31)
[2019-06-04] MEDS: PANTOPRAZOLE 40 MG TABLET. PO SCH (08:32)
[2019-06-04] MEDS: APIXABAN 5 MG TABLET. PO SCH ×2 (08:32→20:53)
[2019-06-04] MEDS: SENNOSIDES 8.6 MG TABLET PO SCH (08:32)
[2019-06-04] MEDS: CHOLECALCIFEROL (VITAMIN D3) 1,000 UNIT TABLET PO SCH (08:32)
[2019-06-04] MEDS: MAGNESIUM OXIDE 400 MG TABLET PO SCH ×2 (08:33→20:54)
[2019-06-04 16:09] VITALS: BP 125/72
--- NOTE | 2019-06-04 17:18 | NUR ---
Pt up for meals in wc and out to day erich. Compliant with meds and cares.
[2019-06-04] MEDS: MIRTAZAPINE 15 MG TABLET PO SCH (20:52)
[2019-06-04] MEDS: MELATONIN 3 MG TABLET PO SCH (20:53)
[2019-06-04] MEDS: LITHIUM CARBONATE 300 MG TABLET PO SCH (20:54)
[2019-06-04] MEDS: PRAZOSIN 1 MG CAPSULE. PO SCH (20:55)
[2019-06-04] MEDS: PATCH REMOVAL. MC SCH (20:57)
--- NOTE | 2019-06-04 21:41 | PDOC ---
Exam Note: Dion Note: S/O: This note is a late entry for DOS 06/03/2019 covers elements not covered in my initial note. Discussed the patient with nursing staff, reviewed the chart. The patient was seen on audio-visual rounds in the evening with Robin DAVID. Nursing report was with Jeana DAVID. She has been appropriate. Appetite has been good. She still complains of some tremors at times. Gait is unsteady, intermittently in a wheelchair but that is how she was when she came from the prior facility. ROS: Positive for some tremors. No CV, , Pulmonary, Eye system symptoms on review. MSE: Oriented to herself and situation. Speech coherent, has some latency, rapid at times. Abstraction fair. Computation impaired. Mood and affect less labile. Labs: Reviewed. Imp: Schizoaffective disorder, bipolar type, mixed with psychotic features, in partial remission. Anxiety disorder unspecified. Rest unchanged. Plan: Continue psychotropics mentioned in my initial note. Assessment: Vital Signs/I&O: Vital Signs Date Time Temp Pulse Resp B/P (MAP) Pulse Ox O2 Delivery O2 Flow Rate FiO2 06/04/19 20:55 72 125/72 06/04/19 16:09 97.9 18 100 05/30/19 16:01 Room Air I & O 06/03/19 06/03/19 06/04/19 15:00 23:00 07:00 Intake Total 600 ml 600 ml Balance 600 ml 600 ml Labs: Laboratory Tests Test 06/04/19 06:32 White Blood Count 4.4 x10^3/uL (4.0-11.0) Red Blood Count 3.64 x10^6/uL (3.50-5.40) Hemoglobin 11.4 g/dL (12.0-15.5) L Hematocrit 35.2 % (36.0-47.0) L Mean Corpuscular Volume 97 fL (79-100) Mean Corpuscular Hemoglobin 31 pg (25-35) Mean Corpuscular Hemoglobin Concent 32 g/dL (31-37) Red Cell Distribution Width 14.1 % (11.5-14.5) Platelet Count 349 x10^3/uL (140-400) Neutrophils (%) (Auto) 55 % (31-73) Lymphocytes (%) (Auto) 29 % (24-48) Monocytes (%) (Auto) 11 % (0-9) H Eosinophils (%) (Auto) 4 % (0-3) H Basophils (%) (Auto) 1 % (0-3) Neutrophils # (Auto) 2.4 x10^3uL (1.8-7.7) Lymphocytes # (Auto) 1.3 x10^3/uL (1.0-4.8) Monocytes # (Auto) 0.5 x10^3/uL (0.0-1.1) Eosinophils # (Auto) 0.2 x10^3/uL (0.0-0.7) Basophils # (Auto) 0.0 x10^3/uL (0.0-0.2) Sodium Level 144 mmol/L (136-145) Potassium Level 4.0 mmol/L (3.5-5.1) Chloride Level 107 mmol/L (98-107) Carbon Dioxide Level 32 mmol/L (21-32) Anion Gap 5 (6-14) L Blood Urea Nitrogen 16 mg/dL (7-20) Creatinine 0.8 mg/dL (0.6-1.0) Estimated GFR (Cockcroft-Gault) 71.8 BUN/Creatinine Ratio 20 (6-20) Glucose Level 95 mg/dL (70-99) Calcium Level 9.2 mg/dL (8.5-10.1) Total Bilirubin 0.2 mg/dL (0.2-1.0) Aspartate Amino Transferase (AST) 13 U/L (15-37) L Alanine Aminotransferase (ALT) 15 U/L (14-59) Alkaline Phosphatase 105 U/L (46-116) Total Protein 6.9 g/dL (6.4-8.2) Albumin 3.1 g/dL (3.4-5.0) L Albumin/Globulin Ratio 0.8 (1.0-1.7) L Current Medications: I have reviewed the current psychotropics carefully including drug interactions. Risk benefit ratio favors no change other than as noted in my dictated progress note. Diagnosis: Problems: (1) Bipolar affective, mixed, sev w/ psych (2) Anxiety disorder (3) Impulse control disorder (4) Schizophrenia, paranoid, chronic with acute exacerbation (5) Schizoaffective disorder, chronic condition with acute exacerbation LISA CAMACHO MD Jun 04, 2019 21:41
--- NOTE | 2019-06-04 21:58 | PDOC ---
Exam Note: Dion Note: Please also refer to the separate dictated note~for this date of service dictated separately.~Patient seen individually. Discussed the patient with Nursing staff reviewed the chart.~Reviewed interim history and current functioning. Reviewed vital signs,~Labs/ Radiology~and current medications noted below. Continue current treatment with the changes noted in the dictated addendum note Assessment: Vital Signs/I&O: Vital Signs Date Time Temp Pulse Resp B/P (MAP) Pulse Ox O2 Delivery O2 Flow Rate FiO2 06/04/19 20:55 72 125/72 06/04/19 16:09 97.9 18 100 05/30/19 16:01 Room Air I & O 06/03/19 06/03/19 06/04/19 15:00 23:00 07:00 Intake Total 600 ml 600 ml Balance 600 ml 600 ml Labs: Laboratory Tests Test 06/04/19 06:32 White Blood Count 4.4 x10^3/uL (4.0-11.0) Red Blood Count 3.64 x10^6/uL (3.50-5.40) Hemoglobin 11.4 g/dL (12.0-15.5) L Hematocrit 35.2 % (36.0-47.0) L Mean Corpuscular Volume 97 fL (79-100) Mean Corpuscular Hemoglobin 31 pg (25-35) Mean Corpuscular Hemoglobin Concent 32 g/dL (31-37) Red Cell Distribution Width 14.1 % (11.5-14.5) Platelet Count 349 x10^3/uL (140-400) Neutrophils (%) (Auto) 55 % (31-73) Lymphocytes (%) (Auto) 29 % (24-48) Monocytes (%) (Auto) 11 % (0-9) H Eosinophils (%) (Auto) 4 % (0-3) H Basophils (%) (Auto) 1 % (0-3) Neutrophils # (Auto) 2.4 x10^3uL (1.8-7.7) Lymphocytes # (Auto) 1.3 x10^3/uL (1.0-4.8) Monocytes # (Auto) 0.5 x10^3/uL (0.0-1.1) Eosinophils # (Auto) 0.2 x10^3/uL (0.0-0.7) Basophils # (Auto) 0.0 x10^3/uL (0.0-0.2) Sodium Level 144 mmol/L (136-145) Potassium Level 4.0 mmol/L (3.5-5.1) Chloride Level 107 mmol/L (98-107) Carbon Dioxide Level 32 mmol/L (21-32) Anion Gap 5 (6-14) L Blood Urea Nitrogen 16 mg/dL (7-20) Creatinine 0.8 mg/dL (0.6-1.0) Estimated GFR (Cockcroft-Gault) 71.8 BUN/Creatinine Ratio 20 (6-20) Glucose Level 95 mg/dL (70-99) Calcium Level 9.2 mg/dL (8.5-10.1) Total Bilirubin 0.2 mg/dL (0.2-1.0) Aspartate Amino Transferase (AST) 13 U/L (15-37) L Alanine Aminotransferase (ALT) 15 U/L (14-59) Alkaline Phosphatase 105 U/L (46-116) Total Protein 6.9 g/dL (6.4-8.2) Albumin 3.1 g/dL (3.4-5.0) L Albumin/Globulin Ratio 0.8 (1.0-1.7) L Current Medications: I have reviewed the current psychotropics carefully including drug interactions. Risk benefit ratio favors no change other than as noted in my dictated progress note. Diagnosis: Problems: (1) Bipolar affective, mixed, sev w/ psych (2) Anxiety disorder (3) Impulse control disorder (4) Schizophrenia, paranoid, chronic with acute exacerbation (5) Schizoaffective disorder, chronic condition with acute exacerbation LISA CAMACHO MD Jun 04, 2019 21:58
--- NOTE | 2019-06-04 23:31 | NUR ---
Patient is located in the day room on assumption of care. She is pleasant, disorganized, confused. Compliant with assessments and meds. She continues to ask that each medication is explained and shown to her, but is compliant with taking them whole. Difficulty finding words this evening. No agitation. Denies any pain or discomfort. Denies SI.
[2019-06-05] MEDS: LEVOTHYROXINE 50 MCG TABLET PO SCH (05:49)
[2019-06-05 05:59] VITALS: BP 108/68
[2019-06-05] MEDS: DOCUSATE 100 MG/10 ML SOLUTION. PO SCH (07:40)
[2019-06-05] MEDS: BUDESONIDE 0.5 MG/2 ML NEBU NEB SCH ×2 (07:40→20:20)
[2019-06-05] MEDS: FLUTICASONE 50MCG/NASAL SPRAY 16GM BOTTLE. NS SCH (07:40)
[2019-06-05] MEDS: POLYETHYLENE GLYCOL 3350 17 GM PACKET. PO SCH (07:40)
[2019-06-05] MEDS: PANTOPRAZOLE 40 MG TABLET. PO SCH (07:41)
[2019-06-05] MEDS: MAGNESIUM OXIDE 400 MG TABLET PO SCH ×2 (07:41→20:24)
[2019-06-05] MEDS: VITAMIN B COMPLEX CAPSULE. PO SCH (07:41)
[2019-06-05] MEDS: buPROPion XL 300 MG TAB.ER.24H. PO SCH (07:41)
[2019-06-05] MEDS: LOSARTAN 50 MG TABLET. PO SCH (07:41)
[2019-06-05] MEDS: CHOLECALCIFEROL (VITAMIN D3) 1,000 UNIT TABLET PO SCH (07:41)
[2019-06-05] MEDS: APIXABAN 5 MG TABLET. PO SCH ×2 (07:41→20:22)
[2019-06-05] MEDS: SENNOSIDES 8.6 MG TABLET PO SCH (07:41)
[2019-06-05] MEDS: BENZTROPINE MESYLATE 1 MG TABLET PO SCH ×2 (07:41→20:22)
[2019-06-05] MEDS: LIDOCAINE (700MG/PATCH) PATCH. TD SCH (07:42)
[2019-06-05 16:00] VITALS: BP 125/73
--- NOTE | 2019-06-05 18:23 | NUR ---
Pt has been in pleasant spirits. Compliant with meds and cares.
[2019-06-05] MEDS: MIRTAZAPINE 15 MG TABLET PO SCH (20:20)
[2019-06-05] MEDS: PRAZOSIN 1 MG CAPSULE. PO SCH (20:23)
[2019-06-05] MEDS: MELATONIN 3 MG TABLET PO SCH (20:23)
[2019-06-05] MEDS: LITHIUM CARBONATE 300 MG TABLET PO SCH (20:25)
[2019-06-05] MEDS: PATCH REMOVAL. MC SCH (20:25)
[2019-06-06] MEDS: LEVOTHYROXINE 50 MCG TABLET PO SCH (05:08)
[2019-06-06 06:16] VITALS: BP 104/51
[2019-06-06] MEDS: FLUTICASONE 50MCG/NASAL SPRAY 16GM BOTTLE. NS SCH (08:05)
[2019-06-06] MEDS: APIXABAN 5 MG TABLET. PO SCH ×2 (08:06→20:15)
[2019-06-06] MEDS: SENNOSIDES 8.6 MG TABLET PO SCH (08:06)
[2019-06-06] MEDS: DOCUSATE 100 MG/10 ML SOLUTION. PO SCH (08:06)
[2019-06-06] MEDS: BENZTROPINE MESYLATE 1 MG TABLET PO SCH ×2 (08:07→20:14)
[2019-06-06] MEDS: MAGNESIUM OXIDE 400 MG TABLET PO SCH ×2 (08:07→20:15)
[2019-06-06] MEDS: buPROPion XL 300 MG TAB.ER.24H. PO SCH (08:07)
[2019-06-06] MEDS: CHOLECALCIFEROL (VITAMIN D3) 1,000 UNIT TABLET PO SCH (08:07)
[2019-06-06] MEDS: PANTOPRAZOLE 40 MG TABLET. PO SCH (08:07)
[2019-06-06] MEDS: POLYETHYLENE GLYCOL 3350 17 GM PACKET. PO SCH (08:07)
[2019-06-06] MEDS: LIDOCAINE (700MG/PATCH) PATCH. TD SCH (08:08)
[2019-06-06] MEDS: BUDESONIDE 0.5 MG/2 ML NEBU NEB SCH ×2 (08:08→20:19)
[2019-06-06] MEDS: VITAMIN B COMPLEX CAPSULE. PO SCH (08:08)
--- NOTE | 2019-06-06 08:29 | PDOC ---
Exam Note: Dion Note: S/O: This note is a late entry for DOS 06/04/2019 covers elements not covered in my initial note. Discussed the patient with nursing staff, reviewed the chart. The patient was seen on audio-visual rounds in the evening with Robin DAVID. Nursing report was with Sussy DAVID. Previous night the patient was anxious. According to Tawana RN was having word finding problems but done reasonably well during the day on 06/04/2019. She gets more confused in the evening. ROS: Ambulation impaired in wheelchair. No CV, , Pulmonary, Eye system symptoms on review. MSE: Oriented to herself and situation. Speech has some latency, coherent. Abstraction fair. Computation impaired. Mood and affect less labile. Labs: Reviewed. Imp: Schizoaffective disorder, bipolar type, mixed with psychotic features, in partial remission. Anxiety disorder unspecified. Rest unchanged. Plan: Continue psychotropics mentioned in my initial note. Assessment: Vital Signs/I&O: Vital Signs Date Time Temp Pulse Resp B/P (MAP) Pulse Ox O2 Delivery O2 Flow Rate FiO2 06/06/19 06:16 98.2 81 16 104/51 (68) 98 I & O 06/05/19 06/05/19 06/06/19 14:59 22:59 06:59 Intake Total 960 ml 480 ml 120 ml Balance 960 ml 480 ml 120 ml Current Medications: I have reviewed the current psychotropics carefully including drug interactions. Risk benefit ratio favors no change other than as noted in my dictated progress note. Diagnosis: Problems: (1) Bipolar affective, mixed, sev w/ psych (2) Anxiety disorder (3) Impulse control disorder (4) Schizophrenia, paranoid, chronic with acute exacerbation (5) Schizoaffective disorder, chronic condition with acute exacerbation LISA CAMACHO MD Jun 06, 2019 08:29
--- NOTE | 2019-06-06 08:54 | PDOC ---
Exam Note: Dion Note: S/O: This note is a late entry for DOS 06/05/2019 covers elements not covered in my initial note. Discussed the patient with nursing staff, reviewed the chart. The patient was seen on audio-visual rounds in the evening with Mirna DAVID. Nursing report was with Sussy DAVID. The patient had increased confusion in the evening and some word finding problems. ROS: Ambulation impaired in wheelchair. No CV, , Pulmonary, Eye system symptoms on review. MSE: Oriented to herself and situation. Speech coherent, has some latency, rapid at times. Abstraction fair. Computation impaired. Mood and affect less labile. Labs: Reviewed. Imp: Schizoaffective disorder, bipolar type, mixed with psychotic features, in partial remission. Anxiety disorder unspecified. Rest unchanged. Plan: Continue psychotropics mentioned in my initial note. Assessment: Vital Signs/I&O: Vital Signs Date Time Temp Pulse Resp B/P (MAP) Pulse Ox O2 Delivery O2 Flow Rate FiO2 06/06/19 06:16 98.2 81 16 104/51 (68) 98 I & O 06/05/19 06/05/19 06/06/19 15:00 23:00 07:00 Intake Total 960 ml 480 ml 120 ml Balance 960 ml 480 ml 120 ml Current Medications: I have reviewed the current psychotropics carefully including drug interactions. Risk benefit ratio favors no change other than as noted in my dictated progress note. Diagnosis: Problems: (1) Bipolar affective, mixed, sev w/ psych (2) Anxiety disorder (3) Impulse control disorder (4) Schizophrenia, paranoid, chronic with acute exacerbation (5) Schizoaffective disorder, chronic condition with acute exacerbation LISA CAMACHO MD Jun 06, 2019 08:54
[2019-06-06] MEDS: LOSARTAN 50 MG TABLET. PO SCH (09:00)
--- NOTE | 2019-06-06 09:56 | NUR ---
Patient is alert and oriented. Has trouble with word finding. When patient asked this morning how she was doing, pt responded, "im upset that I am still here." RN explained the situation with COVID and exposure and subsequent quarantine, and explained that we are trying everything we can to prevent exposure and to help patients get back home. Pt verbalized understanding. Denies pain. Pt is now in wheelchair, wheeling self around unit due to unsteady gait. WCTM.
--- NOTE | 2019-06-06 13:17 | NUR ---
REJI contacted pt brother to inform him that at this moment, another positive case for COVOID-19 was found over the weekend and the unit may be doing another 2 week quarantine. Pt brother questioned if pt had to stay or if she could be discharged as planned as the [facility] was going to put pt on another 14 day quarantine anyway. REJI reports that she will have to double check with administration and also check with Lashae at [facility] to see if they would even consider that as an option. REJI will continue to keep pt brother up to date.
[2019-06-06 15:41] VITALS: BP 118/73
--- NOTE | 2019-06-06 16:30 | NUR ---
While rounding with Dr Wynn on zoom, pt stated, "im not doing well. 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 Pt nodded head but is still upset that she cannot leave.
[2019-06-06] MEDS: LITHIUM CARBONATE 300 MG TABLET PO SCH (20:14)
[2019-06-06] MEDS: MIRTAZAPINE 15 MG TABLET PO SCH (20:14)
[2019-06-06] MEDS: PRAZOSIN 1 MG CAPSULE. PO SCH (20:14)
[2019-06-06] MEDS: MELATONIN 3 MG TABLET PO SCH (20:15)
[2019-06-06] MEDS: PATCH REMOVAL. MC SCH (20:20)
--- NOTE | 2019-06-06 22:13 | PDOC ---
Exam Note: Dion Note: Please also refer to the separate dictated note~for this date of service dictated separately.~Patient seen individually. Discussed the patient with Nursing staff reviewed the chart.~Reviewed interim history and current functioning. Reviewed vital signs,~Labs/ Radiology~and current medications noted below. Continue current treatment with the changes noted in the dictated addendum note Assessment: Vital Signs/I&O: Vital Signs Date Time Temp Pulse Resp B/P (MAP) Pulse Ox O2 Delivery O2 Flow Rate FiO2 06/06/19 20:14 78 118/73 06/06/19 15:41 98.1 18 100 Room Air I & O 06/05/19 06/05/19 06/06/19 15:00 23:00 07:00 Intake Total 960 ml 480 ml 120 ml Balance 960 ml 480 ml 120 ml Current Medications: I have reviewed the current psychotropics carefully including drug interactions. Risk benefit ratio favors no change other than as noted in my dictated progress note. Diagnosis: Problems: (1) Bipolar affective, mixed, sev w/ psych (2) Anxiety disorder (3) Impulse control disorder (4) Schizophrenia, paranoid, chronic with acute exacerbation (5) Schizoaffective disorder, chronic condition with acute exacerbation LISA CAMACHO MD Jun 06, 2019 22:13
--- NOTE | 2019-06-06 23:15 | NUR ---
Last evening pt was in day room and was pleasant and cooperative with meds. She is was well oriented and hoping for discharge soon. No behaviors tonight.
[2019-06-07] MEDS: LEVOTHYROXINE 50 MCG TABLET PO SCH (05:38)
[2019-06-07 06:19] VITALS: BP 133/75
[2019-06-07] MEDS: DOCUSATE 100 MG/10 ML SOLUTION. PO SCH (08:07)
[2019-06-07] MEDS: VITAMIN B COMPLEX CAPSULE. PO SCH (08:07)
[2019-06-07] MEDS: MAGNESIUM OXIDE 400 MG TABLET PO SCH ×2 (08:07→19:36)
[2019-06-07] MEDS: buPROPion XL 300 MG TAB.ER.24H. PO SCH (08:07)
[2019-06-07] MEDS: PANTOPRAZOLE 40 MG TABLET. PO SCH (08:07)
[2019-06-07] MEDS: BENZTROPINE MESYLATE 1 MG TABLET PO SCH ×2 (08:07→19:36)
[2019-06-07] MEDS: POLYETHYLENE GLYCOL 3350 17 GM PACKET. PO SCH (08:08)
[2019-06-07] MEDS: SENNOSIDES 8.6 MG TABLET PO SCH (08:08)
[2019-06-07] MEDS: CHOLECALCIFEROL (VITAMIN D3) 1,000 UNIT TABLET PO SCH (08:08)
[2019-06-07] MEDS: LOSARTAN 50 MG TABLET. PO SCH (08:08)
[2019-06-07] MEDS: APIXABAN 5 MG TABLET. PO SCH ×2 (08:08→19:36)
[2019-06-07] MEDS: FLUTICASONE 50MCG/NASAL SPRAY 16GM BOTTLE. NS SCH (08:09)
[2019-06-07] MEDS: LIDOCAINE (700MG/PATCH) PATCH. TD SCH (08:09)
[2019-06-07] MEDS: PALIPERIDONE PALMITATE 234 MG/1.5 ML SYRINGE KIT. IM SCH (08:12)
[2019-06-07] MEDS: BUDESONIDE 0.5 MG/2 ML NEBU NEB SCH (09:26)
[2019-06-07] MEDS ORDERED: ALBUTEROL SULFATE 8GM INHALER. INH PRN (10:15)
--- NOTE | 2019-06-07 11:07 | NUR ---
Nursing note: Pt in dining room for morning meds and assessment. She was compliant with her meds whole with no difficulty and was cooperative with assessment. She denies pain and refused her scheduled lidocaine patch. Pt has been sitting in the day room all morning watching TV. Pt has made a comment this morning about needing to pack, but she did not know what she needed to pack for. Will continue to monitor.
[2019-06-07 15:44] VITALS: BP 124/78
[2019-06-07] MEDS: PRAZOSIN 1 MG CAPSULE. PO SCH (19:36)
[2019-06-07] MEDS: LITHIUM CARBONATE 300 MG TABLET PO SCH (19:36)
[2019-06-07] MEDS: MELATONIN 3 MG TABLET PO SCH (19:36)
[2019-06-07] MEDS: MIRTAZAPINE 15 MG TABLET PO SCH (19:36)
[2019-06-07] MEDS: HYDROcodone/APAP 5/325MG 1 TAB TABLET PO PRN (19:37)
[2019-06-07] MEDS: PATCH REMOVAL. MC SCH (19:40)
--- NOTE | 2019-06-07 21:45 | NUR ---
Pt sitting quietly in the day room at shift change. Pt calm and pleasant this evening, no delusions noted thus far. Pt cooperative with assessment and compliant with medications administered whole. PRN hydrocodone administered as ordered for c/o neck, mid to lower back, and shoulder pain, rated 4/10.
--- NOTE | 2019-06-07 21:47 | PDOC ---
Exam Note: Dion Note: Please also refer to the separate dictated note~for this date of service dictated separately.~Patient seen individually. Discussed the patient with Nursing staff reviewed the chart.~Reviewed interim history and current functioning. Reviewed vital signs,~Labs/ Radiology~and current medications noted below. Continue current treatment with the changes noted in the dictated addendum note Assessment: Vital Signs/I&O: Vital Signs Date Time Temp Pulse Resp B/P (MAP) Pulse Ox O2 Delivery O2 Flow Rate FiO2 06/07/19 19:36 79 124/78 06/07/19 15:44 98.2 18 99 Room Air I & O 06/06/19 06/06/19 06/07/19 15:00 23:00 07:00 Intake Total 480 ml 480 ml Balance 480 ml 480 ml Current Medications: I have reviewed the current psychotropics carefully including drug interactions. Risk benefit ratio favors no change other than as noted in my dictated progress note. Diagnosis: Problems: (1) Bipolar affective, mixed, sev w/ psych (2) Anxiety disorder (3) Impulse control disorder (4) Schizophrenia, paranoid, chronic with acute exacerbation (5) Schizoaffective disorder, chronic condition with acute exacerbation LISA CAMACHO MD Jun 07, 2019 21:47
[2019-06-08] MEDS: LEVOTHYROXINE 50 MCG TABLET PO SCH (05:38)
[2019-06-08 06:20] VITALS: BP 119/77
--- NOTE | 2019-06-08 07:53 | PDOC ---
Exam Note: Dion Note: S/O: This note is a late entry for DOS 06/06/2019 covers elements not covered in my initial note. Discussed the patient with nursing staff, reviewed the chart. The patient was seen on audio-visual rounds in the evening with Jeana DAVID. Nursing report was with Jeana DAVID. Her room has been moved to room 213 since each patient has been given an individual room since another patient is positive for COVID-19. ROS: Ambulation impaired in wheelchair. No CV, , Pulmonary, Eye system symptoms on review. MSE: Patient is somewhat anxious, labile, tearful at times during the individual visit but couldnt explain to me the reason for this. Speech coherent, has some latency, rapid at times. Abstraction fair. Computation impaired. Mood and affect less labile. Labs: Reviewed. Imp: Schizoaffective disorder, bipolar type, mixed with psychotic features, in partial remission. Anxiety disorder unspecified. Rest unchanged. Plan: Continue psychotropics mentioned in my initial note. Assessment: Vital Signs/I&O: VS - Last 72 Hours, by Label Date Time Temp Pulse Resp B/P (MAP) Pulse Ox O2 Delivery O2 Flow Rate FiO2 06/08/19 06:20 97.7 69 18 119/77 (91) 97 06/07/19 19:36 79 124/78 06/07/19 15:44 98.2 79 18 124/78 (93) 99 Room Air 06/07/19 08:08 68 133/75 06/07/19 06:19 98.2 68 16 133/75 (94) 94 06/06/19 20:14 78 118/73 06/06/19 15:41 98.1 78 18 118/73 (88) 100 Room Air 06/06/19 09:00 78 118/73 06/06/19 06:16 98.2 81 16 104/51 (68) 98 06/05/19 20:23 77 125/73 06/05/19 16:00 97.7 77 16 125/73 (90) 100 Vital Signs Date Time Temp Pulse Resp B/P (MAP) Pulse Ox O2 Delivery O2 Flow Rate FiO2 06/08/19 06:20 97.7 69 18 119/77 (91) 97 06/07/19 15:44 Room Air I & O 06/07/19 06/07/19 06/08/19 15:00 23:00 07:00 Intake Total 600 ml 600 ml Balance 600 ml 600 ml Current Medications: I have reviewed the current psychotropics carefully including drug interactions. Risk benefit ratio favors no change other than as noted in my dictated progress note. Diagnosis: Problems: (1) Bipolar affective, mixed, sev w/ psych (2) Anxiety disorder (3) Impulse control disorder (4) Schizophrenia, paranoid, chronic with acute exacerbation (5) Schizoaffective disorder, chronic condition with acute exacerbation LISA CAMACHO MD Jun 08, 2019 07:53
[2019-06-08] MEDS: VITAMIN B COMPLEX CAPSULE. PO SCH (08:02)
[2019-06-08] MEDS: SENNOSIDES 8.6 MG TABLET PO SCH (08:02)
[2019-06-08] MEDS: buPROPion XL 300 MG TAB.ER.24H. PO SCH (08:02)
[2019-06-08] MEDS: BENZTROPINE MESYLATE 1 MG TABLET PO SCH ×2 (08:02→20:36)
[2019-06-08] MEDS: POLYETHYLENE GLYCOL 3350 17 GM PACKET. PO SCH (08:02)
[2019-06-08] MEDS: DOCUSATE 100 MG/10 ML SOLUTION. PO SCH (08:02)
[2019-06-08] MEDS: APIXABAN 5 MG TABLET. PO SCH ×2 (08:03→20:36)
[2019-06-08] MEDS: LOSARTAN 50 MG TABLET. PO SCH (08:03)
[2019-06-08] MEDS: PANTOPRAZOLE 40 MG TABLET. PO SCH (08:03)
[2019-06-08] MEDS: MAGNESIUM OXIDE 400 MG TABLET PO SCH ×2 (08:03→20:36)
[2019-06-08] MEDS: CHOLECALCIFEROL (VITAMIN D3) 1,000 UNIT TABLET PO SCH (08:03)
[2019-06-08] MEDS: FLUTICASONE 50MCG/NASAL SPRAY 16GM BOTTLE. NS SCH (08:03)
[2019-06-08] MEDS: FLUTICASONE FUROATE 200mcg/INH ELLIPTA INHALER. INH SCH (08:04)
[2019-06-08] MEDS: LIDOCAINE (700MG/PATCH) PATCH. TD SCH (08:04)
--- NOTE | 2019-06-08 08:12 | PDOC ---
Exam Note: Dion Note: S/O: This note is a late entry for DOS 06/07/2019 covers elements not covered in my initial note. Discussed the patient with nursing staff, reviewed the chart. The patient was seen on audio-visual rounds in the evening with Robin RN. Nursing report was with Elyse DAVID. The patient slept 6-1/4 hours. She g ets more confused in the evening and was talking about packing and moving to [place], [place]. ROS: Ambulation impaired in wheelchair. No CV, , Pulmonary, Eye system symptoms on review. MSE: She was anxious, tearful with some mood lability and as I met with her she could not explain why that was so. Speech has some latency, coherent. Abstraction fair. Computation impaired. Mood and affect less labile. Labs: Reviewed. Imp: Schizoaffective disorder, bipolar type, mixed with psychotic features, in partial remission. Anxiety disorder unspecified. Rest unchanged. Plan: Continue psychotropics mentioned in my initial note. Assessment: Vital Signs/I&O: Vital Signs Date Time Temp Pulse Resp B/P (MAP) Pulse Ox O2 Delivery O2 Flow Rate FiO2 06/08/19 08:03 69 119/77 06/08/19 06:20 97.7 18 97 06/07/19 15:44 Room Air I & O 06/07/19 06/07/19 06/08/19 15:00 23:00 07:00 Intake Total 600 ml 600 ml Balance 600 ml 600 ml Current Medications: Meds: Current Medications Medications (Trade) Dose Ordered Sig/Angelica Route PRN Reason Start Time Stop Time Status Last Admin Dose Admin Fluticasone Furoate (ARNUITY 200mcg ELLIPTA) 1 puff DAILY INH 06/08/19 09:00 06/08/19 08:04 I have reviewed the current psychotropics carefully including drug interactions. Risk benefit ratio favors no change other than as noted in my dictated progress note. Diagnosis: Problems: (1) Bipolar affective, mixed, sev w/ psych (2) Anxiety disorder (3) Impulse control disorder (4) Schizophrenia, paranoid, chronic with acute exacerbation (5) Schizoaffective disorder, chronic condition with acute exacerbation LISA CAMACHO MD Jun 08, 2019 08:12
--- NOTE | 2019-06-08 09:58 | NUR ---
Nursing Note Pt interactive, calm, and compliant with meds and assessments. No c/o pain. No delusions. Denies SI.
--- NOTE | 2019-06-08 14:49 | TX PLAN ---
Interdisciplinary Tx Plan Admission Information Apr 23, 2019 at 19:24 Legal Status (on Admission): Voluntary DPOA/Guardian Name: Chris Givens Contact Other Contact Name: Danyell Huang Other Contact Verified Code Status: DNR Allergies: Coded Allergies: morphine (Verified Allergy, Unknown, 04/23/19) sulfamethoxazole (Verified Allergy, Unknown, 04/23/19) trimethoprim (Verified Allergy, Unknown, 04/23/19) Diagnoses Primary Diagnosis: Schizophrenia chronic with acute exacerbation Reasons for Admission: Other Problem in Patient's Words: Pt has always had psychiatric trouble but appears to have cyclic behaviors. Additional Admission Comments: According to the intake, pt is feining muteness, blank stares and disoriented. Problems Active Problems: Muteness Disorientation Inactive Problems: Medication compliance Pt Strengths/Limitations Ability for [place]: Poor Cognitive Functioning/Ability: Poor Communication Skills/Ability: Poor Financial Resources: Fair Insight/Judgement: Poor Intellectual Ability: Fair Physical Health: Fair Social Skills: Fair Stability in Family: Good Stability in School/Work: Poor Verbal Skills: Poor Other strengths/limitations: When pt is stable, she can be very functional Discharge Criteria Discharge Criteria: No need for close observ., Adequate arrangements @DC, Improved behavior, Improved mood/thought Preliminary Discharge Plan Preliminary DC Plan: Current Living Arrange. Special Precautions Fall Risk: Moderate Initial D/C Plan Pt will plan to return to her residential center through [facility] Identified Discharge Needs: Continued evaluation for psychiatric services. Currently Utilized Resources Currently Utilized Resources/P: Pt has services through [facility] (PCP, Psychiatrist, Case management) Identified Problems/Hx/Goals Objectives/Short-Term Goals Short Term Goals: Improved Social Skills, Medication Stabilization, Promote Coping Skill Interventions/Frequency Staff Interventions/Frequency&: Psychiatrist to assess pt at least 3x per week. Ux Design Manager to assess pt at least 2x per week. Nursing to complete 15 minute checks daily. Encourage group participation. History Vocational History: Pt brother reports that pt had a brief job in the 80's; however, she volunteered at jobs since being at [facility] Education: Pt did graduate high school (12th grade) and has received a Bachelor's degree from [employer]; however, pt brother was not able to specify what area. Community Follow-up Community Provider/Family Inpu: She always has been this way. She just needs her medication adjusted and hopefully figure out why she has decided to go "mute". Treatment Plan Explained Patient/Rn Quality had this treatment plan explained to him/her as indicated by the signature below and has been given the opportunity to ask questions and make suggestions: Date: Patient/Rn Quality Signature: Status Update Update Pt is eating roughly 75% of meals and sleeping on average 7.5 hours a night. Pt continues to be disorganized but pleasant, cooperative and compliant with medications and cares. With the current events of COVOID-19 on the unit, pt family has been made aware that the unit will continue to be quarantined. Discharge will not happen for another 2 weeks. SW will continue to follow up with pt family and placement. NIDHI TOWNSEND Jun 08, 2019 14:49
[2019-06-08 15:53] VITALS: BP 107/67
--- NOTE | 2019-06-08 16:40 | NUR ---
SW spoke to pt brother who reports that he spoke to Lashae with [facility]. He understands the procedure and will plan to just continue checking in on pt. REJI did inform pt brother that administration were talking about swabbing the whole unit and seeing if the negative ones can automatically be discharge to prevent further exposure. REJI will contact pt brother with updates at the end of the week.
--- NOTE | 2019-06-08 16:48 | NUR ---
Patient calm, but does state she is anxious but doesn't want to talk about it. Has trouble finding words at times. Compliant with cares. WCTM.
[2019-06-08] MEDS: MIRTAZAPINE 15 MG TABLET PO SCH (20:36)
[2019-06-08] MEDS: LITHIUM CARBONATE 300 MG TABLET PO SCH (20:36)
[2019-06-08] MEDS: PATCH REMOVAL. MC SCH (20:37)
[2019-06-08] MEDS: MELATONIN 3 MG TABLET PO SCH (20:37)
[2019-06-08] MEDS: PRAZOSIN 1 MG CAPSULE. PO SCH (20:53)
[2019-06-08] MEDS: MAGNESIUM HYDROXIDE 2,400 MG/30 ML ORAL.SUSP. PO PRN (20:53)
--- NOTE | 2019-06-08 22:04 | PDOC ---
Exam Note: Dion Note: Please also refer to the separate dictated note~for this date of service dictated separately.~Patient seen individually. Discussed the patient with Nursing staff reviewed the chart.~Reviewed interim history and current functioning. Reviewed vital signs,~Labs/ Radiology~and current medications noted below. Continue current treatment with the changes noted in the dictated addendum note Assessment: Vital Signs/I&O: Vital Signs Date Time Temp Pulse Resp B/P (MAP) Pulse Ox O2 Delivery O2 Flow Rate FiO2 06/08/19 20:53 72 117/77 06/08/19 15:53 98.1 18 99 06/07/19 15:44 Room Air I & O 06/07/19 06/07/19 06/08/19 14:59 22:59 06:59 Intake Total 600 ml 600 ml Balance 600 ml 600 ml Current Medications: Meds: Current Medications Medications (Trade) Dose Ordered Sig/Angelica Route PRN Reason Start Time Stop Time Status Last Admin Dose Admin Fluticasone Furoate (ARNUITY 200mcg ELLIPTA) 1 puff DAILY INH 06/08/19 09:00 06/08/19 08:04 I have reviewed the current psychotropics carefully including drug interactions. Risk benefit ratio favors no change other than as noted in my dictated progress note. Diagnosis: Problems: (1) Bipolar affective, mixed, sev w/ psych (2) Anxiety disorder (3) Impulse control disorder (4) Schizophrenia, paranoid, chronic with acute exacerbation (5) Schizoaffective disorder, chronic condition with acute exacerbation LISA CAMACHO MD Jun 08, 2019 22:04
--- NOTE | 2019-06-09 | NUR ---
Nursing Note The patient was located in the day room for her medication and assessment. The patient took her medication whole and was pleasant and interactive. The patient joked with this nurse during her assessment and appeared to be in a very pleasant mood. The patient is currently sleeping in her room.
[2019-06-09 05:37] VITALS: BP 100/64
[2019-06-09] MEDS: LEVOTHYROXINE 50 MCG TABLET PO SCH (05:48)
[2019-06-09] MEDS: DOCUSATE 100 MG/10 ML SOLUTION. PO SCH (08:27)
[2019-06-09] MEDS: PANTOPRAZOLE 40 MG TABLET. PO SCH (08:28)
[2019-06-09] MEDS: VITAMIN B COMPLEX CAPSULE. PO SCH (08:28)
[2019-06-09] MEDS: SENNOSIDES 8.6 MG TABLET PO SCH (08:28)
[2019-06-09] MEDS: buPROPion XL 300 MG TAB.ER.24H. PO SCH (08:28)
[2019-06-09] MEDS: LOSARTAN 50 MG TABLET. PO SCH (08:28)
[2019-06-09] MEDS: BENZTROPINE MESYLATE 1 MG TABLET PO SCH ×2 (08:29→19:39)
[2019-06-09] MEDS: MAGNESIUM OXIDE 400 MG TABLET PO SCH ×2 (08:29→19:39)
[2019-06-09] MEDS: FLUTICASONE 50MCG/NASAL SPRAY 16GM BOTTLE. NS SCH (08:29)
[2019-06-09] MEDS: CHOLECALCIFEROL (VITAMIN D3) 1,000 UNIT TABLET PO SCH (08:29)
[2019-06-09] MEDS: FLUTICASONE FUROATE 200mcg/INH ELLIPTA INHALER. INH SCH (08:29)
[2019-06-09] MEDS: POLYETHYLENE GLYCOL 3350 17 GM PACKET. PO SCH (08:29)
[2019-06-09] MEDS: APIXABAN 5 MG TABLET. PO SCH ×2 (08:29→19:39)
[2019-06-09] MEDS: LIDOCAINE (700MG/PATCH) PATCH. TD SCH (08:30)
--- NOTE | 2019-06-09 09:49 | PDOC ---
Exam Note: Dion Note: S/O: This note is a late entry for DOS 06/08/2019 covers elements not covered in my initial note. Discussed the patient with nursing staff, reviewed the chart. The patient was seen on audio-visual rounds in the evening with Jeana DAVID. Nursing report was with Jeana DAVID. She has been somewhat anxious, restless. She is keeping up with the news, quite interested in what is going on around her, more interactive, less tearful, less labile. ROS: Ambulation impaired in wheelchair. No CV, , Pulmonary, Eye system symptoms on review. She has vague somatic symptoms. MSE: She is more interactive, less tearful, less labile. Speech has some latency, coherent. Abstraction fair. Computation impaired. Mood and affect less labile. Labs: Reviewed. Imp: Schizoaffective disorder, bipolar type, mixed with psychotic features, in partial remission. Anxiety disorder unspecified. Rest unchanged. Plan: Continue psychotropics mentioned in my initial note. Assessment: Vital Signs/I&O: Vital Signs Date Time Temp Pulse Resp B/P (MAP) Pulse Ox O2 Delivery O2 Flow Rate FiO2 06/09/19 08:28 60 100/64 06/09/19 05:37 97.4 18 97 06/07/19 15:44 Room Air I & O 06/08/19 06/08/19 06/09/19 15:00 23:00 07:00 Intake Total 720 ml 480 ml Balance 720 ml 480 ml Current Medications: I have reviewed the current psychotropics carefully including drug interactions. Risk benefit ratio favors no change other than as noted in my dictated progress note. Diagnosis: Problems: (1) Bipolar affective, mixed, sev w/ psych (2) Anxiety disorder (3) Impulse control disorder (4) Schizophrenia, paranoid, chronic with acute exacerbation (5) Schizoaffective disorder, chronic condition with acute exacerbation LISA CAMACHO MD Jun 09, 2019 09:49
--- NOTE | 2019-06-09 14:34 | NUR ---
Nursing note: Pt has been in good spirits today, but disorganized. She has spent all day in the day room. Will continue to monitor.
[2019-06-09 15:47] VITALS: BP 118/75
[2019-06-09] MEDS: PRAZOSIN 1 MG CAPSULE. PO SCH (19:38)
[2019-06-09] MEDS: MIRTAZAPINE 15 MG TABLET PO SCH (19:38)
[2019-06-09] MEDS: LITHIUM CARBONATE 300 MG TABLET PO SCH (19:38)
[2019-06-09] MEDS: MELATONIN 3 MG TABLET PO SCH (19:39)
[2019-06-09] MEDS: PATCH REMOVAL. MC SCH (19:40)
[2019-06-09] MEDS: ACETAMINOPHEN 325 MG TABLET PO PRN (19:46)
--- NOTE | 2019-06-09 22:07 | PDOC ---
Exam Note: Dion Note: Please also refer to the separate dictated note~for this date of service dictated separately.~Patient seen individually. Discussed the patient with Nursing staff reviewed the chart.~Reviewed interim history and current functioning. Reviewed vital signs,~Labs/ Radiology~and current medications noted below. Continue current treatment with the changes noted in the dictated addendum note Assessment: Vital Signs/I&O: Vital Signs Date Time Temp Pulse Resp B/P (MAP) Pulse Ox O2 Delivery O2 Flow Rate FiO2 06/09/19 19:38 78 118/75 06/09/19 15:47 98.1 16 97 06/07/19 15:44 Room Air I & O 06/08/19 06/08/19 06/09/19 15:00 23:00 07:00 Intake Total 720 ml 480 ml Balance 720 ml 480 ml Current Medications: I have reviewed the current psychotropics carefully including drug interactions. Risk benefit ratio favors no change other than as noted in my dictated progress note. Diagnosis: Problems: (1) Bipolar affective, mixed, sev w/ psych (2) Anxiety disorder (3) Impulse control disorder (4) Schizophrenia, paranoid, chronic with acute exacerbation (5) Schizoaffective disorder, chronic condition with acute exacerbation LISA CAMACHO MD Jun 09, 2019 22:07
--- NOTE | 2019-06-10 02:34 | NUR ---
Nursing Note The patient was located in the day room for her medication and assessment. The patient took her medication whole and was pleasant and interactive. The patient is currently sleeping in her room.
[2019-06-10] MEDS: LEVOTHYROXINE 50 MCG TABLET PO SCH (05:13)
[2019-06-10 05:59] LABS: BASO % 1 % (0-3); EOS # 0.3 x10^3/uL (0.0-0.7); EOS % 5 % (0-3); HEMATOCRIT 33.1 % (36.0-47.0); HEMOGLOBIN 10.8 g/dL (12.0-15.5); LYMPH # 1.2 x10^3/uL (1.0-4.8); LYMPH % 22 % (24-48); MEAN CORPUSCULAR HEMOGLOBIN 32 pg (25-35); MEAN CORPUSCULAR HGB CONC 33 g/dL (31-37); MEAN CORPUSCULAR VOLUME 97 fL (79-100); MONO # 0.6 x10^3/uL (0.0-1.1); MONO % 11 % (0-9); NEUT # 3.4 x10^3uL (1.8-7.7); NEUT % 61 % (31-73); PLATELET COUNT 359 x10^3/uL (140-400); RED BLOOD COUNT 3.43 x10^6/uL (3.50-5.40); RED CELL DISTRIBUTION WIDTH 13.8 % (11.5-14.5); WHITE BLOOD COUNT 5.6 x10^3/uL (4.0-11.0)
[2019-06-10 06:10] LABS: ALBUMIN 2.8 g/dL (3.4-5.0); ALBUMIN/GLOBULIN RATIO 0.8 (1.0-1.7); CALCIUM 8.7 mg/dL (8.5-10.1); CREATININE 0.9 mg/dL (0.6-1.0); GFR 62.6; POTASSIUM 4.3 mmol/L (3.5-5.1); TOTAL BILIRUBIN 0.2 mg/dL (0.2-1.0); TOTAL PROTEIN 6.4 g/dL (6.4-8.2)
[2019-06-10 06:11] VITALS: BP 100/64
[2019-06-10] MEDS: FLUTICASONE FUROATE 200mcg/INH ELLIPTA INHALER. INH SCH (08:16)
[2019-06-10] MEDS: APIXABAN 5 MG TABLET. PO SCH ×2 (08:17→20:22)
[2019-06-10] MEDS: POLYETHYLENE GLYCOL 3350 17 GM PACKET. PO SCH (08:17)
[2019-06-10] MEDS: LIDOCAINE (700MG/PATCH) PATCH. TD SCH (08:17)
[2019-06-10] MEDS: MAGNESIUM OXIDE 400 MG TABLET PO SCH ×2 (08:17→20:22)
[2019-06-10] MEDS: SENNOSIDES 8.6 MG TABLET PO SCH (08:17)
[2019-06-10] MEDS: buPROPion XL 300 MG TAB.ER.24H. PO SCH (08:18)
[2019-06-10] MEDS: FLUTICASONE 50MCG/NASAL SPRAY 16GM BOTTLE. NS SCH (08:18)
[2019-06-10] MEDS: DOCUSATE 100 MG/10 ML SOLUTION. PO SCH (08:18)
[2019-06-10] MEDS: CHOLECALCIFEROL (VITAMIN D3) 1,000 UNIT TABLET PO SCH (08:18)
[2019-06-10] MEDS: BENZTROPINE MESYLATE 1 MG TABLET PO SCH ×2 (08:18→20:22)
[2019-06-10] MEDS: VITAMIN B COMPLEX CAPSULE. PO SCH (08:18)
[2019-06-10] MEDS: PANTOPRAZOLE 40 MG TABLET. PO SCH (08:18)
[2019-06-10] MEDS: LOSARTAN 50 MG TABLET. PO SCH (08:19)
[2019-06-10 15:50] VITALS: BP 132/83
--- NOTE | 2019-06-10 16:18 | NUR ---
Pt up for meals in wc. Veryy irritable and was picking and choosing meds in am. Compliant with meds after several approaches. Sitting quietly in day room at this time.
[2019-06-10] MEDS: MELATONIN 3 MG TABLET PO SCH (20:22)
[2019-06-10] MEDS: PRAZOSIN 1 MG CAPSULE. PO SCH (20:22)
[2019-06-10] MEDS: MIRTAZAPINE 15 MG TABLET PO SCH (20:23)
[2019-06-10] MEDS: PATCH REMOVAL. MC SCH (20:23)
[2019-06-10] MEDS: LITHIUM CARBONATE 300 MG TABLET PO SCH (20:23)
[2019-06-10 21:15] LABS: BILIRUBIN,URINE NEG (NEG); CLARITY,URINE CLOUDY; COLOR,URINE YELLOW; GLUCOSE,URINE NEG (NEG)
[2019-06-10 21:16] LABS: BACTERIA,URINE FEW /HPF (0-FEW); NITRITE,URINE NEG (NEG); RBC,URINE OCC /HPF (0-2); SQUAMOUS EPITHELIAL CELL,UR OCC /LPF; UROBILINOGEN,URINE 0.2 mg/dL (0.2 mg/dL)
[2019-06-10 21:17] LABS: AMORPHOUS SEDIMENT,UR PRESENT /HPF
--- NOTE | 2019-06-10 22:13 | PDOC ---
Exam Note: Dion Note: Please also refer to the separate dictated note~for this date of service dictated separately.~Patient seen individually. Discussed the patient with Nursing staff reviewed the chart.~Reviewed interim history and current functioning. Reviewed vital signs,~Labs/ Radiology~and current medications noted below. Continue current treatment with the changes noted in the dictated addendum note Assessment: Vital Signs/I&O: Vital Signs Date Time Temp Pulse Resp B/P (MAP) Pulse Ox O2 Delivery O2 Flow Rate FiO2 06/10/19 20:22 76 132/83 06/10/19 15:50 97.8 18 96 06/07/19 15:44 Room Air I & O 06/09/19 06/09/19 06/10/19 15:00 23:00 07:00 Intake Total 480 ml 440 ml Balance 480 ml 440 ml Labs: Laboratory Tests Test 06/10/19 05:49 06/10/19 10:20 White Blood Count 5.6 x10^3/uL (4.0-11.0) Red Blood Count 3.43 x10^6/uL (3.50-5.40) L Hemoglobin 10.8 g/dL (12.0-15.5) L Hematocrit 33.1 % (36.0-47.0) L Mean Corpuscular Volume 97 fL (79-100) Mean Corpuscular Hemoglobin 32 pg (25-35) Mean Corpuscular Hemoglobin Concent 33 g/dL (31-37) Red Cell Distribution Width 13.8 % (11.5-14.5) Platelet Count 359 x10^3/uL (140-400) Neutrophils (%) (Auto) 61 % (31-73) Lymphocytes (%) (Auto) 22 % (24-48) L Monocytes (%) (Auto) 11 % (0-9) H Eosinophils (%) (Auto) 5 % (0-3) H Basophils (%) (Auto) 1 % (0-3) Neutrophils # (Auto) 3.4 x10^3uL (1.8-7.7) Lymphocytes # (Auto) 1.2 x10^3/uL (1.0-4.8) Monocytes # (Auto) 0.6 x10^3/uL (0.0-1.1) Eosinophils # (Auto) 0.3 x10^3/uL (0.0-0.7) Basophils # (Auto) 0.0 x10^3/uL (0.0-0.2) Sodium Level 142 mmol/L (136-145) Potassium Level 4.3 mmol/L (3.5-5.1) Chloride Level 108 mmol/L (98-107) H Carbon Dioxide Level 31 mmol/L (21-32) Anion Gap 3 (6-14) L Blood Urea Nitrogen 17 mg/dL (7-20) Creatinine 0.9 mg/dL (0.6-1.0) Estimated GFR (Cockcroft-Gault) 62.6 BUN/Creatinine Ratio 19 (6-20) Glucose Level 96 mg/dL (70-99) Calcium Level 8.7 mg/dL (8.5-10.1) Total Bilirubin 0.2 mg/dL (0.2-1.0) Aspartate Amino Transferase (AST) 12 U/L (15-37) L Alanine Aminotransferase (ALT) 17 U/L (14-59) Alkaline Phosphatase 90 U/L (46-116) Total Protein 6.4 g/dL (6.4-8.2) Albumin 2.8 g/dL (3.4-5.0) L Albumin/Globulin Ratio 0.8 (1.0-1.7) L Urine Collection Type Unknown Urine Color Yellow Urine Clarity Cloudy Urine pH 7.5 Urine Specific [place] 1.020 Urine Protein Neg (NEG-TRACE) Urine Glucose (UA) Neg mg/dL (NEG) Urine Ketones (Stick) Neg mg/dL (NEG) Urine Blood Neg (NEG) Urine Nitrite Neg (NEG) Urine Bilirubin Neg (NEG) Urine Urobilinogen Dipstick 0.2 mg/dL (0.2 mg/dL) Urine Leukocyte Esterase Mod (NEG) Urine RBC Occ /HPF (0-2) Urine WBC 5-10 /HPF (0-4) Urine Squamous Epithelial Cells Occ /LPF Urine Amorphous Sediment Present /HPF Urine Bacteria Few /HPF (0-FEW) Current Medications: I have reviewed the current psychotropics carefully including drug interactions. Risk benefit ratio favors no change other than as noted in my dictated progress note. Diagnosis: Problems: (1) Bipolar affective, mixed, sev w/ psych (2) Anxiety disorder (3) Impulse control disorder (4) Schizophrenia, paranoid, chronic with acute exacerbation (5) Schizoaffective disorder, chronic condition with acute exacerbation LISA CAMACHO MD Jun 10, 2019 22:13
--- NOTE | 2019-06-10 23:53 | NUR ---
Pt located in the dayroom this evening. When asked how her day was, pt stated "don't ask." Compliant with HS medications. Pt continues to be highly disorganized and has trouble finding her words. Pt unsteady on her feet and is using a wheelchair.
[2019-06-11] MEDS: LEVOTHYROXINE 50 MCG TABLET PO SCH (05:15)
[2019-06-11 05:48] VITALS: BP 109/70
[2019-06-11] MEDS: APIXABAN 5 MG TABLET. PO SCH ×2 (07:50→19:48)
[2019-06-11] MEDS: LIDOCAINE (700MG/PATCH) PATCH. TD SCH (07:50)
[2019-06-11] MEDS: PANTOPRAZOLE 40 MG TABLET. PO SCH (07:50)
[2019-06-11] MEDS: DOCUSATE 100 MG/10 ML SOLUTION. PO SCH (07:50)
[2019-06-11] MEDS: VITAMIN B COMPLEX CAPSULE. PO SCH (07:51)
[2019-06-11] MEDS: buPROPion XL 300 MG TAB.ER.24H. PO SCH (07:51)
[2019-06-11] MEDS: FLUTICASONE 50MCG/NASAL SPRAY 16GM BOTTLE. NS SCH (07:51)
[2019-06-11] MEDS: CHOLECALCIFEROL (VITAMIN D3) 1,000 UNIT TABLET PO SCH (07:51)
[2019-06-11] MEDS: SENNOSIDES 8.6 MG TABLET PO SCH (07:51)
[2019-06-11] MEDS: BENZTROPINE MESYLATE 1 MG TABLET PO SCH ×2 (07:51→19:48)
[2019-06-11] MEDS: MAGNESIUM OXIDE 400 MG TABLET PO SCH ×2 (07:51→19:48)
[2019-06-11] MEDS: POLYETHYLENE GLYCOL 3350 17 GM PACKET. PO SCH (07:51)
[2019-06-11] MEDS: LOSARTAN 50 MG TABLET. PO SCH (07:52)
[2019-06-11] MEDS: FLUTICASONE FUROATE 200mcg/INH ELLIPTA INHALER. INH SCH (07:52)
--- NOTE | 2019-06-11 07:54 | PDOC ---
Exam Note: Dion Note: S/O: This note is a late entry for DOS 06/09/2019 covers elements not covered in my initial note. Discussed the patient with treatment team meeting with the entire team in the morning including Rachel, social service staff, nursing staff, and myself reviewed the chart. Also met with the patient indiv idually in the evening on audio-visual rounds. Nursing report was with Siena DAVID. I have been informed that every patient will be tested in sequence for COVID-19 and disposition plans would be determined by the result of the testing. She slept 7-1/4 hours previous night. She has been disorganized, gets somewhat more confused in the evening, at times has some word finding problems but less- so than before. Appetite is [id number] per nursing report. ROS: Ambulation impaired in wheelchair. No CV, , Pulmonary, Eye system symptoms on review. MSE: As I met with her in the evening on audio-visual rounds, she was stating that she had a difficult day. In fact she gets more anxious as I interact with her. Rest of the day per nursing report she is in fact unwell. She is more interactive, less tearful, less labile. Speech has some latency, coherent. Abstraction fair. Computation impaired. Mood and affect less labile. Labs: Reviewed. Imp: Schizoaffective disorder, bipolar type, mixed with psychotic features, in partial remission. Anxiety disorder unspecified. Rest unchanged. Plan: Continue psychotropics mentioned in my initial note. Social service staff discussed that she will be transitioned to [facility] to a facility where she would be quarantined for 2 weeks before she returns to the community. Assessment: Vital Signs/I&O: Vital Signs Date Time Temp Pulse Resp B/P (MAP) Pulse Ox O2 Delivery O2 Flow Rate FiO2 06/11/19 07:52 66 109/70 06/11/19 05:48 98.1 18 96 06/07/19 15:44 Room Air I & O 06/10/19 06/10/19 06/11/19 15:00 23:00 07:00 Intake Total 480 ml 715 ml Balance 480 ml 715 ml Labs: Laboratory Tests Test 06/10/19 10:20 Urine Collection Type Unknown Urine Color Yellow Urine Clarity Cloudy Urine pH 7.5 Urine Specific [place] 1.020 Urine Protein Neg (NEG-TRACE) Urine Glucose (UA) Neg mg/dL (NEG) Urine Ketones (Stick) Neg mg/dL (NEG) Urine Blood Neg (NEG) Urine Nitrite Neg (NEG) Urine Bilirubin Neg (NEG) Urine Urobilinogen Dipstick 0.2 mg/dL (0.2 mg/dL) Urine Leukocyte Esterase Mod (NEG) Urine RBC Occ /HPF (0-2) Urine WBC 5-10 /HPF (0-4) Urine Squamous Epithelial Cells Occ /LPF Urine Amorphous Sediment Present /HPF Urine Bacteria Few /HPF (0-FEW) Current Medications: I have reviewed the current psychotropics carefully including drug interactions. Risk benefit ratio favors no change other than as noted in my dictated progress note. Diagnosis: Problems: (1) Bipolar affective, mixed, sev w/ psych (2) Anxiety disorder (3) Impulse control disorder (4) Schizophrenia, paranoid, chronic with acute exacerbation (5) Schizoaffective disorder, chronic condition with acute exacerbation LISA CAMACHO MD Jun 11, 2019 07:54
[2019-06-11 15:15] VITALS: BP 132/76
--- NOTE | 2019-06-11 15:46 | NUR ---
Pt up in wc for meals. Has been pleasantly confused. Compliant with meds and cares.
[2019-06-11] MEDS: MELATONIN 3 MG TABLET PO SCH (19:47)
[2019-06-11] MEDS: LITHIUM CARBONATE 300 MG TABLET PO SCH (19:48)
[2019-06-11] MEDS: PRAZOSIN 1 MG CAPSULE. PO SCH (19:48)
[2019-06-11] MEDS: PATCH REMOVAL. MC SCH (19:48)
[2019-06-11] MEDS: MIRTAZAPINE 15 MG TABLET PO SCH (19:48)
--- NOTE | 2019-06-11 22:13 | PDOC ---
Exam Note: Dion Note: Please also refer to the separate dictated note~for this date of service dictated separately.~Patient seen individually. Discussed the patient with Nursing staff reviewed the chart.~Reviewed interim history and current functioning. Reviewed vital signs,~Labs/ Radiology~and current medications noted below. Continue current treatment with the changes noted in the dictated addendum note Assessment: Vital Signs/I&O: Vital Signs Date Time Temp Pulse Resp B/P (MAP) Pulse Ox O2 Delivery O2 Flow Rate FiO2 06/11/19 19:48 82 132/76 06/11/19 15:15 98.1 18 98 Room Air I & O 06/10/19 06/10/19 06/11/19 15:00 23:00 07:00 Intake Total 480 ml 715 ml Balance 480 ml 715 ml Current Medications: I have reviewed the current psychotropics carefully including drug interactions. Risk benefit ratio favors no change other than as noted in my dictated progress note. Diagnosis: Problems: (1) Bipolar affective, mixed, sev w/ psych (2) Anxiety disorder (3) Impulse control disorder (4) Schizophrenia, paranoid, chronic with acute exacerbation (5) Schizoaffective disorder, chronic condition with acute exacerbation LISA CAMACHO MD Jun 11, 2019 22:13
--- NOTE | 2019-06-11 22:45 | NUR ---
Nursing Note The patient was located in the her room for her medication and assessment. The patient took her medication whole and was pleasant and interactive. The patient is currently sleeping in her room.
[2019-06-12] MEDS: LEVOTHYROXINE 50 MCG TABLET PO SCH (05:13)
[2019-06-12 05:58] VITALS: BP 115/75
[2019-06-12] MEDS: DOCUSATE 100 MG/10 ML SOLUTION. PO SCH (07:23)
[2019-06-12] MEDS: POLYETHYLENE GLYCOL 3350 17 GM PACKET. PO SCH (07:23)
[2019-06-12] MEDS: CHOLECALCIFEROL (VITAMIN D3) 1,000 UNIT TABLET PO SCH (07:24)
[2019-06-12] MEDS: PANTOPRAZOLE 40 MG TABLET. PO SCH (07:24)
[2019-06-12] MEDS: APIXABAN 5 MG TABLET. PO SCH ×2 (07:24→19:53)
[2019-06-12] MEDS: BENZTROPINE MESYLATE 1 MG TABLET PO SCH ×2 (07:24→19:53)
[2019-06-12] MEDS: SENNOSIDES 8.6 MG TABLET PO SCH (07:24)
[2019-06-12] MEDS: VITAMIN B COMPLEX CAPSULE. PO SCH (07:24)
[2019-06-12] MEDS: buPROPion XL 300 MG TAB.ER.24H. PO SCH (07:24)
[2019-06-12] MEDS: MAGNESIUM OXIDE 400 MG TABLET PO SCH ×2 (07:24→19:53)
[2019-06-12] MEDS: LIDOCAINE (700MG/PATCH) PATCH. TD SCH (07:25)
[2019-06-12] MEDS: FLUTICASONE 50MCG/NASAL SPRAY 16GM BOTTLE. NS SCH (07:25)
[2019-06-12] MEDS: FLUTICASONE FUROATE 200mcg/INH ELLIPTA INHALER. INH SCH (07:25)
[2019-06-12] MEDS: LOSARTAN 50 MG TABLET. PO SCH (07:27)
--- NOTE | 2019-06-12 07:53 | PDOC ---
Exam Note: Dion Note: note. Discussed the patient nursing staff, reviewed the chart. Also met with the patient individually in the evening on audio-visual rounds. Nursing report was with Sussy RN. She was grouchy in the morning. Later in the day she was appropriate. She gets more confused in the evening and anxious. We will check lithium level. Her COVID throat swab has been completed. ROS: Ambulation impaired in wheelchair. No CV, , Pulmonary, Eye system symptoms on review. MSE: She is more interactive, less tearful, less labile. Speech has some latency, coherent. Abstraction fair. Computation impaired. Mood and affect less labile. Labs: Reviewed. Imp: Schizoaffective disorder, bipolar type, mixed with psychotic features, in partial remission. Anxiety disorder unspecified. Rest unchanged. Plan: Continue psychotropics mentioned in initial note. Assessment: Vital Signs/I&O: Vital Signs Date Time Temp Pulse Resp B/P (MAP) Pulse Ox O2 Delivery O2 Flow Rate FiO2 06/12/19 07:27 63 115/75 06/12/19 05:58 97.9 18 95 06/11/19 15:15 Room Air I & O 06/11/19 06/11/19 06/12/19 15:00 23:00 07:00 Intake Total 840 ml 600 ml Balance 840 ml 600 ml Current Medications: I have reviewed the current psychotropics carefully including drug interactions. Risk benefit ratio favors no change other than as noted in my dictated progress note. Diagnosis: Problems: (1) Bipolar affective, mixed, sev w/ psych (2) Anxiety disorder (3) Impulse control disorder (4) Schizophrenia, paranoid, chronic with acute exacerbation (5) Schizoaffective disorder, chronic condition with acute exacerbation LISA CAMACHO MD Jun 12, 2019 07:53
--- NOTE | 2019-06-12 07:56 | PDOC ---
Exam Note: Dion Note: S/O: This note is a late entry for DOS 06/10/2019 covers elements not covered in my initial note. Discussed the patient nursing staff, reviewed the chart. Also met with the patient individually in the evening on audio-visual rounds. Nursing report was with Sussy DAVID. She was grouchy in the morning. Later in the day she was appropriate. She gets more confused in the evening and anxious. We will check lithium level. Her COVID throat swab has been completed. ROS: Ambulation impaired in wheelchair. No CV, , Pulmonary, Eye system symptoms on review. MSE: She is more interactive, less tearful, less labile. Speech has some latency, coherent. Abstraction fair. Computation impaired. Mood and affect less labile. Labs: Reviewed. Imp: Schizoaffective disorder, bipolar type, mixed with psychotic features, in partial remission. Anxiety disorder unspecified. Rest unchanged. Plan: Continue psychotropics mentioned in initial note. Assessment: Vital Signs/I&O: Vital Signs Date Time Temp Pulse Resp B/P (MAP) Pulse Ox O2 Delivery O2 Flow Rate FiO2 06/12/19 07:27 63 115/75 06/12/19 05:58 97.9 18 95 06/11/19 15:15 Room Air I & O 06/11/19 06/11/19 06/12/19 15:00 23:00 07:00 Intake Total 840 ml 600 ml Balance 840 ml 600 ml Current Medications: I have reviewed the current psychotropics carefully including drug interactions. Risk benefit ratio favors no change other than as noted in my dictated progress note. Diagnosis: Problems: (1) Bipolar affective, mixed, sev w/ psych (2) Anxiety disorder (3) Impulse control disorder (4) Schizophrenia, paranoid, chronic with acute exacerbation (5) Schizoaffective disorder, chronic condition with acute exacerbation LISA CAMACHO MD Jun 12, 2019 07:56
--- NOTE | 2019-06-12 08:11 | PDOC ---
Exam Note: Dion Note: S/O: This note is a late entry for DOS 06/11/2019 covers elements not covered in my initial note. Discussed the patient with nursing staff, reviewed the chart. Also met with the patient individually in the evening on audio-visual rounds. Nursing report was with Sussy DAVID. Her COVID-19 screen has returned negative. She slept 7-1/4 hours. Tool level is 0.7. Previous night she was confused, irritable but better during the day today. ROS: Ambulation impaired in wheelchair. No CV, , Pulmonary, Eye system symptoms on review. MSE: Oriented reasonably. Speech has some latency, coherent. Abstraction fair. Computation impaired. Mood and affect less labile. Labs: Reviewed. UA shows leucocytes, has reflex to culture. We will await this and treat if necessary. Nitrates are negative. Imp: Schizoaffective disorder, bipolar type, mixed with psychotic features, in partial remission. Anxiety disorder unspecified. Rest unchanged. Plan: Continue psychotropics mentioned in initial note. Assessment: Vital Signs/I&O: Vital Signs Date Time Temp Pulse Resp B/P (MAP) Pulse Ox O2 Delivery O2 Flow Rate FiO2 06/12/19 07:27 63 115/75 06/12/19 05:58 97.9 18 95 06/11/19 15:15 Room Air I & O 06/11/19 06/11/19 06/12/19 15:00 23:00 07:00 Intake Total 840 ml 600 ml Balance 840 ml 600 ml Current Medications: I have reviewed the current psychotropics carefully including drug interactions. Risk benefit ratio favors no change other than as noted in my dictated progress note. Diagnosis: Problems: (1) Bipolar affective, mixed, sev w/ psych (2) Anxiety disorder (3) Impulse control disorder (4) Schizophrenia, paranoid, chronic with acute exacerbation (5) Schizoaffective disorder, chronic condition with acute exacerbation LISA CAMACHO MD Jun 12, 2019 08:11
[2019-06-12 15:49] VITALS: BP 111/62
--- NOTE | 2019-06-12 17:31 | NUR ---
Pt was irritable in am. refused to get up for breakfast. Got up for lunch. Was in pleasant spirits. Compliant with meds and cares.
[2019-06-12] MEDS: MELATONIN 3 MG TABLET PO SCH (19:53)
[2019-06-12] MEDS: PATCH REMOVAL. MC SCH (19:53)
[2019-06-12] MEDS: PRAZOSIN 1 MG CAPSULE. PO SCH (19:53)
[2019-06-12] MEDS: LITHIUM CARBONATE 300 MG TABLET PO SCH (19:53)
[2019-06-12] MEDS: MIRTAZAPINE 15 MG TABLET PO SCH (19:53)
--- NOTE | 2019-06-12 22:12 | PDOC ---
Exam Note: Dion Note: Please also refer to the separate dictated note~for this date of service dictated separately.~Patient seen individually. Discussed the patient with Nursing staff reviewed the chart.~Reviewed interim history and current functioning. Reviewed vital signs,~Labs/ Radiology~and current medications noted below. Continue current treatment with the changes noted in the dictated addendum note Assessment: Vital Signs/I&O: Vital Signs Date Time Temp Pulse Resp B/P (MAP) Pulse Ox O2 Delivery O2 Flow Rate FiO2 06/12/19 19:53 87 111/62 06/12/19 15:49 97.3 20 99 06/11/19 15:15 Room Air I & O 06/11/19 06/11/19 06/12/19 15:00 23:00 07:00 Intake Total 840 ml 600 ml Balance 840 ml 600 ml Current Medications: I have reviewed the current psychotropics carefully including drug interactions. Risk benefit ratio favors no change other than as noted in my dictated progress note. Diagnosis: Problems: (1) Bipolar affective, mixed, sev w/ psych (2) Anxiety disorder (3) Impulse control disorder (4) Schizophrenia, paranoid, chronic with acute exacerbation (5) Schizoaffective disorder, chronic condition with acute exacerbation LISA CAMACHO MD Jun 12, 2019 22:12
--- NOTE | 2019-06-12 23:00 | NUR ---
Pt located in her room this evening. Pt disorganized and compliant with HS medications. Pt is currently sleeping in her bed.
[2019-06-13] MEDS: LEVOTHYROXINE 50 MCG TABLET PO SCH (05:34)
[2019-06-13 05:53] VITALS: BP 105/67
[2019-06-13] MEDS ORDERED: DOCUSATE 100 MG/10 ML SOLUTION. PO PRN (06:45)
[2019-06-13] MEDS: PANTOPRAZOLE 40 MG TABLET. PO SCH (08:37)
[2019-06-13] MEDS: buPROPion XL 300 MG TAB.ER.24H. PO SCH (08:37)
[2019-06-13] MEDS: CHOLECALCIFEROL (VITAMIN D3) 1,000 UNIT TABLET PO SCH (08:37)
[2019-06-13] MEDS: LOSARTAN 50 MG TABLET. PO SCH (08:37)
[2019-06-13] MEDS: VITAMIN B COMPLEX CAPSULE. PO SCH (08:37)
[2019-06-13] MEDS: SENNOSIDES 8.6 MG TABLET PO SCH (08:37)
[2019-06-13] MEDS: BENZTROPINE MESYLATE 1 MG TABLET PO SCH ×2 (08:37→19:33)
[2019-06-13] MEDS: LIDOCAINE (700MG/PATCH) PATCH. TD SCH (08:38)
[2019-06-13] MEDS: MAGNESIUM OXIDE 400 MG TABLET PO SCH ×2 (08:38→19:34)
[2019-06-13] MEDS: POLYETHYLENE GLYCOL 3350 17 GM PACKET. PO SCH (08:38)
[2019-06-13] MEDS: APIXABAN 5 MG TABLET. PO SCH ×2 (08:38→19:33)
[2019-06-13] MEDS: FLUTICASONE 50MCG/NASAL SPRAY 16GM BOTTLE. NS SCH (08:38)
[2019-06-13] MEDS: FLUTICASONE FUROATE 200mcg/INH ELLIPTA INHALER. INH SCH (08:39)
--- NOTE | 2019-06-13 10:29 | NUR ---
Nursing note: Pt up in her wheelchair eating breakfast when approached for morning meds and assessment. Pt was pleasantly confused, med compliant, and cooperative with her assessment. Pt stated she did not have much pain, but did request her lidocaine patch be put on her lower back. Will continue to monitor.
[2019-06-13] MEDS: ACETAMINOPHEN 325 MG TABLET PO PRN (14:55)
--- NOTE | 2019-06-13 15:02 | NUR ---
Nursing note: Pt c/o headache. PRN given per eMAR. Pt is currently sitting in her room reading magazines. Will continue to monitor.
--- NOTE | 2019-06-13 15:31 | NUR ---
REJI updated Dulce Maria, via email on pt and informed her that the unit completed COVOID-19 test; which pt came back negative. Dulce Maria wrote: "This is great news! I spoke with my route delivery supervisor and we are fine with brining her back here. Will you be able to give us a copy of the test results with her paperwork? I am following up with staff to see when I can have someone come get her. What are your thoughts on a day/ timeframe to come get her?" REJI did respond back asking Lashae if they will continue quarantine for pt and maris reply was "Yes, we will quarantine her for two weeks before returning to the residential care facility that she lives in" REJI notified the [facility] director who has passed it on to NATALIYA and the program or project administrator. Addendum: 06/14/19 at 1444 by NIDHI MENDOZA Please note, REJI did not speak with Dulce Maria via email. All correspondence for the last couple weeks has been with Lashae.
[2019-06-13 16:03] VITALS: BP 125/79
[2019-06-13] MEDS: MIRTAZAPINE 15 MG TABLET PO SCH (19:33)
[2019-06-13] MEDS: LITHIUM CARBONATE 300 MG TABLET PO SCH (19:34)
[2019-06-13] MEDS: PRAZOSIN 1 MG CAPSULE. PO SCH (19:34)
[2019-06-13] MEDS: MELATONIN 3 MG TABLET PO SCH (19:34)
[2019-06-13] MEDS: PATCH REMOVAL. MC SCH (19:35)
--- NOTE | 2019-06-13 21:42 | NUR ---
Pt resting quietly in bed at shift change. Pt calm, pleasant, disorganized, and confused. Pt cooperative with assessment and compliant with medications administered whole. Pt reports her pain "feels pretty good right now".
--- NOTE | 2019-06-13 22:24 | PDOC ---
Exam Note: Dion Note: Please also refer to the separate dictated note~for this date of service dictated separately.~Patient seen individually. Discussed the patient with Nursing staff reviewed the chart.~Reviewed interim history and current functioning. Reviewed vital signs,~Labs/ Radiology~and current medications noted below. Continue current treatment with the changes noted in the dictated addendum note Assessment: Vital Signs/I&O: Vital Signs Date Time Temp Pulse Resp B/P (MAP) Pulse Ox O2 Delivery O2 Flow Rate FiO2 06/13/19 19:34 77 125/79 06/13/19 16:03 97.6 16 100 Room Air I & O 06/12/19 06/12/19 06/13/19 15:00 23:00 07:00 Intake Total 240 ml 240 ml 120 ml Balance 240 ml 240 ml 120 ml Current Medications: I have reviewed the current psychotropics carefully including drug interactions. Risk benefit ratio favors no change other than as noted in my dictated progress note. Diagnosis: Problems: (1) Bipolar affective, mixed, sev w/ psych (2) Anxiety disorder (3) Impulse control disorder (4) Schizophrenia, paranoid, chronic with acute exacerbation (5) Schizoaffective disorder, chronic condition with acute exacerbation LISA CAMACHO MD Jun 13, 2019 22:24
[2019-06-14] MEDS: LEVOTHYROXINE 50 MCG TABLET PO SCH (05:32)
[2019-06-14 06:17] VITALS: BP 114/68
[2019-06-14 06:21] LABS: BASO % 1 % (0-3); EOS # 0.2 x10^3/uL (0.0-0.7); EOS % 4 % (0-3); HEMATOCRIT 34.7 % (36.0-47.0); HEMOGLOBIN 11.5 g/dL (12.0-15.5); LYMPH # 1.3 x10^3/uL (1.0-4.8); LYMPH % 24 % (24-48); MEAN CORPUSCULAR HEMOGLOBIN 32 pg (25-35); MEAN CORPUSCULAR HGB CONC 33 g/dL (31-37); MEAN CORPUSCULAR VOLUME 96 fL (79-100); MONO # 0.6 x10^3/uL (0.0-1.1); MONO % 11 % (0-9); NEUT # 3.1 x10^3uL (1.8-7.7); NEUT % 60 % (31-73); PLATELET COUNT 397 x10^3/uL (140-400); RED CELL DISTRIBUTION WIDTH 13.3 % (11.5-14.5); WHITE BLOOD COUNT 5.2 x10^3/uL (4.0-11.0)
[2019-06-14 06:45] LABS: ALBUMIN 3.2 g/dL (3.4-5.0); ALBUMIN/GLOBULIN RATIO 0.9 (1.0-1.7); CALCIUM 8.9 mg/dL (8.5-10.1); CREATININE 0.9 mg/dL (0.6-1.0); GFR 62.6; POTASSIUM 4.1 mmol/L (3.5-5.1); TOTAL BILIRUBIN 0.1 mg/dL (0.2-1.0); TOTAL PROTEIN 6.7 g/dL (6.4-8.2)
--- NOTE | 2019-06-14 07:38 | PDOC ---
Exam Note: Dion Note: S/O: This note is a late entry for DOS 06/12/2019 covers elements not covered in my initial note. Discussed the patient with nursing staff, reviewed the chart. Also met with the patient individually in the evening on audio-visual rounds with Tammi DAVID. Nursing report was with Sussy DAVID. She slept 8-1/4 hours. Refused breakfast. Ate her lunch and then did better after that, somewhat irritable in the morning. ROS: Ambulation impaired in wheelchair. No CV, , Pulmonary, Eye system symptoms on review. MSE: Oriented reasonably. Speech has some latency, coherent. Abstraction fair. Computation impaired. Mood and affect less labile. Labs: Reviewed. Imp: Schizoaffective disorder, bipolar type, mixed with psychotic features, in partial remission. Anxiety disorder unspecified. Rest unchanged. Plan: Continue psychotropics mentioned in initial note. Assessment: Vital Signs/I&O: Vital Signs Date Time Temp Pulse Resp B/P (MAP) Pulse Ox O2 Delivery O2 Flow Rate FiO2 06/14/19 06:17 98.2 69 16 114/68 (83) 97 Room Air I & O 06/13/19 06/13/19 06/14/19 15:00 23:00 07:00 Intake Total 720 ml 480 ml Balance 720 ml 480 ml Labs: Laboratory Tests Test 06/14/19 06:12 White Blood Count 5.2 x10^3/uL (4.0-11.0) Red Blood Count 3.60 x10^6/uL (3.50-5.40) Hemoglobin 11.5 g/dL (12.0-15.5) L Hematocrit 34.7 % (36.0-47.0) L Mean Corpuscular Volume 96 fL (79-100) Mean Corpuscular Hemoglobin 32 pg (25-35) Mean Corpuscular Hemoglobin Concent 33 g/dL (31-37) Red Cell Distribution Width 13.3 % (11.5-14.5) Platelet Count 397 x10^3/uL (140-400) Neutrophils (%) (Auto) 60 % (31-73) Lymphocytes (%) (Auto) 24 % (24-48) Monocytes (%) (Auto) 11 % (0-9) H Eosinophils (%) (Auto) 4 % (0-3) H Basophils (%) (Auto) 1 % (0-3) Neutrophils # (Auto) 3.1 x10^3uL (1.8-7.7) Lymphocytes # (Auto) 1.3 x10^3/uL (1.0-4.8) Monocytes # (Auto) 0.6 x10^3/uL (0.0-1.1) Eosinophils # (Auto) 0.2 x10^3/uL (0.0-0.7) Basophils # (Auto) 0.0 x10^3/uL (0.0-0.2) Sodium Level 144 mmol/L (136-145) Potassium Level 4.1 mmol/L (3.5-5.1) Chloride Level 108 mmol/L (98-107) H Carbon Dioxide Level 30 mmol/L (21-32) Anion Gap 6 (6-14) Blood Urea Nitrogen 18 mg/dL (7-20) Creatinine 0.9 mg/dL (0.6-1.0) Estimated GFR (Cockcroft-Gault) 62.6 BUN/Creatinine Ratio 20 (6-20) Glucose Level 87 mg/dL (70-99) Calcium Level 8.9 mg/dL (8.5-10.1) Total Bilirubin 0.1 mg/dL (0.2-1.0) L Aspartate Amino Transferase (AST) 12 U/L (15-37) L Alanine Aminotransferase (ALT) 16 U/L (14-59) Alkaline Phosphatase 94 U/L (46-116) Total Protein 6.7 g/dL (6.4-8.2) Albumin 3.2 g/dL (3.4-5.0) L Albumin/Globulin Ratio 0.9 (1.0-1.7) L Current Medications: I have reviewed the current psychotropics carefully including drug interactions. Risk benefit ratio favors no change other than as noted in my dictated progress note. Diagnosis: Problems: (1) Bipolar affective, mixed, sev w/ psych (2) Anxiety disorder (3) Impulse control disorder (4) Schizophrenia, paranoid, chronic with acute exacerbation (5) Schizoaffective disorder, chronic condition with acute exacerbation LISA CAMACHO MD Jun 14, 2019 07:38
--- NOTE | 2019-06-14 07:53 | PDOC ---
Exam Note: Dion Note: S/O: This note is a late entry for DOS 06/13/2019 covers elements not covered in my initial note. Discussed the patient with nursing staff, reviewed the chart. Also met with the patient individually in the evening on audio-visual rounds with Tammi DAVID. Nursing report was with Elyse DAVID. She slept 7-3/4 h ours. She was irritable in the morning then pleasant and seems more confused. We are awaiting results of urine culture and sensitivity and we will draw CBC, CMP in the morning to make sure there is nothing medically and we will defer her to Dr. Resendez for this. She was conversing with her family over the phone in the evening. ROS: Ambulation impaired in wheelchair. No CV, , Pulmonary, Eye system symptoms on review. She remains somatically preoccupied but part of this is her consequence of anxiety. MSE: Oriented reasonably. Speech has some latency, coherent. Abstraction fair. Computation impaired. Mood and affect less labile. Labs: Reviewed. Imp: Schizoaffective disorder, bipolar type, mixed with psychotic features, in partial remission. Anxiety disorder unspecified. Rest unchanged. Plan: Continue psychotropics mentioned in initial note. Assessment: Vital Signs/I&O: Vital Signs Date Time Temp Pulse Resp B/P (MAP) Pulse Ox O2 Delivery O2 Flow Rate FiO2 06/14/19 06:17 98.2 69 16 114/68 (83) 97 Room Air I & O 06/13/19 06/13/19 06/14/19 14:59 22:59 06:59 Intake Total 720 ml 480 ml Balance 720 ml 480 ml Labs: Laboratory Tests Test 06/14/19 06:12 White Blood Count 5.2 x10^3/uL (4.0-11.0) Red Blood Count 3.60 x10^6/uL (3.50-5.40) Hemoglobin 11.5 g/dL (12.0-15.5) L Hematocrit 34.7 % (36.0-47.0) L Mean Corpuscular Volume 96 fL (79-100) Mean Corpuscular Hemoglobin 32 pg (25-35) Mean Corpuscular Hemoglobin Concent 33 g/dL (31-37) Red Cell Distribution Width 13.3 % (11.5-14.5) Platelet Count 397 x10^3/uL (140-400) Neutrophils (%) (Auto) 60 % (31-73) Lymphocytes (%) (Auto) 24 % (24-48) Monocytes (%) (Auto) 11 % (0-9) H Eosinophils (%) (Auto) 4 % (0-3) H Basophils (%) (Auto) 1 % (0-3) Neutrophils # (Auto) 3.1 x10^3uL (1.8-7.7) Lymphocytes # (Auto) 1.3 x10^3/uL (1.0-4.8) Monocytes # (Auto) 0.6 x10^3/uL (0.0-1.1) Eosinophils # (Auto) 0.2 x10^3/uL (0.0-0.7) Basophils # (Auto) 0.0 x10^3/uL (0.0-0.2) Sodium Level 144 mmol/L (136-145) Potassium Level 4.1 mmol/L (3.5-5.1) Chloride Level 108 mmol/L (98-107) H Carbon Dioxide Level 30 mmol/L (21-32) Anion Gap 6 (6-14) Blood Urea Nitrogen 18 mg/dL (7-20) Creatinine 0.9 mg/dL (0.6-1.0) Estimated GFR (Cockcroft-Gault) 62.6 BUN/Creatinine Ratio 20 (6-20) Glucose Level 87 mg/dL (70-99) Calcium Level 8.9 mg/dL (8.5-10.1) Total Bilirubin 0.1 mg/dL (0.2-1.0) L Aspartate Amino Transferase (AST) 12 U/L (15-37) L Alanine Aminotransferase (ALT) 16 U/L (14-59) Alkaline Phosphatase 94 U/L (46-116) Total Protein 6.7 g/dL (6.4-8.2) Albumin 3.2 g/dL (3.4-5.0) L Albumin/Globulin Ratio 0.9 (1.0-1.7) L Current Medications: I have reviewed the current psychotropics carefully including drug interactions. Risk benefit ratio favors no change other than as noted in my dictated progress note. Diagnosis: Problems: (1) Bipolar affective, mixed, sev w/ psych (2) Anxiety disorder (3) Impulse control disorder (4) Schizophrenia, paranoid, chronic with acute exacerbation (5) Schizoaffective disorder, chronic condition with acute exacerbation LISA CAMACHO MD Jun 14, 2019 07:53
[2019-06-14] MEDS: PANTOPRAZOLE 40 MG TABLET. PO SCH (08:30)
[2019-06-14] MEDS: CHOLECALCIFEROL (VITAMIN D3) 1,000 UNIT TABLET PO SCH (08:30)
[2019-06-14] MEDS: APIXABAN 5 MG TABLET. PO SCH ×2 (08:30→20:19)
[2019-06-14] MEDS: buPROPion XL 300 MG TAB.ER.24H. PO SCH (08:30)
[2019-06-14] MEDS: BENZTROPINE MESYLATE 1 MG TABLET PO SCH ×2 (08:30→20:19)
[2019-06-14] MEDS: LOSARTAN 50 MG TABLET. PO SCH (08:30)
[2019-06-14] MEDS: SENNOSIDES 8.6 MG TABLET PO SCH (08:30)
[2019-06-14] MEDS: VITAMIN B COMPLEX CAPSULE. PO SCH (08:30)
[2019-06-14] MEDS: MAGNESIUM OXIDE 400 MG TABLET PO SCH ×2 (08:30→20:21)
[2019-06-14] MEDS: LIDOCAINE (700MG/PATCH) PATCH. TD SCH (08:31)
[2019-06-14] MEDS: POLYETHYLENE GLYCOL 3350 17 GM PACKET. PO SCH (08:33)
[2019-06-14] MEDS: FLUTICASONE FUROATE 200mcg/INH ELLIPTA INHALER. INH SCH (08:33)
[2019-06-14] MEDS: FLUTICASONE 50MCG/NASAL SPRAY 16GM BOTTLE. NS SCH (08:33)
--- NOTE | 2019-06-14 10:01 | NUR ---
Nursing note: Pt in her room this morning for her meds and assessment. She is med compliant and cooperative with assessment. She had no complaints this morning. She continues to be very disorganized. She is currently sitting in her room. Will continue to monitor.
--- NOTE | 2019-06-14 13:15 | NUR ---
REJI contacted Lashae to let her know that pt could indeed discharge tomorrow. They will plan to pick pt up around 0900 and ask that the medication list be faxed over [facility] so that they can start working on getting pt medications filled. The med list will need to go to [facility] . REJI will e-mail Lashae, per her request on what nurse to ask for re: report purposes.
--- NOTE | 2019-06-14 14:35 | NUR ---
REJI contacted Chris, pt brother/DPOA, to let him know that REJI has received permission to discharge pt back to [facility] tomorrow. REJI has been in contact with Lashae who reports that they will quarantine pt for another 14 days once she returns. Pt will plan to be picked up at 0900. Chris did note that this morning pt seemed a bit delusional, as she asked when Jean-Pierre was going to pick her up. "She hasn't seen Jean-Pierre in over 20 years and he lives in [place]". Pt brother did request to speak with the psychiatrist and REJI will email the psychiatrist to do so.
--- NOTE | 2019-06-14 14:55 | NUR ---
[facility] Social Work Discharge Planning Form Patient Name GURMEET ARRIAZA Admit Date: 05/13/2019 DISCHARGE PLAN Discharge Destination: Pt to discharge to the [facility] on 06/15/2019 @ 0900 Care Assessment: N/A Level II Assessment: N/A Transportation: [facility] to pick pt up around 0900; transporter is Jay Medina Special Instructions/Notes: Please fax over the discharge medication list to the pharmacy listed below. Please also fax copies to the [facility] diving supervisor/case management team. Pt will complete a 14 day quarantine at the [facility] before returning to her residential placement. DISCHARGE TO FACILITY Facility: [facility] Address: [address] [place] [address] Contact Name: Lashae Chang [facility] Plaster Molder: [phone] Contact Name: Please ask for the nurse caring for pt upon admission. PCP: Sees primary care through [facility] Addendum: 06/14/19 at 1518 by NIDHI MENDOZA Please fax scripts/discharge medication list to [facility] at
[2019-06-14 15:40] VITALS: BP 102/70
[2019-06-14 15:42] VITALS: BP 116/77
[2019-06-14] MEDS ORDERED: MIRT15TA PO (16:05)
[2019-06-14] MEDS ORDERED: BENZ1TAB5 PO (16:18)
[2019-06-14] MEDS ORDERED: DOCU50LI PO (16:24)
[2019-06-14] MEDS ORDERED: POLY2500 PO (16:26)
[2019-06-14] MEDS ORDERED: PRAZ1CAP2 PO (16:27)
[2019-06-14] MEDS ORDERED: TRAZ-125 PO (16:28)
[2019-06-14] MEDS ORDERED: FLUT16SP21 NS (16:31)
[2019-06-14] MEDS ORDERED: LITH300C PO (16:33)
[2019-06-14] MEDS ORDERED: HYDR-2155 PO (16:35)
[2019-06-14] MEDS: LITHIUM CARBONATE 300 MG TABLET PO SCH (20:19)
[2019-06-14] MEDS: PRAZOSIN 1 MG CAPSULE. PO SCH (20:20)
[2019-06-14] MEDS: MELATONIN 3 MG TABLET PO SCH (20:20)
[2019-06-14] MEDS: MIRTAZAPINE 15 MG TABLET PO SCH (20:20)
[2019-06-14] MEDS: PATCH REMOVAL. MC SCH (20:20)
--- NOTE | 2019-06-14 21:56 | PDOC ---
Exam Note: Dion Note: Please also refer to the separate dictated note~for this date of service dictated separately.~Patient seen individually. Discussed the patient with Nursing staff reviewed the chart.~Reviewed interim history and current functioning. Reviewed vital signs,~Labs/ Radiology~and current medications noted below. Continue current treatment with the changes noted in the dictated addendum note Assessment: Vital Signs/I&O: Vital Signs Date Time Temp Pulse Resp B/P (MAP) Pulse Ox O2 Delivery O2 Flow Rate FiO2 06/14/19 20:20 79 116/77 06/14/19 15:42 98.1 16 100 06/14/19 06:17 Room Air I & O 06/13/19 06/13/19 06/14/19 15:00 23:00 07:00 Intake Total 720 ml 480 ml Balance 720 ml 480 ml Labs: Laboratory Tests Test 06/14/19 06:12 White Blood Count 5.2 x10^3/uL (4.0-11.0) Red Blood Count 3.60 x10^6/uL (3.50-5.40) Hemoglobin 11.5 g/dL (12.0-15.5) L Hematocrit 34.7 % (36.0-47.0) L Mean Corpuscular Volume 96 fL (79-100) Mean Corpuscular Hemoglobin 32 pg (25-35) Mean Corpuscular Hemoglobin Concent 33 g/dL (31-37) Red Cell Distribution Width 13.3 % (11.5-14.5) Platelet Count 397 x10^3/uL (140-400) Neutrophils (%) (Auto) 60 % (31-73) Lymphocytes (%) (Auto) 24 % (24-48) Monocytes (%) (Auto) 11 % (0-9) H Eosinophils (%) (Auto) 4 % (0-3) H Basophils (%) (Auto) 1 % (0-3) Neutrophils # (Auto) 3.1 x10^3uL (1.8-7.7) Lymphocytes # (Auto) 1.3 x10^3/uL (1.0-4.8) Monocytes # (Auto) 0.6 x10^3/uL (0.0-1.1) Eosinophils # (Auto) 0.2 x10^3/uL (0.0-0.7) Basophils # (Auto) 0.0 x10^3/uL (0.0-0.2) Sodium Level 144 mmol/L (136-145) Potassium Level 4.1 mmol/L (3.5-5.1) Chloride Level 108 mmol/L (98-107) H Carbon Dioxide Level 30 mmol/L (21-32) Anion Gap 6 (6-14) Blood Urea Nitrogen 18 mg/dL (7-20) Creatinine 0.9 mg/dL (0.6-1.0) Estimated GFR (Cockcroft-Gault) 62.6 BUN/Creatinine Ratio 20 (6-20) Glucose Level 87 mg/dL (70-99) Calcium Level 8.9 mg/dL (8.5-10.1) Total Bilirubin 0.1 mg/dL (0.2-1.0) L Aspartate Amino Transferase (AST) 12 U/L (15-37) L Alanine Aminotransferase (ALT) 16 U/L (14-59) Alkaline Phosphatase 94 U/L (46-116) Total Protein 6.7 g/dL (6.4-8.2) Albumin 3.2 g/dL (3.4-5.0) L Albumin/Globulin Ratio 0.9 (1.0-1.7) L Current Medications: I have reviewed the current psychotropics carefully including drug interactions. Risk benefit ratio favors no change other than as noted in my dictated progress note. Diagnosis: Problems: (1) Bipolar affective, mixed, sev w/ psych (2) Anxiety disorder (3) Impulse control disorder (4) Schizophrenia, paranoid, chronic with acute exacerbation (5) Schizoaffective disorder, chronic condition with acute exacerbation LISA CAMACHO MD Jun 14, 2019 21:55
--- NOTE | 2019-06-14 22:22 | NUR ---
Patient was in her bed during evening rounding, took medications whole, allowed for morning assessment. When asked how her evening was going, pt mentioned to the nurse that she was "spending time with her roommate Inge." Pt is scheduled to discharge tomorrow. No agitation noted, pt denies pain. Will continue to monitor.
[2019-06-14] MEDS ORDERED: LIDO700A21 TP (23:26)
[2019-06-14] MEDS ORDERED: MAG30ORA2 PO (23:31)
[2019-06-14] MEDS ORDERED: MAGN296S68 PO (23:32)
[2019-06-14] MEDS ORDERED: MAGN24003 PO (23:37)
[2019-06-14] MEDS ORDERED: MAGN400T44 PO (23:39)
[2019-06-14] MEDS ORDERED: MELA3TAB4 PO (23:44)
[2019-06-14] MEDS ORDERED: METH28OI2 TP (23:46)
[2019-06-14] MEDS ORDERED: SENN8.6T11 PO (23:47)
[2019-06-14] MEDS ORDERED: ACET325T21 PO (23:50)
[2019-06-15 05:03] VITALS: BP 134/77
[2019-06-15] MEDS: LEVOTHYROXINE 50 MCG TABLET PO SCH (05:20)
[2019-06-15] MEDS: BENZTROPINE MESYLATE 1 MG TABLET PO SCH ×2 (07:44→19:56)
[2019-06-15] MEDS: FLUTICASONE FUROATE 200mcg/INH ELLIPTA INHALER. INH SCH (07:45)
[2019-06-15] MEDS: VITAMIN B COMPLEX CAPSULE. PO SCH (07:45)
[2019-06-15] MEDS: SENNOSIDES 8.6 MG TABLET PO SCH (07:45)
[2019-06-15] MEDS: buPROPion XL 300 MG TAB.ER.24H. PO SCH (07:45)
[2019-06-15] MEDS: PANTOPRAZOLE 40 MG TABLET. PO SCH (07:45)
[2019-06-15] MEDS: LOSARTAN 50 MG TABLET. PO SCH (07:45)
[2019-06-15] MEDS: FLUTICASONE 50MCG/NASAL SPRAY 16GM BOTTLE. NS SCH (07:45)
[2019-06-15] MEDS: POLYETHYLENE GLYCOL 3350 17 GM PACKET. PO SCH (07:45)
[2019-06-15] MEDS: APIXABAN 5 MG TABLET. PO SCH ×2 (07:45→19:56)
[2019-06-15] MEDS: CHOLECALCIFEROL (VITAMIN D3) 1,000 UNIT TABLET PO SCH (07:45)
[2019-06-15] MEDS: MAGNESIUM OXIDE 400 MG TABLET PO SCH ×2 (07:45→19:56)
[2019-06-15] MEDS: LIDOCAINE (700MG/PATCH) PATCH. TD SCH (07:57)
--- NOTE | 2019-06-15 09:17 | NUR ---
Nursing note: Pt in her room this morning for meds and assessment. She was compliant with meds whole and cooperative with her assessment. Pt denies pain. No delusions or hallucinations noted. She is currently sitting in her room. Will continue to monitor.
--- NOTE | 2019-06-15 10:45 | DS ---
DATE OF DISCHARGE: 06/15/2019 REASON FOR ADMISSION: Please refer to the admission history for details. Briefly, the patient is a 64-year-old female with a diagnosis of schizophrenia, chronic, undifferentiated type versus schizoaffective disorder, bipolar type, who has been residing at [facility] in [place] and referred on account of worsening psychosis, mood lability. She was reportedly feigning muteness. She appeared disoriented, paranoid, refusing meals. She had failed outpatient psychiatric interventions, referred for inpatient psychiatric stabilization. SIGNIFICANT FINDINGS AND CLINICAL COURSE: Following admission, the patient was seen daily individually by myself from a psychiatric standpoint. Medical followup with Dr. Resendez/Dr. Madrigal. Swisher was added given her schizoaffective disorder diagnosis rather than schizophrenia. She seemed to have a fair amount of affect in her presentation, even though she remained paranoid. She was doing somewhat better on a combination of lithium 300 mg at bedtime with a level at 0.7 on a consistent basis. Previously, we had increased the lithium beyond this, but the level trended on the higher side and we had to reduce the dosage. She was also on Luvox 150 mg at bedtime for her obsessive thought processes, melatonin 6 mg at bedtime for insomnia, Minipress 1 mg at bedtime for some questionable PTSD symptoms, Remeron 15 mg at bedtime, Wellbutrin XL 300 mg a day, Invega Sustenna 234 mg q. 21 days, trazodone 100 mg at bedtime p.r.n., june repeat x 1. She did appear somewhat confused and paranoid prior to discharge and I talked to her brother, Chris, morning of 06/15/2019. Her urine C and S was awaited and could explain some of these symptoms, but if this turned out negative once again as previously then consideration may be given to stopping the lithium in case that is worsening her confusion. I discussed all this with Chris. Prior to discharge on 06/15/2019, no CV, , pulmonary, eye system symptoms on review. MENTAL STATUS EXAM: Oriented to herself and situation. Speech coherent. Has some latency. Abstraction fair, computation impaired, language function intact, attention span short. Mood and affect somewhat anxious, labile, but improved. She had not been mute for an extended period of time prior to discharge. Her hospitalization was prolonged because of COVID-19 exposure on the unit and quarantine mandated by the [place] Department of Health and Environment and the CDC for this on 2 separate occasions. CONDITION AT DISCHARGE: Improved. FINAL DIAGNOSES: Schizoaffective disorder, bipolar type, mixed with psychotic features; rule out urinary tract infection; anxiety disorder, unspecified; impulse control disorder, unspecified; hepatitis C status positive. Rest unchanged from admission. DISCHARGE MEDICATIONS: Please refer to the MRAD. DISCHARGE INSTRUCTIONS: Outpatient psychiatric and medical followup at the facility as arranged prior to discharge. Time for discharge day management greater than 30 minutes. MAN Mamta CAMACHO MD DR: HEMANTH/emily JOB#: [id number] / [id number] keyla [address]mann Dr.
--- NOTE | 2019-06-15 14:30 | NUR ---
Nursing note: Pt got up and walked to the nurses station unassisted. When staff attempted to redirect her and assist her back to her room, pt quickly became upset with staff and was making faces at staff. Pt was able to be redirected and assisted back to her room. When asked about the situation, pt was very disorganized and was unable to explain what happened. Pt is sitting in her room and is in good spirits, laughing and making jokes. Will continue to monitor.
[2019-06-15 15:32] VITALS: BP 126/80
[2019-06-15] MEDS: MIRTAZAPINE 15 MG TABLET PO SCH (19:56)
[2019-06-15] MEDS: MELATONIN 3 MG TABLET PO SCH (19:56)
[2019-06-15] MEDS: LITHIUM CARBONATE 300 MG TABLET PO SCH (19:56)
[2019-06-15] MEDS: HYDROcodone/APAP 5/325MG 1 TAB TABLET PO PRN (19:56)
[2019-06-15] MEDS: PRAZOSIN 1 MG CAPSULE. PO SCH (19:56)
[2019-06-15] MEDS: PATCH REMOVAL. MC SCH (21:00)
--- NOTE | 2019-06-15 21:55 | NUR ---
Nursing Note Pt very disorganized and confused, trying to drink chocolate shake through her surgical mask. Max assist required to get her to ingest meds. Has much difficulty understanding what to do with food and meds. Also, exits her chair and wanders in and out of rooms in the unit. Redirected her back to her room. Complains of pain, lortab given for low back pain.
--- NOTE | 2019-06-15 22:43 | PDOC ---
Exam Note: Dion Note: S/O: This note is a late entry for DOS 06/14/2019 covers elements not covered in my initial note. This is an addendum to psychiatric progress note for DOS 06/14/2019. Discussed the patient with nursing staff, reviewed the chart. The patient was seen on audio-visual rounds in the evening with Elyse DAVID. Edita arevalo report was with Elyse DAVID. She slept 6 hours previous night. At times she seems confused, somewhat disorganized. UA has reflex to culture. Results are awaited. This may account for it partially. I have been informed by social service staff that her brother would like her transition to her facility since they will quarantine her for two weeks and that would be preferable to having her on the unit where there has been some exposure from the COVID-19. At times she still gets somewhat paranoid. At the time of this dictation in the morning at 4.15 a.m., I had a telephone conversation with Chris her brother who was currently residing at [facility] having moved out of [facility] because of the COVID-19 pandemic. Chris had some concerns about the patients ongoing paranoia. We discussed how the UTI could be contributing to it, but if this is negative, final culture and paranoia confusion persists, perhaps the lithium could be stopped at some point by her outpatient psychiatrist Dr. Herrmann. We will send a copy of the discharge summary to Dr. Herrmann and I will be happy to entertain a call from Dr. Herrmann post patients discharge if needed and I conveyed this to the patients brother. ROS: Ambulation impaired in wheelchair. No CV, , Pulmonary, Eye system symptoms on review. Vague somatic symptoms. MSE: Oriented to herself and situation. Speech has some latency, coherent. Abstraction fair. Computation impaired. Language function intact. Attention span is short. Mood and affect somewhat anxious, labile. Labs: Reviewed. Imp: Schizoaffective disorder, bipolar type, mixed with psychotic features, in partial remission. Anxiety disorder unspecified. Rest unchanged. Plan: Continue psychotropics mentioned in initial note. Assessment: Vital Signs/I&O: Vital Signs Date Time Temp Pulse Resp B/P (MAP) Pulse Ox O2 Delivery O2 Flow Rate FiO2 06/15/19 21:17 95 06/15/19 19:56 87 126/80 06/15/19 15:32 98.1 20 06/15/19 05:03 Room Air I & O 06/14/19 06/14/19 06/15/19 15:00 23:00 07:00 Intake Total 360 ml 360 ml Balance 360 ml 360 ml Current Medications: I have reviewed the current psychotropics carefully including drug interactions. Risk benefit ratio favors no change other than as noted in my dictated progress note. Diagnosis: Problems: (1) Bipolar affective, mixed, sev w/ psych (2) Anxiety disorder (3) Impulse control disorder (4) Schizophrenia, paranoid, chronic with acute exacerbation (5) Schizoaffective disorder, chronic condition with acute exacerbation LISA CAMACHO MD Jun 15, 2019 22:43
--- NOTE | 2019-06-15 22:57 | PDOC ---
Exam Note: Dion Note: Dictation # [id number]. DOD 06/15/2019. Please also refer to the separate dictated note~for this date of service dictated separately.~Patient seen individually. Discussed the patient with Nursing staff reviewed the chart.~Reviewed interim history and current functioning. Reviewed vital signs,~Labs/ Radiology~and curr ent medications noted below. Continue current treatment with the changes noted in the dictated addendum note Assessment: Vital Signs/I&O: Vital Signs Date Time Temp Pulse Resp B/P (MAP) Pulse Ox O2 Delivery O2 Flow Rate FiO2 06/15/19 21:17 95 06/15/19 19:56 87 126/80 06/15/19 15:32 98.1 20 06/15/19 05:03 Room Air I & O 06/14/19 06/14/19 06/15/19 15:00 23:00 07:00 Intake Total 360 ml 360 ml Balance 360 ml 360 ml Current Medications: I have reviewed the current psychotropics carefully including drug interactions. Risk benefit ratio favors no change other than as noted in my dictated progress note. Diagnosis: Problems: (1) Bipolar affective, mixed, sev w/ psych (2) Anxiety disorder (3) Impulse control disorder (4) Schizophrenia, paranoid, chronic with acute exacerbation (5) Schizoaffective disorder, chronic condition with acute exacerbation LISA CAMACHO MD Jun 15, 2019 22:57
[2019-06-16] MEDS: LEVOTHYROXINE 50 MCG TABLET PO SCH (06:05)
[2019-06-16 06:26] VITALS: BP 138/57
[2019-06-16] MEDS: POLYETHYLENE GLYCOL 3350 17 GM PACKET. PO SCH (08:22)
[2019-06-16] MEDS: BENZTROPINE MESYLATE 1 MG TABLET PO SCH (08:24)
[2019-06-16] MEDS: VITAMIN B COMPLEX CAPSULE. PO SCH (08:24)
[2019-06-16] MEDS: SENNOSIDES 8.6 MG TABLET PO SCH (08:24)
[2019-06-16] MEDS: CHOLECALCIFEROL (VITAMIN D3) 1,000 UNIT TABLET PO SCH (08:24)
[2019-06-16] MEDS: buPROPion XL 300 MG TAB.ER.24H. PO SCH (08:24)
[2019-06-16] MEDS: MAGNESIUM OXIDE 400 MG TABLET PO SCH (08:24)
[2019-06-16 08:25] VITALS: BP 138/57
[2019-06-16] MEDS: FLUTICASONE FUROATE 200mcg/INH ELLIPTA INHALER. INH SCH (08:25)
[2019-06-16] MEDS: LOSARTAN 50 MG TABLET. PO SCH (08:25)
[2019-06-16] MEDS: FLUTICASONE 50MCG/NASAL SPRAY 16GM BOTTLE. NS SCH (08:25)
[2019-06-16] MEDS: PANTOPRAZOLE 40 MG TABLET. PO SCH (08:25)
[2019-06-16] MEDS: APIXABAN 5 MG TABLET. PO SCH (08:25)
[2019-06-16] MEDS: LIDOCAINE (700MG/PATCH) PATCH. TD SCH ×2 (08:26→08:28)
[2019-06-16] MEDS: PATCH REMOVAL. MC SCH (08:28)
--- NOTE | 2019-06-16 09:10 | DS ---
DATE OF DISCHARGE: 06/16/2019 ADDENDUM: Initially, the patient discharged date 06/15/2019, but transportation could not be arranged and has been postponed to the 06/16/2019. All the elements in the previous dictation remained pertinent for the discharge date 06/16/2019. Overall, the patient has done reasonably overnight. MENTAL STATUS EXAM: The patient is oriented to herself and situation. Speech has some latency, coherent, can be little pressured at times. Abstraction fair, computation impaired, language function intact. No active suicidal or homicidal ideation. She has not been mute. Rest all elements of the discharge summary remain unchanged from . LISA CAMACHO MD DR: HEMANTH/emily JOB#: [id number] / [id number]
--- NOTE | 2019-06-16 10:05 | NUR ---
Transition Record was faxed to follow-up provider with the following elements: Reason for admission, procedures, tests, principal diagnosis, pending studies, patient instructions, 22/09 contact information for unit, phone number to obtain pending test results, plan for follow-up care, physician follow-up, advanced directive information, and medication list with dose, duration and instructions. This information was included in the following documents: History and physical, lab results, study results, progress notes, social work planning form, DC instruction form, patient visit summary, and medication reconciliation form. Date & time record faxed: 06/15/19 0028 Record faxed to: [facility] Record discussed with/ report given to: FRANKIE Peraza
--- NOTE | 2019-06-16 22:43 | PDOC ---
Exam Note: Dion Note: S/O: This note is a late entry for DOS 06/15/2019 covers elements not covered in my initial note. Discussed the patient with nursing staff, reviewed the chart. The patient was seen on audio-visual rounds in the evening with Elyse DAVID. Nursing report was with Elyse DAVID. She slept 7-1/4 hours previous night, somewhat disorganized. I have been informed by Deirdre DAVID nurse plan manager that plan was for the patients discharge on the but transportation could not be obtained. She still has to be quarantined but her facility is going to quarantine her at their end for two weeks because of the COVID-19 exposure. Urine C&S is 10 to 25,000 colonies and we will check with Dr. Resendez if this should be treated not because she is necessarily symptomatic from UTI standpoint but given her confusion. I had lengthy conversation with her brother Chris over the phone. Discussed the diagnosis, progressed the current questionable UTI and discharge plans. At the time I talked to Chris the plan was to be discharged on the but later this was changed to for reasons noted above. Per nursing report the patient was talking to someone who was not there called Inge. When questioned on this, she denied it. ROS: Ambulation impaired in wheelchair. No CV, , Pulmonary, Eye system symptoms on review. MSE: Oriented to herself and situation. Speech has some latency, coherent. She is somewhat distractible. She has not been mute which itself is an improvement. Abstraction fair. Computation impaired. Language function intact. No suicidal or homicidal ideation. Labs: Reviewed. Imp: Schizoaffective disorder, bipolar type, mixed with psychotic features, in partial remission. Anxiety disorder unspecified. Rest unchanged. Plan: We will defer to Dr. Resendez regarding UTI. Continue current psychotropics. [place] level 0.7. Discharge on 06/16/2019. Assessment: Vital Signs/I&O: Vital Signs Date Time Temp Pulse Resp B/P (MAP) Pulse Ox O2 Delivery O2 Flow Rate FiO2 06/16/19 08:25 87 138/57 06/16/19 06:26 98.1 20 95 06/15/19 05:03 Room Air I & O 06/15/19 06/15/19 06/16/19 15:00 23:00 07:00 Intake Total 600 ml 240 ml Balance 600 ml 240 ml Current Medications: I have reviewed the current psychotropics carefully including drug interactions. Risk benefit ratio favors no change other than as noted in my dictated progress note. Diagnosis: Problems: (1) Bipolar affective, mixed, sev w/ psych (2) Anxiety disorder (3) Impulse control disorder (4) Schizophrenia, paranoid, chronic with acute exacerbation (5) Schizoaffective disorder, chronic condition with acute exacerbation LISA CAMACHO MD Jun 16, 2019 22:42
--- NOTE | 2019-06-16 22:45 | PDOC ---
Exam Note: Dion Note: S/O: Dictation #[id number]. This note is a late entry for DOS 06/16/2019 covers elements not covered in my initial note. This is an addendum to psychiatric progress note for DOS 06/16/2019. Discussed the patient with nursing staff, reviewed the chart. The patient was seen on audio-visual rounds in the evening with Elyse DAVID. Nursing report was with Elyse DAVID. ROS: Ambulation impaired in wheelchair. No CV, , Pulmonary, Eye system symptoms on review. Vague somatic symptoms. MSE: Oriented to herself and situation. Speech has some latency, coherent. Abstraction fair. Computation impaired. Language function intact. Attention span is short. Mood and affect somewhat anxious, labile. Labs: Reviewed. Imp: Schizoaffective disorder, bipolar type, mixed with psychotic features, in partial remission. Anxiety disorder unspecified. Rest unchanged. Plan: Continue psychotropics mentioned in initial note. Assessment: Vital Signs/I&O: Vital Signs Date Time Temp Pulse Resp B/P (MAP) Pulse Ox O2 Delivery O2 Flow Rate FiO2 06/16/19 08:25 87 138/57 06/16/19 06:26 98.1 20 95 06/15/19 05:03 Room Air I & O 06/15/19 06/15/19 06/16/19 15:00 23:00 07:00 Intake Total 600 ml 240 ml Balance 600 ml 240 ml Current Medications: I have reviewed the current psychotropics carefully including drug interactions. Risk benefit ratio favors no change other than as noted in my dictated progress note. Diagnosis: Problems: (1) Bipolar affective, mixed, sev w/ psych (2) Anxiety disorder (3) Impulse control disorder (4) Schizophrenia, paranoid, chronic with acute exacerbation (5) Schizoaffective disorder, chronic condition with acute exacerbation LISA CAMACHO MD Jun 16, 2019 22:45
== END 2019-06-16 10:05 | disposition short-term general hospital (02) | DRG 885 ==
LOC: ER 16:02 → GEROPSY 19:24
PROVIDERS: ADMIT Psychiatry & Neurology Psychiatry; ATTEND Psychiatry & Neurology Psychiatry
DX: F25.0 Schizoaffective disorder, bipolar type (principal); R47.01 Aphasia; B18.2 Chronic viral hepatitis C; E03.9 Hypothyroidism, unspecified; F41.1 Generalized anxiety disorder; F63.9 Impulse disorder, unspecified; G47.00 Insomnia, unspecified; K21.9 Gastro-esophageal reflux disease without esophagitis; K59.00 Constipation, unspecified; M15.9 Polyosteoarthritis, unspecified; M81.0 Age-related osteoporosis without current pathological fracture; R29.6 Repeated falls; Z02.9 Encounter for administrative examinations, unspecified; Z20.828 Contact with and (suspected) exposure to other viral communicable diseases; Z79.01 Long term (current) use of anticoagulants; Z79.51 Long term (current) use of inhaled steroids; Z79.899 Other long term (current) drug therapy; Z86.711 Personal history of pulmonary embolism; Z91.14 Patient's other noncompliance with medication regimen; Z91.81 History of falling; F41.9 Anxiety disorder, unspecified; Z98.51 Tubal ligation status; Z88.8 Allergy status to other drugs, medicaments and biological substances; D63.8 Anemia in other chronic diseases classified elsewhere
CPT/HCPCS: 36415; 70450; 80053; 80061; 80178; 80307; 81001; 82140; 82306; 82550; 82607; 83036; 83540; 83550; 83735; 84436; 84443; 84480; 85025; 86592; 87086; 87186; 87635; 93005; 94640; G0480; J2426; J7613; J7626; 99285-25